=== PATIENT | male | born 1980 | race Two or more races ===

== ENCOUNTER 2020-02-25 09:14 | Inpatient (IN) | payer BC ==
[2020-02-25] MEDS ORDERED: NORMAL SALINE 1000 ML 1,000 ML IV ONE (09:41)
[2020-02-25] MEDS ORDERED: MORPHINE SULFATE 10 MG/ML INJ IV ONE ×2 (09:41→10:47)
--- NOTE | 2020-02-25 09:43 | ER Document Report ---
ED GI/ - General Chief Complaint: Abdominal Pain Stated Complaint: ABDOMINAL PAIN Time Seen by Provider: 02/25/20 09:30 Primary Care Provider: RADHA FARRIS [NO LOCAL MD] - Follow up as needed Notes: CHIEF COMPLAINT: Abdominal pain, constipation, fever HPI: 40-year-old male presenting by ambulance for evaluation of worsening abdominal pain over the last 3 days. Has had some nausea vomiting. States he saw his PCP yesterday was diagnosed with H. pylori but medications are not helping. Patient reports 3 days ago he was moving his bowels and had no abdominal pain. States it is generalized in nature. States he has not had a bowel movement in 3 days and reports continued generalized pain now also with chest discomfort from this. ROS: See HPI - all other systems were reviewed and are otherwise negative Constitutional: + fever Eyes: no drainage, no blurred vision ENT: no runny nose, no sore throat Cardiovascular: no chest pain Resp: no SOB, no cough GI: + vomiting, no diarrhea, + abdominal pain, positive constipation : no dysuria Integumentary: no rash, positive diaphoresis Allergy: no hives Musculoskeletal: no extremity pain or swelling Neurological: no numbness/tingling, no weakness MEDICATIONS: I agree with the patient medications as charted by the RN. ALLERGIES: I agree with the allergies as charted by the RN. PAST MEDICAL HISTORY/PAST SURGICAL HISTORY: Reviewed and agree as charted by RN. SOCIAL HISTORY: Reviewed and agree as charted by RN. FAMILY HISTORY: No significant familial comorbid conditions directly related to patient complaint EXAM: Reviewed vital signs as charted by RN. CONSTITUTIONAL: Alert and oriented and responds appropriately to questions. Well-appearing; well-nourished, moderate distress secondary to pain HEAD: Normocephalic; atraumatic EYES: PERRL; Conjunctivae clear, sclerae non-icteric ENT: normal nose; no rhinorrhea; moist mucous membranes; pharynx without lesions noted, no uvula edema or deviation, no tonsillar hypertrophy, phonation normal NECK: Supple without meningismus; non-tender; no cervical lymphadenopathy, no masses CARD: Tachycardic with heart rate 136; no murmurs, no clicks, no rubs, no gallops; symmetric distal pulses RESP: Normal chest excursion without splinting or tachypnea; breath sounds clear and equal bilaterally; no wheezes, no rhonchi, no rales, pulse oximetry 93% on room air mildly hypoxic ABD/GI: Decreased bowel sounds; mildly-distended; mild generalized tenderness on palpation, no rebound, no guarding; no palpable organomegaly or masses. BACK: The back appears normal and is non-tender to palpation, there is no CVA tenderness EXT: Normal ROM in all joints; non-tender to palpation; no cyanosis, no effusions, no edema SKIN: Normal color for age and race; warm; diaphoretic; good turgor; no acute lesions noted NEURO: Moves all extremities equally; Motor and sensory function intact PSYCH: The patient's mood and manner are appropriate. Grooming and personal hygiene are appropriate. MDM: 40-year-old male who reports no significant medical conditions with generalized abdominal pain over the last 3 days with constipation. Patient has low-grade fever, heart rate 136, patient is diaphoretic decreased bowel sounds are noted. No history of abdominal surgeries per the patient. Will obtain screening labs, lactic acid, plan for CT to evaluate for possible surgical or infectious pathology which may include perforation. - Related Data Allergies/Adverse Reactions: No Known Allergies Allergy (Verified 02/25/20 10:07) Past Medical History - Social History Smoking Status: Unknown if Ever Smoked Family History: Reviewed & Not Pertinent Physical Exam - Vital signs Vitals: Temp Pulse Resp BP Pulse Ox 100.3 F 132 H 22 H 135/64 H 90 L 02/25/20 10:06 02/25/20 10:06 02/25/20 10:06 02/25/20 10:06 02/25/20 10:06 Course - Re-evaluation Re-evalutation: 02/25/20 10:47 Patient with a significant leukocytosis of 20,000. Lactic acid 3.1. I have ordered additional IV fluids for sepsis protocol, I have ordered antibiotics. I reviewed the patient's CT awaiting the radiology read I suspect appendicitis. Patient on reexam still very uncomfortable still tachycardic. I have ordered additional pain medication. He does indicate that he is most tender in the right lower quadrant 02/25/20 11:26 Spoke with the radiologist. Patient with acute appendicitis with phlegmon. Also with right renal mass. Spoke with Dr. Braxton, surgery. Discussed the CT findings and lab work. Will admit - Vital Signs Vital signs: Temp Pulse Resp BP Pulse Ox 100.3 F 132 H 22 H 135/64 H 90 L 02/25/20 10:06 02/25/20 10:06 02/25/20 10:06 02/25/20 10:06 02/25/20 10:06 - Laboratory Result Diagrams: 02/25/20 09:46 02/25/20 09:46 Laboratory results interpreted by me: 02/25/20 02/25/20 02/25/20 09:46 09:46 09:46 WBC 20.2 H Monocytes % (Manual) 18 H Abs Neuts (Manual) 12.9 H Abs Monocytes (Manual) 3.6 H Sodium 136.8 L Potassium 3.5 L Carbon Dioxide 21 L Glucose 168 H Lactic Acid 3.1 H Calcium 7.7 L Urine Protein Urine Glucose (UA) Urine Blood 02/25/20 10:09 WBC Monocytes % (Manual) Abs Neuts (Manual) Abs Monocytes (Manual) Sodium Potassium Carbon Dioxide Glucose Lactic Acid Calcium Urine Protein 100 H Urine Glucose (UA) 50 H Urine Blood SMALL H Discharge - Discharge Clinical Impression: Acute phlegmonous appendicitis, Renal mass, right Condition: Stable Disposition: ADMITTED INPATIENT Admitting Provider: Len (Hospitalist) - Dr. Braxton Referrals: LOCALMD,NO [NO LOCAL MD] - Follow up as needed
[2020-02-25 10:04] LABS: HEMATOCRIT 41.9 % (37.9-51.0); HEMOGLOBIN 14.1 g/dL (13.5-17.0); MEAN CORPUSCULAR HEMOGLOBIN 28.1 pg (27.0-33.4); MEAN CORPUSCULAR HGB CONC 33.6 g/dL (32.0-36.0); MEAN CORPUSCULAR VOLUME 84 fl (80-97); PLATELET COUNT 383 10^3/uL (150-450); RED CELL DISTRIBUTION WIDTH 13.7 % (11.5-14.0); WHITE BLOOD COUNT 20.2 10^3/uL (4.0-10.5)
[2020-02-25 10:22] LABS: ALBUMIN 3.5 g/dL (3.5-5.0); ALKALINE PHOSPHATASE 79 U/L (38-126); ANION GAP 10 (5-19); ASPARTATE AMINO TRANSFERASE 22 U/L (17-59); BILIRUBIN,TOTAL 1.1 mg/dL (0.2-1.3); BLOOD UREA NITROGEN 11 mg/dL (7-20); CALCIUM 7.7 mg/dL (8.4-10.2); CARBON DIOXIDE 21 mmol/L (22-30); CHLORIDE 106 mmol/L (98-107); GLUCOSE 168 mg/dL (75-110); POTASSIUM 3.5 mmol/L (3.6-5.0); TOTAL PROTEIN 6.7 g/dL (6.3-8.2)
[2020-02-25 10:25] LABS: APPEARANCE,URINE CLOUDY; BILIRUBIN,URINE NEGATIVE (NEGATIVE); COLOR,URINE YELLOW; GLUCOSE, URINE 50 mg/dL (NEGATIVE); KETONES,URINE NEGATIVE (NEGATIVE); LEUKOCYTE ESTERASE,URINE NEGATIVE (NEGATIVE); NITRITE,URINE NEGATIVE (NEGATIVE); PROTEIN,URINE 100 mg/dL (NEGATIVE); UROBILINOGEN,URINE NEGATIVE mg/dL (<2.0)
[2020-02-25 10:29] LABS: ABSOLUTE LYMPHOCYTES# (MANUAL) 3.6 10^3/uL (0.5-4.7); ABSOLUTE MONOCYTES # (MANUAL) 3.6 10^3/uL (0.1-1.4); BAND NEUTROPHILS % (MANUAL) 3 % (3-5); BASOPHILS % (MANUAL) 0 % (0-2); EOSINOPHILS % (MANUAL) 0 % (0-6); LYMPHOCYTES % (MANUAL) 16 % (13-45); MONOCYTES % (MANUAL) 18 % (3-13); SEGMENTED NEUTROPHILS % (MAN) 61 % (42-78); TOTAL CELLS COUNTED 100
[2020-02-25 10:30] LABS: PLATELET COMMENT ADEQUATE; RBC MORPHOLOGY COMMENT NORMO-CYTIC/CHROMIC
[2020-02-25] MEDS ORDERED: PIPERACILLIN/TAZOBACTAM 3.375 GM VIAL IV ONE (10:43)
[2020-02-25] MEDS ORDERED: RINGERS SOLUTION,LACTATED 1,000 ML IV ONE ×3 (10:44→22:15)
--- NOTE | 2020-02-25 11:08 | RADIOLOGY REPORT (SQ) ---
EXAM DESCRIPTION: CHEST SINGLE VIEW IMAGES COMPLETED DATE/TIME: 02/25/2020 10:12 am REASON FOR STUDY: chest pain COMPARISON: None. EXAM PARAMETERS: NUMBER OF VIEWS: One view. TECHNIQUE: Single frontal radiographic view of the chest acquired. RADIATION DOSE: NA LIMITATIONS: None. FINDINGS: LUNGS AND PLEURA: Low lung volumes limits the examination. Bibasilar mild atelectasis/in filtrate, slightly more so on the right. No pneumothorax or pleural effusion. MEDIASTINUM AND HILAR STRUCTURES: No masses. Contour normal. HEART AND VASCULAR STRUCTURES: Prominence of the cardiomediastinal structures may be in part related to the limited degree of inspiration. Normal vasculature. BONES: No acute findings. HARDWARE: None in the chest. OTHER: No other significant finding. IMPRESSION: 1. Low lung volumes limits the examination. Prominence of the cardiomediastinal struct ures may be in part related to the limited degree of inspiration. 2. Bibasilar mild atelectasis/infiltrate, slightly more so on the right. TECHNICAL DOCUMENTATION: JOB ID: [id number] 2010 [employer]- All Rights Reserved Reading location - IP/workstation name: [email or web address]
[2020-02-25] MEDS ORDERED: PHENYLEPHRINE HCL INJ/PF 10 MG/1 ML SDV ONE (11:25)
[2020-02-25] MEDS ORDERED: KETOROLAC TROMETHAMINE 60 MG/2 ML SDV ONE (11:25)
[2020-02-25] MEDS ORDERED: ROCURONIUM BROMIDE INJ 50 MG/5 ML VIAL IV ONE (11:25)
[2020-02-25] MEDS ORDERED: VECURONIUM BROMIDE INJ 10 MG VIAL IV ONE (11:25)
[2020-02-25] MEDS ORDERED: SUCCINYLCHOLINE CHLORIDE INJ 200 MG/10 ML VIAL ONE (11:25)
--- NOTE | 2020-02-25 11:26 | RADIOLOGY REPORT (SQ) ---
EXAM DESCRIPTION: CT ABD/PELVIS WITH IV ONLY IMAGES COMPLETED DATE/TIME: 02/25/2020 10:40 am REASON FOR STUDY: abd pain COMPARISON: None. TECHNIQUE: CT scan of the abdomen and pelvis performed using helical scanning technique with dynamic intravenous contrast injection. No oral contrast. Images reviewed with lung, soft tissue, and bone windows. Reconstructed coronal and sagittal MPR images reviewed. Delayed images for evaluation of the urinary system also acquired. All images stored on PACS. All CT scanners at this facility use dose modulation, iterative reconstruction, and/or weight based d osing when appropriate to reduce radiation dose to as low as reasonably achievable (ALARA). [facility]: Dose Right [facility]: CareDose [facility]: Dose Right [facility]: Teradose 4D [facility]: Contemporary Analysis CONTRAST TYPE AND DOSE: contrast/concentration: Isovue 350.00 mg/ml; Total Contrast Delivered: 100.0 ml; Total Saline Delivered: 72.0 ml RENAL FUNCTION: Creatinine - 0.69 BUN=11 RADIATION DOSE: CT Rad equipment meets quality standard of care and radiation dose reduction techniq ues were employed. CTDIvol: 18.6 - 21.0 mGy. DLP: 2341 mGy-cm.. LIMITATIONS: None. FINDINGS: LOWER CHEST: Bibasilar mild atelectasis/infiltrate, slightly more so on the right. LIVER: Fatty liver. Hepatomegaly. No dilated ducts. The hepatic and portal veins are patent. SPLEEN: Normal size. No focal lesions. PANCREAS: No masses. No significant calcifications. No adjacent inflammation or peripancreatic fluid collections. Pancreatic duct not dilated. GALLBLADDER: The gallbladder is mildly distended. No identified stones by CT criteria. No inflammat ory changes to suggest cholecystitis. ADRENAL GLANDS: No significant masses or asymmetry. RIGHT KIDNEY AND URETER: A 2.6 x 2.4 cm slightly heterogenous enhancing round mass lower pole of the right kidney with a Hounsfield unit a 44 on the delayed axial images. No significant calcifications . No hydronephrosis or hydroureter. LEFT KIDNEY AND URETER: No solid masses. No significant calcifications. No hydronephrosis or hydr oureter. AORTA AND VESSELS: No aneurysm. No dissection. Renal arteries, SMA, celiac without stenosis. RETROPERITONEUM: No retroperitoneal adenopathy, hemorrhage or masses. BOWEL AND PERITONEAL CAVITY: Constipation right side of the colon. APPENDIX: Abnormal enlarged retrocecal appendix. The appendiceal wall is diffusely thickened and en hancement of the wall is present. Marked kalli-appendiceal soft tissue stranding, haziness and mild f luid. These findings extend to an surround the cecum and ascending colon. Mild free fluid extends i nto the right side of the pelvis. Considerations for these findings include phlegmon. No discrete d rainable abscess. Considerations for this finding includes acute appendicitis. PELVIS: No mass. No free fluid. Normal bladder. ABDOMINAL WALL: No masses. No hernias. BONES: Mild levoconvex scoliosis lumbar spine. OTHER: No other significant finding. IMPRESSION: 1. The constellation of findings as described above suggest acute appendicitis. The ap pendix appears to be retrocecal in location. Fairly extensive phlegmon in the right side of the abdo men. No evidence of drainable abscess. 2. A slightly heterogenous enhancing right renal mass. Correlation with MRI kidney with and without contrast. 3. The gallbladder is mildly distended maybe related to the inflammatory changes in the right side o f the abdomen. 4. Fatty liver. Hepatomegaly. 5. Bibasilar mild atelectasis/infiltrate, slightly more so on the right. COMMENT: 1. The results of this examination were discussed with emergency department provider on at 1107 hours. TECHNICAL DOCUMENTATION: JOB ID: [id number] Quality ID # [id number]: Final reports with documentation of one or more dose reduction techniques (e.g., Au tomated exposure control, adjustment of the mA and/or kV according to patient size, use of iterative reconstruction technique) 2010 [employer]- All Rights Reserved Reading location - IP/workstation name: [email or web address]
[2020-02-25] MEDS ORDERED: FENTANYL CITRATE INJ/PF 100 MCG/2 ML AMPUL IV ONE (11:56)
[2020-02-25] MEDS ORDERED: ACETAMINOPHEN 325 MG TABLET PO ONE (12:03)
[2020-02-25] MEDS ORDERED: HYDROMORPHONE HCL INJ/PF 2 MG/ML AMPULE ONE ×2 (12:22→17:16)
[2020-02-25] MEDS ORDERED: PROPOFOL INJ 200 MG/20 ML VIAL IV ONE (12:22)
[2020-02-25] MEDS ORDERED: MIDAZOLAM 2 MG/2 ML INJ ONE ×4 (12:22→21:32)
[2020-02-25] MEDS ORDERED: FENTANYL CITRATE INJ/PF 100 MCG/2 ML AMPUL ONE (12:22)
--- NOTE | 2020-02-25 12:22 | EKG REPORT ---
SEVERITY:- ABNORMAL ECG - SINUS TACHYCARDIA PROBABLE LEFT ATRIAL ABNORMALITY LEFT VENTRICULAR HYPERTROPHY BORDERLINE T ABNORMALITIES, INFERIOR LEADS : Confirmed by: Andre Diaz MD 25-Feb-2020 12:22:06
[2020-02-25] MEDS ORDERED: BUPIVACAINE HCL 0.25 % INJ/PF (2.5 MG/1 ML) 30 ML VIAL ONE (12:45)
--- NOTE | 2020-02-25 13:23 | PDOC H&P ---
History of Present Illness Admission Date/PCP: 02/25/20 11:48 Patient complains of: Abdominal pains History of Present Illness: JUAN LOPEZ is a 40 year old male who has been complaining of abdominal pains for the past 3 days associated with nausea and vomiting. He went to see his family physician yesterday and given anti-H. pylori medication with no improvement. Came to ED this morning writhing in pain and a CT scan of the abdomen was done which showed acute appendicitis with some phlegmon around the cecum and the fluid. He is tachycardic and his white count is elevated. Social History Smoking Status: Unknown if Ever Smoked Family History Family History: Reviewed & Not Pertinent Parental Family History Reviewed: Yes Children Family History Reviewed: No Sibling(s) Family History Reviewed.: No Medication/Allergy Home Medications: Amoxicillin 500 mg PO Q12 02/25/20 Clarithromycin [Biaxin 500 mg Tablet] 500 mg PO Q12 02/25/20 Omeprazole 20 mg PO BID 02/25/20 Allergies/Adverse Reactions: No Known Allergies Allergy (Verified 02/25/20 10:07) Review of Systems Constitutional: PRESENT: as per HPI Cardiovascular: PRESENT: chest pain Gastrointestinal: PRESENT: abdominal pain, constipation, nausea, vomiting Physical Exam Vital Signs: Temp Pulse Resp BP Pulse Ox 101.1 F H 132 H 50 H 133/71 H 91 L 02/25/20 11:52 02/25/20 10:06 02/25/20 12:03 02/25/20 12:03 02/25/20 11:00 Intake & Output 02/24/20 02/25/20 02/26/20 06:59 06:59 06:59 Intake Total 1000 Balance 1000 Weight 113.398 kg General appearance: PRESENT: severe distress Eye exam: PRESENT: conjunctiva pink Mouth exam: PRESENT: dry mucosa Neck exam: PRESENT: full ROM Respiratory exam: PRESENT: tachypnea Cardiovascular exam: PRESENT: tachycardia Pulses: PRESENT: normal radial pulses Vascular exam: PRESENT: normal capillary refill GI/Abdominal exam: PRESENT: tenderness - Diffuse tenderness with more so at the right lower quadrant Rectal exam: PRESENT: deferred Neurological exam: PRESENT: alert, oriented to person, oriented to place, oriented to time, oriented to situation Psychiatric exam: PRESENT: appropriate affect Skin exam: PRESENT: normal color, warm Results Laboratory Results: 02/25/20 09:46 02/25/20 09:46 02/25/20 02/25/20 02/25/20 09:46 09:46 09:46 WBC 20.2 H RBC 5.00 Hgb 14.1 Hct 41.9 MCV 84 MCH 28.1 MCHC 33.6 RDW 13.7 Plt Count 383 Seg Neutrophils % Not Reportable Sodium 136.8 L Potassium 3.5 L Chloride 106 Carbon Dioxide 21 L Anion Gap 10 BUN 11 Creatinine 0.69 Est GFR ( Amer) > 60 Glucose 168 H Lactic Acid 3.1 H Calcium 7.7 L Total Bilirubin 1.1 AST 22 Alkaline Phosphatase 79 Total Protein 6.7 Albumin 3.5 Lipase 73.9 Urine Color Urine Appearance Urine pH Ur Specific [place] Urine Protein Urine Glucose (UA) Urine Ketones Urine Blood Urine Nitrite Ur Leukocyte Esterase Urine WBC (Auto) Urine RBC (Auto) 02/25/20 10:09 WBC RBC Hgb Hct MCV MCH MCHC RDW Plt Count Seg Neutrophils % Sodium Potassium Chloride Carbon Dioxide Anion Gap BUN Creatinine Est GFR ( Amer) Glucose Lactic Acid Calcium Total Bilirubin AST Alkaline Phosphatase Total Protein Albumin Lipase Urine Color YELLOW Urine Appearance CLOUDY Urine pH 6.0 Ur Specific [place] 1.020 Urine Protein 100 H Urine Glucose (UA) 50 H Urine Ketones NEGATIVE Urine Blood SMALL H Urine Nitrite NEGATIVE Ur Leukocyte Esterase NEGATIVE Urine WBC (Auto) 4 Urine RBC (Auto) 7 02/25/20 09:46 Troponin I < 0.012 Impressions: Chest X-Ray 02/25/20 09:41 IMPRESSION: 1. Low lung volumes limits the examination. Prominence of the cardiomediastinal structures may be in part related to the limited degree of inspiration. 2. Bibasilar mild atelectasis/infiltrate, slightly more so on the right. Abdomen/Pelvis CT 02/25/20 09:42 IMPRESSION: 1. The constellation of findings as described above suggest acute appendicitis. The appendix appears to be retrocecal in location. Fairly extensive phlegmon in the right side of the abdomen. No evidence of drainable abscess. 2. A slightly heterogenous enhancing right renal mass. Correlation with MRI kidney with and without contrast. 3. The gallbladder is mildly distended maybe related to the inflammatory changes in the right side of the abdomen. 4. Fatty liver. Hepatomegaly. 5. Bibasilar mild atelectasis/infiltrate, slightly more so on the right. Assessment & Plan - Diagnosis (1) Acute phlegmonous appendicitis Is this a current diagnosis for this admission?: Yes (2) Renal mass, right Is this a current diagnosis for this admission?: Yes - Time Time Spent: 30 to 50 Minutes - Inpatient Certification Medical Necessity: Need For IV Fluids, Need for Pain Control, Need for IV Antibiotics, Need for Surgery - Plan Summary Plan Summary: Plans: 1 start hydration and IV antibiotics 2 OR for laparoscopic appendectomy possible open
[2020-02-25] MEDS ORDERED: SODIUM BICARBONATE 8.4% INJ 50 MEQ/50 ML DISP.SYRIN ONE (13:50)
[2020-02-25] MEDS ORDERED: ONDANSETRON HCL INJ/PF 4 MG/2 ML SDV IV PRN (14:18)
[2020-02-25] MEDS ORDERED: MORPHINE SULFATE 10 MG/ML INJ IV PRN ×2 (14:18→16:45)
[2020-02-25] MEDS ORDERED: OXYCODONE-ACETAMINOPHEN 5-325 MG TABLET PO PRN (14:18)
[2020-02-25] MEDS ORDERED: PROMETHAZINE HCL INJ 25 MG/1 ML VIAL IV PRN (14:18)
[2020-02-25] MEDS ORDERED: MEPERIDINE HCL/PF INJ 25 MG/1 ML DISP.SYRIN IV PRN (14:18)
[2020-02-25] MEDS ORDERED: FENTANYL CITRATE INJ/PF 100 MCG/2 ML AMPUL IV PRN ×3 (14:18)
[2020-02-25] MEDS ORDERED: DIPHENHYDRAMINE HCL 50 MG/ML VIAL IV PRN (14:18)
[2020-02-25] MEDS ORDERED: ACETAMINOPHEN 1,000 MG/100 ML RTUPB IV ONE (15:46)
[2020-02-25] MEDS ORDERED: ALBUMIN HUMAN 12.5 GM/50 ML RTUINJ IV ONE (16:00)
[2020-02-25] MEDS ORDERED: DEXTROSE 5%-LACTATED RINGERS 1,000 ML IV PRN (16:45)
--- NOTE | 2020-02-25 17:13 | Operative Report ---
Operative Report DATE OF SURGERY: 02/25/20 PREOPERATIVE DIAGNOSIS: Acute appendicitis POSTOPERATIVE DIAGNOSIS: Acute perforated appendicitis with peritonitis OPERATION: Exploratory laparotomy,appendectomy SURGEON: HERIBERTO DANIELS ANESTHESIA: GA TISSUE REMOVED OR ALTERED: Appendix COMPLICATIONS: Small serosal tear in the ascending colon ESTIMATED BLOOD LOSS: 100 cc QUANTITATIVE BLOOD LOSS: 100 INTRAOPERATIVE FINDINGS: Generalized peritonitis, retrocecal appendix adherent to the cecum going towards the hepatic flexure with perforation of the tip of the appendix PROCEDURE: After adequate general anesthesia patient was placed in supine position and the abdomen prepped and draped in the usual sterile fashion. Appropriate timeout was called. Next an infraumbilical vertical incision was made fascia identified grasped with 2 Dayne clamps and divided between the 2 Dayne clamps. The abdominal cavity was then palpated and some purulent material extruded out. A Lee trocar was then inserted. CO2 insufflated to pressure 15 mmHg. On exploration of the abdomen there appears to be a lot of light purulent yellowish material. Appendix cannot be identified. Because of this the operation was then converted to an open. Next a midline incision was then made from the umbilicus down to the symphysis pubis and superiorly around the umbilicus to about 2 inches above. Midline fascia was open and with the use of retractors appendix stump is noted and noted to be somewhat firm and dilated. Plus followed proximally by dividing some of the lateral gutter wall. Appendix was then bluntly dissected all the way up towards the area of the hepatic flexure. Was then bluntly dissected and adhesions divided with use of cautery. The tip of the appendix was then released and appears to have a perforation. Also there appears to be a very small area of serosal tear the ascending colon and this was then repaired with 3 simple sutures using 2-0 silk. Next the appendix was then bluntly dissected and also with the use of harmonic julia down to its base. The base the cecum appears to be not involved with inflammation and this was subsequently stapled with a 30 mm blue load staple and divided just above the staple line. Hemostat was placed just above the staple area on the appendix. Next a specimen was then completely removed and passed off the table to be sent to pathology. The abdominal cavity was then copiously irrigated with at least 8 L of saline until all the return flow was clear. The small bowel was run from the ileum to the ligament of Treitz and showed no evidence of inflammation or any injury. Next couple of drains were placed one in the left lower quadrant brought up to the area of the appendix and subhepatic area the. It was then anchored to the skin with 2-0 silk. Another drain was then passed through the left lower quadrant and passed down to the pelvis on the right side and the tip right at the area of the appendiceal stump. NG tube was then inserted by anesthesia and palpated well into the stomach. Fascia was then reapproximated using 0 PDS starting from the top then at the bottom and meeting just below the umbilicus and tied together. Subcu was left open and untied sutures using #2 nylon were placed. A Betadine soaked Kerlix was then placed over the sutures on the incision site. Sterile 4 x 4 and ABD pads were placed over the incision. The wound was left open to be closed on delayed primary closure at bedside in about 2 or 3 days. Patient tolerated the procedure fairly well. However is not stable enough to be extubated and therefore brought to the intensive care unit still intubated. Patient tolerated procedure fairly well. Needle instrument sponge count were all correct and estimated blood loss about 100 cc
[2020-02-25] MEDS ORDERED: DEXMEDETOMIDINE IN 0.9 % NACL 400 MCG/100 ML RTUPB IV ONE (17:14)
[2020-02-25] MEDS: DEXMEDETOMIDINE IN 0.9 % NACL 400 MCG/100 ML RTUPB IV PRN (17:15)
[2020-02-25] MEDS: HYDROMORPHONE HCL INJ/PF 2 MG/ML AMPULE IV PRN ×2 (17:16→22:10)
--- NOTE | 2020-02-25 18:14 | CRITICAL CARE ADMISSION REPORT ---
HPI Date:: 02/25/20 Time:: 17:00 Reason for ICU Reason:: Intubated post op HPI: This patient is a 40 yo man sick for 3 days with abdominal pain. He presented to the ED where he was found to have an acute abdomen and taken to the OR where a perforated appendix was discovered. An appendectomy was done, adhesions were taken down and the abdomen was irrigated with up to 9L of irrigant. 2 NADER drains were placed. He was septic on admission and required neosynephrine in the OR but not post op.The abdomen was closed but the skin and subQ left open. History obtained from:: Surgeon and records - Diagnosis/Plan (1) Sepsis associated hypotension Is this a current diagnosis for this admission?: Yes Plan: Present on admission and still active in the immediate post-op phase. His low BP likely due to dehydration and anesthesia. (2) Intubation of airway performed without difficulty Is this a current diagnosis for this admission?: Yes Plan: He will stay intubated overnight while his fluid balance settles and his sepsis is treated. (3) Acute phlegmonous appendicitis Is this a current diagnosis for this admission?: Yes Plan: Treated with surgery. - . Plan Summary: Leave intubated overnight and hope to extubate in AM Social/Family History - Social History Smoking Status: Unknown if Ever Smoked - Medication/Allergies Home Medications: Amoxicillin 500 mg PO Q12 02/25/20 Clarithromycin [Biaxin 500 mg Tablet] 500 mg PO Q12 02/25/20 Omeprazole 20 mg PO BID 02/25/20 Allergies/Adverse Reactions: No Known Allergies Allergy (Verified 02/25/20 10:07) Review of Systems ROS unobtainable: Due to endotracheal tube Physical Exam Vital Signs: Temp Pulse Resp BP Pulse Ox 101.1 F H 132 H 50 H 133/71 H 100 02/25/20 11:52 02/25/20 10:06 02/25/20 12:03 02/25/20 12:03 02/25/20 16:42 Intake & Output 02/24/20 02/25/20 02/26/20 06:59 06:59 06:59 Intake Total 92476 Output Total 9500 Balance 1000 Weight 113.398 kg Weight/Height Weight 113.398 kg Height 5 ft 5 in General appearance: PRESENT: no acute distress, morbidly obese Head exam: PRESENT: atraumatic, normocephalic Eye exam: PRESENT: conjunctiva pink, EOMI, PERRLA. ABSENT: scleral icterus Ear exam: PRESENT: normal external ear exam Mouth exam: PRESENT: moist, tongue midline Respiratory exam: PRESENT: clear to auscultation daisy. ABSENT: rales, rhonchi, wheezes Cardiovascular exam: PRESENT: RRR, tachycardia. ABSENT: diastolic murmur, rubs, systolic murmur GI/Abdominal exam: PRESENT: normal bowel sounds, soft, other - NADER X 2 with serosanguinous drainage. Abdominal compartment pressure 10-12. ABSENT: distended, guarding, mass, organolmegaly, rebound, tenderness Laboratory/Radiographs Laboratory Results: 02/25/20 09:46 02/25/20 09:46 02/25/20 02/25/20 02/25/20 09:46 09:46 09:46 WBC 20.2 H RBC 5.00 Hgb 14.1 Hct 41.9 MCV 84 MCH 28.1 MCHC 33.6 RDW 13.7 Plt Count 383 Seg Neutrophils % Not Reportable Sodium 136.8 L Potassium 3.5 L Chloride 106 Carbon Dioxide 21 L Anion Gap 10 BUN 11 Creatinine 0.69 Est GFR ( Amer) > 60 Glucose 168 H Lactic Acid 3.1 H Calcium 7.7 L Total Bilirubin 1.1 AST 22 Alkaline Phosphatase 79 Total Protein 6.7 Albumin 3.5 Lipase 73.9 Urine Color Urine Appearance Urine pH Ur Specific Celestine Urine Protein Urine Glucose (UA) Urine Ketones Urine Blood Urine Nitrite Ur Leukocyte Esterase Urine WBC (Auto) Urine RBC (Auto) 02/25/20 10:09 WBC RBC Hgb Hct MCV MCH MCHC RDW Plt Count Seg Neutrophils % Sodium Potassium Chloride Carbon Dioxide Anion Gap BUN Creatinine Est GFR ( Amer) Glucose Lactic Acid Calcium Total Bilirubin AST Alkaline Phosphatase Total Protein Albumin Lipase Urine Color YELLOW Urine Appearance CLOUDY Urine pH 6.0 Ur Specific Cel[place] 1.020 Urine Protein 100 H Urine Glucose (UA) 50 H Urine Ketones NEGATIVE Urine Blood SMALL H Urine Nitrite NEGATIVE Ur Leukocyte Esterase NEGATIVE Urine WBC (Auto) 4 Urine RBC (Auto) 7 02/25/20 09:46 Troponin I < 0.012 Impressions: Chest X-Ray 02/25/20 09:41 IMPRESSION: 1. Low lung volumes limits the examination. Prominence of the cardiomediastinal structures may be in part related to the limited degree of inspiration. 2. Bibasilar mild atelectasis/infiltrate, slightly more so on the right. Abdomen/Pelvis CT 02/25/20 09:42 IMPRESSION: 1. The constellation of findings as described above suggest acute appendicitis. The appendix appears to be retrocecal in location. Fairly extensive phlegmon in the right side of the abdomen. No evidence of drainable abscess. 2. A slightly heterogenous enhancing right renal mass. Correlation with MRI kidney with and without contrast. 3. The gallbladder is mildly distended maybe related to the inflammatory changes in the right side of the abdomen. 4. Fatty liver. Hepatomegaly. 5. Bibasilar mild atelectasis/infiltrate, slightly more so on the right. EKG: ST [facility] All labs, radiographs, diagnostic studies and EKGs were personally reviewed: Yes In addition, reports of radiographic and diagnostic studies were read: Yes Critical Time Critical Time (minutes): 40 -: The care of a critically ill patient is dynamic. This note represents a static moment in the admission process. Orders and treatments may be given simultaneously and urgently, and time is not petroleum products sales representative of the treatment process. This patient requires Critical Care secondary to life threatening organ or limb dysfunction. Without Critical Care services, the patient is at risk for increased mortality and morbidity.
[2020-02-25] MEDS: METRONIDAZOLE 500 MG/NS RTU 500 MG/100 ML RTUPB IV SCH ×2 (18:30→23:19)
[2020-02-25] MEDS: PANTOPRAZOLE SODIUM 40 MG VIAL IV SCH (18:32)
[2020-02-25] MEDS ORDERED: MIDAZOLAM 2 MG/2 ML INJ IV ONE ×2 (20:30→22:15)
[2020-02-25] MEDS ORDERED: KETAMINE HCL INJ 500 MG/10 ML VIAL ONE ×3 (20:32→21:58)
[2020-02-25] MEDS: MIDAZOLAM HCL 50 MG/100 ML RTUINJ IV PRN (21:10)
--- NOTE | 2020-02-25 21:10 | RADIOLOGY REPORT (SQ) ---
EXAM DESCRIPTION: CLINICAL HISTORY: 40 years Male ETT placement confirmation COMPARISON: 02/25/2020 FINDINGS: Poor depth of inspiration. Endotracheal tube is 2.5 cm above the elias. Linear atelectasis in the left lung base increasing when compared to the prior. Nasogastric tube in the gastric body. IMPRESSION: ET tube above the elias Increasing atelectasis in the left lung base
[2020-02-25 21:15] LABS: ANION GAP 8 (5-19); BLOOD UREA NITROGEN 17 mg/dL (7-20); CALCIUM 7.4 mg/dL (8.4-10.2); CARBON DIOXIDE 22 mmol/L (22-30); CHLORIDE 105 mmol/L (98-107); GLUCOSE 139 mg/dL (75-110); PHOSPHORUS 4.2 mg/dL (2.5-4.5)
[2020-02-25 21:23] LABS: POTASSIUM 4.5 mmol/L (3.6-5.0)
[2020-02-25] MEDS ORDERED: MIDAZOLAM HCL 50 MG/100 ML RTUINJ ONE (21:32)
[2020-02-25] MEDS ORDERED: NOREPINEPHRINE BITARTRATE INJ/PF 4 MG/4 ML SDV IV ONE (21:46)
[2020-02-25] MEDS ORDERED: DEXTROSE 5%-WATER 250 ML with NOREPINEPHRINE BITARTRATE 4 MG IV PRN ×2 (21:57)
--- NOTE | 2020-02-25 22:13 | Operative Report ---
Bedside Procedure - History of Present Illness History of Present Illness: This patient is a 40 yo man with septic perforated appendicitis s/p ex-lap with appendectomy and large volume irrigation who remains with refractory hypotension despite multiple liters of crystalloid solution boluses. He was on Phenylephrine infusion intraoperatively and now appears to need resumption of vasopressor therapy for septic shock. PROCEDURE: ARTERIAL LINE PROCEDURALIST: MELI WHITE PRE-PROCEDURE DX: REFRACTORY HYPOTENSION, septic shock POST-PROCEDURE DX: REFRACTORY HYPOTENSION, septic shock ANESTHESIA: 3 ML 1% LIDOCAINE COMPLICATIONS: NONE Patient placed in proper procedural position followed by prepping and draping in usual sterile fashion. Utilizing ultrasound, the left radial artery was identified and found to be pulsating without evidence of thrombus in the mid radius region. An 18-gauge 4.5 cm preloaded catheter over 20-gauge introducer needle was visualized entering the left radial artery with return of pulsatile blood. The catheter was advanced over the needle into the left radial artery and the needle was removed, again noting pulsatile blood from the catheter. The catheter was sutured into place noting a good arterial waveform on the monitor, a sterile occlusive transparent dressing was applied, and a pressure tubing was connected to the catheter in usual fashion. Indication for Procedure: Refractory Hypotension Date: 02/25/20 Provider: SHADE WYATT
[2020-02-25] MEDS: CIPROFLOXACIN 400 MG/D5W RTU 400 MG/200 ML RTUPB IV SCH (22:15)
[2020-02-25] MEDS: KETAMINE HCL IV PRN ×2 (22:25)
[2020-02-25] MEDS: NORMAL SALINE IV PRN ×2 (22:25)
[2020-02-25] MEDS: MAGNESIUM SULFATE/D5W 1 GM/100 ML RTUPB IV SCH (23:11)
[2020-02-25] MEDS ORDERED: DEXTROSE 40% GEL 15 GM TUBE PO PRN ×2 (23:34)
[2020-02-25] MEDS ORDERED: GLUCAGON,HUMAN RECOMB 1 MG INJ IM PRN (23:34)
[2020-02-25] MEDS ORDERED: DEXTROSE 50%-WATER 25 GM/50 ML DISP.SYRIN IV PRN ×2 (23:34)
[2020-02-25 23:38] LABS: ARTERIAL BLOOD BASE EXCESS -1.4 mmol/L; ARTERIAL BLOOD H2CO3 1.45 mmol/L (1.05-1.35); ARTERIAL BLOOD HCO3 24.9 mmol/L (20-24); ARTERIAL BLOOD O2 SATURATION 94.9 % (94-98); ARTERIAL BLOOD PCO2 48.3 mmHg (35-45); ARTERIAL BLOOD PH 7.33 (7.35-7.45); ARTERIAL BLOOD PO2 79.7 mmHg (80-100); ARTERIAL BLOOD TOTAL CO2 26.4 mmol/L (23-27)
[2020-02-25] MEDS ORDERED: KETAMINE HCL INJ 500 MG/10 ML VIAL IV ONE (23:40)
[2020-02-25] MEDS: INSULIN REG, HUMAN 100 UNIT/ML 3 ML VIAL (PYX) SUBCUT SCH (23:49)
[2020-02-25 23:50] LABS: ARTERIAL BLOOD FIO2 50%
[2020-02-25] MEDS: RINGERS SOLUTION,LACTATED 1,000 ML IV PRN (23:50)
[2020-02-26] MEDS: MAGNESIUM SULFATE/D5W 1 GM/100 ML RTUPB IV SCH ×3 (00:07→02:12)
[2020-02-26 00:18] LABS: URINE CREATININE 374.9 mg/dL (22-328)
[2020-02-26] MEDS: NORMAL SALINE IV PRN ×4 (00:29→02:48)
[2020-02-26] MEDS: KETAMINE HCL IV PRN ×4 (00:29→02:48)
[2020-02-26] MEDS: HYDROMORPHONE HCL INJ/PF 2 MG/ML AMPULE IV PRN ×5 (01:34→19:27)
[2020-02-26] MEDS ORDERED: KETAMINE HCL INJ 500 MG/10 ML VIAL ONE (02:32)
[2020-02-26] MEDS: MIDAZOLAM HCL 50 MG/100 ML RTUINJ IV PRN (05:10)
[2020-02-26] MEDS: RINGERS SOLUTION,LACTATED 1,000 ML IV PRN ×3 (05:12→16:41)
[2020-02-26] MEDS ORDERED: DEXMEDETOMIDINE IN 0.9 % NACL 400 MCG/100 ML RTUPB IV PRN (05:41)
[2020-02-26] MEDS: METRONIDAZOLE 500 MG/NS RTU 500 MG/100 ML RTUPB IV SCH ×4 (05:49→23:03)
[2020-02-26 05:56] LABS: ARTERIAL BLOOD BASE EXCESS -3.4 mmol/L; ARTERIAL BLOOD H2CO3 1.35 mmol/L (1.05-1.35); ARTERIAL BLOOD HCO3 22.6 mmol/L (20-24); ARTERIAL BLOOD O2 SATURATION 91.9 % (94-98); ARTERIAL BLOOD PCO2 44.7 mmHg (35-45); ARTERIAL BLOOD PH 7.32 (7.35-7.45); ARTERIAL BLOOD PO2 67.1 mmHg (80-100)
[2020-02-26 05:57] LABS: ARTERIAL BLOOD FIO2 40%
[2020-02-26] MEDS ORDERED: ACETAMINOPHEN 1,000 MG/100 ML RTUPB IV ONE ×2 (06:00→21:30)
[2020-02-26] MEDS ORDERED: METHOCARBAMOL INJ/PF 1000 MG/10 ML SDV IV ONE (06:00)
[2020-02-26] MEDS: INSULIN REG, HUMAN 100 UNIT/ML 3 ML VIAL (PYX) SUBCUT SCH ×4 (06:01→23:07)
[2020-02-26 06:08] LABS: ABSOLUTE LYMPHOCYTES (AUTO) 0.9 10^3/uL (0.5-4.7); ABSOLUTE MONOCYTES (AUTO) 0.9 10^3/uL (0.1-1.4); ABSOLUTE NEUT (AUTO) 6.7 10^3/uL (1.7-8.2); BASOPHILS % (AUTO) 0.1 % (0-2); HEMATOCRIT 33.7 % (37.9-51.0); LYMPHOCYTES % (AUTO) 10.2 % (13-45); MEAN CORPUSCULAR HEMOGLOBIN 28.5 pg (27.0-33.4); MEAN CORPUSCULAR HGB CONC 33.6 g/dL (32.0-36.0); MEAN CORPUSCULAR VOLUME 85 fl (80-97); MONOCYTES % (AUTO) 10.8 % (3-13); PLATELET COUNT 211 10^3/uL (150-450); RED BLOOD COUNT 3.97 10^6/uL (4.35-5.55); RED CELL DISTRIBUTION WIDTH 13.7 % (11.5-14.0); SEGMENTED NEUTROPHILS % (AUTO) 78.9 % (42-78); TOTAL CELLS COUNTED % (AUTO) 100 %; WHITE BLOOD COUNT 8.5 10^3/uL (4.0-10.5)
[2020-02-26 06:11] LABS: BLOOD UREA NITROGEN 21 mg/dL (7-20); CALCIUM 7.1 mg/dL (8.4-10.2); CHLORIDE 104 mmol/L (98-107); GLUCOSE 116 mg/dL (75-110); POTASSIUM 4.7 mmol/L (3.6-5.0)
[2020-02-26 06:12] LABS: HEMOGLOBIN 11.3 g/dL (13.5-17.0)
[2020-02-26 06:16] LABS: ANION GAP 5 (5-19); CARBON DIOXIDE 26 mmol/L (22-30)
[2020-02-26] MEDS: CIPROFLOXACIN 400 MG/D5W RTU 400 MG/200 ML RTUPB IV SCH ×2 (10:47→21:45)
[2020-02-26] MEDS: PANTOPRAZOLE SODIUM 40 MG VIAL IV SCH (10:48)
[2020-02-26] MEDS: DEXMEDETOMIDINE IN 0.9 % NACL 400 MCG/100 ML RTUPB IV PRN ×5 (10:49→21:25)
[2020-02-26] MEDS: ENOXAPARIN SODIUM INJ 40 MG/0.4 ML DISP.SYRIN SUBCUT SCH (10:50)
--- NOTE | 2020-02-26 10:54 | PDOC PROGRESS REPORT ---
Subjective Progress Note for:: 02/26/20 Subjective:: Is still intubated and for possible extubation today Reason For Visit: PERFORATED ACUTE APPENDICITIS WITH PERITONITIS Physical Exam Vital Signs: Temp Pulse Resp BP Pulse Ox 102.6 F H 86 24 H 93/52 L 92 02/26/20 10:00 02/26/20 10:00 02/26/20 10:00 02/26/20 10:00 02/26/20 10:00 Intake & Output 02/25/20 02/26/20 02/27/20 06:59 06:59 06:59 Intake Total 24636 Output Total 13612 145 Balance 6776 -145 Weight 125.4 kg Exam: His abdomen is soft and dressing is without blood. Wound is left open for possi ble delayed primary closure in 24 to 48 hours. NG tube has only about 100 cc of greenish fluid. Results Laboratory Results: 02/26/20 05:37 02/26/20 05:37 02/25/20 02/25/20 02/25/20 20:24 20:24 23:29 WBC RBC Hgb Hct MCV MCH MCHC RDW Plt Count Seg Neutrophils % Carbonic Acid 1.45 H HCO3/H2CO3 Ratio 17:1 ABG pH 7.33 L ABG pCO2 48.3 H ABG pO2 79.7 L ABG HCO3 24.9 H ABG O2 Saturation 94.9 ABG Base Excess -1.4 FiO2 50% Sodium 135.3 L Potassium 4.5 D Chloride 105 Carbon Dioxide 22 Anion Gap 8 BUN 17 Creatinine 1.07 Est GFR ( Amer) > 60 Glucose 139 H Lactic Acid 5.4 H Calcium 7.4 L Ionized Calcium [place] Phosphorus 4.2 Magnesium 1.5 L 02/26/20 02/26/20 02/26/20 05:37 05:37 05:37 WBC 8.5 RBC 3.97 L Hgb 11.3 L D Hct 33.7 L MCV 85 MCH 28.5 MCHC 33.6 RDW 13.7 Plt Count 211 Seg Neutrophils % 78.9 H Carbonic Acid 1.35 HCO3/H2CO3 Ratio 16:1 ABG pH 7.32 L ABG pCO2 44.7 ABG pO2 67.1 L ABG HCO3 22.6 ABG O2 Saturation 91.9 L ABG Base Excess -3.4 FiO2 40% Sodium 135.1 L Potassium 4.7 Chloride 104 Carbon Dioxide 26 Anion Gap 5 BUN 21 H Creatinine 0.97 Est GFR ( Amer) > 60 Glucose 116 H Lactic Acid Calcium 7.1 L Ionized Calcium [place] 1.03 L Phosphorus Magnesium 02/26/20 05:37 WBC RBC Hgb Hct MCV MCH MCHC RDW Plt Count Seg Neutrophils % Carbonic Acid HCO3/H2CO3 Ratio ABG pH ABG pCO2 ABG pO2 ABG HCO3 ABG O2 Saturation ABG Base Excess FiO2 Sodium Potassium Chloride Carbon Dioxide Anion Gap BUN Creatinine Est GFR ( Amer) Glucose Lactic Acid 1.2 Calcium Ionized Calcium [place] Phosphorus Magnesium 02/25/20 09:46 Troponin I < 0.012 Impressions: Chest X-Ray 02/25/20 09:41 IMPRESSION: 1. Low lung volumes limits the examination. Prominence of the cardiomediastinal structures may be in part related to the limited degree of inspiration. 2. Bibasilar mild atelectasis/infiltrate, slightly more so on the right. Abdomen/Pelvis CT 02/25/20 09:42 IMPRESSION: 1. The constellation of findings as described above suggest acute appendicitis. The appendix appears to be retrocecal in location. Fairly extensive phlegmon in the right side of the abdomen. No evidence of drainable abscess. 2. A slightly heterogenous enhancing right renal mass. Correlation with MRI kidney with and without contrast. 3. The gallbladder is mildly distended maybe related to the inflammatory changes in the right side of the abdomen. 4. Fatty liver. Hepatomegaly. 5. Bibasilar mild atelectasis/infiltrate, slightly more so on the right. Assessment & Plan - Diagnosis (1) Acute phlegmonous appendicitis Is this a current diagnosis for this admission?: Yes (2) Renal mass, right Is this a current diagnosis for this admission?: Yes - Time Critical Time spent with patient: 15-24 minutes - Inpatient Certification Medical Necessity: Need Close Monitoring Due to Risk of Patient Decompensation, Need for IV Antibiotics - Plan Summary Plan Summary: Patient is postop day #1 post exploratory laparotomy with appendectomy and abdominal lavage for peritonitis. Patient still intubated and possible extubation today by the aerosol supervisor. His WBC is normal this morning Plans: Continue IV antibiotics. Once extubated possible discontinuation of the NG tube and start on ice chips or sips of clear liquids.
--- NOTE | 2020-02-26 13:21 | PDOC CRITICAL CARE PROG REPORT ---
General Date:: 02/26/20 ICU Day:: 2 Ventilator Day:: 2 Hospital Day:: 2 Resuscitation Status: Full Code Events in the past 12 to 24 Hours:: Had surgery for ruptured appendicitis. Weaning ventilator. Review of systems relevant to events:: GI Respiratory. Reason for ICU Addmission:: Intubated post op - Medications: Medications reviewed and adjusted accordingly: Yes Vasopressors:: None Sedation:: Versed, precedex. Physical Exam Vital Signs: Temp Pulse Resp BP Pulse Ox 102.6 F H 86 24 H 93/52 L 92 02/26/20 10:00 02/26/20 10:00 02/26/20 10:00 02/26/20 10:00 02/26/20 10:00 Intake & Output 02/25/20 02/26/20 02/27/20 06:59 06:59 06:59 Intake Total 68256 1057 Output Total 67569 145 Balance 6776 912 Weight 125.4 kg Weight/Height Weight 125.4 kg Height 5 ft 5 in General appearance: PRESENT: no acute distress, morbidly obese Head exam: PRESENT: atraumatic, normocephalic Eye exam: PRESENT: conjunctiva pink, EOMI, PERRLA. ABSENT: scleral icterus Ear exam: PRESENT: normal external ear exam Mouth exam: PRESENT: moist, tongue midline Respiratory exam: PRESENT: clear to auscultation daisy. ABSENT: rales, rhonchi, wheezes Cardiovascular exam: PRESENT: RRR. ABSENT: diastolic murmur, rubs, systolic murmur GI/Abdominal exam: PRESENT: normal bowel sounds, soft, other - Wound open. Healing by secondary intension.. ABSENT: distended, guarding, mass, organolmegaly, rebound, tenderness Rectal exam: PRESENT: deferred Gentrourinary exam: PRESENT: indwelling catheter Extremities exam: PRESENT: full ROM. ABSENT: calf tenderness, clubbing, pedal edema Musculoskeletal exam: PRESENT: normal inspection Neurological exam: PRESENT: other - Sedated. Skin exam: PRESENT: dry, intact, warm. ABSENT: cyanosis, rash Tubes/Lines: PRESENT: Endotracheal Tube, Central Line, Nasogastic Tube Laboratory/Radiographs Laboratory Results: 02/26/20 05:37 02/26/20 05:37 04/16/20 04/16/20 04/16/20 20:24 20:24 23:29 WBC RBC Hgb Hct MCV MCH MCHC RDW Plt Count Seg Neutrophils % Carbonic Acid 1.45 H HCO3/H2CO3 Ratio 17:1 ABG pH 7.33 L ABG pCO2 48.3 H ABG pO2 79.7 L ABG HCO3 24.9 H ABG O2 Saturation 94.9 ABG Base Excess -1.4 FiO2 50% Sodium 135.3 L Potassium 4.5 D Chloride 105 Carbon Dioxide 22 Anion Gap 8 BUN 17 Creatinine 1.07 Est GFR ( Amer) > 60 Glucose 139 H Lactic Acid 5.4 H Calcium 7.4 L Ionized Calcium [place] Phosphorus 4.2 Magnesium 1.5 L 02/26/20 02/26/20 02/26/20 05:37 05:37 05:37 WBC 8.5 RBC 3.97 L Hgb 11.3 L D Hct 33.7 L MCV 85 MCH 28.5 MCHC 33.6 RDW 13.7 Plt Count 211 Seg Neutrophils % 78.9 H Carbonic Acid 1.35 HCO3/H2CO3 Ratio 16:1 ABG pH 7.32 L ABG pCO2 44.7 ABG pO2 67.1 L ABG HCO3 22.6 ABG O2 Saturation 91.9 L ABG Base Excess -3.4 FiO2 40% Sodium 135.1 L Potassium 4.7 Chloride 104 Carbon Dioxide 26 Anion Gap 5 BUN 21 H Creatinine 0.97 Est GFR ( Amer) > 60 Glucose 116 H Lactic Acid Calcium 7.1 L Ionized Calcium [place] 1.03 L Phosphorus Magnesium 02/26/20 05:37 WBC RBC Hgb Hct MCV MCH MCHC RDW Plt Count Seg Neutrophils % Carbonic Acid HCO3/H2CO3 Ratio ABG pH ABG pCO2 ABG pO2 ABG HCO3 ABG O2 Saturation ABG Base Excess FiO2 Sodium Potassium Chloride Carbon Dioxide Anion Gap BUN Creatinine Est GFR ( Amer) Glucose Lactic Acid 1.2 Calcium Ionized Calcium [place] Phosphorus Magnesium 02/25/20 09:46 Troponin I < 0.012 Impressions: Chest X-Ray 02/25/20 09:41 IMPRESSION: 1. Low lung volumes limits the examination. Prominence of the cardiomediastinal structures may be in part related to the limited degree of inspiration. 2. Bibasilar mild atelectasis/infiltrate, slightly more so on the right. Abdomen/Pelvis CT 02/25/20 09:42 IMPRESSION: 1. The constellation of findings as described above suggest acute appendicitis. The appendix appears to be retrocecal in location. Fairly extensive phlegmon in the right side of the abdomen. No evidence of drainable abscess. 2. A slightly heterogenous enhancing right renal mass. Correlation with MRI kidney with and without contrast. 3. The gallbladder is mildly distended maybe related to the inflammatory changes in the right side of the abdomen. 4. Fatty liver. Hepatomegaly. 5. Bibasilar mild atelectasis/infiltrate, slightly more so on the right. All labs, radiographs, diagnostic studies and EKGs were personally reviewed: Yes In addition, reports of radiographic and diagnostic studies were read: Yes Assessment and Plan - Diagnosis (1) Sepsis associated hypotension Is this a current diagnosis for this admission?: Yes Plan: His sepsis should be resolved however he is still spiking fever to 102.7 and fluids still going at 200 cc / hr. He still has a levophed requirement. (2) Intubation of airway performed without difficulty Is this a current diagnosis for this admission?: Yes Plan: Weaning succesfully right now. (3) Acute phlegmonous appendicitis Is this a current diagnosis for this admission?: Yes Plan: Treated with surgery. Plan Summary: Extubate if he meets criteria. Critical Time Critical Time (minutes): 35 Level of Care: ICU Anticipated discharge: Home Within: Other -: 1. The care of a critical patient is a dynamic process. This note is a development representative synopsis but static in nature. The timeframe for treatments given in order is not necessarily the actual time these treatments may have been done. 2. This patient requires critical care secondary to ongoing requirements for therapy not offered or safe outside the critical care environment. Transfer to a lower level of care will result in altered life or limb morbidity and mortality. 3. Multidisciplinary rounds completed. 4. ABCDE bundle addressed.
--- NOTE | 2020-02-26 15:28 | CDI QUERY ---
CDI Query CDI Review: Dear Provider: To better reflect your patients severity of illness, morbidity, and resource utilization Please specify and document in the Progress Notes and Discharge Summary if you are monitoring / treating / evaluating any of the following conditions: Query Clinical indicators Morbid Obesity / BMI 41.51 Overweight / BMI 41.51kg/m2 Unable to determine Other Ht. 5 ft 5 in Wt 249.48 lbs (113.398 kg) BMI 41 The terms probable, suspected, likely, possible or still to be ruled out may be used if you are unable to determine the exact nature of a condition. Thank you for your consideration, Clinical Documentation [facility] HAYDEE Trevino RN HAYDEE Wright Office [phone] Office [phone]
[2020-02-26] MEDS ORDERED: HYDROMORPHONE HCL INJ/PF 2 MG/ML AMPULE ONE (20:46)
[2020-02-26] MEDS ORDERED: HYDROMORPHONE HCL INJ/PF 2 MG/ML AMPULE IV ONE (21:00)
[2020-02-26 21:59] LABS: HEMATOCRIT 29.1 % (37.9-51.0); HEMOGLOBIN 9.8 g/dL (13.5-17.0); MEAN CORPUSCULAR HEMOGLOBIN 28.6 pg (27.0-33.4); MEAN CORPUSCULAR HGB CONC 33.8 g/dL (32.0-36.0); MEAN CORPUSCULAR VOLUME 85 fl (80-97); PLATELET COUNT 193 10^3/uL (150-450); RED BLOOD COUNT 3.45 10^6/uL (4.35-5.55); RED CELL DISTRIBUTION WIDTH 13.6 % (11.5-14.0); WHITE BLOOD COUNT 6.6 10^3/uL (4.0-10.5)
[2020-02-26 22:20] LABS: ANION GAP 6 (5-19); BLOOD UREA NITROGEN 32 mg/dL (7-20); CALCIUM 7.2 mg/dL (8.4-10.2); CARBON DIOXIDE 24 mmol/L (22-30); CHLORIDE 105 mmol/L (98-107); GLUCOSE 112 mg/dL (75-110); POTASSIUM 4.5 mmol/L (3.6-5.0)
[2020-02-26] MEDS: HYDROMORPHONE HCL 30 MG/60 ML RTUINJ IV PRN (23:08)
[2020-02-27] MEDS: DEXMEDETOMIDINE IN 0.9 % NACL 400 MCG/100 ML RTUPB IV PRN ×4 (03:35→23:30)
[2020-02-27] MEDS: RINGERS SOLUTION,LACTATED 1,000 ML IV PRN ×2 (03:51→18:54)
[2020-02-27 04:20] LABS: ARTERIAL BLOOD BASE EXCESS -1.2 mmol/L; ARTERIAL BLOOD H2CO3 1.46 mmol/L (1.05-1.35); ARTERIAL BLOOD HCO3 25.1 mmol/L (20-24); ARTERIAL BLOOD O2 SATURATION 90.5 % (94-98); ARTERIAL BLOOD PCO2 48.4 mmHg (35-45); ARTERIAL BLOOD PH 7.33 (7.35-7.45); ARTERIAL BLOOD PO2 63.1 mmHg (80-100); ARTERIAL BLOOD TOTAL CO2 26.5 mmol/L (23-27)
[2020-02-27 04:21] LABS: ARTERIAL BLOOD FIO2 45%
[2020-02-27] MEDS ORDERED: ACETAMINOPHEN 1,000 MG/100 ML RTUPB IV ONE (05:00)
[2020-02-27] MEDS: INSULIN REG, HUMAN 100 UNIT/ML 3 ML VIAL (PYX) SUBCUT SCH ×4 (05:06→23:28)
[2020-02-27] MEDS: METRONIDAZOLE 500 MG/NS RTU 500 MG/100 ML RTUPB IV SCH ×4 (05:20→23:27)
--- NOTE | 2020-02-27 07:55 | PDOC PROGRESS REPORT ---
Subjective Progress Note for:: 02/27/20 Subjective:: intubated Reason For Visit: PERFORATED ACUTE APPENDICITIS WITH PERITONITIS Physical Exam Vital Signs: Temp Pulse Resp BP Pulse Ox 102.2 F H 84 18 101/59 L 97 02/27/20 07:32 02/27/20 07:32 02/27/20 07:32 02/27/20 07:32 02/27/20 07:32 Intake & Output 02/26/20 02/27/20 02/28/20 06:59 06:59 06:59 Intake Total 76742 4512 Output Total 59552 1175 60 Balance 6776 3337 -60 Weight 125.4 kg 130.3 kg General appearance: PRESENT: no acute distress, morbidly obese Head exam: PRESENT: normocephalic Eye exam: PRESENT: EOMI Mouth exam: PRESENT: moist Neck exam: PRESENT: full ROM Respiratory exam: PRESENT: rhonchi Cardiovascular exam: PRESENT: RRR Pulses: PRESENT: normal carotid pulses, normal radial pulses, normal femoral pulses Vascular exam: PRESENT: normal capillary refill Breast: PRESENT: Normal GI/Abdominal exam: PRESENT: other - wound open, clean Gentrourinary exam: PRESENT: indwelling catheter Extremities exam: PRESENT: +2 edema Musculoskeletal exam: PRESENT: other Neurological exam: PRESENT: other - intiubated Psychiatric exam: PRESENT: other Focused psych exam: PRESENT: other Skin exam: PRESENT: dry Results Laboratory Results: 02/26/20 21:47 02/26/20 21:47 02/26/20 02/26/20 02/26/20 21:47 21:47 21:47 WBC 6.6 RBC 3.45 L Hgb 9.8 L Hct 29.1 L MCV 85 MCH 28.6 MCHC 33.8 RDW 13.6 Plt Count 193 Carbonic Acid HCO3/H2CO3 Ratio ABG pH ABG pCO2 ABG pO2 ABG HCO3 ABG O2 Saturation ABG Base Excess FiO2 Sodium 134.8 L Potassium 4.5 Chloride 105 Carbon Dioxide 24 Anion Gap 6 BUN 32 H Creatinine 1.13 Est GFR ( Amer) > 60 Glucose 112 H Lactic Acid Calcium 7.2 L Ionized Calcium [place] 0.99 L Phosphorus 3.0 Magnesium 2.7 H 02/26/20 02/27/20 21:47 04:15 WBC RBC Hgb Hct MCV MCH MCHC RDW Plt Count Carbonic Acid 1.46 H HCO3/H2CO3 Ratio 17:1 ABG pH 7.33 L ABG pCO2 48.4 H ABG pO2 63.1 L ABG HCO3 25.1 H ABG O2 Saturation 90.5 L ABG Base Excess -1.2 FiO2 45% Sodium Potassium Chloride Carbon Dioxide Anion Gap BUN Creatinine Est GFR ( Amer) Glucose Lactic Acid 0.8 Calcium Ionized Calcium [place] Phosphorus Magnesium 02/25/20 09:46 Troponin I < 0.012 Impressions: Chest X-Ray 02/25/20 09:41 IMPRESSION: 1. Low lung volumes limits the examination. Prominence of the cardiomediastinal structures may be in part related to the limited degree of inspiration. 2. Bibasilar mild atelectasis/infiltrate, slightly more so on the right. Abdomen/Pelvis CT 02/25/20 09:42 IMPRESSION: 1. The constellation of findings as described above suggest acute appendicitis. The appendix appears to be retrocecal in location. Fairly extensive phlegmon in the right side of the abdomen. No evidence of drainable abscess. 2. A slightly heterogenous enhancing right renal mass. Correlation with MRI kidney with and without contrast. 3. The gallbladder is mildly distended maybe related to the inflammatory changes in the right side of the abdomen. 4. Fatty liver. Hepatomegaly. 5. Bibasilar mild atelectasis/infiltrate, slightly more so on the right. Assessment & Plan - Plan Summary Plan Summary: s/p perfed appendicitis no labs ordered this am still on ventilator off pressors wound open with untied nylon surtures clean repacked urine op marginal plan, check labs cmp, cbc cardiology nurse to manage extubation poss today 'cont iv abx
[2020-02-27] MEDS ORDERED: SODIUM PHOS,M-BASIC-D-BASIC 30 MMOL in NORMAL SALINE 250 ML IV ONE (08:00)
[2020-02-27 08:13] LABS: ABSOLUTE LYMPHOCYTES (AUTO) 1.5 10^3/uL (0.5-4.7); ABSOLUTE MONOCYTES (AUTO) 1.1 10^3/uL (0.1-1.4); ABSOLUTE NEUT (AUTO) 6.3 10^3/uL (1.7-8.2); BASOPHILS % (AUTO) 0.4 % (0-2); EOSINOPHILS % (AUTO) 0.5 % (0-6); HEMATOCRIT 29.8 % (37.9-51.0); MEAN CORPUSCULAR HEMOGLOBIN 28.6 pg (27.0-33.4); MEAN CORPUSCULAR HGB CONC 33.6 g/dL (32.0-36.0); MEAN CORPUSCULAR VOLUME 85 fl (80-97); MONOCYTES % (AUTO) 12.4 % (3-13); PLATELET COUNT 215 10^3/uL (150-450); RED CELL DISTRIBUTION WIDTH 13.7 % (11.5-14.0); SEGMENTED NEUTROPHILS % (AUTO) 69.7 % (42-78); TOTAL CELLS COUNTED % (AUTO) 100 %
[2020-02-27 08:29] LABS: ALBUMIN 2.5 g/dL (3.5-5.0); ALKALINE PHOSPHATASE 50 U/L (38-126); ANION GAP 5 (5-19); ASPARTATE AMINO TRANSFERASE 111 U/L (17-59); BILIRUBIN,DIRECT 0.2 mg/dL (0.0-0.4); BILIRUBIN,TOTAL 0.7 mg/dL (0.2-1.3); BLOOD UREA NITROGEN 36 mg/dL (7-20); CALCIUM 7.6 mg/dL (8.4-10.2); CARBON DIOXIDE 26 mmol/L (22-30); CHLORIDE 106 mmol/L (98-107); GLUCOSE 82 mg/dL (75-110); POTASSIUM 4.5 mmol/L (3.6-5.0); TOTAL PROTEIN 5.2 g/dL (6.3-8.2)
[2020-02-27] MEDS: PANTOPRAZOLE SODIUM 40 MG VIAL IV SCH (09:36)
[2020-02-27] MEDS: CIPROFLOXACIN 400 MG/D5W RTU 400 MG/200 ML RTUPB IV SCH ×2 (09:36→21:34)
[2020-02-27] MEDS: ENOXAPARIN SODIUM INJ 40 MG/0.4 ML DISP.SYRIN SUBCUT SCH (09:36)
--- NOTE | 2020-02-27 09:58 | PDOC CRITICAL CARE PROG REPORT ---
General Date:: 02/27/20 ICU Day:: 2 Ventilator Day:: 2 Hospital Day:: 2 Resuscitation Status: Full Code Events in the past 12 to 24 Hours:: Fever went to 104 now down to 102.WBC still normal. Review of systems relevant to events:: Respiratory and GI Reason for ICU Addmission:: Intubated post op - Medications: Medications reviewed and adjusted accordingly: Yes Vasopressors:: None Sedation:: Dilaudid. Physical Exam Vital Signs: Temp Pulse Resp BP Pulse Ox 102.2 F H 84 18 101/59 L 95 02/27/20 07:32 02/27/20 07:32 02/27/20 07:32 02/27/20 07:32 02/27/20 08:00 Intake & Output 02/26/20 02/27/20 02/28/20 06:59 06:59 06:59 Intake Total 31325 4512 Output Total 91160 1175 60 Balance 6776 3337 -60 Weight 125.4 kg 130.3 kg Weight/Height Weight 130.3 kg Height 5 ft 5 in General appearance: PRESENT: morbidly obese, other - Forehead sweaty./ Head exam: PRESENT: atraumatic, normocephalic Eye exam: PRESENT: conjunctiva pink, EOMI, PERRLA. ABSENT: scleral icterus Ear exam: PRESENT: normal external ear exam Respiratory exam: PRESENT: clear to auscultation daisy. ABSENT: rales, rhonchi, wheezes Cardiovascular exam: PRESENT: RRR. ABSENT: diastolic murmur, rubs, systolic murmur GI/Abdominal exam: PRESENT: normal bowel sounds, soft, other - Not distended. Open skin and sub-Q tissue.. ABSENT: distended, guarding, mass, organolmegaly, rebound, tenderness Rectal exam: PRESENT: deferred Gentrourinary exam: PRESENT: indwelling catheter Extremities exam: PRESENT: full ROM. ABSENT: calf tenderness, clubbing, pedal edema Neurological exam: PRESENT: other - Sedated Skin exam: PRESENT: dry, intact, warm. ABSENT: cyanosis, rash Tubes/Lines: PRESENT: Endotracheal Tube, Arterial Catheter, Nasogastic Tube Laboratory/Radiographs Laboratory Results: 02/27/20 08:05 02/27/20 08:05 04/17/20 04/17/20 04/17/20 21:47 21:47 21:47 WBC 6.6 RBC 3.45 L Hgb 9.8 L Hct 29.1 L MCV 85 MCH 28.6 MCHC 33.8 RDW 13.6 Plt Count 193 Seg Neutrophils % Carbonic Acid HCO3/H2CO3 Ratio ABG pH ABG pCO2 ABG pO2 ABG HCO3 ABG O2 Saturation ABG Base Excess FiO2 Sodium 134.8 L Potassium 4.5 Chloride 105 Carbon Dioxide 24 Anion Gap 6 BUN 32 H Creatinine 1.13 Est GFR ( Amer) > 60 Glucose 112 H Lactic Acid Calcium 7.2 L Ionized Calcium [place] 0.99 L Phosphorus 3.0 Magnesium 2.7 H Total Bilirubin AST Alkaline Phosphatase Total Protein Albumin 02/26/20 02/27/20 02/27/20 21:47 04:15 08:05 WBC 9.0 RBC 3.50 L Hgb 10.0 L Hct 29.8 L MCV 85 MCH 28.6 MCHC 33.6 RDW 13.7 Plt Count 215 Seg Neutrophils % 69.7 Carbonic Acid 1.46 H HCO3/H2CO3 Ratio 17:1 ABG pH 7.33 L ABG pCO2 48.4 H ABG pO2 63.1 L ABG HCO3 25.1 H ABG O2 Saturation 90.5 L ABG Base Excess -1.2 FiO2 45% Sodium Potassium Chloride Carbon Dioxide Anion Gap BUN Creatinine Est GFR ( Amer) Glucose Lactic Acid 0.8 Calcium Ionized Calcium [place] Phosphorus Magnesium Total Bilirubin AST Alkaline Phosphatase Total Protein Albumin 02/27/20 08:05 WBC RBC Hgb Hct MCV MCH MCHC RDW Plt Count Seg Neutrophils % Carbonic Acid HCO3/H2CO3 Ratio ABG pH ABG pCO2 ABG pO2 ABG HCO3 ABG O2 Saturation ABG Base Excess FiO2 Sodium 136.9 L Potassium 4.5 Chloride 106 Carbon Dioxide 26 Anion Gap 5 BUN 36 H Creatinine 1.19 Est GFR ( Amer) > 60 Glucose 82 Lactic Acid Calcium 7.6 L Ionized Calcium [place] Phosphorus Magnesium Total Bilirubin 0.7 AST 111 H Alkaline Phosphatase 50 Total Protein 5.2 L Albumin 2.5 L 02/25/20 09:46 Troponin I < 0.012 Impressions: Chest X-Ray 02/25/20 09:41 IMPRESSION: 1. Low lung volumes limits the examination. Prominence of the cardiomediastinal structures may be in part related to the limited degree of inspiration. 2. Bibasilar mild atelectasis/infiltrate, slightly more so on the right. Abdomen/Pelvis CT 02/25/20 09:42 IMPRESSION: 1. The constellation of findings as described above suggest acute appendicitis. The appendix appears to be retrocecal in location. Fairly extensive phlegmon in the right side of the abdomen. No evidence of drainable abscess. 2. A slightly heterogenous enhancing right renal mass. Correlation with MRI kidney with and without contrast. 3. The gallbladder is mildly distended maybe related to the inflammatory changes in the right side of the abdomen. 4. Fatty liver. Hepatomegaly. 5. Bibasilar mild atelectasis/infiltrate, slightly more so on the right. All labs, radiographs, diagnostic studies and EKGs were personally reviewed: Yes In addition, reports of radiographic and diagnostic studies were read: Yes Assessment and Plan - Diagnosis (1) Sepsis associated hypotension Is this a current diagnosis for this admission?: Yes Plan: He seems to be resolving his sepsis. He is off levophed. Fever is down. Repeat lactate is normal. Fluid requirement down. (2) Intubation of airway performed without difficulty Is this a current diagnosis for this admission?: Yes Plan: He should be extubatable soon. Would like to see him more calm before this. Weaning in progress. (3) Acute phlegmonous appendicitis Is this a current diagnosis for this admission?: Yes Plan: Seems to be slowly resolving. Plan Summary: Wean vent and try to extubate soon. Critical Time Critical Time (minutes): 35 Level of Care: ICU Anticipated discharge: Home Within: Other -: 1. The care of a critical patient is a dynamic process. This note is a industrial relations representative synopsis but static in nature. The timeframe for treatments g iven in order is not necessarily the actual time these treatments may have been done. 2. This patient requires critical care secondary to ongoing requirements for therapy not offered or safe outside the critical care environment. Transfer to a lower level of care will result in altered life or limb morbidity and mortality. 3. Multidisciplinary rounds completed. 4. ABCDE bundle addressed.
[2020-02-27] MEDS: HYDROMORPHONE HCL 30 MG/60 ML RTUINJ IV PRN (10:02)
[2020-02-27] MEDS: ACETAMINOPHEN 1,000 MG/100 ML RTUPB IV PRN ×2 (14:48→21:34)
[2020-02-27] MEDS ORDERED: RINGERS SOLUTION,LACTATED 500 ML IV ONE (21:00)
[2020-02-27] MEDS ORDERED: METHOCARBAMOL INJ/PF 1000 MG/10 ML SDV ONE (22:19)
[2020-02-27] MEDS: METHOCARBAMOL INJ/PF 1000 MG/10 ML SDV IV SCH (23:01)
[2020-02-28] MEDS: MIDAZOLAM HCL 50 MG/100 ML RTUINJ IV PRN (01:50)
[2020-02-28] MEDS: RINGERS SOLUTION,LACTATED 1,000 ML IV PRN ×2 (01:59→14:16)
[2020-02-28] MEDS: ACETAMINOPHEN 1,000 MG/100 ML RTUPB IV PRN ×3 (03:07→17:16)
[2020-02-28] MEDS: DEXMEDETOMIDINE IN 0.9 % NACL 400 MCG/100 ML RTUPB IV PRN ×9 (03:59→22:48)
[2020-02-28 04:31] LABS: ABSOLUTE LYMPHOCYTES (AUTO) 0.7 10^3/uL (0.5-4.7); ABSOLUTE MONOCYTES (AUTO) 0.8 10^3/uL (0.1-1.4); ABSOLUTE NEUT (AUTO) 6.1 10^3/uL (1.7-8.2); BASOPHILS % (AUTO) 0.2 % (0-2); EOSINOPHILS % (AUTO) 0.5 % (0-6); HEMATOCRIT 28.2 % (37.9-51.0); HEMOGLOBIN 9.5 g/dL (13.5-17.0); LYMPHOCYTES % (AUTO) 8.6 % (13-45); MEAN CORPUSCULAR HEMOGLOBIN 28.7 pg (27.0-33.4); MEAN CORPUSCULAR HGB CONC 33.8 g/dL (32.0-36.0); MEAN CORPUSCULAR VOLUME 85 fl (80-97); MONOCYTES % (AUTO) 10.9 % (3-13); PLATELET COUNT 210 10^3/uL (150-450); RED BLOOD COUNT 3.32 10^6/uL (4.35-5.55); RED CELL DISTRIBUTION WIDTH 13.7 % (11.5-14.0); SEGMENTED NEUTROPHILS % (AUTO) 79.8 % (42-78); TOTAL CELLS COUNTED % (AUTO) 100 %; WHITE BLOOD COUNT 7.6 10^3/uL (4.0-10.5)
[2020-02-28 04:43] LABS: ANION GAP 6 (5-19); BLOOD UREA NITROGEN 21 mg/dL (7-20); CALCIUM 7.5 mg/dL (8.4-10.2); CARBON DIOXIDE 25 mmol/L (22-30); CHLORIDE 107 mmol/L (98-107); GLUCOSE 86 mg/dL (75-110); PHOSPHORUS 3.2 mg/dL (2.5-4.5); POTASSIUM 4.5 mmol/L (3.6-5.0)
[2020-02-28] MEDS: INSULIN REG, HUMAN 100 UNIT/ML 3 ML VIAL (PYX) SUBCUT SCH ×3 (05:08→17:33)
[2020-02-28] MEDS: METRONIDAZOLE 500 MG/NS RTU 500 MG/100 ML RTUPB IV SCH ×3 (05:08→17:16)
[2020-02-28] MEDS: METHOCARBAMOL INJ/PF 1000 MG/10 ML SDV IV SCH ×3 (05:11→21:57)
[2020-02-28] MEDS ORDERED: MIDAZOLAM 2 MG/2 ML INJ ONE (06:40)
[2020-02-28] MEDS ORDERED: MIDAZOLAM 2 MG/2 ML INJ IV ONE (06:43)
--- NOTE | 2020-02-28 07:32 | RADIOLOGY REPORT (SQ) ---
EXAM DESCRIPTION: XR CHEST 1 VIEW COMPLETED DATE/TME: 02/28/2020 00:00 CLINICAL HISTORY: hypoxia; check ETT placement COMPARISON: 02/25/2020 FINDINGS: Single frontal view of the chest. Tubes and lines: Endotracheal tube and NG tube are stable in position. Leads overlie the chest. Cardiomediastinal silhouette: Stable Lungs: Interval increase in right basilar opacities with small right pleural effusion. Stable linear left basilar opacity. No pneumothorax. Bones: Stable. Upper abdomen: Stable. IMPRESSION: 1. Interval increase in right basilar opacity and small right pleural effusion. 2. Stable left basilar discoid atelectasis.
[2020-02-28] MEDS: PANTOPRAZOLE SODIUM 40 MG VIAL IV SCH (10:04)
[2020-02-28] MEDS: CIPROFLOXACIN 400 MG/D5W RTU 400 MG/200 ML RTUPB IV SCH ×2 (10:04→21:58)
--- NOTE | 2020-02-28 10:28 | PDOC PROGRESS REPORT ---
Subjective Progress Note for:: 02/28/20 Reason For Visit: PERFORATED ACUTE APPENDICITIS WITH PERITONITIS Physical Exam Vital Signs: Temp Pulse Resp BP Pulse Ox 102.7 F H 82 14 130/62 H 96 02/28/20 09:56 02/28/20 09:56 02/28/20 09:56 02/28/20 09:56 02/28/20 09:56 Intake & Output 02/27/20 02/28/20 02/29/20 06:59 06:59 06:59 Intake Total 4512 3524 159 Output Total 1175 2935 385 Balance 3337 589 -226 Weight 130.3 kg 130 kg Results Laboratory Results: 02/28/20 03:52 02/28/20 03:52 02/28/20 02/28/20 03:52 03:52 WBC 7.6 RBC 3.32 L Hgb 9.5 L Hct 28.2 L MCV 85 MCH 28.7 MCHC 33.8 RDW 13.7 Plt Count 210 Seg Neutrophils % 79.8 H Sodium 137.6 Potassium 4.5 Chloride 107 Carbon Dioxide 25 Anion Gap 6 BUN 21 H Creatinine 0.63 Est GFR ( Amer) > 60 Glucose 86 Calcium 7.5 L Phosphorus 3.2 Magnesium 2.7 H 02/25/20 13:56 Peritoneal Gram Stain - Final 02/25/20 13:56 Peritoneal Body Fluid Culture - Final Escherichia Coli Clostridium Sp.not Perfringens Bacteroides Fragilis Group 02/25/20 09:46 Troponin I < 0.012 Impressions: Abdomen/Pelvis CT 02/25/20 09:42 IMPRESSION: 1. The constellation of findings as described above suggest acute appendicitis. The appendix appears to be retrocecal in location. Fairly ex tensive phlegmon in the right side of the abdomen. No evidence of drainable abscess. 2. A slightly heterogenous enhancing right renal mass. Correlation with MRI kidney with and without contrast. 3. The gallbladder is mildly distended maybe related to the inflammatory changes in the right side of the abdomen. 4. Fatty liver. Hepatomegaly. 5. Bibasilar mild atelectasis/infiltrate, slightly more so on the right. Chest X-Ray 02/28/20 00:00 IMPRESSION: 1. Interval increase in right basilar opacity and small right pleural effusion. 2. Stable left basilar discoid atelectasis. Assessment & Plan - Diagnosis (1) Acute perforated appendicitis Is this a current diagnosis for this admission?: Yes - Plan Summary Plan Summary: 40 y/o M with perforated acute appendicitis. He is still intubated at present, and still has lingering SIRS/sepsis. His abdominal exam appears benign. His NADER drains are productive of serosanguinous fluid. I have loosely approximated his midline skin and packed the wound with Xeroform. At this time I do not see evidence of a continued, worsening intra-abdominal process. Cont with supportive care. If condition worsens, I recommend CT abdomen and pelvis to assess for a large abscess or evidence of enteric leak. Vent management per Dr. Cline. I have discussed the case with him personally.
[2020-02-28] MEDS: ENOXAPARIN SODIUM INJ 40 MG/0.4 ML DISP.SYRIN SUBCUT SCH (10:30)
[2020-02-28] MEDS: NORMAL SALINE IV PRN ×2 (11:17→18:46)
[2020-02-28] MEDS: IBUPROFEN IV PRN ×2 (11:17→18:46)
--- NOTE | 2020-02-28 11:46 | PDOC CRITICAL CARE PROG REPORT ---
General Date:: 02/28/20 ICU Day:: 3 Ventilator Day:: 3 Hospital Day:: 3 Resuscitation Status: Full Code Events in the past 12 to 24 Hours:: No essential change. Review of systems relevant to events:: Respiratory, GI Reason for ICU Addmission:: Intubated post op - Medications: Vasopressors:: None. Sedation:: Precedex, versed. Physical Exam Vital Signs: Temp Pulse Resp BP Pulse Ox 102.7 F H 82 14 130/62 H 91 L 02/28/20 09:56 02/28/20 09:56 02/28/20 09:56 02/28/20 09:56 02/28/20 11:12 Intake & Output 02/27/20 02/28/20 02/29/20 06:59 06:59 06:59 Intake Total 4512 3624 159 Output Total 1175 2935 385 Balance 3337 689 -226 Weight 130.3 kg 130 kg Weight/Height Weight 130 kg Height 5 ft 5 in General appearance: PRESENT: no acute distress, morbidly obese Head exam: PRESENT: atraumatic, normocephalic Eye exam: PRESENT: conjunctiva pink, EOMI, PERRLA. ABSENT: scleral icterus Ear exam: PRESENT: normal external ear exam Mouth exam: PRESENT: moist, tongue midline Respiratory exam: PRESENT: clear to auscultation daisy. ABSENT: rales, rhonchi, wheezes Cardiovascular exam: PRESENT: RRR. ABSENT: diastolic murmur, rubs, systolic murmur GI/Abdominal exam: PRESENT: normal bowel sounds, soft, other - Wound clean and open. JPs having less drainage.. ABSENT: distended, guarding, mass, organolmegaly, rebound, tenderness Rectal exam: PRESENT: deferred Gentrourinary exam: PRESENT: indwelling catheter Extremities exam: PRESENT: full ROM. ABSENT: calf tenderness, clubbing, pedal edema Neurological exam: PRESENT: other - Sedated. Psychiatric exam: PRESENT: agitated Skin exam: PRESENT: dry, intact, warm. ABSENT: cyanosis, rash Tubes/Lines: PRESENT: Endotracheal Tube, Central Line, Arterial Catheter, Nasogastic Tube Laboratory/Radiographs Laboratory Results: 02/28/20 03:52 02/28/20 03:52 02/28/20 02/28/20 03:52 03:52 WBC 7.6 RBC 3.32 L Hgb 9.5 L Hct 28.2 L MCV 85 MCH 28.7 MCHC 33.8 RDW 13.7 Plt Count 210 Seg Neutrophils % 79.8 H Sodium 137.6 Potassium 4.5 Chloride 107 Carbon Dioxide 25 Anion Gap 6 BUN 21 H Creatinine 0.63 Est GFR ( Amer) > 60 Glucose 86 Calcium 7.5 L Phosphorus 3.2 Magnesium 2.7 H 02/25/20 13:56 Peritoneal Gram Stain - Final 02/25/20 13:56 Peritoneal Body Fluid Culture - Final Escherichia Coli Clostridium Sp.not Perfringens Bacteroides Fragilis Group 02/25/20 09:46 Troponin I < 0.012 Impressions: Abdomen/Pelvis CT 02/25/20 09:42 IMPRESSION: 1. The constellation of findings as described above suggest acute appendicitis. The appendix appears to be retrocecal in location. Fairly extensive phlegmon in the right side of the abdomen. No evidence of drainable abscess. 2. A slightly heterogenous enhancing right renal mass. Correlation with MRI kidney with and without contrast. 3. The gallbladder is mildly distended maybe related to the inflammatory changes in the right side of the abdomen. 4. Fatty liver. Hepatomegaly. 5. Bibasilar mild atelectasis/infiltrate, slightly more so on the right. Chest X-Ray 02/28/20 00:00 IMPRESSION: 1. Interval increase in right basilar opacity and small right pleural effusion. 2. Stable left basilar discoid atelectasis. All labs, radiographs, diagnostic studies and EKGs were personally reviewed: Yes In addition, reports of radiographic and diagnostic studies were read: Yes Assessment and Plan - Diagnosis (1) Sepsis associated hypotension Is this a current diagnosis for this admission?: Yes Plan: Resolved (2) Intubation of airway performed without difficulty Is this a current diagnosis for this admission?: Yes Plan: Weaning ventilator. (3) Acute phlegmonous appendicitis Is this a current diagnosis for this admission?: Yes Plan: This was a retrocecal appendicitis meaning he had a somewhat delayed septic response. This is clearing and we have begun the vent weaning process. Plan Summary: Try to extubate in the next 24 hours. Critical Time Critical Time (minutes): 35 Level of Care: ICU Anticipated discharge: Home with Homehealth Within: Other -: 1. The care of a critical patient is a dynamic process. This note is a sales representative aircraft synopsis but static in nature. The timeframe for treatments given in order is not necessarily the actual time these treatments may have been done. 2. This patient requires critical care secondary to ongoing requirements for therapy not offered or safe outside the critical care environment. Transfer to a lower level of care will result in altered life or limb morbidity and mortality. 3. Multidisciplinary rounds completed. 4. ABCDE bundle addressed.
[2020-02-28] MEDS: HYDROMORPHONE HCL INJ/PF 2 MG/ML AMPULE IV PRN ×2 (14:14→19:43)
[2020-02-28] MEDS ORDERED: PHOSPHORUS #1 250 MG TABLET NG ONE (21:30)
[2020-02-28] MEDS ORDERED: OXYCODONE HCL IR 5 MG TABLET NG ONE (21:30)
[2020-02-29] MEDS ORDERED: ACETAMINOPHEN 2,000 MG/200 ML RTUPB IV ONE (00:10)
[2020-02-29] MEDS: INSULIN REG, HUMAN 100 UNIT/ML 3 ML VIAL (PYX) SUBCUT SCH ×4 (00:12→17:19)
[2020-02-29] MEDS ORDERED: PROPOFOL 1,000 MG/100 ML INFUS..BTL IV ONE (00:31)
[2020-02-29] MEDS: HYDROMORPHONE HCL INJ/PF 2 MG/ML AMPULE IV PRN ×2 (00:39→21:17)
[2020-02-29] MEDS: ACETAMINOPHEN 1,000 MG/100 ML RTUPB IV PRN ×3 (00:40→21:18)
[2020-02-29] MEDS: METRONIDAZOLE 500 MG/NS RTU 500 MG/100 ML RTUPB IV SCH ×5 (00:40→23:21)
[2020-02-29] MEDS: PROPOFOL 1,000 MG/100 ML INFUS..BTL IV PRN ×9 (00:44→22:14)
[2020-02-29] MEDS: DEXMEDETOMIDINE IN 0.9 % NACL 400 MCG/100 ML RTUPB IV PRN ×12 (00:48→23:22)
[2020-02-29] MEDS: IBUPROFEN IV PRN (01:34)
[2020-02-29] MEDS: NORMAL SALINE IV PRN (01:34)
[2020-02-29 03:53] LABS: ABSOLUTE EOSINOPHILS # (AUTO) 0.2 10^3/uL (0.0-0.6); ABSOLUTE MONOCYTES (AUTO) 0.9 10^3/uL (0.1-1.4); ABSOLUTE NEUT (AUTO) 5.8 10^3/uL (1.7-8.2); BASOPHILS % (AUTO) 0.4 % (0-2); EOSINOPHILS % (AUTO) 2.2 % (0-6); HEMATOCRIT 28.4 % (37.9-51.0); HEMOGLOBIN 9.6 g/dL (13.5-17.0); LYMPHOCYTES % (AUTO) 13.1 % (13-45); MEAN CORPUSCULAR HEMOGLOBIN 28.1 pg (27.0-33.4); MEAN CORPUSCULAR HGB CONC 33.8 g/dL (32.0-36.0); MEAN CORPUSCULAR VOLUME 83 fl (80-97); MONOCYTES % (AUTO) 11.3 % (3-13); PLATELET COUNT 230 10^3/uL (150-450); RED BLOOD COUNT 3.41 10^6/uL (4.35-5.55); RED CELL DISTRIBUTION WIDTH 13.7 % (11.5-14.0); TOTAL CELLS COUNTED % (AUTO) 100 %
[2020-02-29 04:13] LABS: ANION GAP 5 (5-19); BLOOD UREA NITROGEN 19 mg/dL (7-20); CALCIUM 7.5 mg/dL (8.4-10.2); CARBON DIOXIDE 25 mmol/L (22-30); CHLORIDE 108 mmol/L (98-107); GLUCOSE 108 mg/dL (75-110); POTASSIUM 3.8 mmol/L (3.6-5.0)
[2020-02-29] MEDS: METHOCARBAMOL INJ/PF 1000 MG/10 ML SDV IV SCH ×3 (05:16→22:14)
--- NOTE | 2020-02-29 08:24 | RADIOLOGY REPORT (SQ) ---
EXAM DESCRIPTION: CHEST SINGLE VIEW IMAGES COMPLETED DATE/TIME: 02/29/2020 6:56 am REASON FOR STUDY: resp failure; R/O worsening effusion/infiltrate COMPARISON: None. EXAM PARAMETERS: NUMBER OF VIEWS: One view. TECHNIQUE: Single frontal radiographic view of the chest acquired. RADIATION DOSE: NA LIMITATIONS: None. FINDINGS: LUNGS AND PLEURA: Low lung volumes with stable bibasilar opacities and mild bilateral effu sions, right greater than left. No pneumothorax. MEDIASTINUM AND HILAR STRUCTURES: Stable widening of the paratracheal stripe, likely vascular. HEART AND VASCULAR STRUCTURES: Enlarged, stable. BONES: No acute findings. HARDWARE: Endotracheal tube tip overlies distal thoracic trachea. Enteric tube tip overlies gastric body. OTHER: No other significant finding. IMPRESSION: Low lung volumes with stable bibasilar opacities and mild bilateral effusions, right gre ater than left. TECHNICAL DOCUMENTATION: JOB ID: [id number] 2010 [employer]- All Rights Reserved Reading location - IP/workstation name: [email or web address]
[2020-02-29] MEDS: ENOXAPARIN SODIUM INJ 40 MG/0.4 ML DISP.SYRIN SUBCUT SCH (09:33)
[2020-02-29] MEDS: CIPROFLOXACIN 400 MG/D5W RTU 400 MG/200 ML RTUPB IV SCH ×2 (09:33→22:14)
[2020-02-29] MEDS: PANTOPRAZOLE SODIUM 40 MG VIAL IV SCH (09:33)
[2020-02-29] MEDS ORDERED: FUROSEMIDE INJ/PF 40 MG/4 ML SDV IV ONE (10:00)
--- NOTE | 2020-02-29 11:17 | PDOC PROGRESS REPORT ---
Subjective Progress Note for:: 02/29/20 Reason For Visit: PERFORATED ACUTE APPENDICITIS WITH PERITONITIS Physical Exam Vital Signs: Temp Pulse Resp BP Pulse Ox 101.8 F H 79 27 H 137/69 H 95 02/29/20 10:00 02/28/20 20:36 02/29/20 10:00 02/28/20 18:00 02/29/20 10:00 Intake & Output 02/28/20 02/29/20 03/01/20 06:59 06:59 06:59 Intake Total 3724 5063 500 Output Total 2935 2430 400 Balance 789 2633 100 Weight 130 kg 129.3 kg Results Laboratory Results: 02/29/20 03:44 02/29/20 03:44 02/29/20 02/29/20 02/29/20 03:44 03:44 03:44 WBC 8.0 RBC 3.41 L Hgb 9.6 L Hct 28.4 L MCV 83 MCH 28.1 MCHC 33.8 RDW 13.7 Plt Count 230 Seg Neutrophils % 73.0 Sodium 138.4 Potassium 3.8 Chloride 108 H Carbon Dioxide 25 Anion Gap 5 BUN 19 Creatinine 0.61 Est GFR ( Amer) > 60 Glucose 108 Calcium 7.5 L Triglycerides 269 H 02/25/20 09:46 Troponin I < 0.012 Impressions: Abdomen/Pelvis CT 02/25/20 09:42 IMPRESSION: 1. The constellation of findings as described above suggest acute appendicitis. The appendix appears to be retrocecal in location. Fairly extensive phlegmon in the right side of the abdomen. No evidence of drainable abscess. 2. A slightly heterogenous enhancing right renal mass. Correlation with MRI kidney with and without contrast. 3. The gallbladder is mildly distended maybe related to the inflammatory changes in the right side of the abdomen. 4. Fatty liver. Hepatomegaly. 5. Bibasilar mild atelectasis/infiltrate, slightly more so on the right. Chest X-Ray 02/29/20 00:00 IMPRESSION: Low lung volumes with stable bibasilar opacities and mild bilateral effusions, right greater than left. Assessment & Plan - Diagnosis (1) Acute perforated appendicitis Is this a current diagnosis for this admission?: Yes - Plan Summary Plan Summary: 40 y/o M with perforated acute appendicitis. He is still intubated at present, and still has lingering SIRS/sepsis. His NADER drains are productive of serosanguinous fluid. Although his abdominal exam appears benign, he continues to experience fevers >101. I will order a CT scan of the abdomen and pelvis with IV and p.o. contrast to evaluate for intra-abdominal abscess. Continue antibiotics. Cont with supportive care. Vent management per Dr. Cline. I have discussed the case with him personally.
--- NOTE | 2020-02-29 13:23 | PDOC CRITICAL CARE PROG REPORT ---
General Date:: 02/29/20 ICU Day:: 4 Ventilator Day:: 4 Hospital Day:: 4 Resuscitation Status: Full Code Events in the past 12 to 24 Hours:: Minimal progress on ventilator. Review of systems relevant to events:: Respiratory and GI. Reason for ICU Addmission:: Intubated post op - Medications: Medications reviewed and adjusted accordingly: Yes Vasopressors:: None Sedation:: Propofol and versed. Physical Exam Vital Signs: Temp Pulse Resp BP Pulse Ox 101.8 F H 79 30 H 137/69 H 96 02/29/20 12:00 02/28/20 20:36 02/29/20 12:00 02/28/20 18:00 02/29/20 12:00 Intake & Output 02/28/20 02/29/20 03/01/20 06:59 06:59 06:59 Intake Total 3724 5063 700 Output Total 2935 2430 1350 Balance 789 2633 -650 Weight 130 kg 129.3 kg Weight/Height Weight 129.3 kg Height 5 ft 5 in General appearance: PRESENT: no acute distress, morbidly obese Head exam: PRESENT: atraumatic, normocephalic Eye exam: PRESENT: conjunctiva pink, EOMI, PERRLA. ABSENT: scleral icterus Ear exam: PRESENT: normal external ear exam Mouth exam: PRESENT: moist, tongue midline Respiratory exam: PRESENT: clear to auscultation daisy, decreased breath sounds, symmetrical, tachypnea, unlabored Cardiovascular exam: PRESENT: RRR. ABSENT: diastolic murmur, rubs, systolic murmur GI/Abdominal exam: PRESENT: hypoactive bowel sounds, soft, other - Wound open but clean. NADER DRAINS ARE DRAINING LESS FLUID. Rectal exam: PRESENT: deferred Gentrourinary exam: PRESENT: indwelling catheter Extremities exam: PRESENT: +2 edema, other - mILD ANASARCA. Musculoskeletal exam: PRESENT: normal inspection Neurological exam: PRESENT: altered, other - sEDATED. Skin exam: PRESENT: dry, intact, warm. ABSENT: cyanosis, rash Tubes/Lines: PRESENT: Endotracheal Tube, Central Line, Arterial Catheter, Nasogastic Tube Laboratory/Radiographs Laboratory Results: 02/29/20 03:44 02/29/20 03:44 02/29/20 02/29/20 02/29/20 03:44 03:44 03:44 WBC 8.0 RBC 3.41 L Hgb 9.6 L Hct 28.4 L MCV 83 MCH 28.1 MCHC 33.8 RDW 13.7 Plt Count 230 Seg Neutrophils % 73.0 Sodium 138.4 Potassium 3.8 Chloride 108 H Carbon Dioxide 25 Anion Gap 5 BUN 19 Creatinine 0.61 Est GFR ( Amer) > 60 Glucose 108 Calcium 7.5 L Triglycerides 269 H 02/25/20 09:46 Troponin I < 0.012 Impressions: Abdomen/Pelvis CT 02/25/20 09:42 IMPRESSION: 1. The constellation of findings as described above suggest acute appendicitis. The appendix appears to be retrocecal in location. Fairly extensive phlegmon in the right side of the abdomen. No evidence of drainable abscess. 2. A slightly heterogenous enhancing right renal mass. Correlation with MRI kidney with and without contrast. 3. The gallbladder is mildly distended maybe related to the inflammatory changes in the right side of the abdomen. 4. Fatty liver. Hepatomegaly. 5. Bibasilar mild atelectasis/infiltrate, slightly more so on the right. Chest X-Ray 02/29/20 00:00 IMPRESSION: Low lung volumes with stable bibasilar opacities and mild bilateral effusions, right greater than left. All labs, radiographs, diagnostic studies and EKGs were personally reviewed: Yes In addition, reports of radiographic and diagnostic studies were read: Yes Assessment and Plan - Diagnosis (1) Sepsis associated hypotension Is this a current diagnosis for this admission?: Yes Plan: Resolved. (2) Intubation of airway performed without difficulty Is this a current diagnosis for this admission?: Yes Plan: Patient is morbidly obese and has some swelling as he is mobilizing fluid. Dose of lasix given to remove fluid. His RR is still in upper 30s. Not able toextubate yet. When he is ready would like to have anesthesia standing by. (3) Acute phlegmonous appendicitis Is this a current diagnosis for this admission?: Yes Plan: Resolved according to all surgeons who have seen him. Plan Summary: Continue to mobilize fluid and extubate soon. Critical Time Critical Time (minutes): 35 Level of Care: ICU Anticipated discharge: Home Within: Other -: 1. The care of a critical patient is a dynamic process. This note is a claims representative synopsis but static in nature. The timeframe for treatments given in order is not necessarily the actual time these treatments may have been done. 2. This patient requires critical care secondary to ongoing requirements for therapy not offered or safe outside the critical care environment. Transfer to a lower level of care will result in altered life or limb morbidity and mortality. 3. Multidisciplinary rounds completed. 4. ABCDE bundle addressed.
--- NOTE | 2020-02-29 15:38 | RADIOLOGY REPORT (SQ) ---
EXAM DESCRIPTION: CT ABD/PELVIS WITH IV ORAL IMAGES COMPLETED DATE/TIME: 02/29/2020 3:12 pm REASON FOR STUDY: eval for intra-abdomainal abscess, s/p perf appy COMPARISON: 02/25/2020 TECHNIQUE: CT scan of the abdomen and pelvis performed using helical scanning technique with dynamic intravenous contrast injection. Patient was given oral contrast. Images reviewed with lung, soft ti ssue, and bone windows. Reconstructed coronal and sagittal MPR images reviewed. Delayed images for ev aluation of the urinary system also acquired. All images stored on PACS. All CT scanners at this facility use dose modulation, iterative reconstruction, and/or weight based d osing when appropriate to reduce radiation dose to as low as reasonably achievable (ALARA). [facility]: Dose Right [facility]: CareDose [facility]: Dose Right [facility]: Teradose 4D [facility]: [employer] CONTRAST TYPE AND DOSE: contrast/concentration: Isovue 350.00 mg/ml; Total Contrast Delivered: 100.0 ml; Total Saline Delivered: 72.0 ml RENAL FUNCTION: Creatinine 0.61 RADIATION DOSE: CT Rad equipment meets quality standard of care and radiation dose reduction techniq ues were employed. CTDIvol: 29.8 mGy. DLP: 3401 mGy-cm.. LIMITATIONS: None. FINDINGS: LOWER CHEST: Small bilateral pleural effusions and bilateral lower lobe consolidation, lik mallika atelectasis. LIVER: Normal size. No masses. No dilated ducts. SPLEEN: Normal size. No focal lesions. PANCREAS: No masses. No significant calcifications. No adjacent inflammation or peripancreatic fluid collections. Pancreatic duct not dilated. GALLBLADDER: No identified stones by CT criteria. No inflammatory changes to suggest cholecystitis. ADRENAL GLANDS: No significant masses or asymmetry. RIGHT KIDNEY AND URETER: Solid 2.3 cm right lower pole renal lesion, stable. No significant calcifi cations. No hydronephrosis or hydroureter. LEFT KIDNEY AND URETER: No solid masses. No significant calcifications. No hydronephrosis or hydr oureter. AORTA AND VESSELS: No aneurysm. No dissection. Renal arteries, SMA, celiac without stenosis. RETROPERITONEUM: No retroperitoneal adenopathy, hemorrhage or masses. BOWEL AND PERITONEAL CAVITY: Postsurgical changes from prior appendectomy with bilateral approach kenzie ins within the right hemiabdomen. There is dilation of the cecum without evidence of intestinal. Mi ld inflammatory stranding within the right hemiabdomen without evidence of focal drainable collection . No large volume pneumoperitoneum or ascites. APPENDIX: Surgically absent. PELVIS: Decompressed urinary bladder with intraluminal Ocampo catheter. Trace pelvic fluid. No absce ss. ABDOMINAL WALL: Evidence of prior midline laparotomy. Bilateral approach surgical drains as above. BONES: No acute bony abnormality. No suspicious lytic or blastic osseous lesions. OTHER: No other significant finding. IMPRESSION: 1. Postsurgical changes from the appendectomy without focal drainable abscess. 2. Mild bilateral effusions and lower lobe consolidation, likely atelectasis. 3. Unchanged solid 2.3 cm right lower pole renal lesion suspicious for malignancy. MRI with contras t could be considered for more definitive characterization. TECHNICAL DOCUMENTATION: JOB ID: [id number] Quality ID # [id number]: Final reports with documentation of one or more dose reduction techniques (e.g., Au tomated exposure control, adjustment of the mA and/or kV according to patient size, use of iterative reconstruction technique) 2010 [employer]- All Rights Reserved Reading location - IP/workstation name: [email or web address]
[2020-03-01] MEDS: INSULIN REG, HUMAN 100 UNIT/ML 3 ML VIAL (PYX) SUBCUT SCH ×5 (00:04→23:09)
[2020-03-01] MEDS: PROPOFOL 1,000 MG/100 ML INFUS..BTL IV PRN ×9 (00:54→21:33)
[2020-03-01] MEDS: DEXMEDETOMIDINE IN 0.9 % NACL 400 MCG/100 ML RTUPB IV PRN ×10 (01:40→22:33)
[2020-03-01] MEDS: HYDROMORPHONE HCL INJ/PF 2 MG/ML AMPULE IV PRN ×4 (02:00→21:20)
[2020-03-01] MEDS: METRONIDAZOLE 500 MG/NS RTU 500 MG/100 ML RTUPB IV SCH ×4 (05:52→23:09)
[2020-03-01] MEDS: ACETAMINOPHEN 1,000 MG/100 ML RTUPB IV PRN ×2 (05:58→22:36)
[2020-03-01] MEDS ORDERED: CEFTRIAXONE SODIUM 2,000 MG in DEXTROSE 5%-WATER 100 ML IV SCH (06:00)
[2020-03-01] MEDS ORDERED: CEFTRIAXONE INJ 1000 MG VIAL ONE (06:04)
[2020-03-01] MEDS: METHOCARBAMOL INJ/PF 1000 MG/10 ML SDV IV SCH ×2 (06:05→15:16)
--- NOTE | 2020-03-01 06:30 | RADIOLOGY REPORT (SQ) ---
CHEST 1 VIEW on 03/01/2020 at 5:55 AM CLINICAL INDICATION: Follow-up infiltrate, effusions COMPARISON: 02/29/2020 FINDINGS: ET tube tip is in the mid to lower thoracic trachea. NG tube extends into the upper stomach. Mild cardiomegaly is noted. There is a small right pleural effusion. There is continued right basilar opacity consistent with atelectasis and/or pneumonia. There is improved left basilar atelectasis or pneumonia. Lungs are otherwise clear. IMPRESSION: Improved left basilar atelectasis and/or pneumonia with otherwise no significant change.
[2020-03-01 06:36] LABS: HEMATOCRIT 25.1 % (37.9-51.0); HEMOGLOBIN 8.5 g/dL (13.5-17.0); MEAN CORPUSCULAR HEMOGLOBIN 28.4 pg (27.0-33.4); MEAN CORPUSCULAR HGB CONC 33.9 g/dL (32.0-36.0); MEAN CORPUSCULAR VOLUME 84 fl (80-97); PLATELET COUNT 213 10^3/uL (150-450); RED CELL DISTRIBUTION WIDTH 13.8 % (11.5-14.0); WHITE BLOOD COUNT 8.3 10^3/uL (4.0-10.5)
[2020-03-01 07:10] LABS: ABSOLUTE LYMPHOCYTES# (MANUAL) 1.5 10^3/uL (0.5-4.7); ABSOLUTE MONOCYTES # (MANUAL) 0.3 10^3/uL (0.1-1.4); BAND NEUTROPHILS % (MANUAL) 2 % (3-5); BASOPHILS % (MANUAL) 1 % (0-2); EOSINOPHILS % (MANUAL) 5 % (0-6); LYMPHOCYTES % (MANUAL) 18 % (13-45); MONOCYTES % (MANUAL) 4 % (3-13); SEGMENTED NEUTROPHILS % (MAN) 70 % (42-78); TOTAL CELLS COUNTED 100
[2020-03-01 07:12] LABS: PLATELET COMMENT ADEQUATE
[2020-03-01 07:13] LABS: RBC MORPHOLOGY COMMENT NORMO-CYTIC/CHROMIC
[2020-03-01] MEDS: CEFTRIAXONE 2 GM/D5W RTU 2 GM/50 ML RTUPB IV SCH (07:34)
--- NOTE | 2020-03-01 09:24 | PDOC CRITICAL CARE PROG REPORT ---
General Date:: 03/01/20 ICU Day:: 5 Ventilator Day:: 5 Hospital Day:: 5 Resuscitation Status: Full Code Events in the past 12 to 24 Hours:: On new antibiotics to cover E. coli in sputum. Review of systems relevant to events:: Respiratory Reason for ICU Addmission:: Intubated post op - Medications: Medications reviewed and adjusted accordingly: Yes Vasopressors:: None Sedation:: Propofol and precedex. Physical Exam Vital Signs: Temp Pulse Resp BP Pulse Ox 102.7 F H 99 33 H 92/60 L 98 03/01/20 06:00 03/01/20 08:23 03/01/20 08:23 03/01/20 08:23 03/01/20 08:23 Intake & Output 02/29/20 03/01/20 03/02/20 06:59 06:59 06:59 Intake Total 5163 2729 271 Output Total 2430 1365 70 Balance 2733 -2216 201 Weight 129.3 kg 128 kg Weight/Height Weight 128 kg Height 5 ft 5 in General appearance: PRESENT: no acute distress, morbidly obese Head exam: PRESENT: atraumatic, normocephalic Eye exam: PRESENT: conjunctiva pink, EOMI, PERRLA. ABSENT: scleral icterus Ear exam: PRESENT: normal external ear exam Mouth exam: PRESENT: moist, tongue midline Respiratory exam: PRESENT: clear to auscultation daisy, other - Sound clearer today.. ABSENT: rales, rhonchi, wheezes Cardiovascular exam: PRESENT: tachycardia GI/Abdominal exam: PRESENT: normal bowel sounds, soft. ABSENT: distended, guarding, mass, organolmegaly, rebound, tenderness Rectal exam: PRESENT: deferred Extremities exam: PRESENT: full ROM. ABSENT: calf tenderness, clubbing, pedal edema Musculoskeletal exam: PRESENT: normal inspection Neurological exam: PRESENT: other - Sedated. Psychiatric exam: PRESENT: agitated, other - Because of his agitation he has needed fairly heavy sedatin. Skin exam: PRESENT: dry, intact, warm. ABSENT: cyanosis, rash Laboratory/Radiographs Laboratory Results: 03/01/20 06:23 02/29/20 03:44 03/01/20 06:23 WBC 8.3 RBC 3.00 L Hgb 8.5 L Hct 25.1 L MCV 84 MCH 28.4 MCHC 33.9 RDW 13.8 Plt Count 213 Seg Neutrophils % Not Reportable 02/27/20 22:09 Tracheal Aspirate Gram Stain - Final 02/27/20 22:09 Tracheal Aspirate Sputum Culture - Final Escherichia Coli Greatly Reduced Normal Cornelia 02/25/20 09:46 Troponin I < 0.012 Impressions: Abdomen/Pelvis CT 02/29/20 00:00 IMPRESSION: 1. Postsurgical changes from the appendectomy without focal drainable abscess. 2. Mild bilateral effusions and lower lobe consolidation, likely atelectasis. 3. Unchanged solid 2.3 cm right lower pole renal lesion suspicious for malignancy. MRI with contrast could be considered for more definitive characterization. Chest X-Ray 03/01/20 00:00 IMPRESSION: Improved left basilar atelectasis and/or pneumonia with otherwise no significant change. All labs, radiographs, diagnostic studies and EKGs were personally reviewed: Yes In addition, reports of radiographic and diagnostic studies were read: Yes Assessment and Plan - Diagnosis (1) Sepsis associated hypotension Is this a current diagnosis for this admission?: Yes Plan: Resolved (2) Intubation of airway performed without difficulty Is this a current diagnosis for this admission?: Yes Plan: He is growing E. coli in his sputum that is a resistant organism to selected antibiotics. He is now on rocephin. (3) Acute phlegmonous appendicitis Is this a current diagnosis for this admission?: Yes Plan: Resolved (4) Morbid obesity Is this a current diagnosis for this admission?: Yes Plan: His BMI is 47 and this is impeding extubation and surgical recovery. Plan Summary: When more afebrile will further wean. Critical Time Critical Time (minutes): 35 Level of Care: ICU Anticipated discharge: Home Within: Other -: 1. The care of a critical patient is a dynamic process. This note is a national account representative synopsis but static in nature. The timeframe for treatments given in order is not necessarily the actual time these treatments may have been done. 2. This patient requires critical care secondary to ongoing requirements for therapy not offered or safe outside the critical care environment. Transfer to a lower level of care will result in altered life or limb morbidity and mortality. 3. Multidisciplinary rounds completed. 4. ABCDE bundle addressed.
[2020-03-01] MEDS: CIPROFLOXACIN 400 MG/D5W RTU 400 MG/200 ML RTUPB IV SCH ×2 (09:54→21:25)
[2020-03-01] MEDS: PANTOPRAZOLE SODIUM 40 MG VIAL IV SCH (09:55)
[2020-03-01] MEDS: ENOXAPARIN SODIUM INJ 40 MG/0.4 ML DISP.SYRIN SUBCUT SCH (09:55)
--- NOTE | 2020-03-01 15:25 | PDOC PROGRESS REPORT ---
Subjective Progress Note for:: 03/01/20 Subjective:: Intubated and sedated. Reason For Visit: PERFORATED ACUTE APPENDICITIS WITH PERITONITIS Physical Exam Vital Signs: Temp Pulse Resp BP Pulse Ox 102.7 F H 99 33 H 92/60 L 94 03/01/20 06:00 03/01/20 08:23 03/01/20 08:23 03/01/20 08:23 03/01/20 12:15 Intake & Output 02/29/20 03/01/20 03/02/20 06:59 06:59 06:59 Intake Total 5163 2729 671 Output Total 2430 1405 470 Balance 2733 -2216 201 Weight 129.3 kg 128 kg Respiratory exam: PRESENT: clear to auscultation daisy Cardiovascular exam: PRESENT: tachycardia GI/Abdominal exam: PRESENT: other - Soft but distended. Unable to tell tenderness. Wound with retention sutures in place with minimal drainage. Wound is clean and fascia feels intact on digital examination. Packings reapplied. Results Laboratory Results: 03/01/20 06:23 02/29/20 03:44 03/01/20 06:23 WBC 8.3 RBC 3.00 L Hgb 8.5 L Hct 25.1 L MCV 84 MCH 28.4 MCHC 33.9 RDW 13.8 Plt Count 213 Seg Neutrophils % Not Reportable 02/25/20 09:46 Blood Blood Culture - Final NO GROWTH IN 5 DAYS 02/27/20 22:09 Tracheal Aspirate Gram Stain - Final 02/27/20 22:09 Tracheal Aspirate Sputum Culture - Final Escherichia Coli Greatly Reduced Normal Cornelia 02/25/20 09:46 Troponin I < 0.012 Impressions: Abdomen/Pelvis CT 02/29/20 00:00 IMPRESSION: 1. Postsurgical changes from the appendectomy without focal drainable abscess. 2. Mild bilateral effusions and lower lobe consolidation, likely atelectasis. 3. Unchanged solid 2.3 cm right lower pole renal lesion suspicious for malignancy. MRI with contrast could be considered for more definitive characterization. Chest X-Ray 03/01/20 00:00 IMPRESSION: Improved left basilar atelectasis and/or pneumonia with otherwise no significant change. Assessment & Plan - Diagnosis (1) Acute perforated appendicitis Is this a current diagnosis for this admission?: Yes Plan: status post appendectomy via midline incision. I do not think he has abdominal sepsis. There is no evidence of fascial dehiscence. Antibiotics being altered based on his sputum for his pneumonia. Greatly appreciate insole and outsole splitter care of this patient.
[2020-03-02] MEDS: HYDROMORPHONE HCL INJ/PF 2 MG/ML AMPULE IV PRN ×6 (00:08→23:16)
[2020-03-02] MEDS: DEXMEDETOMIDINE IN 0.9 % NACL 400 MCG/100 ML RTUPB IV PRN ×7 (00:29→12:38)
[2020-03-02] MEDS: PROPOFOL 1,000 MG/100 ML INFUS..BTL IV PRN ×9 (02:19→21:12)
[2020-03-02 04:14] LABS: BLOOD UREA NITROGEN 14 mg/dL (7-20); CALCIUM 7.6 mg/dL (8.4-10.2); CHLORIDE 108 mmol/L (98-107); GLUCOSE 100 mg/dL (75-110); POTASSIUM 3.7 mmol/L (3.6-5.0)
[2020-03-02 04:19] LABS: ANION GAP 6 (5-19); CARBON DIOXIDE 23 mmol/L (22-30)
[2020-03-02] MEDS: METRONIDAZOLE 500 MG/NS RTU 500 MG/100 ML RTUPB IV SCH ×4 (05:41→23:16)
[2020-03-02] MEDS: ACETAMINOPHEN 1,000 MG/100 ML RTUPB IV PRN ×2 (05:42→18:39)
[2020-03-02] MEDS: INSULIN REG, HUMAN 100 UNIT/ML 3 ML VIAL (PYX) SUBCUT SCH ×4 (05:42→23:33)
[2020-03-02] MEDS: CEFTRIAXONE 2 GM/D5W RTU 2 GM/50 ML RTUPB IV SCH (08:27)
[2020-03-02] MEDS: CIPROFLOXACIN 400 MG/D5W RTU 400 MG/200 ML RTUPB IV SCH (09:37)
[2020-03-02] MEDS: ENOXAPARIN SODIUM INJ 40 MG/0.4 ML DISP.SYRIN SUBCUT SCH (09:37)
[2020-03-02] MEDS: PANTOPRAZOLE SODIUM 40 MG VIAL IV SCH (09:37)
--- NOTE | 2020-03-02 10:57 | PDOC PROGRESS REPORT ---
Subjective Progress Note for:: 03/02/20 Reason For Visit: PERFORATED ACUTE APPENDICITIS WITH PERITONITIS Physical Exam Vital Signs: Temp Pulse Resp BP Pulse Ox 102.0 F H 70 20 103/63 98 03/02/20 06:00 03/02/20 07:47 03/02/20 07:47 03/02/20 07:47 03/02/20 07:47 Intake & Output 03/01/20 03/02/20 03/03/20 06:59 06:59 06:59 Intake Total 2729 3055 189 Output Total 4945 1630 Balance -2216 1425 189 Weight 128 kg 129.3 kg Results Laboratory Results: 03/01/20 06:23 03/02/20 03:33 03/02/20 03:33 Sodium 136.6 L Potassium 3.7 Chloride 108 H Carbon Dioxide 23 Anion Gap 6 BUN 14 Creatinine 0.62 Est GFR ( Amer) > 60 Glucose 100 Calcium 7.6 L 02/25/20 10:18 Blood Blood Culture - Final NO GROWTH IN 5 DAYS 02/25/20 09:46 Blood Blood Culture - Final NO GROWTH IN 5 DAYS 02/27/20 22:09 Tracheal Aspirate Gram Stain - Final 02/27/20 22:09 Tracheal Aspirate Sputum Culture - Final Escherichia Coli Greatly Reduced Normal Cornelia 02/25/20 09:46 Troponin I < 0.012 Impressions: Abdomen/Pelvis CT 02/29/20 00:00 IMPRESSION: 1. Postsurgical changes from the appendectomy without focal drainable abscess. 2. Mild bilateral effusions and lower lobe consolidation, likely atelectasis. 3. Unchanged solid 2.3 cm right lower pole renal lesion suspicious for malignancy. MRI with contrast could be considered for more definitive characterization. Chest X-Ray 03/01/20 00:00 IMPRESSION: Improved left basilar atelectasis and/or pneumonia with otherwise no significant change. Assessment & Plan - Diagnosis (1) Acute perforated appendicitis Is this a current diagnosis for this admission?: Yes - Plan Summary Plan Summary: 40 y/o M with perforated acute appendicitis. He is still intubated at present, and has lingering SIRS/sepsis. His NADER drains are productive of serosanguinous fluid. His abdominal exam is benign again today. He has no appreciable tenderness. His wound appears clean, without purulence or other sign of infection. His sputum grew E.coli, resitant to Cipro. Rocephin was added. I will discontinue the Cipro today. I have personally reviewed the patient's CT scan. He has no evidence of intestinal leak, free intrapeitoneal air, or accumulating abscess. Cont with supportive care. Vent management per Dr. Cline.
--- NOTE | 2020-03-02 11:13 | PDOC CRITICAL CARE PROG REPORT ---
General Date:: 03/02/20 ICU Day:: 6 Ventilator Day:: 6 Hospital Day:: 6 Resuscitation Status: Full Code Events in the past 12 to 24 Hours:: Still having fever, need to feed, TPN of TF. Review of systems relevant to events:: Respiratory, GI. Reason for ICU Addmission:: Intubated post op - Medications: Medications reviewed and adjusted accordingly: Yes Vasopressors:: None Sedation:: Propofol, precedex. Physical Exam Vital Signs: Temp Pulse Resp BP Pulse Ox 102.0 F H 70 20 103/63 98 03/02/20 06:00 03/02/20 07:47 03/02/20 07:47 03/02/20 07:47 03/02/20 07:47 Intake & Output 03/01/20 03/02/20 03/03/20 06:59 06:59 06:59 Intake Total 2729 3055 384 Output Total 4945 1630 Balance -2216 1425 384 Weight 128 kg 129.3 kg Weight/Height Weight 129.3 kg Height 5 ft 5 in General appearance: PRESENT: no acute distress, morbidly obese Head exam: PRESENT: atraumatic, normocephalic Eye exam: PRESENT: conjunctiva pink, EOMI, PERRLA. ABSENT: scleral icterus Ear exam: PRESENT: normal external ear exam Mouth exam: PRESENT: moist, tongue midline Respiratory exam: PRESENT: clear to auscultation daisy, other - Secretions. ABSENT: rales, rhonchi, wheezes Cardiovascular exam: PRESENT: RRR. ABSENT: diastolic murmur, rubs, systolic murmur GI/Abdominal exam: PRESENT: hypoactive bowel sounds, soft. ABSENT: distended, guarding, mass, organolmegaly, rebound, tenderness Rectal exam: PRESENT: deferred Extremities exam: PRESENT: full ROM. ABSENT: calf tenderness, clubbing, pedal edema Musculoskeletal exam: PRESENT: normal inspection Neurological exam: PRESENT: other - Sedated Skin exam: PRESENT: dry, intact, warm. ABSENT: cyanosis, rash Tubes/Lines: PRESENT: Endotracheal Tube, Arterial Catheter, Nasogastic Tube Laboratory/Radiographs Laboratory Results: 03/01/20 06:23 03/02/20 03:33 03/02/20 03:33 Sodium 136.6 L Potassium 3.7 Chloride 108 H Carbon Dioxide 23 Anion Gap 6 BUN 14 Creatinine 0.62 Est GFR ( Amer) > 60 Glucose 100 Calcium 7.6 L 02/25/20 10:18 Blood Blood Culture - Final NO GROWTH IN 5 DAYS 02/25/20 09:46 Blood Blood Culture - Final NO GROWTH IN 5 DAYS 02/27/20 22:09 Tracheal Aspirate Gram Stain - Final 02/27/20 22:09 Tracheal Aspirate Sputum Culture - Final Escherichia Coli Greatly Reduced Normal Cornelia 02/25/20 09:46 Troponin I < 0.012 Impressions: Abdomen/Pelvis CT 02/29/20 00:00 IMPRESSION: 1. Postsurgical changes from the appendectomy without focal drainable abscess. 2. Mild bilateral effusions and lower lobe consolidation, likely atelectasis. 3. Unchanged solid 2.3 cm right lower pole renal lesion suspicious for malignancy. MRI with contrast could be considered for more definitive ch aracterization. Chest X-Ray 03/01/20 00:00 IMPRESSION: Improved left basilar atelectasis and/or pneumonia with otherwise no significant change. All labs, radiographs, diagnostic studies and EKGs were personally reviewed: Yes In addition, reports of radiographic and diagnostic studies were read: Yes Assessment and Plan - Diagnosis (1) Sepsis associated hypotension Is this a current diagnosis for this admission?: Yes Plan: Nearly resolved (2) Intubation of airway performed without difficulty Is this a current diagnosis for this admission?: Yes Plan: Need to extubate. Will check CXR and ABG first. (3) Acute phlegmonous appendicitis Is this a current diagnosis for this admission?: Yes Plan: Resolved. (4) Morbid obesity Is this a current diagnosis for this admission?: Yes Plan: Chronic and this will effect his breathing. Even though morbidly obese he needs nutrition after 6 days NPO. Tube feeding to start at low rate and TPN to start as well. Plan Summary: PICC line, TPN and try to extubate. Still no reason for fever except slowly resolving infection. Critical Time Critical Time (minutes): 35 Level of Care: ICU Anticipated discharge: Home with Homehealth Within: Other -: 1. The care of a critical patient is a dynamic process. This note is a sales service representative synopsis but static in nature. The timeframe for treatments given in order is not necessarily the actual time these treatments may have been done. 2. This patient requires critical care secondary to ongoing requirements for therapy not offered or safe outside the critical care environment. Transfer to a lower level of care will result in altered life or limb morbidity and mortality. 3. Multidisciplinary rounds completed. 4. ABCDE bundle addressed.
[2020-03-02] MEDS ORDERED: DEXTROSE 10%-WATER 1,000 ML IV PRN (11:30)
[2020-03-02] MEDS ORDERED: NORMAL SALINE 10 ML SDV (AFTER EACH USE) IV PRN (14:00)
--- NOTE | 2020-03-02 14:20 | RADIOLOGY REPORT (SQ) ---
EXAM DESCRIPTION: PICC INSERTION IMAGES COMPLETED DATE/TIME: 03/02/2020 1:42 pm REASON FOR STUDY: Need for TPN COMPARISON: 03/01/20. FLUOROSCOPY TIME: None 3 images saved to PACS. TECHNIQUE: Fluoroscopic and ultrasound guided PICC placement. LIMITATIONS: None. PROCEDURE: After written consent and assessment were obtained, the patient was brought into the fluo roscopy room and placed supine on the table. Ultrasound evaluation of potential access sites were per formed. After successfully identifying a patent right basilic vein, the right arm was prepped and kenzie ped in a sterile fashion along with the ultrasound probe. The entry site was anesthetized with 1% lid ocaine. A 21 gauge 7 cm needle was advanced through the skin and into the basilic vein under live ult rasound guidance. An ultrasound image was saved to PACS confirming access site. A .018 guide wire w as then inserted through the needle and into the venous system. The needle was then removed and an 11 blade scalpel was used to make a 1cm skin incision. A 5 fr peel-away sheath was advanced over the w madina and into the venous system. A measurement was then made using the existing wire and x-ray guidanc e. The wire was then removed and trimmed. The PICC was advanced through the peel-away sheath and into the venous system. The peel-away sheath was removed and the catheter was adhered to the patients arm with a stat lock. The catheter was then aspirated and flushed and a sterile bandage was placed over the access site. A fluoroscopic spot image was saved to PACS confirming the catheter tip within the superior vena cava. IMPRESSION: SUCCESSFUL PLACEMENT OF A 5 FR DUAL LUMEN 36 CM PICC IN THE RIGHT BASILIC VEIN. COMMENT: Patient medication list reviewed: Yes- Quality ID# 130:Eligible professional attests to doc umenting in the medical record they obtained, updated, or reviewed the patient's current medications. . Quality ID 145: Final reports for procedures using fluoroscopy that document radiation exposure laura obdulio, or exposure time and number of fluorographic images (if radiation exposure indices are not avail able) Quality ID #76: The patient was prepped and draped using maximum sterile barrier technique including cap, mask, sterile gown, sterile gloves, a large sterile sheet, hand hygiene, and 2% Chlorhexidine fo r cutaneous antisepsis. When ultrasound is used, sterile ultrasound techniques are followed requiring sterile gel and sterile probes. TECHNICAL DOCUMENTATION: JOB ID: [id number] 2010 [employer]- All Rights Reserved rev-03/28 Reading location - IP/workstation name: [email or web address]
[2020-03-02 15:23] LABS: ARTERIAL BLOOD BASE EXCESS -2.3 mmol/L; ARTERIAL BLOOD FIO2 40%; ARTERIAL BLOOD H2CO3 0.87 mmol/L (1.05-1.35); ARTERIAL BLOOD HCO3 20.5 mmol/L (20-24); ARTERIAL BLOOD O2 SATURATION 96.1 % (94-98); ARTERIAL BLOOD PCO2 28.8 mmHg (35-45); ARTERIAL BLOOD PH 7.47 (7.35-7.45); ARTERIAL BLOOD PO2 75.2 mmHg (80-100); ARTERIAL BLOOD TOTAL CO2 21.4 mmol/L (23-27)
[2020-03-02] MEDS ORDERED: FUROSEMIDE ORAL SOLN 40 MG/5 ML UDCUP PO ONE (16:00)
[2020-03-02] MEDS ORDERED: FUROSEMIDE INJ/PF 40 MG/4 ML SDV IV ONE (17:00)
[2020-03-02] MEDS: MIDAZOLAM HCL 50 MG/100 ML RTUINJ IV PRN (19:55)
[2020-03-02] MEDS: NORMAL SALINE 10 ML SDV (SCHEDULED) IV SCH (21:01)
[2020-03-03] MEDS: PROPOFOL 1,000 MG/100 ML INFUS..BTL IV PRN ×3 (01:49→07:10)
[2020-03-03] MEDS: MIDAZOLAM HCL 50 MG/100 ML RTUINJ IV PRN (04:19)
[2020-03-03 04:40] LABS: HEMATOCRIT 26.6 % (37.9-51.0); HEMOGLOBIN 9.6 g/dL (13.5-17.0); MEAN CORPUSCULAR HEMOGLOBIN 30.2 pg (27.0-33.4); MEAN CORPUSCULAR HGB CONC 36.2 g/dL (32.0-36.0); MEAN CORPUSCULAR VOLUME 83 fl (80-97); PLATELET COUNT 306 10^3/uL (150-450); RED CELL DISTRIBUTION WIDTH 13.8 % (11.5-14.0)
[2020-03-03] MEDS: HYDROMORPHONE HCL INJ/PF 2 MG/ML AMPULE IV PRN ×4 (04:45→15:30)
[2020-03-03 04:54] LABS: ALBUMIN 2.3 g/dL (3.5-5.0); ALKALINE PHOSPHATASE 75 U/L (38-126); ANION GAP 9 (5-19); ASPARTATE AMINO TRANSFERASE 37 U/L (17-59); BILIRUBIN,TOTAL 0.3 mg/dL (0.2-1.3); BLOOD UREA NITROGEN 12 mg/dL (7-20); CALCIUM 7.1 mg/dL (8.4-10.2); CARBON DIOXIDE 20 mmol/L (22-30); CHLORIDE 104 mmol/L (98-107); GLUCOSE 135 mg/dL (75-110); PHOSPHORUS 3.4 mg/dL (2.5-4.5); POTASSIUM 3.3 mmol/L (3.6-5.0); TOTAL PROTEIN 5.6 g/dL (6.3-8.2)
[2020-03-03 05:01] LABS: PREALBUMIN 18.9 mg/dL (17.6-36.0)
[2020-03-03 05:14] LABS: ABSOLUTE LYMPHOCYTES# (MANUAL) 1.1 10^3/uL (0.5-4.7); BAND NEUTROPHILS % (MANUAL) 2 % (3-5); BASOPHILS % (MANUAL) 2 % (0-2); BURR CELLS SLIGHT; EOSINOPHILS % (MANUAL) 0 % (0-6); LYMPHOCYTES % (MANUAL) 8 % (13-45); MONOCYTES % (MANUAL) 8 % (3-13); OVALOCYTES SLIGHT; POIKILOCYTOSIS SLIGHT; POLYCHROMASIA SLIGHT; SEGMENTED NEUTROPHILS % (MAN) 79 % (42-78); TOTAL CELLS COUNTED 100; TOXIC GRANULATION SLIGHT
[2020-03-03 05:15] LABS: PLATELET COMMENT ADEQUATE; TEAR DROP CELLS SLIGHT; TRIGLYCERIDES 1560 mg/dL (<150)
[2020-03-03] MEDS: INSULIN REG, HUMAN 100 UNIT/ML 3 ML VIAL (PYX) SUBCUT SCH ×4 (05:34→23:48)
[2020-03-03] MEDS: METRONIDAZOLE 500 MG/NS RTU 500 MG/100 ML RTUPB IV SCH ×2 (06:09→12:31)
[2020-03-03] MEDS: AMINO ACIDS 5 %/DEXTROSE 20 % 1,000 ML IV PRN ×2 (08:05→23:49)
[2020-03-03] MEDS: CEFTRIAXONE 2 GM/D5W RTU 2 GM/50 ML RTUPB IV SCH (09:19)
[2020-03-03] MEDS: ENOXAPARIN SODIUM INJ 40 MG/0.4 ML DISP.SYRIN SUBCUT SCH (10:10)
[2020-03-03] MEDS: NORMAL SALINE 10 ML SDV (SCHEDULED) IV SCH ×2 (10:11→21:44)
--- NOTE | 2020-03-03 10:23 | PDOC CRITICAL CARE PROG REPORT ---
General Date:: 03/03/20 ICU Day:: 7 Hospital Day:: 7 Resuscitation Status: Full Code Events in the past 12 to 24 Hours:: Extubated today Review of systems relevant to events:: Respiratory, GI. Reason for ICU Addmission:: Intubated post op. Today extubated. - Medications: Medications reviewed and adjusted accordingly: Yes Vasopressors:: None Sedation:: None. Physical Exam Vital Signs: Temp Pulse Resp BP Pulse Ox 99.3 F 120 H 22 H 119/83 97 03/03/20 07:57 03/03/20 09:30 03/03/20 09:30 03/03/20 09:30 03/03/20 09:30 Intake & Output 03/02/20 03/03/20 03/04/20 06:59 06:59 06:59 Intake Total 3055 1672 29 Output Total 1630 3200 175 Balance 1425 -1528 -146 Weight 129.3 kg 127.1 kg Weight/Height Weight 127.1 kg Height 5 ft 5 in General appearance: PRESENT: no acute distress, morbidly obese Head exam: PRESENT: atraumatic, normocephalic Eye exam: PRESENT: conjunctiva pink, EOMI, PERRLA. ABSENT: scleral icterus Ear exam: PRESENT: normal external ear exam Mouth exam: PRESENT: moist, tongue midline Neck exam: ABSENT: carotid bruit, JVD, lymphadenopathy, thyromegaly Respiratory exam: PRESENT: clear to auscultation daisy. ABSENT: rales, rhonchi, wheezes Cardiovascular exam: PRESENT: RRR. ABSENT: diastolic murmur, rubs, systolic murmur GI/Abdominal exam: PRESENT: normal bowel sounds, soft, other - Wound clean and JPs putting out less serous fluid.. ABSENT: distended, guarding, mass, organolmegaly, rebound, tenderness Rectal exam: PRESENT: deferred Extremities exam: PRESENT: full ROM. ABSENT: calf tenderness, clubbing, pedal edema Neurological exam: PRESENT: alert, altered, awake, other - Coming off several days sedation. Skin exam: PRESENT: dry, intact, warm. ABSENT: cyanosis, rash Tubes/Lines: PRESENT: Arterial Catheter Laboratory/Radiographs Laboratory Results: 03/03/20 04:24 03/03/20 04:24 03/02/20 03/03/20 03/03/20 15:15 04:24 04:24 WBC 12.0 H RBC 3.20 L Hgb 9.6 L Hct 26.6 L MCV 83 MCH 30.2 MCHC 36.2 H RDW 13.8 Plt Count 306 Seg Neutrophils % Not Reportable Carbonic Acid 0.87 L HCO3/H2CO3 Ratio 23:1 ABG pH 7.47 H ABG pCO2 28.8 L ABG pO2 75.2 L ABG HCO3 20.5 ABG O2 Saturation 96.1 ABG Base Excess -2.3 FiO2 40% Sodium 132.8 L Potassium 3.3 L Chloride 104 Carbon Dioxide 20 L Anion Gap 9 BUN 12 Creatinine 0.42 L Est GFR ( Amer) > 60 Glucose 135 H Calcium 7.1 L Phosphorus 3.4 Total Bilirubin 0.3 AST 37 Alkaline Phosphatase 75 Total Protein 5.6 L Albumin 2.3 L Prealbumin 18.9 Triglycerides 1560 H 02/25/20 10:18 Blood Blood Culture - Final NO GROWTH IN 5 DAYS 02/25/20 09:46 Troponin I < 0.012 Impressions: Abdomen/Pelvis CT 02/29/20 00:00 IMPRESSION: 1. Postsurgical changes from the appendectomy without focal drainable abscess. 2. Mild bilateral effusions and lower lobe consolidation, likely atelectasis. 3. Unchanged solid 2.3 cm right lower pole renal lesion suspicious for malignancy. MRI with contrast could be considered for more definitive characterization. Chest X-Ray 03/01/20 00:00 IMPRESSION: Improved left basilar atelectasis and/or pneumonia with otherwise no significant change. PICC Line Insertion 03/02/20 00:00 IMPRESSION: SUCCESSFUL PLACEMENT OF A 5 FR DUAL LUMEN 36 CM PICC IN THE RIGHT BASILIC VEIN. All labs, radiographs, diagnostic studies and EKGs were personally reviewed: Yes In addition, reports of radiographic and diagnostic studies were read: Yes Assessment and Plan - Diagnosis (1) Sepsis associated hypotension Is this a current diagnosis for this admission?: Yes Plan: Resolved (2) Intubation of airway performed without difficulty Is this a current diagnosis for this admission?: Yes Plan: Resolved (3) Acute phlegmonous appendicitis Is this a current diagnosis for this admission?: Yes Plan: resolved (4) Morbid obesity Is this a current diagnosis for this admission?: Yes Plan: Chronic. (5) Confusion Is this a current diagnosis for this admission?: Yes Plan: Due to residual sedation. (6) Physical deconditioning Is this a current diagnosis for this admission?: Yes Plan: He has been immobile for a week. Will get PT involved. Plan Summary: Observe for respiratory stability. Would like him more coherent to transfer. Critical Time Critical Time (minutes): 35 Level of Care: ICU Anticipated discharge: Home with Homehealth Within: Other -: 1. The care of a critical patient is a dynamic process. This note is a senior sales representative synopsis but static in nature. The timeframe for treatments given in order is not necessarily the actual time these treatments may have been done. 2. This patient requires critical care secondary to ongoing requirements for therapy not offered or safe outside the critical care environment. Transfer to a lower level of care will result in altered life or limb morbidity and mortality. 3. Multidisciplinary rounds completed. 4. ABCDE bundle addressed.
[2020-03-03] MEDS ORDERED: RINGERS SOLUTION,LACTATED 1,000 ML IV PRN (10:26)
--- NOTE | 2020-03-03 11:09 | PDOC PROGRESS REPORT ---
Subjective Progress Note for:: 03/03/20 Subjective:: Patient is extubated. States that his abdomen feels much better than before his operation. Reason For Visit: PERFORATED ACUTE APPENDICITIS WITH PERITONITIS Physical Exam Vital Signs: Temp Pulse Resp BP Pulse Ox 100.2 F 120 H 26 H 162/83 H 98 03/03/20 10:56 03/03/20 09:30 03/03/20 10:56 03/03/20 10:56 03/03/20 10:56 Intake & Output 03/02/20 03/03/20 03/04/20 06:59 06:59 06:59 Intake Total 3055 1672 29 Output Total 1630 3200 175 Balance 1425 -1528 -146 Weight 129.3 kg 127.1 kg General appearance: PRESENT: cooperative Respiratory exam: PRESENT: clear to auscultation daisy Cardiovascular exam: PRESENT: tachycardia GI/Abdominal exam: PRESENT: other - Soft but protuberant with only mild diffuse abdominal tenderness without peritoneal signs. Retention sutures are intact and the fascia feels intact on digital probing. The wound is open with some oozing with dressing changes. Results Laboratory Results: 03/03/20 04:24 03/03/20 04:24 03/02/20 03/03/20 03/03/20 15:15 04:24 04:24 WBC 12.0 H RBC 3.20 L Hgb 9.6 L Hct 26.6 L MCV 83 MCH 30.2 MCHC 36.2 H RDW 13.8 Plt Count 306 Seg Neutrophils % Not Reportable Carbonic Acid 0.87 L HCO3/H2CO3 Ratio 23:1 ABG pH 7.47 H ABG pCO2 28.8 L ABG pO2 75.2 L ABG HCO3 20.5 ABG O2 Saturation 96.1 ABG Base Excess -2.3 FiO2 40% Sodium 132.8 L Potassium 3.3 L Chloride 104 Carbon Dioxide 20 L Anion Gap 9 BUN 12 Creatinine 0.42 L Est GFR ( Amer) > 60 Glucose 135 H Calcium 7.1 L Phosphorus 3.4 Total Bilirubin 0.3 AST 37 Alkaline Phosphatase 75 Total Protein 5.6 L Albumin 2.3 L Prealbumin 18.9 Triglycerides 1560 H 02/25/20 10:18 Blood Blood Culture - Final NO GROWTH IN 5 DAYS 02/25/20 09:46 Troponin I < 0.012 Impressions: Abdomen/Pelvis CT 02/29/20 00:00 IMPRESSION: 1. Postsurgical changes from the appendectomy without focal drainable abscess. 2. Mild bilateral effusions and lower lobe consolidation, likely atelectasis. 3. Unchanged solid 2.3 cm right lower pole renal lesion suspicious for malignancy. MRI with contrast could be considered for more definitive characterization. Chest X-Ray 03/01/20 00:00 IMPRESSION: Improved left basilar atelectasis and/or pneumonia with otherwise no significant change. PICC Line Insertion 03/02/20 00:00 IMPRESSION: SUCCESSFUL PLACEMENT OF A 5 FR DUAL LUMEN 36 CM PICC IN THE RIGHT BASILIC VEIN. Assessment & Plan - Diagnosis (1) Acute perforated appendicitis Is this a current diagnosis for this admission?: Yes Plan: Status post appendectomy via midline incision. Fever curve has come down but patient still tachycardic. I do not think he has abdominal sepsis. His abdominal exam demonstrates a soft abdomen with mild tenderness. His drain output is serosanguineous. His prior's abdominal CT scan was unremarkable. Supportive care as per critical care. Would hold off p.o. intake for now.
[2020-03-03 16:35] LABS: ARTERIAL BLOOD BASE EXCESS -0.3 mmol/L; ARTERIAL BLOOD H2CO3 0.93 mmol/L (1.05-1.35); ARTERIAL BLOOD HCO3 22.5 mmol/L (20-24); ARTERIAL BLOOD O2 SATURATION 94.5 % (94-98); ARTERIAL BLOOD PCO2 30.9 mmHg (35-45); ARTERIAL BLOOD PH 7.48 (7.35-7.45); ARTERIAL BLOOD PO2 65.9 mmHg (80-100); ARTERIAL BLOOD TOTAL CO2 23.5 mmol/L (23-27)
[2020-03-03 16:40] LABS: ARTERIAL BLOOD FIO2 3L
[2020-03-03] MEDS ORDERED: LORAZEPAM INJ 2 MG/1 ML VIAL IV PRN (17:05)
[2020-03-03] MEDS ORDERED: LORAZEPAM INJ 2 MG/1 ML VIAL ONE (17:12)
--- NOTE | 2020-03-03 17:40 | PDOC PROGRESS REPORT ---
Subjective Progress Note for:: 03/03/20 Subjective:: Patient has become increasingly confused and agitated. Reason For Visit: PERFORATED ACUTE APPENDICITIS WITH PERITONITIS Physical Exam Vital Signs: Temp Pulse Resp BP Pulse Ox 102.7 F H 120 H 26 H 168/76 H 99 03/03/20 16:00 03/03/20 09:30 03/03/20 14:00 03/03/20 13:56 03/03/20 14:00 Intake & Output 03/02/20 03/03/20 03/04/20 06:59 06:59 06:59 Intake Total 3055 1672 279 Output Total 1630 3200 1025 Balance 1425 -1528 -746 Weight 129.3 kg 127.1 kg Respiratory exam: PRESENT: clear to auscultation daisy - O2 sat is 92% on room air Cardiovascular exam: PRESENT: tachycardia GI/Abdominal exam: PRESENT: other - Soft, protuberant, no apparent tenderness to palpation other than at the wound when I am repacking his wound. No peritoneal signs. Fascia feels intact on digital probe. Minimal amount of drainage on the packings. Some oozing at the skin when the packing is removed. Results Laboratory Results: 03/03/20 04:24 03/03/20 04:24 03/03/20 03/03/20 03/03/20 04:24 04:24 16:20 WBC 12.0 H RBC 3.20 L Hgb 9.6 L Hct 26.6 L MCV 83 MCH 30.2 MCHC 36.2 H RDW 13.8 Plt Count 306 Seg Neutrophils % Not Reportable Carbonic Acid 0.93 L HCO3/H2CO3 Ratio 24:1 ABG pH 7.48 H ABG pCO2 30.9 L ABG pO2 65.9 L ABG HCO3 22.5 ABG O2 Saturation 94.5 ABG Base Excess -0.3 FiO2 3L Sodium 132.8 L Potassium 3.3 L Chloride 104 Carbon Dioxide 20 L Anion Gap 9 BUN 12 Creatinine 0.42 L Est GFR ( Amer) > 60 Glucose 135 H Calcium 7.1 L Phosphorus 3.4 Total Bilirubin 0.3 AST 37 Alkaline Phosphatase 75 Total Protein 5.6 L Albumin 2.3 L Prealbumin 18.9 Triglycerides 1560 H 02/27/20 12:47 Blood Blood Culture - Final NO GROWTH IN 5 DAYS 02/27/20 12:52 Blood Blood Culture - Final NO GROWTH IN 5 DAYS 02/25/20 09:46 Troponin I < 0.012 Impressions: Abdomen/Pelvis CT 02/29/20 00:00 IMPRESSION: 1. Postsurgical changes from the appendectomy without focal drainable abscess. 2. Mild bilateral effusions and lower lobe consolidation, likely atelectasis. 3. Unchanged solid 2.3 cm right lower pole renal lesion suspicious for malignancy. MRI with contrast could be considered for more definitive characterization. Chest X-Ray 03/01/20 00:00 IMPRESSION: Improved left basilar atelectasis and/or pneumonia with otherwise no significant change. PICC Line Insertion 03/02/20 00:00 IMPRESSION: SUCCESSFUL PLACEMENT OF A 5 FR DUAL LUMEN 36 CM PICC IN THE RIGHT BASILIC VEIN. Assessment & Plan - Diagnosis (1) Acute perforated appendicitis Is this a current diagnosis for this admission?: Yes Plan: I have called his family and there is significant alcohol history. 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 I do not think he has abdominal sepsis. Again his abdominal exam looks okay (it is soft and he does not seem to be bothered with palpation and he does not complain of abdominal pain. I do not see evidence of fascial dehiscence. He is confused however). His urine output has been good. I believe that he is withdrawing from alcohol. With the stoppage of his sedation with his extubation, he has become increasingly more agitated with increased heart rate and blood pressure. I have discussed my concerns with the laborer yard and benzodiazepine has been resumed. Thiamine will be started as well. I will defer to his expertise for management of his possible alcohol withdrawal.
[2020-03-03] MEDS: THIAMINE HCL INJ 200 MG/2 ML VIAL IM SCH (18:55)
[2020-03-03] MEDS ORDERED: LORAZEPAM INJ 2 MG/1 ML VIAL IV ONE ×2 (19:11→22:38)
--- NOTE | 2020-03-03 19:53 | PDOC PROGRESS REPORT ---
Subjective Progress Note for:: 03/03/20 Subjective:: Patient still confused, denies abdominal pain when asked. Reason For Visit: PERFORATED ACUTE APPENDICITIS WITH PERITONITIS Physical Exam Vital Signs: Temp Pulse Resp BP Pulse Ox 103.8 F H 120 H 32 H 182/87 H 93 03/03/20 18:00 03/03/20 09:30 03/03/20 18:00 03/03/20 16:44 03/03/20 18:00 Intake & Output 03/02/20 03/03/20 03/04/20 06:59 06:59 06:59 Intake Total 3055 1672 279 Output Total 1630 3200 1325 Balance 1425 -1528 -1046 Weight 129.3 kg 127.1 kg Respiratory exam: PRESENT: decreased breath sounds Cardiovascular exam: PRESENT: tachycardia GI/Abdominal exam: PRESENT: other - Protuberant, but soft, denies tenderness with exam. Results Laboratory Results: 03/03/20 04:24 03/03/20 04:24 03/03/20 03/03/20 03/03/20 04:24 04:24 16:20 WBC 12.0 H RBC 3.20 L Hgb 9.6 L Hct 26.6 L MCV 83 MCH 30.2 MCHC 36.2 H RDW 13.8 Plt Count 306 Seg Neutrophils % Not Reportable Carbonic Acid 0.93 L HCO3/H2CO3 Ratio 24:1 ABG pH 7.48 H ABG pCO2 30.9 L ABG pO2 65.9 L ABG HCO3 22.5 ABG O2 Saturation 94.5 ABG Base Excess -0.3 FiO2 3L Sodium 132.8 L Potassium 3.3 L Chloride 104 Carbon Dioxide 20 L Anion Gap 9 BUN 12 Creatinine 0.42 L Est GFR ( Amer) > 60 Glucose 135 H Calcium 7.1 L Phosphorus 3.4 Total Bilirubin 0.3 AST 37 Alkaline Phosphatase 75 Total Protein 5.6 L Albumin 2.3 L Prealbumin 18.9 Triglycerides 1560 H 02/27/20 12:47 Blood Blood Culture - Final NO GROWTH IN 5 DAYS 02/27/20 12:52 Blood Blood Culture - Final NO GROWTH IN 5 DAYS 02/25/20 09:46 Troponin I < 0.012 Impressions: Abdomen/Pelvis CT 02/29/20 00:00 IMPRESSION: 1. Postsurgical changes from the appendectomy without focal drainable abscess. 2. Mild bilateral effusions and lower lobe consolidation, likely atelectasis. 3. Unchanged solid 2.3 cm right lower pole renal lesion suspicious for malignancy. MRI with contrast could be considered for more definitive characterization. Chest X-Ray 03/01/20 00:00 IMPRESSION: Improved left basilar atelectasis and/or pneumonia with otherwise no significant change. PICC Line Insertion 03/02/20 00:00 IMPRESSION: SUCCESSFUL PLACEMENT OF A 5 FR DUAL LUMEN 36 CM PICC IN THE RIGHT BASILIC VEIN. Assessment & Plan - Diagnosis (1) Acute perforated appendicitis Is this a current diagnosis for this admission?: Yes Plan: Persistent tachycardia and high-grade fevers concerning. Patient now receiving benzodiazepine. Although I do not think he has abdominal sepsis, I cannot entirely exclude it. Will repeat his abdominal pelvic CT scan. Will obtain blood cultures as well as culture via his PICC line. Unlikely however that he has line sepsis since the PICC line is only a day old.
[2020-03-03] MEDS: ACETAMINOPHEN 650 MG SUPP.RECT PR PRN (21:43)
--- NOTE | 2020-03-03 21:50 | RADIOLOGY REPORT (SQ) ---
CLINICAL INDICATION: s/p open appy, eval for abdominal sepsis. Infectious. TECHNIQUE: Contrast enhanced spiral axial CT imaging was obtained of the abdomen and pelvis with multiplanar reconstructions. This exam was performed according to our departmental dose-optimization program, which includes automated exposure control, adjustment of the mA and/or kV according to patient size and/or use of iterative reconstruction techniques. COMPARISON: February 29, 2020. CORRELATION: None. FINDINGS: Abdomen: The lung bases demonstrate right basilar airspace disease both atelectatic and consolidated. Small adjacent pleural effusion. The left basilar airspace and pleural disease is improved. Motion artifact. The heart is prominent. No pericardial fluid. The liver is mildly heterogeneous. The gallbladder is nondistended without inflammatory change. The pancreas is unremarkable. The spleen is unremarkable. The adrenals are unremarkable. The kidneys appear grossly normal without evidence of urolithiasis or hydronephrosis. There is no evidence of free air. Trace free fluid. No bulky adenopathy. Abdominal aorta is nonaneurysmal. Postsurgical change. No undrained collections. No adverse change. Pelvis: The bowel is nonobstructed. Contrast within the colon. There appears be narrowing of the sigmoid colon.. Pelvic contents are otherwise unremarkable. The appendix is surgically absent. Visualized bones are unremarkable. IMPRESSION: Artifact from the patient's arms. Imaging is degraded by patient motion, with resultant artifact. The best possible images were obtained. Postsurgical change. No postsurgical complications. No adverse change Apparent thickening of the sigmoid colon, indeterminate.
[2020-03-03] MEDS: LORAZEPAM INJ 2 MG/1 ML VIAL IV PRN (22:08)
--- NOTE | 2020-03-03 22:29 | PDOC PROGRESS REPORT ---
Subjective Progress Note for:: 03/03/20 Reason For Visit: PERFORATED ACUTE APPENDICITIS WITH PERITONITIS Physical Exam Vital Signs: Temp Pulse Resp BP Pulse Ox 102.6 F H 120 H 32 H 182/87 H 93 03/03/20 22:00 03/03/20 09:30 03/03/20 18:00 03/03/20 16:44 03/03/20 18:00 Intake & Output 03/02/20 03/03/20 03/04/20 06:59 06:59 06:59 Intake Total 3055 1672 279 Output Total 1630 3200 1825 Balance 5954 -5336 -9904 Weight 129.3 kg 127.1 kg Results Laboratory Results: 03/03/20 04:24 03/03/20 04:24 03/03/20 03/03/20 03/03/20 04:24 04:24 16:20 WBC 12.0 H RBC 3.20 L Hgb 9.6 L Hct 26.6 L MCV 83 MCH 30.2 MCHC 36.2 H RDW 13.8 Plt Count 306 Seg Neutrophils % Not Reportable Carbonic Acid 0.93 L HCO3/H2CO3 Ratio 24:1 ABG pH 7.48 H ABG pCO2 30.9 L ABG pO2 65.9 L ABG HCO3 22.5 ABG O2 Saturation 94.5 ABG Base Excess -0.3 FiO2 3L Sodium 132.8 L Potassium 3.3 L Chloride 104 Carbon Dioxide 20 L Anion Gap 9 BUN 12 Creatinine 0.42 L Est GFR ( Amer) > 60 Glucose 135 H Calcium 7.1 L Phosphorus 3.4 Total Bilirubin 0.3 AST 37 Alkaline Phosphatase 75 Total Protein 5.6 L Albumin 2.3 L Prealbumin 18.9 Triglycerides 1560 H Lipase 03/03/20 20:14 WBC RBC Hgb Hct MCV MCH MCHC RDW Plt Count Seg Neutrophils % Carbonic Acid HCO3/H2CO3 Ratio ABG pH ABG pCO2 ABG pO2 ABG HCO3 ABG O2 Saturation ABG Base Excess FiO2 Sodium Potassium Chloride Carbon Dioxide Anion Gap BUN Creatinine Est GFR ( Amer) Glucose Calcium Phosphorus Total Bilirubin AST Alkaline Phosphatase Total Protein Albumin Prealbumin Triglycerides Lipase 1793.7 H 02/27/20 12:47 Blood Blood Culture - Final NO GROWTH IN 5 DAYS 02/27/20 12:52 Blood Blood Culture - Final NO GROWTH IN 5 DAYS 02/25/20 09:46 Troponin I < 0.012 Impressions: Chest X-Ray 03/01/20 00:00 IMPRESSION: Improved left basilar atelectasis and/or pneumonia with otherwise no significant change. PICC Line Insertion 03/02/20 00:00 IMPRESSION: SUCCESSFUL PLACEMENT OF A 5 FR DUAL LUMEN 36 CM PICC IN THE RIGHT BASILIC VEIN. Abdomen/Pelvis CT 03/03/20 00:00 IMPRESSION: Artifact from the patient's arms. Imaging is degraded by patient motion, with resultant artifact. The best possible images were obtained. Postsurgical change. No postsurgical complications. No adverse change Apparent thickening of the sigmoid colon, indeterminate. Assessment & Plan - Diagnosis (1) Acute perforated appendicitis Is this a current diagnosis for this admission?: Yes Plan: CT scan demonstrates some postoperative changes but no evidence of perforation or leak nor any other evidence of abdominal sepsis. Patient's lipase is elev ated but the pancreas does not appear abnormal on the CT scan. I believe he has pancreatitis although the severity is uncertain. At the minimum he will need IV fluid support. I have discussed the findings with the monotype mechanic. His benzodiazepine therapy has been increased .
[2020-03-04] MEDS: LORAZEPAM INJ 2 MG/1 ML VIAL IV PRN ×6 (00:54→21:50)
[2020-03-04] MEDS: RINGERS SOLUTION,LACTATED 1,000 ML IV PRN ×2 (00:54→14:04)
[2020-03-04] MEDS ORDERED: HALOPERIDOL LACTATE INJ 5 MG/1 ML VIAL IV ONE (02:15)
[2020-03-04] MEDS ORDERED: HALOPERIDOL LACTATE INJ 5 MG/1 ML VIAL ONE (02:17)
[2020-03-04] MEDS: INSULIN REG, HUMAN 100 UNIT/ML 3 ML VIAL (PYX) SUBCUT SCH ×4 (05:12→23:33)
[2020-03-04 05:51] LABS: ALBUMIN 2.6 g/dL (3.5-5.0); ALKALINE PHOSPHATASE 115 U/L (38-126); ANION GAP 8 (5-19); ASPARTATE AMINO TRANSFERASE 46 U/L (17-59); BILIRUBIN,DIRECT 0.2 mg/dL (0.0-0.4); BILIRUBIN,TOTAL 0.9 mg/dL (0.2-1.3); BLOOD UREA NITROGEN 5 mg/dL (7-20); CALCIUM 7.4 mg/dL (8.4-10.2); CARBON DIOXIDE 25 mmol/L (22-30); CHLORIDE 104 mmol/L (98-107); GLUCOSE 161 mg/dL (75-110); PHOSPHORUS 2.2 mg/dL (2.5-4.5)
[2020-03-04 05:56] LABS: POTASSIUM 2.9 mmol/L (3.6-5.0)
[2020-03-04 05:58] LABS: PREALBUMIN 8.7 mg/dL (17.6-36.0)
[2020-03-04] MEDS: POTASSI CL 20 MEQ/50 ML RIDER 20 MEQ/50 ML RTUPB IV SCH ×3 (06:27→09:24)
[2020-03-04] MEDS: CEFTRIAXONE 2 GM/D5W RTU 2 GM/50 ML RTUPB IV SCH (08:16)
--- NOTE | 2020-03-04 08:35 | PDOC CRITICAL CARE PROG REPORT ---
General Date:: 03/04/20 ICU Day:: 7 Hospital Day:: 7 Resuscitation Status: Full Code Events in the past 12 to 24 Hours:: Extubated and in a hyperactive delirium consistent with ETOH WD. Review of systems relevant to events:: Neurological and GI. Reason for ICU Addmission:: Intubated post op. Today extubated. - Medications: Medications reviewed and adjusted accordingly: Yes Vasopressors:: None Sedation:: PRN ativan Physical Exam Vital Signs: Temp Pulse Resp BP Pulse Ox 100.0 F 152 H 36 H 157/89 H 100 03/04/20 06:00 03/03/20 20:00 03/04/20 06:00 03/04/20 05:41 03/04/20 06:00 Intake & Output 03/03/20 03/04/20 03/05/20 06:59 06:59 06:59 Intake Total 1672 279 Output Total 3200 4085 Balance -1528 -3806 Weight 127.1 kg 125.9 kg Weight/Height Weight 125.9 kg Height 5 ft 5 in General appearance: PRESENT: disheveled, morbidly obese Head exam: PRESENT: atraumatic, normocephalic Eye exam: PRESENT: conjunctiva pink, EOMI, PERRLA. ABSENT: scleral icterus Ear exam: PRESENT: normal external ear exam Mouth exam: PRESENT: moist, tongue midline Respiratory exam: PRESENT: clear to auscultation daisy. ABSENT: rales, rhonchi, wheezes Cardiovascular exam: PRESENT: tachycardia Pulses: PRESENT: normal dorsalis pedis pul Vascular exam: PRESENT: normal capillary refill GI/Abdominal exam: PRESENT: normal bowel sounds, soft, other - Wound open but clean.. ABSENT: distended, guarding, mass, organolmegaly, rebound, tenderness Rectal exam: PRESENT: deferred Gentrourinary exam: PRESENT: indwelling catheter Extremities exam: PRESENT: full ROM. ABSENT: calf tenderness, clubbing, pedal edema Neurological exam: PRESENT: alert, altered, awake, oriented to person Psychiatric exam: PRESENT: agitated Skin exam: PRESENT: rash, other - Rash is consistent with allergy Laboratory/Radiographs Laboratory Results: 03/03/20 04:24 03/04/20 05:23 03/03/20 03/03/20 03/04/20 16:20 20:14 04:22 Carbonic Acid 0.93 L HCO3/H2CO3 Ratio 24:1 ABG pH 7.48 H ABG pCO2 30.9 L ABG pO2 65.9 L ABG HCO3 22.5 ABG O2 Saturation 94.5 ABG Base Excess -0.3 FiO2 3L Sodium Cancelled Potassium Cancelled Chloride Cancelled Carbon Dioxide Cancelled Anion Gap Cancelled BUN Cancelled Creatinine Cancelled Est GFR ( Amer) Cancelled Est GFR (Non-Af Amer) Cancelled Glucose Cancelled Calcium Cancelled Phosphorus Cancelled Total Bilirubin Cancelled AST Cancelled Alkaline Phosphatase Cancelled Total Protein Cancelled Albumin Cancelled Prealbumin Cancelled Lipase 1793.7 H Cancelled 03/04/20 05:23 Carbonic Acid HCO3/H2CO3 Ratio ABG pH ABG pCO2 ABG pO2 ABG HCO3 ABG O2 Saturation ABG Base Excess FiO2 Sodium 137.2 Potassium 2.9 L* Chloride 104 Carbon Dioxide 25 Anion Gap 8 BUN 5 L Creatinine 0.38 L Est GFR ( Amer) > 60 Est GFR (Non-Af Amer) Glucose 161 H Calcium 7.4 L Phosphorus 2.2 L Total Bilirubin 0.9 AST 46 Alkaline Phosphatase 115 Total Protein 6.0 L Albumin 2.6 L Prealbumin 8.7 L Lipase 2077.2 H 02/27/20 12:47 Blood Blood Culture - Final NO GROWTH IN 5 DAYS 02/27/20 12:52 Blood Blood Culture - Final NO GROWTH IN 5 DAYS 02/25/20 09:46 Troponin I < 0.012 Impressions: Chest X-Ray 03/01/20 00:00 IMPRESSION: Improved left basilar atelectasis and/or pneumonia with otherwise no significant change. PICC Line Insertion 03/02/20 00:00 IMPRESSION: SUCCESSFUL PLACEMENT OF A 5 FR DUAL LUMEN 36 CM PICC IN THE RIGHT BASILIC VEIN. Abdomen/Pelvis CT 03/03/20 00:00 IMPRESSION: Artifact from the patient's arms. Imaging is degraded by patient motion, with resultant artifact. The best possible images were obtained. Postsurgical change. No postsurgical complications. No adverse change Apparent thickening of the sigmoid colon, indeterminate. EKG: ST All labs, radiographs, diagnostic studies and EKGs were personally reviewed: Yes In addition, reports of radiographic and diagnostic studies were read: Yes Assessment and Plan - Diagnosis (1) Sepsis associated hypotension Is this a current diagnosis for this admission?: Yes Plan: Resolved (2) Intubation of airway performed without difficulty Is this a current diagnosis for this admission?: Yes Plan: Resolved (3) Acute phlegmonous appendicitis Is this a current diagnosis for this admission?: Yes Plan: Resolving (4) Morbid obesity Is this a current diagnosis for this admission?: Yes Plan: Chronic and not yet effecting respirations. (5) Physical deconditioning Is this a current diagnosis for this admission?: Yes Plan: He is active but weak. With his delirium I am afraid he will quickly fall. (6) Delirium due to another medical condition, acute, hyperactive Is this a current diagnosis for this admission?: Yes Plan: He is acting like ETOH WD. His brother admitted he is a heavy vodka drinker. He has not touched alcohol in at least 8 days. He will be treated with ativan even though this is deliriogenic in patients not in alcohol WD. (7) Pancreatitis Qualifiers: Chronicity: acute Pancreatitis type: alcohol induced Is this a current diagnosis for this admission?: Yes Plan: We are saying ETOH induced presumptively. He has a high lipase at 2076 but no pain, nausea or major CT findings. Repeat labs. (8) Hypokalemia Is this a current diagnosis for this admission?: Yes Plan: Level is still low at 2.8. Being replaced. (9) Rash Is this a current diagnosis for this admission?: Yes Plan: There is no drug that is new and the ones he has are not known for rash. May be stress induced. Plan Summary: Sedate with ativan for presumtive ETOH WD. Eight day abstinant period does seem unusual. BUt is hyperactive delirium, tachycardia, fever all are C/W alcohol WD. Critical Time Critical Time (minutes): 40 Level of Care: ICU Anticipated discharge: Home Within: Other -: 1. The care of a critical patient is a dynamic process. This note is a quality control representative synopsis but static in nature. The timeframe for treatments given in order is not necessarily the actual time these treatments may have been done. 2. This patient requires critical care secondary to ongoing requirements for therapy not offered or safe outside the critical care environment. Transfer to a lower level of care will result in altered life or limb morbidity and mortality. 3. Multidisciplinary rounds completed. 4. ABCDE bundle addressed.
--- NOTE | 2020-03-04 08:46 | PDOC PROGRESS REPORT ---
Subjective Progress Note for:: 03/04/20 Subjective:: Difficult difficult to communicate with the patient secondary to delirium tremens Reason For Visit: PERFORATED ACUTE APPENDICITIS WITH PERITONITIS Physical Exam Vital Signs: Temp Pulse Resp BP Pulse Ox 100.0 F 152 H 36 H 157/89 H 100 03/04/20 06:00 03/03/20 20:00 03/04/20 06:00 03/04/20 05:41 03/04/20 06:00 Intake & Output 03/03/20 03/04/20 03/05/20 06:59 06:59 06:59 Intake Total 1672 279 50 Output Total 3200 5635 1200 Balance -3929 -9896 -1150 Weight 127.1 kg 125.9 kg General appearance: PRESENT: morbidly obese Eye exam: PRESENT: EOMI Ear exam: PRESENT: normal external ear exam Mouth exam: PRESENT: moist Teeth exam: PRESENT: poor dentation Neck exam: PRESENT: full ROM Respiratory exam: PRESENT: clear to auscultation daisy Cardiovascular exam: PRESENT: RRR Pulses: PRESENT: normal radial pulses, normal femoral pulses Vascular exam: PRESENT: normal capillary refill Breast: PRESENT: Normal GI/Abdominal exam: PRESENT: other - abdominal i ncision clean, wound open, no drainage, packed, casey drain serous Rectal exam: PRESENT: deferred Extremities exam: PRESENT: full ROM Musculoskeletal exam: PRESENT: full ROM Neurological exam: PRESENT: other - pt is confused, agitated, c/w dt's Psychiatric exam: PRESENT: other Focused psych exam: PRESENT: restlessness Skin exam: PRESENT: dry Results Laboratory Results: 03/03/20 04:24 03/04/20 05:23 03/03/20 03/03/20 03/04/20 16:20 20:14 04:22 Carbonic Acid 0.93 L HCO3/H2CO3 Ratio 24:1 ABG pH 7.48 H ABG pCO2 30.9 L ABG pO2 65.9 L ABG HCO3 22.5 ABG O2 Saturation 94.5 ABG Base Excess -0.3 FiO2 3L Sodium Cancelled Potassium Cancelled Chloride Cancelled Carbon Dioxide Cancelled Anion Gap Cancelled BUN Cancelled Creatinine Cancelled Est GFR ( Amer) Cancelled Est GFR (Non-Af Amer) Cancelled Glucose Cancelled Calcium Cancelled Phosphorus Cancelled Total Bilirubin Cancelled AST Cancelled Alkaline Phosphatase Cancelled Total Protein Cancelled Albumin Cancelled Prealbumin Cancelled Lipase 1793.7 H Cancelled 03/04/20 05:23 Carbonic Acid HCO3/H2CO3 Ratio ABG pH ABG pCO2 ABG pO2 ABG HCO3 ABG O2 Saturation ABG Base Excess FiO2 Sodium 137.2 Potassium 2.9 L* Chloride 104 Carbon Dioxide 25 Anion Gap 8 BUN 5 L Creatinine 0.38 L Est GFR ( Amer) > 60 Est GFR (Non-Af Amer) Glucose 161 H Calcium 7.4 L Phosphorus 2.2 L Total Bilirubin 0.9 AST 46 Alkaline Phosphatase 115 Total Protein 6.0 L Albumin 2.6 L Prealbumin 8.7 L Lipase 2077.2 H 02/27/20 12:47 Blood Blood Culture - Final NO GROWTH IN 5 DAYS 02/27/20 12:52 Blood Blood Culture - Final NO GROWTH IN 5 DAYS 02/25/20 09:46 Troponin I < 0.012 Impressions: Chest X-Ray 03/01/20 00:00 IMPRESSION: Improved left basilar atelectasis and/or pneumonia with otherwise no significant change. PICC Line Insertion 03/02/20 00:00 IMPRESSION: SUCCESSFUL PLACEMENT OF A 5 FR DUAL LUMEN 36 CM PICC IN THE RIGHT BASILIC VEIN. Abdomen/Pelvis CT 03/03/20 00:00 IMPRESSION: Artifact from the patient's arms. Imaging is degraded by patient motion, with resultant artifact. The best possible images were obtained. Postsurgical change. No postsurgical complications. No adverse change Apparent thickening of the sigmoid colon, indeterminate. Assessment & Plan - Plan Summary Plan Summary: s/p perforated appendicits s/p exploratory laparotomy prolonged intubation, now extubated confused, agitiated strong hx of etoh abuse question of dt"s elevated lipase today approx 1999 recommend cont icu support ativan for dt" cont ng iv fluids abx.
[2020-03-04] MEDS ORDERED: LORAZEPAM INJ 2 MG/1 ML VIAL IV ONE (09:00)
[2020-03-04] MEDS: THIAMINE HCL INJ 200 MG/2 ML VIAL IM SCH (09:22)
[2020-03-04] MEDS: NORMAL SALINE 10 ML SDV (SCHEDULED) IV SCH ×2 (09:22→21:17)
[2020-03-04] MEDS: ENOXAPARIN SODIUM INJ 40 MG/0.4 ML DISP.SYRIN SUBCUT SCH (09:23)
[2020-03-04] MEDS: DIPHENHYDRAMINE HCL 50 MG/ML VIAL IV PRN ×3 (11:39→21:37)
[2020-03-04] MEDS ORDERED: HYDROMORPHONE HCL INJ/PF 2 MG/ML AMPULE ONE (13:54)
[2020-03-04] MEDS ORDERED: LORAZEPAM INJ 2 MG/1 ML VIAL ONE (13:55)
[2020-03-04] MEDS: HYDROMORPHONE HCL INJ/PF 2 MG/ML AMPULE IV PRN ×3 (14:01→21:36)
[2020-03-04 20:48] LABS: POTASSIUM 3.2 mmol/L (3.6-5.0)
[2020-03-04] MEDS: ACETAMINOPHEN 650 MG SUPP.RECT PR PRN (21:16)
[2020-03-04] MEDS: AMINO ACIDS 5 %/DEXTROSE 20 % 1,000 ML IV PRN (22:52)
[2020-03-05] MEDS: RINGERS SOLUTION,LACTATED 1,000 ML IV PRN ×3 (00:14→20:10)
[2020-03-05] MEDS ORDERED: ZIPRASIDONE MESYLATE INJ/PF 20 MG SDV IM ONE (00:42)
[2020-03-05] MEDS: HYDROMORPHONE HCL INJ/PF 2 MG/ML AMPULE IV PRN ×7 (01:27→20:08)
[2020-03-05] MEDS ORDERED: HYDROMORPHONE HCL 30 MG/60 ML RTUINJ IV PRN (01:55)
[2020-03-05] MEDS: ACETAMINOPHEN SOLN 325 MG/10.15 ML UDCUP NG PRN ×5 (02:29→21:10)
[2020-03-05] MEDS: IPRATROPIUM/ALBUTEROL 0.5-2.5 MG/3 ML AMPUL NEB PRN ×2 (03:07→09:01)
[2020-03-05] MEDS ORDERED: MORPHINE SULFATE 10 MG/ML INJ IV ONE (03:10)
[2020-03-05 04:38] LABS: ABSOLUTE EOSINOPHILS # (AUTO) 0.4 10^3/uL (0.0-0.6); ABSOLUTE LYMPHOCYTES (AUTO) 1.4 10^3/uL (0.5-4.7); ABSOLUTE MONOCYTES (AUTO) 1.1 10^3/uL (0.1-1.4); BASOPHILS % (AUTO) 0.3 % (0-2); EOSINOPHILS % (AUTO) 2.9 % (0-6); HEMOGLOBIN 9.8 g/dL (13.5-17.0); LYMPHOCYTES % (AUTO) 11.1 % (13-45); MEAN CORPUSCULAR HEMOGLOBIN 27.7 pg (27.0-33.4); MEAN CORPUSCULAR HGB CONC 33.6 g/dL (32.0-36.0); MEAN CORPUSCULAR VOLUME 82 fl (80-97); MONOCYTES % (AUTO) 8.6 % (3-13); PLATELET COUNT 476 10^3/uL (150-450); RED BLOOD COUNT 3.52 10^6/uL (4.35-5.55); RED CELL DISTRIBUTION WIDTH 13.8 % (11.5-14.0); SEGMENTED NEUTROPHILS % (AUTO) 77.1 % (42-78); TOTAL CELLS COUNTED % (AUTO) 100 %
[2020-03-05 04:59] LABS: ANION GAP 6 (5-19); BLOOD UREA NITROGEN 8 mg/dL (7-20); CALCIUM 7.8 mg/dL (8.4-10.2); CARBON DIOXIDE 27 mmol/L (22-30); CHLORIDE 105 mmol/L (98-107); GLUCOSE 134 mg/dL (75-110); PHOSPHORUS 3.1 mg/dL (2.5-4.5); POTASSIUM 3.3 mmol/L (3.6-5.0)
[2020-03-05 05:06] LABS: PREALBUMIN 9.7 mg/dL (17.6-36.0)
[2020-03-05] MEDS: INSULIN REG, HUMAN 100 UNIT/ML 3 ML VIAL (PYX) SUBCUT SCH ×3 (05:18→19:05)
[2020-03-05] MEDS ORDERED: ACETAMINOPHEN SOLN 325 MG/10.15 ML UDCUP NG ONE (05:49)
--- NOTE | 2020-03-05 07:28 | RADIOLOGY REPORT (SQ) ---
CHEST 1 VIEW on 03/05/2020 at 6:46 AM CLINICAL INDICATION: Fever, increased respiratory rate COMPARISON: 03/01/2020 FINDINGS: ET tube has been removed. NG tube extends into the stomach. There is elevation of the right hemidiaphragm. Borderline cardiomegaly is noted. There is a small right pleural effusion. There is mild right basilar opacity consistent with atelectasis and/or pneumonia. Right-sided PICC line tip is in the SVC. IMPRESSION: Interval extubation with otherwise no significant change.
--- NOTE | 2020-03-05 07:55 | PDOC CRITICAL CARE PROG REPORT ---
General Date:: 03/05/20 ICU Day:: 9 Hospital Day:: 9 Resuscitation Status: Full Code Events in the past 12 to 24 Hours:: Still spiking fevers, remains extubated but delirious. Review of systems relevant to events:: GI, neurologic Reason for ICU Addmission:: Intubated post op. Today extubated. - Medications: Medications reviewed and adjusted accordingly: Yes Vasopressors:: None Sedation:: None Physical Exam Vital Signs: Temp Pulse Resp BP Pulse Ox 103.3 F H 125 H 29 H 154/73 H 97 03/05/20 06:48 03/05/20 02:55 03/05/20 06:00 03/05/20 05:47 03/05/20 06:00 Intake & Output 03/04/20 03/05/20 03/06/20 06:59 06:59 06:59 Intake Total 279 2165 Output Total 4085 4280 Balance -3806 -2115 Weight 125.9 kg 122.8 kg Weight/Height Weight 122.8 kg Height 5 ft 5 in General appearance: PRESENT: no acute distress, morbidly obese Head exam: PRESENT: atraumatic, normocephalic Eye exam: PRESENT: conjunctiva pink, EOMI, PERRLA. ABSENT: scleral icterus Ear exam: PRESENT: normal external ear exam Mouth exam: PRESENT: moist, tongue midline Respiratory exam: PRESENT: clear to auscultation daisy, decreased breath sounds. ABSENT: rales, rhonchi, wheezes Cardiovascular exam: PRESENT: RRR, tachycardia. ABSENT: diastolic murmur, rubs, systolic murmur Pulses: PRESENT: normal dorsalis pedis pul GI/Abdominal exam: PRESENT: diminished bowel sounds, normal bowel sounds, soft, other - Wound open and draining. JPs putting out serous fluid. ABSENT: distended, guarding, mass, organolmegaly, rebound, tenderness Extremities exam: PRESENT: full ROM. ABSENT: calf tenderness, clubbing, pedal edema Musculoskeletal exam: PRESENT: normal inspection Neurological exam: PRESENT: altered, CN II-XII grossly intact, motor sensory deficit, other - Delirious. Psychiatric exam: PRESENT: agitated Skin exam: PRESENT: dry, intact, warm. ABSENT: cyanosis, rash Tubes/Lines: PRESENT: Central Line, Nasogastic Tube Laboratory/Radiographs Laboratory Results: 03/05/20 04:25 03/05/20 04:25 03/04/20 03/05/20 03/05/20 20:21 04:25 04:25 WBC 13.0 H RBC 3.52 L Hgb 9.8 L Hct 29.0 L MCV 82 MCH 27.7 MCHC 33.6 RDW 13.8 Plt Count 476 H Seg Neutrophils % 77.1 Sodium 138.4 Potassium 3.2 L 3.3 L Chloride 105 Carbon Dioxide 27 Anion Gap 6 BUN 8 Creatinine 0.42 L Est GFR ( Amer) > 60 Glucose 134 H Calcium 7.8 L Phosphorus 3.1 Magnesium 2.0 Prealbumin 9.7 L Lipase 1117.3 H 02/25/20 09:46 Troponin I < 0.012 Impressions: PICC Line Insertion 03/02/20 00:00 IMPRESSION: SUCCESSFUL PLACEMENT OF A 5 FR DUAL LUMEN 36 CM PICC IN THE RIGHT BASILIC VEIN. Abdomen/Pelvis CT 03/03/20 00:00 IMPRESSION: Artifact from the patient's arms. Imaging is degraded by patient motion, with resultant artifact. The best possible images were obtained. Postsurgical change. No postsurgical complications. No adverse change Apparent thickening of the sigmoid colon, indeterminate. Chest X-Ray 03/05/20 00:00 IMPRESSION: Interval extubation with otherwise no significant change. All labs, radiographs, diagnostic studies and EKGs were personally reviewed: Yes In addition, reports of radiographic and diagnostic studies were read: Yes Assessment and Plan - Diagnosis (1) Sepsis associated hypotension Is this a current diagnosis for this admission?: Yes Plan: Resolved (2) Intubation of airway performed without difficulty Is this a current diagnosis for this admission?: Yes Plan: Resolved (3) Acute phlegmonous appendicitis Is this a current diagnosis for this admission?: Yes Plan: Resolved (4) Morbid obesity Is this a current diagnosis for this admission?: Yes (5) Physical deconditioning Is this a current diagnosis for this admission?: Yes Plan: This is not effecting his breathing at this time. May effect wound healing. (6) Delirium due to another medical condition, acute, hyperactive Is this a current diagnosis for this admission?: Yes Plan: His delirium is hyperactive and by report he is a heavy vodka drinker. But he has been abstnent at least 9 days. A fever is part of the alcohol WD syndrome. After 9 days a fever of 104 is fairly high for this. His CXR shows nothing new in terms of infiltrate or secretions. No obvious abcess in his abdomen yet, but this needs to be considered at this point. By nursing report he seems to do better with dilaudid than ativan. His risk factors for delirium are high, surgery, pain, medications, immobility, slee/wake cycle disturbances. He needs to be reoriented as much as possible. (7) Pancreatitis Qualifiers: Chronicity: acute Pancreatitis type: alcohol induced Is this a current diagnosis for this admission?: Yes Plan: Repeat labs, no clinical symptoms. (8) Hypokalemia Is this a current diagnosis for this admission?: Yes Plan: Improved at 3.3. Add to TPN (9) Rash Is this a current diagnosis for this admission?: Yes Plan: Improved Plan Summary: He still needs close observation in an ICU setting until he is more oriented. Critical Time Critical Time (minutes): 35 Level of Care: ICU Anticipated discharge: Home with Homehealth Within: Other -: 1. The care of a critical patient is a dynamic process. This note is a benefits representative synopsis but static in nature. The timeframe for treatments given in order is not necessarily the actual time these treatments may have been done. 2. This patient requires critical care secondary to ongoing requirements for therapy not offered or safe outside the critical care environment. Transfer to a lower level of care will result in altered life or limb morbidity and mortality. 3. Multidisciplinary rounds completed. 4. ABCDE bundle addressed.
[2020-03-05] MEDS: DIPHENHYDRAMINE HCL 50 MG/ML VIAL IV PRN ×3 (08:35→16:55)
[2020-03-05] MEDS: CEFTRIAXONE 2 GM/D5W RTU 2 GM/50 ML RTUPB IV SCH (08:45)
[2020-03-05] MEDS: ENOXAPARIN SODIUM INJ 40 MG/0.4 ML DISP.SYRIN SUBCUT SCH (09:16)
[2020-03-05] MEDS: NORMAL SALINE 10 ML SDV (SCHEDULED) IV SCH ×2 (09:18→21:19)
[2020-03-05] MEDS: THIAMINE HCL INJ 200 MG/2 ML VIAL IM SCH (09:19)
--- NOTE | 2020-03-05 09:47 | PDOC PROGRESS REPORT ---
Subjective Progress Note for:: 03/05/20 Reason For Visit: PERFORATED ACUTE APPENDICITIS WITH PERITONITIS Physical Exam Vital Signs: Temp Pulse Resp BP Pulse Ox 102.0 F H 113 H 32 H 129/67 H 99 03/05/20 09:00 03/05/20 09:02 03/05/20 09:02 03/05/20 08:46 03/05/20 09:02 Intake & Output 03/04/20 03/05/20 03/06/20 06:59 06:59 06:59 Intake Total 279 2165 960 Output Total 4085 4280 325 Balance -3806 -2115 635 Weight 125.9 kg 122.8 kg Results Laboratory Results: 03/05/20 04:25 03/05/20 04:25 03/04/20 03/05/20 03/05/20 20:21 04:25 04:25 WBC 13.0 H RBC 3.52 L Hgb 9.8 L Hct 29.0 L MCV 82 MCH 27.7 MCHC 33.6 RDW 13.8 Plt Count 476 H Seg Neutrophils % 77.1 Sodium 138.4 Potassium 3.2 L 3.3 L Chloride 105 Carbon Dioxide 27 Anion Gap 6 BUN 8 Creatinine 0.42 L Est GFR ( Amer) > 60 Glucose 134 H Calcium 7.8 L Phosphorus 3.1 Magnesium 2.0 Prealbumin 9.7 L Lipase 1117.3 H 03/03/20 21:59 Blood Blood Culture (PCR) - Final Staphylococcus Species 02/25/20 09:46 Troponin I < 0.012 Impressions: PICC Line Insertion 03/02/20 00:00 IMPRESSION: SUCCESSFUL PLACEMENT OF A 5 FR DUAL LUMEN 36 CM PICC IN THE RIGHT BASILIC VEIN. Abdomen/Pelvis CT 03/03/20 00:00 IMPRESSION: Artifact from the patient's arms. Imaging is degraded by patient motion, with resultant artifact. The best possible images were obtained. Postsurgical change. No postsurgical complications. No adverse change Apparent thickening of the sigmoid colon, indeterminate. Chest X-Ray 03/05/20 00:00 IMPRESSION: Interval extubation with otherwise no significant change. Assessment & Plan - Diagnosis (1) Acute perforated appendicitis Is this a current diagnosis for this admission?: Yes - Plan Summary Plan Summary: This is a 40-year-old male status post laparotomy for perforated appendicitis. Patient's abdomen continues to remain benign. He remains confused and febrile. There is continued concern for withdrawal symptoms. The patient has had 2 CT scans within the last week, showing no evidence of free air, free fluid, or intestinal leak. His midline wound appears clean, without sign of overt infection. I have again discussed the case with Dr. Cline this morning. They will continue to manage the patient's antibiotics, respiratory status, and delirium. I appreciate their expertise in this matter. Patient with continued fevers, and now with liquid stools. He has had multiple days of antibiotics. Will check C. difficile to ensure that infectious colitis is not confounding the situation. Continue with supportive care.
[2020-03-05] MEDS: CEFEPIME 1 GM/D5W RTU 1 GM/50 ML RTUPB IV SCH ×2 (14:12→21:14)
[2020-03-05] MEDS ORDERED: LINEZOLID 600 MG/300 ML RTUPB IV SCH (18:00)
[2020-03-05] MEDS ORDERED: FLUCONAZOLE 200 MG/NS RTU 200 MG/100 ML RTUPB IV ONE (20:45)
[2020-03-05] MEDS: METRONIDAZOLE 500 MG/NS RTU 500 MG/100 ML RTUPB IV SCH (21:07)
[2020-03-05] MEDS: MORPHINE SULFATE 60 MG/60 ML RTUINJ IV PRN (21:14)
[2020-03-05 21:17] LABS: APPEARANCE,URINE CLEAR; BILIRUBIN,URINE NEGATIVE (NEGATIVE); COLOR,URINE YELLOW; GLUCOSE, URINE 50 mg/dL (NEGATIVE); KETONES,URINE NEGATIVE (NEGATIVE); PROTEIN,URINE NEGATIVE (NEGATIVE); URINE SPECIFIC GRAVITY 1.012
[2020-03-06] MEDS: INSULIN REG, HUMAN 100 UNIT/ML 3 ML VIAL (PYX) SUBCUT SCH ×5 (00:20→23:45)
[2020-03-06] MEDS: ACETAMINOPHEN SOLN 325 MG/10.15 ML UDCUP NG PRN (01:22)
[2020-03-06] MEDS: METRONIDAZOLE 500 MG/NS RTU 500 MG/100 ML RTUPB IV SCH ×3 (05:23→21:14)
[2020-03-06 06:19] LABS: ABSOLUTE BASOPHILS # (AUTO) 0.1 10^3/uL (0.0-0.2); ABSOLUTE EOSINOPHILS # (AUTO) 0.2 10^3/uL (0.0-0.6); ABSOLUTE LYMPHOCYTES (AUTO) 1.8 10^3/uL (0.5-4.7); ABSOLUTE MONOCYTES (AUTO) 1.5 10^3/uL (0.1-1.4); ABSOLUTE NEUT (AUTO) 13.3 10^3/uL (1.7-8.2); BASOPHILS % (AUTO) 0.4 % (0-2); EOSINOPHILS % (AUTO) 1.4 % (0-6); HEMATOCRIT 28.6 % (37.9-51.0); HEMOGLOBIN 9.6 g/dL (13.5-17.0); LYMPHOCYTES % (AUTO) 10.7 % (13-45); MEAN CORPUSCULAR HEMOGLOBIN 27.7 pg (27.0-33.4); MEAN CORPUSCULAR HGB CONC 33.4 g/dL (32.0-36.0); MEAN CORPUSCULAR VOLUME 83 fl (80-97); MONOCYTES % (AUTO) 8.8 % (3-13); PLATELET COUNT 506 10^3/uL (150-450); RED BLOOD COUNT 3.44 10^6/uL (4.35-5.55); RED CELL DISTRIBUTION WIDTH 13.9 % (11.5-14.0); SEGMENTED NEUTROPHILS % (AUTO) 78.7 % (42-78); TOTAL CELLS COUNTED % (AUTO) 100 %; WHITE BLOOD COUNT 16.8 10^3/uL (4.0-10.5)
[2020-03-06 06:35] LABS: ALBUMIN 2.7 g/dL (3.5-5.0); ALKALINE PHOSPHATASE 99 U/L (38-126); ANION GAP 7 (5-19); ASPARTATE AMINO TRANSFERASE 36 U/L (17-59); BILIRUBIN,DIRECT 0.6 mg/dL (0.0-0.4); BILIRUBIN,TOTAL 1.3 mg/dL (0.2-1.3); BLOOD UREA NITROGEN 7 mg/dL (7-20); CALCIUM 7.8 mg/dL (8.4-10.2); CARBON DIOXIDE 28 mmol/L (22-30); CHLORIDE 101 mmol/L (98-107); GLUCOSE 104 mg/dL (75-110); POTASSIUM 3.8 mmol/L (3.6-5.0); TOTAL PROTEIN 6.3 g/dL (6.3-8.2)
--- NOTE | 2020-03-06 08:28 | PDOC PROGRESS REPORT ---
Subjective Progress Note for:: 03/06/20 Subjective:: awake, responsive tachy temp to 103 Reason For Visit: PERFORATED ACUTE APPENDICITIS WITH PERITONITIS Physical Exam Vital Signs: Temp Pulse Resp BP Pulse Ox 102.8 F H 126 H 32 H 177/96 H 97 03/06/20 07:34 03/06/20 07:34 03/06/20 07:34 03/06/20 07:34 03/06/20 07:34 Intake & Output 03/05/20 03/06/20 03/07/20 06:59 06:59 06:59 Intake Total 2165 2760 Output Total 4280 3300 225 Balance -0545 -540 -225 Weight 122.8 kg 123.6 kg General appearance: PRESENT: mild distress, morbidly obese Head exam: PRESENT: normocephalic Eye exam: PRESENT: EOMI Ear exam: PRESENT: normal external ear exam Mouth exam: PRESENT: moist Teeth exam: PRESENT: poor dentation Neck exam: PRESENT: full ROM Respiratory exam: PRESENT: decreased breath sounds - rt sided with rhonchi Cardiovascular exam: PRESENT: tachycardia Breast: PRESENT: Normal GI/Abdominal exam: PRESENT: other - small bowel everiseration Rectal exam: PRESENT: deferred Extremities exam: PRESENT: full ROM Musculoskeletal exam: PRESENT: full ROM Neurological exam: PRESENT: altered, oriented to person Psychiatric exam: PRESENT: anxious Skin exam: PRESENT: dry Results Laboratory Results: 03/06/20 05:58 03/06/20 05:58 03/05/20 03/06/20 03/06/20 20:28 05:58 05:58 WBC 16.8 H RBC 3.44 L Hgb 9.6 L Hct 28.6 L MCV 83 MCH 27.7 MCHC 33.4 RDW 13.9 Plt Count 506 H Seg Neutrophils % 78.7 H Sodium 136.3 L Potassium 3.8 Chloride 101 Carbon Dioxide 28 Anion Gap 7 BUN 7 Creatinine 0.41 L Est GFR ( Amer) > 60 Glucose 104 Calcium 7.8 L Total Bilirubin 1.3 AST 36 Alkaline Phosphatase 99 Total Protein 6.3 Albumin 2.7 L Urine Color YELLOW Urine Appearance CLEAR Urine pH 6.0 Ur Specific [place] 1.012 Urine Protein NEGATIVE Urine Glucose (UA) 50 H Urine Ketones NEGATIVE Urine Blood MODERATE H Urine RBC (Auto) 77 03/03/20 21:59 Blood Blood Culture (PCR) - Final Staphylococcus Species 02/25/20 09:46 Troponin I < 0.012 Impressions: PICC Line Insertion 03/02/20 00:00 IMPRESSION: SUCCESSFUL PLACEMENT OF A 5 FR DUAL LUMEN 36 CM PICC IN THE RIGHT BASILIC VEIN. Abdomen/Pelvis CT 03/03/20 00:00 IMPRESSION: Artifact from the patient's arms. Imaging is degraded by patient motion, with resultant artifact. The best possible images were obtained. Postsurgical change. No postsurgical complications. No adverse change Apparent thickening of the sigmoid colon, indeterminate. Assessment & Plan - Plan Summary Plan Summary: s/p exlap for perforated appendicitis prolonged intubation etoh abuse DT's now with small bowel eviseration will need exploratory laparotomy, closure of abd wound high risk discussed risks incluiding recurrent eviseration, pneumonia sepis, injuruy to adjacent structures and possible deat discussed pt agrees to proceed.
--- NOTE | 2020-03-06 08:32 | RADIOLOGY REPORT (SQ) ---
EXAM DESCRIPTION: CHEST SINGLE VIEW IMAGES COMPLETED DATE/TIME: 03/06/2020 7:48 am REASON FOR STUDY: r/o pneumonia COMPARISON: Previous day EXAM PARAMETERS: NUMBER OF VIEWS: One view. TECHNIQUE: Single frontal radiographic view of the chest acquired. RADIATION DOSE: NA LIMITATIONS: None. FINDINGS: Hypoventilatory changes. Chronic elevation right diaphragm. No consolidation. Interval removal of nasogastric tube. Right-sided PICC line position not changed. IMPRESSION: Interval removal of nasogastric tube. Hypoventilatory changes. TECHNICAL DOCUMENTATION: JOB ID: [id number] 2010 [employer]- All Rights Reserved Reading location - IP/workstation name: [email or web address]
[2020-03-06] MEDS: CEFEPIME 1 GM/D5W RTU 1 GM/50 ML RTUPB IV SCH ×2 (08:40→21:18)
[2020-03-06] MEDS ORDERED: EPHEDRINE SULFATE INJ 50 MG/1 ML AMPULE ONE (09:18)
[2020-03-06] MEDS ORDERED: DEXAMETHASONE SOD PHOSPHATE INJ 4 MG/1 ML VIAL ONE (09:18)
[2020-03-06] MEDS ORDERED: FENTANYL CITRATE INJ/PF 100 MCG/2 ML AMPUL ONE (09:18)
[2020-03-06] MEDS ORDERED: PROPOFOL INJ 200 MG/20 ML VIAL IV ONE (09:18)
[2020-03-06] MEDS ORDERED: MORPHINE SULFATE 10 MG/ML INJ ONE (09:18)
[2020-03-06] MEDS ORDERED: ONDANSETRON HCL INJ/PF 4 MG/2 ML SDV ONE (09:18)
[2020-03-06] MEDS ORDERED: KETOROLAC TROMETHAMINE 60 MG/2 ML SDV ONE (09:18)
[2020-03-06] MEDS ORDERED: MIDAZOLAM 2 MG/2 ML INJ ONE (09:18)
[2020-03-06] MEDS: RINGERS SOLUTION,LACTATED 1,000 ML IV PRN ×2 (09:30→21:01)
[2020-03-06] MEDS ORDERED: SUCCINYLCHOLINE CHLORIDE INJ 200 MG/10 ML VIAL ONE (09:50)
[2020-03-06] MEDS ORDERED: PHENYLEPHRINE HCL INJ/PF 10 MG/1 ML SDV ONE (09:50)
[2020-03-06] MEDS ORDERED: ROCURONIUM BROMIDE INJ 50 MG/5 ML VIAL IV ONE (09:50)
[2020-03-06] MEDS: ENOXAPARIN SODIUM INJ 40 MG/0.4 ML DISP.SYRIN SUBCUT SCH (10:04)
[2020-03-06] MEDS: THIAMINE HCL INJ 200 MG/2 ML VIAL IM SCH (10:05)
[2020-03-06] MEDS: NORMAL SALINE 10 ML SDV (SCHEDULED) IV SCH ×2 (10:05→21:17)
[2020-03-06] MEDS ORDERED: FENTANYL CITRATE INJ/PF 100 MCG/2 ML AMPUL IV PRN ×3 (11:03)
[2020-03-06] MEDS ORDERED: MORPHINE SULFATE 10 MG/ML INJ IV PRN (11:03)
[2020-03-06] MEDS ORDERED: OXYCODONE-ACETAMINOPHEN 5-325 MG TABLET PO PRN ×2 (11:03)
[2020-03-06] MEDS ORDERED: MEPERIDINE HCL/PF INJ 25 MG/1 ML DISP.SYRIN IV PRN (11:03)
[2020-03-06] MEDS ORDERED: PROMETHAZINE HCL INJ 25 MG/1 ML VIAL IV PRN ×2 (11:03)
[2020-03-06] MEDS ORDERED: DIPHENHYDRAMINE HCL 50 MG/ML VIAL IV PRN (11:03)
[2020-03-06] MEDS ORDERED: ONDANSETRON HCL INJ/PF 4 MG/2 ML SDV IV PRN (11:03)
--- NOTE | 2020-03-06 11:57 | Operative Report ---
Nonrecallable Operative Report DATE OF SURGERY: 03/06/20 PREOPERATIVE DIAGNOSIS: Intestinal evisceration POSTOPERATIVE DIAGNOSIS: Intestinal evisceration OPERATION: Port or laparotomy with reduction of intestinal evisceration and closure of abdominal incision SURGEON: MARIAN LOPEZ ANESTHESIA: GA TISSUE REMOVED OR ALTERED: None COMPLICATIONS: None ESTIMATED BLOOD LOSS: 25 cc INTRAOPERATIVE FINDINGS: See dictation PROCEDURE: Indications for procedure This is a 40-year-old morbidly obese male who recently underwent an exploratory laparotomy with appendectomy for perforated appendicitis he has had a prolonged somewhat stormy course in the ICU requiring intubation for approximately 5 to 6 days he is morbidly obese and detoxing from EtOH. He was recently extubated and had a persistent fever of 102 203 with tachycardia which has been worked up extensively with repeat CT scans and chest x-rays without obvious source. This morning on rounds after examination of the wound was noted to have intestinal dehiscence with a number of loops of bowel outside the abdominal incision. He was therefore brought back to the operating for this procedure. Procedure patient was brought to the negative pressure room per COVID-19 protocol placed under general anesthesia and transferred over to the operating room. He was then placed on the operating table in supine position. The abdomen was prepped and draped in usual sterile fashion. The previous placed skin sutures that were closing the wound somewhat were removed. Upon removing those we noted the number of loops of small bowel in the lower portion of the wound with a fairly large abdominal defect and the previously placed running 2-0 Maxon suture that had close the wound and single-layer had torn through and unraveled. Therefore this was all removed. We then opened the abdominal cavity and explored it I copiously irrigated the abdominal cavity normal saline suctioned dry we placed an NG tube confirmed by manipulation. And then freed up all loculated small bowel loops in the right lower quadrant in the pelvis I examined all those and they were within normal limits there was no evidence of any significant serosal abnormalities. He had a previous perforated appendicitis with a phlegmon in the right lower quadrant and I palpated there and the cecum appeared to be soft there was still some induration of the cecal mesentery and there were some loose adhesions of the right lobe of the liver to the anterior abdominal wall which were taken down with blunt dissection once we were able to place her hand above the right lobe of the liver we then copiously irrigated the abdominal cavity with normal saline approximately 6 L were used. Once this was done we returned intestinal contents back to the abdominal cavity we then used a piece of [place] bio a absorbable mesh which I placed underneath the abdominal wound it was approximately 20 x 30 cm in diameter so it easily covered the midline incision and extended laterally for about 6 cm this was loosely tacked in place with 0 Vicryl. We then closed the midline fascia with interrupted #2 Vicryl sutures placed in a Smead Villanueva fashion and then this was supplemented with #2 nylon retention sutures. Once this was completed we placed 1/2 inch Ana Laura drain in the depths of his wound and loosely close the skin over that with standard skin clips sterile dressing was applied an abdominal binder was applied which completed the procedure. Estimated blood loss was less than 25 cc sponge needle counts were correct x2 the patient was then transferred back to the intensive care unit remaining intubated in stable condition.
[2020-03-06] MEDS ORDERED: PHARMACY COMMUNICATION ORDER MC NR (12:00)
[2020-03-06] MEDS ORDERED: MIDAZOLAM HCL 50 MG/100 ML RTUINJ ONE ×2 (12:05→16:11)
[2020-03-06] MEDS: MORPHINE SULFATE 60 MG/60 ML RTUINJ IV PRN (12:30)
--- NOTE | 2020-03-06 12:48 | RADIOLOGY REPORT (SQ) ---
EXAM DESCRIPTION: CHEST SINGLE VIEW IMAGES COMPLETED DATE/TIME: 03/06/2020 12:37 pm REASON FOR STUDY: ET and OG tube Placement COMPARISON: 03/06/2020 at 0743 hours. EXAM PARAMETERS: NUMBER OF VIEWS: One view. TECHNIQUE: Single frontal radiographic view of the chest acquired. RADIATION DOSE: NA LIMITATIONS: None. FINDINGS: LUNGS AND PLEURA: Low lung volumes. Scattered atelectasis. Possible right pleural effusi on. MEDIASTINUM AND HILAR STRUCTURES: No masses. Contour normal. HEART AND VASCULAR STRUCTURES: Mild cardiomegaly. BONES: No acute findings. HARDWARE: Stable PICC line. Endotracheal tube, tip located 2 cm proximal to the elias. Nasogastric tube, tip located in the stomach. OTHER: No other significant finding. IMPRESSION: 1. LIFE LINES APPEAR TO BE IN SATISFACTORY POSITION. 2. LOW LUNG VOLUMES WITH SCATTERED ATELECTASIS. MILD CARDIOMEGALY AND POSSIBLE RIGHT PLEURAL EFFUSIO N. TECHNICAL DOCUMENTATION: JOB ID: [id number] 2010 [employer]- All Rights Reserved Reading location - IP/workstation name: [email or web address]
[2020-03-06 13:27] LABS: ARTERIAL BLOOD BASE EXCESS -1.3 mmol/L; ARTERIAL BLOOD FIO2 60%; ARTERIAL BLOOD H2CO3 1.37 mmol/L (1.05-1.35); ARTERIAL BLOOD HCO3 24.6 mmol/L (20-24); ARTERIAL BLOOD O2 SATURATION 93.3 % (94-98); ARTERIAL BLOOD PCO2 45.4 mmHg (35-45); ARTERIAL BLOOD PH 7.35 (7.35-7.45); ARTERIAL BLOOD PO2 70.2 mmHg (80-100)
[2020-03-06] MEDS: MIDAZOLAM HCL 50 MG/100 ML RTUINJ IV PRN (16:15)
--- NOTE | 2020-03-06 19:17 | PDOC CRITICAL CARE PROG REPORT ---
General Date:: 03/06/20 ICU Day:: 10 Ventilator Day:: 0 Resuscitation Status: Full Code Events in the past 12 to 24 Hours:: Patient taken to the OR today for abdominal wound dehiscence. Now status post mesh placement and full closure of abdomen. Patient returned to the intensive care unit intubated on vent support. Hemodynamically stable. Reason for ICU Addmission:: Intubated post op. - Medications: Medications reviewed and adjusted accordingly: Yes Sedation:: Versed at 10, morphine at 6 mg/h. Physical Exam Vital Signs: Temp Pulse Resp BP Pulse Ox 98.2 F 97 17 100/52 L 97 03/06/20 18:00 03/06/20 14:00 03/06/20 18:00 03/06/20 17:58 03/06/20 18:00 Intake & Output 03/05/20 03/06/20 03/07/20 06:59 06:59 06:59 Intake Total 2165 3760 5850 Output Total 4280 3300 4860 Balance -2115 460 990 Weight 122.8 kg 123.6 kg Weight/Height Weight 123.6 kg Height 5 ft 5 in General appearance: PRESENT: no acute distress, morbidly obese Head exam: PRESENT: atraumatic, normocephalic Mouth exam: PRESENT: moist Neck exam: ABSENT: JVD Pulses: PRESENT: normal carotid pulses, +2 pedal pulses bilateral Vascular exam: PRESENT: normal capillary refill GI/Abdominal exam: PRESENT: hypoactive bowel sounds Extremities exam: PRESENT: +1 edema Musculoskeletal exam: PRESENT: normal inspection Neurological exam: PRESENT: CN II-XII grossly intact, other - Sedated Tubes/Lines: PRESENT: Endotracheal Tube Laboratory/Radiographs Laboratory Results: 03/06/20 05:58 03/06/20 05:58 03/05/20 03/06/20 03/06/20 20:28 05:58 05:58 WBC 16.8 H RBC 3.44 L Hgb 9.6 L Hct 28.6 L MCV 83 MCH 27.7 MCHC 33.4 RDW 13.9 Plt Count 506 H Seg Neutrophils % 78.7 H Carbonic Acid HCO3/H2CO3 Ratio ABG pH ABG pCO2 ABG pO2 ABG HCO3 ABG O2 Saturation ABG Base Excess FiO2 Sodium 136.3 L Potassium 3.8 Chloride 101 Carbon Dioxide 28 Anion Gap 7 BUN 7 Creatinine 0.41 L Est GFR ( Amer) > 60 Glucose 104 Calcium 7.8 L Total Bilirubin 1.3 AST 36 Alkaline Phosphatase 99 Total Protein 6.3 Albumin 2.7 L Urine Color YELLOW Urine Appearance CLEAR Urine pH 6.0 Ur Specific [place] 1.012 Urine Protein NEGATIVE Urine Glucose (UA) 50 H Urine Ketones NEGATIVE Urine Blood MODERATE H Urine RBC (Auto) 77 03/06/20 13:00 WBC RBC Hgb Hct MCV MCH MCHC RDW Plt Count Seg Neutrophils % Carbonic Acid 1.37 H HCO3/H2CO3 Ratio 17:1 ABG pH 7.35 ABG pCO2 45.4 H ABG pO2 70.2 L ABG HCO3 24.6 H ABG O2 Saturation 93.3 L ABG Base Excess -1.3 FiO2 60% Sodium Potassium Chloride Carbon Dioxide Anion Gap BUN Creatinine Est GFR ( Amer) Glucose Calcium Total Bilirubin AST Alkaline Phosphatase Total Protein Albumin Urine Color Urine Appearance Urine pH Ur Specific [place] Urine Protein Urine Glucose (UA) Urine Ketones Urine Blood Urine RBC (Auto) 02/25/20 09:46 Troponin I < 0.012 Impressions: PICC Line Insertion 03/02/20 00:00 IMPRESSION: SUCCESSFUL PLACEMENT OF A 5 FR DUAL LUMEN 36 CM PICC IN THE RIGHT BASILIC VEIN. Abdomen/Pelvis CT 03/03/20 00:00 IMPRESSION: Artifact from the patient's arms. Imaging is degraded by patient motion, with resultant artifact. The best possible images were obtained. Postsurgical change. No postsurgical complications. No adverse change Apparent thickening of the sigmoid colon, indeterminate. Chest X-Ray 03/06/20 11:56 IMPRESSION: 1. LIFE LINES APPEAR TO BE IN SATISFACTORY POSITION. 2. LOW LUNG VOLUMES WITH SCATTERED ATELECTASIS. MILD CARDIOMEGALY AND POSSIBLE RIGHT PLEURAL EFFUSION. All labs, radiographs, diagnostic studies and EKGs were personally reviewed: Yes In addition, reports of radiographic and diagnostic studies were read: Yes Assessment and Plan - Diagnosis (1) Acute perforated appendicitis Is this a current diagnosis for this admission?: Yes Plan: Patient is now status post revision of abdominal wound due to dehiscence earlier today. Mesh was placed and abdominal wound was closed. Patient returned from the operating room intubated with elevated inspiratory pressures most likely secondary to abdominal pressure. (2) Intubation of airway performed without difficulty Is this a current diagnosis for this admission?: Yes Plan: Vent settings: PRVC, tidal volume: 500, respiratory rate: 15, PEEP: 5, FiO2 60%. Inspiratory pressures at this time are 35 cm water pressure. Plan Summary: Patient's vital signs have been stable and he is hemodynamically stable postoperatively. Neuro: Patient remains sedated on Versed and morphine. We will begin to wean medications in a.m. with hopes to extubate if appropriate from a pulmonary standpoint. Pulmonary vent settings: PRVC, tidal volume 500, [place] rate 15, PEEP 5, FiO2 60%. This is creating a inspiratory pressure of 35 cm H2O. ABG on these settings 7.35/45.5/70.2/24.6. Minute ventilation at time of ABG draw was approximately 10 L/min. Maintain current to later settings. We will try to wean his vent over the next 24 to 48 hours depending on the level of pressure created by his abdominal swelling. Cardiovascular: Vital signs are stable. No vasoactive medications required at this time. Normal sinus rhythm. Renal: BUN and creatinine are normal. Potassium was low at 3.3 and is being repleted. GI: As above, patient was taken to the OR today for revision of his abdominal wound due to dehiscence. Abdomen closed and drain in place. His abdomen at this time is firm and is likely impeding on his lungs creating increased inspiratory pressures. He also has a mild left-sided pleural effusion. We will watch closely for signs of abdominal compartment syndrome, however at this time, he does not seem to have this issue. ID: Patient continues on cefepime and linezolid. Repeat CBC in a.m. Critical Time Critical Time (minutes): 70 Level of Care: ICU -: 1. The care of a critical patient is a dynamic process. This note is a office services representative synopsis but static in nature. The timeframe for treatments given in order is not necessarily the actual time these treatments may have been done. 2. This patient requires critical care secondary to ongoing requirements for therapy not offered or safe outside the critical care environment. Transfer to a lower level of care will result in altered life or limb morbidity and mortality. 3. Multidisciplinary rounds completed. 4. ABCDE bundle addressed.
[2020-03-06] MEDS ORDERED: LINEZOLID 600 MG/300 ML RTUPB IV ONE ×2 (20:15→20:53)
[2020-03-06 20:31] LABS: ANION GAP 7 (5-19); BLOOD UREA NITROGEN 15 mg/dL (7-20); CALCIUM 7.4 mg/dL (8.4-10.2); CARBON DIOXIDE 27 mmol/L (22-30); CHLORIDE 100 mmol/L (98-107); GLUCOSE 140 mg/dL (75-110); POTASSIUM 4.7 mmol/L (3.6-5.0)
[2020-03-06] MEDS: FLUCONAZOLE 200 MG/NS RTU 200 MG/100 ML RTUPB IV SCH (21:15)
[2020-03-07] MEDS: ACETAMINOPHEN SOLN 325 MG/10.15 ML UDCUP NG PRN (00:02)
[2020-03-07] MEDS: MIDAZOLAM HCL 50 MG/100 ML RTUINJ IV PRN ×2 (00:02→08:52)
[2020-03-07] MEDS: METRONIDAZOLE 500 MG/NS RTU 500 MG/100 ML RTUPB IV SCH ×3 (06:21→21:25)
[2020-03-07] MEDS: INSULIN REG, HUMAN 100 UNIT/ML 3 ML VIAL (PYX) SUBCUT SCH ×3 (06:21→17:02)
[2020-03-07] MEDS: HYDROMORPHONE HCL INJ/PF 2 MG/ML AMPULE IV PRN ×3 (06:24→21:33)
[2020-03-07] MEDS: CEFEPIME 1 GM/D5W RTU 1 GM/50 ML RTUPB IV SCH ×2 (09:10→21:26)
[2020-03-07] MEDS: NORMAL SALINE 10 ML SDV (SCHEDULED) IV SCH ×2 (09:12→21:26)
[2020-03-07] MEDS: THIAMINE HCL INJ 200 MG/2 ML VIAL IM SCH (09:14)
[2020-03-07] MEDS: LINEZOLID 600 MG/300 ML RTUPB IV SCH ×2 (09:15→21:33)
[2020-03-07] MEDS: ENOXAPARIN SODIUM INJ 40 MG/0.4 ML DISP.SYRIN SUBCUT SCH (09:19)
[2020-03-07] MEDS: PANTOPRAZOLE SODIUM 40 MG VIAL IV SCH (10:32)
[2020-03-07] MEDS: RINGERS SOLUTION,LACTATED 1,000 ML IV PRN ×2 (10:36→21:26)
[2020-03-07] MEDS: MORPHINE SULFATE 60 MG/60 ML RTUINJ IV PRN (11:49)
[2020-03-07] MEDS: IPRATROPIUM/ALBUTEROL 0.5-2.5 MG/3 ML AMPUL NEB PRN (11:59)
[2020-03-07 12:29] LABS: HEMATOCRIT 24.1 % (37.9-51.0); MEAN CORPUSCULAR HGB CONC 33.1 g/dL (32.0-36.0); MEAN CORPUSCULAR VOLUME 85 fl (80-97); PLATELET COUNT 577 10^3/uL (150-450); RED BLOOD COUNT 2.84 10^6/uL (4.35-5.55); RED CELL DISTRIBUTION WIDTH 14.4 % (11.5-14.0); WHITE BLOOD COUNT 16.7 10^3/uL (4.0-10.5)
[2020-03-07 12:47] LABS: ALBUMIN 2.5 g/dL (3.5-5.0); ANION GAP 7 (5-19); BLOOD UREA NITROGEN 21 mg/dL (7-20); CALCIUM 7.5 mg/dL (8.4-10.2); CARBON DIOXIDE 28 mmol/L (22-30); CHLORIDE 102 mmol/L (98-107); GLUCOSE 147 mg/dL (75-110); PHOSPHORUS 3.8 mg/dL (2.5-4.5); POTASSIUM 4.5 mmol/L (3.6-5.0)
--- NOTE | 2020-03-07 14:39 | PDOC PROGRESS REPORT ---
Subjective Progress Note for:: 03/07/20 Subjective:: intubated, appears more comfortable Reason For Visit: PERFORATED ACUTE APPENDICITIS WITH PERITONITIS Physical Exam Vital Signs: Temp Pulse Resp BP Pulse Ox 99.1 F 110 H 24 H 109/63 95 03/07/20 12:00 03/07/20 13:20 03/07/20 13:20 03/07/20 13:20 03/07/20 13:20 Intake & Output 03/06/20 03/07/20 03/08/20 06:59 06:59 06:59 Intake Total 3760 7573 1127 Output Total 3300 5440 385 Balance 460 2133 742 Weight 123.6 kg 124.6 kg General appearance: PRESENT: no acute distress Head exam: PRESENT: normocephalic Eye exam: PRESENT: EOMI Ear exam: PRESENT: normal external ear exam Mouth exam: PRESENT: moist Neck exam: PRESENT: full ROM Respiratory exam: PRESENT: clear to auscultation daisy Cardiovascular exam: PRESENT: RRR Pulses: PRESENT: normal radial pulses, normal femoral pulses GI/Abdominal exam: PRESENT: other - wound intact, Rectal exam: PRESENT: deferred Extremities exam: PRESENT: +2 edema Neurological exam: PRESENT: other Psychiatric exam: PRESENT: appropriate affect Skin exam: PRESENT: dry Results Laboratory Results: 03/07/20 12:10 03/07/20 12:10 03/06/20 03/07/20 03/07/20 20:02 12:10 12:10 WBC 16.7 H RBC 2.84 L Hgb 8.0 L Hct 24.1 L MCV 85 MCH 28.0 MCHC 33.1 RDW 14.4 H Plt Count 577 H Sodium 133.9 L 136.5 L Potassium 4.7 4.5 Chloride 100 102 Carbon Dioxide 27 28 Anion Gap 7 7 BUN 15 21 H Creatinine 0.52 0.67 Est GFR ( Amer) > 60 > 60 Glucose 140 H 147 H Calcium 7.4 L 7.5 L Phosphorus 3.8 Albumin 2.5 L 03/03/20 21:59 Blood Blood Culture (PCR) - Final Staphylococcus Species 03/03/20 21:59 Blood Blood Culture - Final Staphylococcus Epidermidis 02/25/20 09:46 Troponin I < 0.012 Impressions: PICC Line Insertion 03/02/20 00:00 IMPRESSION: SUCCESSFUL PLACEMENT OF A 5 FR DUAL LUMEN 36 CM PICC IN THE RIGHT BASILIC VEIN. Abdomen/Pelvis CT 03/03/20 00:00 IMPRESSION: Artifact from the patient's arms. Imaging is degraded by patient motion, with resultant artifact. The best possible images were obtained. Postsurgical change. No postsurgical complications. No adverse change Apparent thickening of the sigmoid colon, indeterminate. Chest X-Ray 03/06/20 11:56 IMPRESSION: 1. LIFE LINES APPEAR TO BE IN SATISFACTORY POSITION. 2. LOW LUNG VOLUMES WITH SCATTERED ATELECTASIS. MILD CARDIOMEGALY AND POSSIBLE RIGHT PLEURAL EFFUSION. Assessment & Plan - Plan Summary Plan Summary: stable overnight decreased temps on ventilator vresed drip morphine drip less tachy plan per fitness leader weening off vent today
--- NOTE | 2020-03-07 17:57 | PDOC CRITICAL CARE PROG REPORT ---
General Date:: 03/07/20 ICU Day:: 11 Ventilator Day:: 1 Resuscitation Status: Full Code Events in the past 12 to 24 Hours:: Patient was taken to the OR yesterday for repair of wound dehiscence. He returned from the OR intubated with his abdomen closed. Abdominal swelling has decreased over the past 24 hours and his inspiratory pressures have also improved. Patient was extubated today without event and is breathing comfortably. Review of systems relevant to events:: Please see complete review of systems below. Reason for ICU Addmission:: Intubated post op. - Medications: Medications reviewed and adjusted accordingly: Yes Sedation:: All sedation removed today to facilitate extubation. Physical Exam Vital Signs: Temp Pulse Resp BP Pulse Ox 98.8 F 110 H 21 H 99/58 L 96 03/07/20 16:00 03/07/20 13:20 03/07/20 15:00 03/07/20 15:58 03/07/20 17:21 Intake & Output 03/06/20 03/07/20 03/08/20 06:59 06:59 06:59 Intake Total 3760 7573 1127 Output Total 3300 5440 810 Balance 460 2133 317 Weight 123.6 kg 124.6 kg Weight/Height Weight 124.6 kg Height 5 ft 5 in General appearance: PRESENT: no acute distress, morbidly obese Head exam: PRESENT: atraumatic, normocephalic Eye exam: PRESENT: EOMI, PERRLA Ear exam: PRESENT: normal external ear exam Mouth exam: PRESENT: moist, neck supple Neck exam: ABSENT: carotid bruit, JVD, tenderness Respiratory exam: PRESENT: clear to auscultation daisy. ABSENT: accessory muscle use, rales, rhonchi, stridor, wheezes Cardiovascular exam: PRESENT: RRR, +S1, +S2 Pulses: PRESENT: normal carotid pulses Vascular exam: PRESENT: normal capillary refill GI/Abdominal exam: PRESENT: other - Retention sutures in place. Wound with only mild erythema. Abdominal distention/swelling has improved today. Gentrourinary exam: ABSENT: scrotal swelling, indwelling catheter Extremities exam: PRESENT: full ROM. ABSENT: joint swelling, pedal edema, te nderness Musculoskeletal exam: PRESENT: full ROM, normal inspection. ABSENT: tenderness Neurological exam: PRESENT: alert, awake, oriented to person, oriented to place, oriented to situation, CN II-XII grossly intact Psychiatric exam: PRESENT: appropriate affect Skin exam: PRESENT: intact Tubes/Lines: ABSENT: Endotracheal Tube Laboratory/Radiographs Laboratory Results: 03/07/20 12:10 03/07/20 12:10 03/06/20 03/07/20 03/07/20 20:02 12:10 12:10 WBC 16.7 H RBC 2.84 L Hgb 8.0 L Hct 24.1 L MCV 85 MCH 28.0 MCHC 33.1 RDW 14.4 H Plt Count 577 H Sodium 133.9 L 136.5 L Potassium 4.7 4.5 Chloride 100 102 Carbon Dioxide 27 28 Anion Gap 7 7 BUN 15 21 H Creatinine 0.52 0.67 Est GFR ( Amer) > 60 > 60 Glucose 140 H 147 H Calcium 7.4 L 7.5 L Phosphorus 3.8 Albumin 2.5 L 03/03/20 21:59 Blood Blood Culture (PCR) - Final Staphylococcus Species 03/03/20 21:59 Blood Blood Culture - Final Staphylococcus Epidermidis 02/25/20 09:46 Troponin I < 0.012 Impressions: PICC Line Insertion 03/02/20 00:00 IMPRESSION: SUCCESSFUL PLACEMENT OF A 5 FR DUAL LUMEN 36 CM PICC IN THE RIGHT BASILIC VEIN. Abdomen/Pelvis CT 03/03/20 00:00 IMPRESSION: Artifact from the patient's arms. Imaging is degraded by patient motion, with resultant artifact. The best possible images were obtained. Postsurgical change. No postsurgical complications. No adverse change Apparent thickening of the sigmoid colon, indeterminate. Chest X-Ray 03/06/20 11:56 IMPRESSION: 1. LIFE LINES APPEAR TO BE IN SATISFACTORY POSITION. 2. LOW LUNG VOLUMES WITH SCATTERED ATELECTASIS. MILD CARDIOMEGALY AND POSSIBLE RIGHT PLEURAL EFFUSION. All labs, radiographs, diagnostic studies and EKGs were personally reviewed: Yes In addition, reports of radiographic and diagnostic studies were read: Yes Assessment and Plan - Diagnosis (1) Acute perforated appendicitis Is this a current diagnosis for this admission?: Yes Plan: Patient is now status post revision of abdominal wound due to dehiscence yesterd ay. Mesh was placed and abdominal wound was closed. (2) Intubation of airway performed without difficulty Is this a current diagnosis for this admission?: Yes Plan: Patient extubated and is on nasal cannula. Breathing comfortably. Plan Summary: ICU day: 11 Neuro: Patient is awake and alert. He was weaned off of all sedating medications today and had no difficulties. Pulmonary: Extubated to nasal cannula earlier this afternoon. No respiratory distress. Breath sounds are clear. Patient does have some atelectasis on his left lower lung field which may be secondary to some residual abdominal s welling. Abdomen is softer than on exam yesterday and is less likely to impede breathing. Cardiovascular: Hemodynamically stable. No acute cardiac issues. Indwelling catheters: Peripheral IVs only. Heme: H&H 9.6/28.6. No signs of bleeding. DVT prophylaxis: Remains on Lovenox 40 mg subcu daily. Renal: BUN and creatinine are stable. Continue LR at 100 mL/h. Gastrointestinal: Protonix IV started today GI prophylaxis. Diet: We will refer to surgery as to when to restart diet. ID: WBC elevated, however this is to be expected given recent surgery. Patient is currently on cefepime and Martina nasal lid as well as Flagyl and Diflucan. If he continues to be afebrile, we will begin to de-escalate antibiotic coverage. He does have a coag negative staph in the blood which is adequately covered. Barriers to discharge from ICU: Patient most likely be transferred from the ICU tomorrow if no other acute issues. We will monitor his respiratory status tonight. Critical Time Critical Time (minutes): 65 Level of Care: ICU -: 1. The care of a critical patient is a dynamic process. This note is a service liaison representative synopsis but static in nature. The timeframe for treatments given in order is not necessarily the actual time these treatments may have been done. 2. This patient requires critical care secondary to ongoing requirements for therapy not offered or safe outside the critical care environment. Transfer to a lower level of care will result in altered life or limb morbidity and mortality. 3. Multidisciplinary rounds completed. 4. ABCDE bundle addressed.
[2020-03-07] MEDS: FLUCONAZOLE 200 MG/NS RTU 200 MG/100 ML RTUPB IV SCH (21:25)
[2020-03-08] MEDS: INSULIN REG, HUMAN 100 UNIT/ML 3 ML VIAL (PYX) SUBCUT SCH ×4 (00:23→19:44)
[2020-03-08] MEDS: MORPHINE SULFATE 60 MG/60 ML RTUINJ IV PRN (02:38)
[2020-03-08] MEDS: ACETAMINOPHEN SOLN 325 MG/10.15 ML UDCUP NG PRN ×2 (04:47→18:49)
[2020-03-08 04:52] LABS: ABSOLUTE BASOPHILS # (AUTO) 0.1 10^3/uL (0.0-0.2); ABSOLUTE LYMPHOCYTES (AUTO) 1.1 10^3/uL (0.5-4.7); ABSOLUTE MONOCYTES (AUTO) 1.1 10^3/uL (0.1-1.4); ABSOLUTE NEUT (AUTO) 11.1 10^3/uL (1.7-8.2); EOSINOPHILS % (AUTO) 0.2 % (0-6); HEMATOCRIT 27.2 % (37.9-51.0); HEMOGLOBIN 8.9 g/dL (13.5-17.0); LYMPHOCYTES % (AUTO) 8.2 % (13-45); MEAN CORPUSCULAR HEMOGLOBIN 27.2 pg (27.0-33.4); MEAN CORPUSCULAR HGB CONC 32.7 g/dL (32.0-36.0); MEAN CORPUSCULAR VOLUME 83 fl (80-97); MONOCYTES % (AUTO) 7.9 % (3-13); PLATELET COUNT 748 10^3/uL (150-450); RED BLOOD COUNT 3.26 10^6/uL (4.35-5.55); RED CELL DISTRIBUTION WIDTH 14.3 % (11.5-14.0); SEGMENTED NEUTROPHILS % (AUTO) 82.7 % (42-78); TOTAL CELLS COUNTED % (AUTO) 100 %; WHITE BLOOD COUNT 13.5 10^3/uL (4.0-10.5)
[2020-03-08 05:08] LABS: ALBUMIN 2.7 g/dL (3.5-5.0); ALKALINE PHOSPHATASE 90 U/L (38-126); ANION GAP 6 (5-19); ASPARTATE AMINO TRANSFERASE 31 U/L (17-59); BILIRUBIN,DIRECT 0.2 mg/dL (0.0-0.4); BILIRUBIN,TOTAL 0.5 mg/dL (0.2-1.3); BLOOD UREA NITROGEN 15 mg/dL (7-20); CALCIUM 7.8 mg/dL (8.4-10.2); CARBON DIOXIDE 27 mmol/L (22-30); CHLORIDE 103 mmol/L (98-107); GLUCOSE 106 mg/dL (75-110); TOTAL PROTEIN 6.3 g/dL (6.3-8.2)
[2020-03-08] MEDS: METRONIDAZOLE 500 MG/NS RTU 500 MG/100 ML RTUPB IV SCH ×3 (05:22→23:13)
[2020-03-08] MEDS: CEFEPIME 1 GM/D5W RTU 1 GM/50 ML RTUPB IV SCH ×2 (10:30→22:22)
[2020-03-08] MEDS: PANTOPRAZOLE SODIUM 40 MG VIAL IV SCH (10:31)
[2020-03-08] MEDS: ENOXAPARIN SODIUM INJ 40 MG/0.4 ML DISP.SYRIN SUBCUT SCH (10:32)
[2020-03-08] MEDS: NORMAL SALINE 10 ML SDV (SCHEDULED) IV SCH ×2 (10:52→22:15)
[2020-03-08] MEDS: LINEZOLID 600 MG/300 ML RTUPB IV SCH (11:01)
[2020-03-08] MEDS: THIAMINE HCL INJ 200 MG/2 ML VIAL IM SCH (11:14)
--- NOTE | 2020-03-08 12:35 | PDOC CRITICAL CARE PROG REPORT ---
General Date:: 03/08/20 ICU Day:: 18 Resuscitation Status: Full Code Events in the past 12 to 24 Hours:: 03/07 Patient was taken to the OR yesterday for repair of wound dehiscence. He returned from the OR intubated with his abdomen closed. Abdominal swelling has decreased over the past 24 hours and his inspiratory pressures have also improved. Patient was extubated today without event and is breathing comfortably. 03/08 Patient has been stable over the past 24 hours and has had a lucid mental status. He is passing gas normally and is interested in eating. Tolerating sips of water well. Patient is appropriate for transfer to a medical floor. He no longer requires intensive care unit services. Review of systems relevant to events:: Please see complete review of systems below. Reason for ICU Addmission:: Intubated post op. - Medications: Medications reviewed and adjusted accordingly: Yes Physical Exam Vital Signs: Temp Pulse Resp BP Pulse Ox 39.1 F L 140 H 38 H 170/86 H 92 03/08/20 08:00 03/08/20 08:00 03/08/20 08:00 03/08/20 08:00 03/08/20 08:00 Intake & Output 03/07/20 03/08/20 03/09/20 06:59 06:59 06:59 Intake Total 7573 3227 Output Total 5440 2535 Balance 2133 692 Weight 124.6 kg 126.2 kg Weight/Height Weight 126.2 kg Height 5 ft 5 in General appearance: PRESENT: no acute distress, cooperative Eye exam: PRESENT: EOMI, PERRLA Ear exam: PRESENT: normal external ear exam Mouth exam: PRESENT: moist, neck supple Neck exam: PRESENT: full ROM Respiratory exam: PRESENT: clear to auscultation daisy, other - diminished breath sounds. Shallow inspiratory effort.. ABSENT: accessory muscle use Cardiovascular exam: PRESENT: RRR, +S1, +S2 Pulses: PRESENT: +2 pedal pulses bilateral GI/Abdominal exam: PRESENT: other - Abdomen is soft with mild distention status post abdominal surgery. Extremities exam: ABSENT: joint swelling, pedal edema Musculoskeletal exam: PRESENT: full ROM, normal inspection Neurological exam: PRESENT: alert, altered, awake, oriented to person, oriented to place, oriented to time, oriented to situation, CN II-XII grossly intact Psychiatric exam: PRESENT: normal mood Skin exam: PRESENT: other - Abdominal wound with retension sutures Tubes/Lines: PRESENT: Other - Peripheral vascular access only Laboratory/Radiographs Laboratory Results: 03/08/20 04:41 03/08/20 04:41 03/07/20 03/07/20 03/08/20 12:10 12:10 04:41 WBC 16.7 H 13.5 H RBC 2.84 L 3.26 L Hgb 8.0 L 8.9 L Hct 24.1 L 27.2 L MCV 85 83 MCH 28.0 27.2 MCHC 33.1 32.7 RDW 14.4 H 14.3 H Plt Count 577 H 748 H Seg Neutrophils % 82.7 H Sodium 136.5 L Potassium 4.5 Chloride 102 Carbon Dioxide 28 Anion Gap 7 BUN 21 H Creatinine 0.67 Est GFR ( Amer) > 60 Glucose 147 H Calcium 7.5 L Phosphorus 3.8 Total Bilirubin AST Alkaline Phosphatase Total Protein Albumin 2.5 L 03/08/20 04:41 WBC RBC Hgb Hct MCV MCH MCHC RDW Plt Count Seg Neutrophils % Sodium 136.3 L Potassium 4.0 Chloride 103 Carbon Dioxide 27 Anion Gap 6 BUN 15 Creatinine 0.55 Est GFR ( Amer) > 60 Glucose 106 Calcium 7.8 L Phosphorus Total Bilirubin 0.5 AST 31 Alkaline Phosphatase 90 Total Protein 6.3 Albumin 2.7 L 03/05/20 20:28 Ameya Drainage (Nba Harris) Gram Stain - Final 03/03/20 21:59 Blood Blood Culture (PCR) - Final Staphylococcus Species 03/03/20 21:59 Blood Blood Culture - Final Staphylococcus Epidermidis 02/25/20 09:46 Troponin I < 0.012 Impressions: PICC Line Insertion 03/02/20 00:00 IMPRESSION: SUCCESSFUL PLACEMENT OF A 5 FR DUAL LUMEN 36 CM PICC IN THE RIGHT BASILIC VEIN. Abdomen/Pelvis CT 03/03/20 00:00 IMPRESSION: Artifact from the patient's arms. Imaging is degraded by patient motion, with resultant artifact. The best possible images were obtained. Postsurgical change. No postsurgical complications. No adverse change Apparent thickening of the sigmoid colon, indeterminate. Chest X-Ray 03/06/20 11:56 IMPRESSION: 1. LIFE LINES APPEAR TO BE IN SATISFACTORY POSITION. 2. LOW LUNG VOLUMES WITH SCATTERED ATELECTASIS. MILD CARDIOMEGALY AND POSSIBLE RIGHT PLEURAL EFFUSION. All labs, radiographs, diagnostic studies and EKGs were personally reviewed: Yes In addition, reports of radiographic and diagnostic studies were read: Yes Assessment and Plan - Diagnosis (1) Acute perforated appendicitis Is this a current diagnosis for this admission?: Yes Plan: Patient is now status post revision of abdominal wound due to dehiscence 03/06. Mesh was placed and abdominal wound was closed. (2) Intubation of airway performed without difficulty Is this a current diagnosis for this admission?: Yes Plan: Patient extubated and is on nasal cannula. Breathing comfortably. Plan Summary: ICU day: 12 Neuro: Patient is awake and alert. He was weaned off of all sedating medications today and had no difficulties. Pulmonary: Extubated to nasal cannula earlier 03/07. No respiratory distress. Breath sounds are clear. Patient does have some atelectasis on his left lower lung field which may be secondary to some residual abdominal swelling. Abdomen is softer than on exam yesterday and is less likely to impede breathing. We will start incentive spirometer today. Cardiovascular: Hemodynamically stable. No acute cardiac issues. Indwelling catheters: Peripheral IVs only. Heme: H&H 8.9.2. No signs of bleeding. DVT prophylaxis: Remains on Lovenox 40 mg subcu daily. Renal: BUN and creatinine are stable. Continue LR at 100 mL/h. Gastrointestinal: Protonix IV started today GI prophylaxis. Diet: We will refer to surgery as to when to restart diet. ID: WBC elevated, however this is to be expected given recent surgery. Patient is currently on Cefepime and Linezolid as well as Flagyl and Diflucan. He was febrile overnight. He does have a coag negative staph in the blood which is adequately covered. We will continue to watch with current antibiotic regimen. Incentive spirometer to avoid atelectasis and possible development of pneumonia. Barriers to discharge from ICU: Patient is appropriate for transfer to medicine floor. Critical Time Critical Time (minutes): 60 Level of Care: ICU -: 1. The care of a critical patient is a dynamic process. This note is a employee representative synopsis but static in nature. The timeframe for treatments given in order is not necessarily the actual time these treatments may have been done. 2. This patient requires critical care secondary to ongoing requirements for therapy not offered or safe outside the critical care environment. Transfer to a lower level of care will result in altered life or limb morbidity and mortality. 3. Multidisciplinary rounds completed. 4. ABCDE bundle addressed.
--- NOTE | 2020-03-08 13:36 | PDOC PROGRESS REPORT ---
Subjective Progress Note for:: 03/08/20 Reason For Visit: PERFORATED ACUTE APPENDICITIS WITH PERITONITIS Physical Exam Vital Signs: Temp Pulse Resp BP Pulse Ox 39.7 F L 135 H 31 H 150/89 H 97 03/08/20 12:00 03/08/20 12:00 03/08/20 12:00 03/08/20 11:59 03/08/20 12:00 Intake & Output 03/07/20 03/08/20 03/09/20 06:59 06:59 06:59 Intake Total 7575 3327 Output Total 5440 2535 950 Balance 2133 792 -950 Weight 124.6 kg 126.2 kg Results Laboratory Results: 03/08/20 04:41 03/08/20 04:41 03/08/20 03/08/20 04:41 04:41 WBC 13.5 H RBC 3.26 L Hgb 8.9 L Hct 27.2 L MCV 83 MCH 27.2 MCHC 32.7 RDW 14.3 H Plt Count 748 H Seg Neutrophils % 82.7 H Sodium 136.3 L Potassium 4.0 Chloride 103 Carbon Dioxide 27 Anion Gap 6 BUN 15 Creatinine 0.55 Est GFR ( Amer) > 60 Glucose 106 Calcium 7.8 L Total Bilirubin 0.5 AST 31 Alkaline Phosphatase 90 Total Protein 6.3 Albumin 2.7 L 03/05/20 20:28 Ameya Drainage (Nba Harris) Gram Stain - Final 02/25/20 09:46 Troponin I < 0.012 Impressions: PICC Line Insertion 03/02/20 00:00 IMPRESSION: SUCCESSFUL PLACEMENT OF A 5 FR DUAL LUMEN 36 CM PICC IN THE RIGHT B ASILIC VEIN. Abdomen/Pelvis CT 03/03/20 00:00 IMPRESSION: Artifact from the patient's arms. Imaging is degraded by patient motion, with resultant artifact. The best possible images were obtained. Postsurgical change. No postsurgical complications. No adverse change Apparent thickening of the sigmoid colon, indeterminate. Chest X-Ray 03/06/20 11:56 IMPRESSION: 1. LIFE LINES APPEAR TO BE IN SATISFACTORY POSITION. 2. LOW LUNG VOLUMES WITH SCATTERED ATELECTASIS. MILD CARDIOMEGALY AND POSSIBLE RIGHT PLEURAL EFFUSION. Assessment & Plan - Diagnosis (1) Acute perforated appendicitis Is this a current diagnosis for this admission?: Yes - Plan Summary Plan Summary: This is a 40-year-old male status post exploratory laparotomy for perforated appendicitis. He subsequently had a takeback for fascial dehiscence with evisceration. He continues to be febrile. On abdominal washout, there was no evidence of intra-abdominal abscess or other significant process. He is awake today, mentating, and conversing normally. He does have some midline abdominal discomfort. A Ana Laura drain is in place in the subcutaneous tissues of the abdominal wall. There is no active purulence at his midline wound. Out of bed. Okay for transfer to the floor. Start full liquid diet. Aggressive pulmonary toilet.
[2020-03-08] MEDS: RINGERS SOLUTION,LACTATED 1,000 ML IV PRN (18:50)
[2020-03-08] MEDS: HYDROMORPHONE HCL INJ/PF 2 MG/ML AMPULE IV PRN ×2 (19:29→22:14)
[2020-03-08] MEDS: DIPHENHYDRAMINE HCL 50 MG/ML VIAL IV PRN (22:13)
[2020-03-09] MEDS: FLUCONAZOLE 200 MG/NS RTU 200 MG/100 ML RTUPB IV SCH (00:17)
[2020-03-09] MEDS: INSULIN REG, HUMAN 100 UNIT/ML 3 ML VIAL (PYX) SUBCUT SCH ×4 (00:21→18:20)
[2020-03-09] MEDS ORDERED: LINEZOLID 600 MG/300 ML RTUPB IV ONE (00:33)
[2020-03-09] MEDS: LINEZOLID 600 MG/300 ML RTUPB IV SCH ×2 (01:13→11:37)
[2020-03-09] MEDS: HYDROMORPHONE HCL INJ/PF 2 MG/ML AMPULE IV PRN ×7 (01:29→20:40)
[2020-03-09] MEDS: METRONIDAZOLE 500 MG/NS RTU 500 MG/100 ML RTUPB IV SCH ×3 (05:07→22:48)
[2020-03-09 06:47] LABS: ABSOLUTE EOSINOPHILS # (AUTO) 0.1 10^3/uL (0.0-0.6); ABSOLUTE LYMPHOCYTES (AUTO) 1.2 10^3/uL (0.5-4.7); ABSOLUTE MONOCYTES (AUTO) 1.1 10^3/uL (0.1-1.4); ABSOLUTE NEUT (AUTO) 7.7 10^3/uL (1.7-8.2); BASOPHILS % (AUTO) 0.3 % (0-2); EOSINOPHILS % (AUTO) 0.9 % (0-6); HEMATOCRIT 25.3 % (37.9-51.0); HEMOGLOBIN 8.6 g/dL (13.5-17.0); LYMPHOCYTES % (AUTO) 11.6 % (13-45); MEAN CORPUSCULAR HEMOGLOBIN 28.6 pg (27.0-33.4); MEAN CORPUSCULAR HGB CONC 34.1 g/dL (32.0-36.0); MEAN CORPUSCULAR VOLUME 84 fl (80-97); PLATELET COUNT 618 10^3/uL (150-450); RED BLOOD COUNT 3.02 10^6/uL (4.35-5.55); RED CELL DISTRIBUTION WIDTH 14.3 % (11.5-14.0); SEGMENTED NEUTROPHILS % (AUTO) 76.2 % (42-78); TOTAL CELLS COUNTED % (AUTO) 100 %; WHITE BLOOD COUNT 10.2 10^3/uL (4.0-10.5)
[2020-03-09 06:59] LABS: ALBUMIN 2.6 g/dL (3.5-5.0); ALKALINE PHOSPHATASE 93 U/L (38-126); ANION GAP 7 (5-19); ASPARTATE AMINO TRANSFERASE 29 U/L (17-59); BILIRUBIN,DIRECT 0.2 mg/dL (0.0-0.4); BILIRUBIN,TOTAL 0.8 mg/dL (0.2-1.3); BLOOD UREA NITROGEN 6 mg/dL (7-20); CALCIUM 7.7 mg/dL (8.4-10.2); CARBON DIOXIDE 29 mmol/L (22-30); CHLORIDE 99 mmol/L (98-107); GLUCOSE 93 mg/dL (75-110); POTASSIUM 3.8 mmol/L (3.6-5.0)
--- NOTE | 2020-03-09 08:24 | Progress Note ---
Provider Note Provider Note: [facility] ID Telephone Advice Consultation Chart reviewed. This is a 40-year-old man who was admitted on 02/24 due to abdo randall pain. Prior to the admission he was diagnosed with H pylori and was recommended to start amoxicillin, clarithromycin and omeprazole. He was having constipation and worsening abdominal pain. In the ED he had a CT scan of abdomen and pelvis that demonstrated appendicitis and a right renal solid mass. He was septic with WBC of 20k and lactic acid 3.1. He was taken to the OR and had appendectomy, found with perforated retrocecal appendix and peritonitis. Fluid culture was positive for E. coli, Clostridium spp and Bacteroides. He continued febrile and tachycardic. He had multiple CT scans including a/p on 02/28 and 03/03. On 03/02 he had a tracheal aspirate that was positive for E coli. He was extubated on 03/03, but he was found to have signs of alcohol withdrawal and DTs. A PICC line was inserted on 03/02. He was started on TPN on 03/03. On 03/06 he was found with eviseration of the small bowel for which he required exploratory laparotomy. There were no signs of peritonitis at that time. Low suspicion for abdominal sepsis, but patient continued febrile an tachycardic. He has been on linezolid, metronidazole and cefepime. ID consulted for recommendations. PMH: H pylori Allergies: No Known Allergies Allergy (Verified 02/25/20 10:07) Medications: Amoxicillin 500 mg PO Q12 02/25/20 Clarithromycin [Biaxin 500 mg Tablet] 500 mg PO Q12 02/25/20 Omeprazole 20 mg PO BID 02/25/20 Vital Signs: Temp Pulse Resp BP Pulse Ox 99.2 F 124 H 21 H 149/78 H 93 03/09/20 04:50 03/09/20 04:50 03/09/20 04:50 03/09/20 04:50 03/09/20 04:50 Intake & Output 03/08/20 03/09/20 03/10/20 06:59 06:59 06:59 Intake Total 3327 2810 Output Total 2535 5150 Balance 792 -2340 Weight 126.2 kg 120.9 kg Weight/Height Weight 120.9 kg Height 5 ft 5 in Laboratories: 03/09/20 06:10 03/09/20 06:10 MCV 84 fl (80-97) 03/09/20 06:10 MCH 28.6 pg (27.0-33.4) 03/09/20 06:10 MCHC 34.1 g/dL (32.0-36.0) 03/09/20 06:10 RDW 14.3 % (11.5-14.0) H 03/09/20 06:10 Seg Neutrophils % 76.2 % (42-78) 03/09/20 06:10 Carbonic Acid 1.37 mmol/L (1.05-1.35) H 03/06/20 13:00 HCO3/H2CO3 Ratio 17:1 03/06/20 13:00 ABG pH 7.35 (7.35-7.45) 03/06/20 13:00 ABG pCO2 45.4 mmHg (35-45) H 03/06/20 13:00 ABG pO2 70.2 mmHg (80-100) L 03/06/20 13:00 ABG HCO3 24.6 mmol/L (20-24) H 03/06/20 13:00 ABG O2 Saturation 93.3 % (94-98) L 03/06/20 13:00 ABG Base Excess -1.3 mmol/L 03/06/20 13:00 FiO2 60% 03/06/20 13:00 Chloride 99 mmol/L (98-107) 03/09/20 06:10 Carbon Dioxide 29 mmol/L (22-30) 03/09/20 06:10 Anion Gap 7 (5-19) 03/09/20 06:10 Est GFR ( Amer) > 60 (>60) 03/09/20 06:10 Est GFR (Non-Af Amer) Cancelled 03/04/20 04:22 Glucose 93 mg/dL (75-110) 03/09/20 06:10 Lactic Acid 0.8 mmol/L (0.7-2.1) 02/26/20 21:47 Calcium 7.7 mg/dL (8.4-10.2) L 03/09/20 06:10 Ionized Calcium [place] 0.99 mmol/L (1.14-1.30) L 02/26/20 21:47 Phosphorus 3.8 mg/dL (2.5-4.5) 03/07/20 12:10 Magnesium 2.0 mg/dL (1.6-2.3) 03/04/20 20:21 Total Bilirubin 0.8 mg/dL (0.2-1.3) 03/09/20 06:10 AST 29 U/L (17-59) 03/09/20 06:10 Alkaline Phosphatase 93 U/L (38-126) 03/09/20 06:10 Total Protein 6.0 g/dL (6.3-8.2) L 03/09/20 06:10 Albumin 2.6 g/dL (3.5-5.0) L 03/09/20 06:10 Prealbumin 9.7 mg/dL (17.6-36.0) L 03/05/20 04:25 Triglycerides 1560 mg/dL (<150) H 03/03/20 04:24 Lipase 1117.3 U/L (23-300) H 03/05/20 04:25 Urine Color YELLOW 03/05/20 20:28 Urine Appearance CLEAR 03/05/20 20:28 Urine pH 6.0 (5.0-9.0) 03/05/20 20:28 Ur Specific [place] 1.012 03/05/20 20:28 Urine Protein NEGATIVE mg/dL (NEGATIVE) 03/05/20 20:28 Urine Glucose (UA) 50 mg/dL (NEGATIVE) H 03/05/20 20:28 Urine Ketones NEGATIVE mg/dL (NEGATIVE) 03/05/20 20:28 Urine Blood MODERATE (NEGATIVE) H 03/05/20 20:28 Urine Nitrite NEGATIVE (NEGATIVE) 02/25/20 10:09 Ur Leukocyte Esterase NEGATIVE (NEGATIVE) 02/25/20 10:09 Urine WBC (Auto) 4 /HPF 02/25/20 10:09 Urine RBC (Auto) 77 /HPF 03/05/20 20:28 03/05/20 20:28 Ameya Drainage (Nba Harris) Gram Stain - Final 03/05/20 20:28 Ameya Drainage (Nba Harris) Wound Culture - Final NO AEROBIC OR ANAEROBIC ORGANISMS RECOVERED 03/03/20 20:14 Blood Blood Culture - Final NO GROWTH IN 5 DAYS Microbiology: Blood cultures: 02/24 Negative 02/26 Negative 03/03 CoNS 03/05 NGTD Tracheal Aspirate: 02/26 E coli Peritoneal Fluid culture: 02/24 E coli, Clostridium, Bacteroides Radiology: Abdomen/Pelvis CT 03/03/20 00:00 IMPRESSION: Artifact from the patient's arms. Imaging is degraded by patient motion, with resultant artifact. The best possible images were obtained. Postsurgical change. No postsurgical complications. No adverse change Apparent thickening of the sigmoid colon, indeterminate. Chest X-Ray 03/06/20 11:56 IMPRESSION: 1. LIFE LINES APPEAR TO BE IN SATISFACTORY POSITION. 2. LOW LUNG VOLUMES WITH SCATTERED ATELECTASIS. MILD CARDIOMEGALY AND POSSIBLE RIGHT PLEURAL EFFUSION. Assessment and Recommendations: Patient evaluated due to peritonitis in the setting of perforated retrocecal appendix s/p surgery. He has had multiple causes for fever throughout this admission, first sepsis, then DTs/alcohol withdrawal, surgery. He has been on cefepime and metronidazole which are adequate for intra abdominal process, he has also been on Diflucan for fungal coverage. Linezolid was recently added maybe for Staph spp on blood cultures. Potential complications of this that can cause fever would be pylephlebitis with portal vein system thrombosis, but no evidence of that so far. Occult abscess can cause fever as well, but again, no evidence of that on CT scans. Drug fever is another possibility. Renal mass as a cause of fever of unknown origin has been considered if RCC. From ID standpo int, can consider to change diflucan to micafungin to cover for Jacki non- albicans if he continues febrile as he was on TPN and some Jacki-non albicans (glabrata and kruzei) can colonize the GI tract as well and they are resistant to fluconazole. Can consider changing cefepime + flagyl to meropenem later on if continues febrile (if considering drug fever). No indication for linezolid at this time, can consider to discontinue. Please call if updates or questions. Renee Morales MD [facility] [phone]
[2020-03-09] MEDS: RINGERS SOLUTION,LACTATED 1,000 ML IV PRN (08:30)
[2020-03-09] MEDS ORDERED: ONDANSETRON HCL INJ/PF 4 MG/2 ML SDV IV PRN (09:32)
[2020-03-09] MEDS: HYDROCODONE/ACETAMINOPHEN 10-325 MG TABLET PO PRN ×2 (10:02→17:18)
[2020-03-09] MEDS: CEFEPIME 1 GM/D5W RTU 1 GM/50 ML RTUPB IV SCH ×2 (10:02→22:33)
[2020-03-09] MEDS: PANTOPRAZOLE SODIUM 40 MG VIAL IV SCH (10:03)
[2020-03-09] MEDS: THIAMINE HCL INJ 200 MG/2 ML VIAL IM SCH (10:03)
[2020-03-09] MEDS: ENOXAPARIN SODIUM INJ 40 MG/0.4 ML DISP.SYRIN SUBCUT SCH (10:04)
[2020-03-09] MEDS: NORMAL SALINE 10 ML SDV (SCHEDULED) IV SCH ×2 (10:04→22:57)
[2020-03-09] MEDS ORDERED: VANCOMYCIN HCL 0 MG in DEXTROSE 5%-WATER 250 ML IV NR (12:15)
--- NOTE | 2020-03-09 12:17 | PDOC PROGRESS REPORT ---
Subjective Progress Note for:: 03/09/20 Reason For Visit: PERFORATED ACUTE APPENDICITIS WITH PERITONITIS Physical Exam Vital Signs: Temp Pulse Resp BP Pulse Ox 99.2 F 116 H 21 H 149/78 H 93 03/09/20 04:50 03/09/20 08:14 03/09/20 04:50 03/09/20 04:50 03/09/20 04:50 Intake & Output 03/08/20 03/09/20 03/10/20 06:59 06:59 06:59 Intake Total 3327 3810 150 Output Total 2535 5150 Balance 792 -1340 150 Weight 126.2 kg 120.9 kg Results Laboratory Results: 03/09/20 06:10 03/09/20 06:10 03/09/20 03/09/20 06:10 06:10 WBC 10.2 RBC 3.02 L Hgb 8.6 L Hct 25.3 L MCV 84 MCH 28.6 MCHC 34.1 RDW 14.3 H Plt Count 618 H Seg Neutrophils % 76.2 Sodium 135.0 L Potassium 3.8 Chloride 99 Carbon Dioxide 29 Anion Gap 7 BUN 6 L Creatinine 0.51 L Est GFR ( Amer) > 60 Glucose 93 Calcium 7.7 L Total Bilirubin 0.8 AST 29 Alkaline Phosphatase 93 Total Protein 6.0 L Albumin 2.6 L 03/05/20 20:28 Ameya Drainage (Nba Harris) Gram Stain - Final 03/05/20 20:28 Ameya Drainage (Nba Harris) Wound Culture - Final NO AEROBIC OR ANAEROBIC ORGANISMS RECOVERED 03/03/20 20:14 Blood Blood Culture - Final NO GROWTH IN 5 DAYS 02/25/20 09:46 Troponin I < 0.012 Impressions: PICC Line Insertion 03/02/20 00:00 IMPRESSION: SUCCESSFUL PLACEMENT OF A 5 FR DUAL LUMEN 36 CM PICC IN THE RIGHT BASILIC VEIN. Abdomen/Pelvis CT 03/03/20 00:00 IMPRESSION: Artifact from the patient's arms. Imaging is degraded by patient motion, with resultant artifact. The best possible images were obtained. Postsurgical change. No postsurgical complications. No adverse change Apparent thickening of the sigmoid colon, indeterminate. Chest X-Ray 03/06/20 11:56 IMPRESSION: 1. LIFE LINES APPEAR TO BE IN SATISFACTORY POSITION. 2. LOW LUNG VOLUMES WITH SCATTERED ATELECTASIS. MILD CARDIOMEGALY AND POSSIBLE RIGHT PLEURAL EFFUSION. Assessment & Plan - Diagnosis (1) Acute perforated appendicitis Is this a current diagnosis for this admission?: Yes - Plan Summary Plan Summary: This is a 40-year-old male status post laparotomy for perforated appendicitis, with subsequent takeback for fascial dehiscence and evisceration. Patient's fevers are improving. He did grow MRSE in his blood cultures. He grew E. coli from his sputum culture. ID note was reviewed. We will stop the Linezolid, per their recommendation. Will start Vanco for MRSE. Continue Rocephin, Flagyl, and fluconazole. Out of bed to chair. Physical therapy consult. Discharge planning for rehab eval. Add oral pain medications. Advance diet. Remove Ocampo.
[2020-03-09] MEDS: IBUPROFEN 800 MG TABLET PO SCH ×2 (13:02→17:18)
[2020-03-09] MEDS: VANCOMYCIN HCL 1,500 MG in DEXTROSE 5%-WATER 250 ML IV SCH (22:00)
[2020-03-10] MEDS: FLUCONAZOLE 200 MG/NS RTU 200 MG/100 ML RTUPB IV SCH ×2 (00:29→22:56)
[2020-03-10] MEDS: HYDROMORPHONE HCL INJ/PF 2 MG/ML AMPULE IV PRN ×5 (00:33→23:00)
[2020-03-10] MEDS: DIPHENHYDRAMINE HCL 50 MG/ML VIAL IV PRN ×2 (00:34→23:00)
[2020-03-10] MEDS: INSULIN REG, HUMAN 100 UNIT/ML 3 ML VIAL (PYX) SUBCUT SCH ×3 (00:48→13:49)
[2020-03-10] MEDS: VANCOMYCIN HCL 1,500 MG in DEXTROSE 5%-WATER 250 ML IV SCH ×3 (05:33→20:50)
[2020-03-10] MEDS: PANTOPRAZOLE SODIUM 40 MG TABLET.DR PO SCH (05:51)
[2020-03-10] MEDS: HYDROCODONE/ACETAMINOPHEN 10-325 MG TABLET PO PRN ×4 (05:51→23:01)
[2020-03-10] MEDS: METRONIDAZOLE 500 MG/NS RTU 500 MG/100 ML RTUPB IV SCH ×3 (05:52→22:56)
[2020-03-10 07:08] LABS: ABSOLUTE EOSINOPHILS # (AUTO) 0.2 10^3/uL (0.0-0.6); ABSOLUTE LYMPHOCYTES (AUTO) 0.7 10^3/uL (0.5-4.7); ABSOLUTE MONOCYTES (AUTO) 0.9 10^3/uL (0.1-1.4); ABSOLUTE NEUT (AUTO) 8.3 10^3/uL (1.7-8.2); BASOPHILS % (AUTO) 0.2 % (0-2); EOSINOPHILS % (AUTO) 1.5 % (0-6); HEMATOCRIT 26.3 % (37.9-51.0); MEAN CORPUSCULAR HEMOGLOBIN 28.5 pg (27.0-33.4); MEAN CORPUSCULAR HGB CONC 34.1 g/dL (32.0-36.0); MEAN CORPUSCULAR VOLUME 83 fl (80-97); PLATELET COUNT 626 10^3/uL (150-450); RED BLOOD COUNT 3.15 10^6/uL (4.35-5.55); RED CELL DISTRIBUTION WIDTH 14.2 % (11.5-14.0); SEGMENTED NEUTROPHILS % (AUTO) 82.3 % (42-78); TOTAL CELLS COUNTED % (AUTO) 100 %; WHITE BLOOD COUNT 10.1 10^3/uL (4.0-10.5)
[2020-03-10 07:25] LABS: ALBUMIN 2.6 g/dL (3.5-5.0); ALKALINE PHOSPHATASE 91 U/L (38-126); ANION GAP 8 (5-19); ASPARTATE AMINO TRANSFERASE 23 U/L (17-59); BILIRUBIN,TOTAL 0.5 mg/dL (0.2-1.3); BLOOD UREA NITROGEN 6 mg/dL (7-20); CALCIUM 7.9 mg/dL (8.4-10.2); CARBON DIOXIDE 28 mmol/L (22-30); CHLORIDE 97 mmol/L (98-107); GLUCOSE 130 mg/dL (75-110); POTASSIUM 3.9 mmol/L (3.6-5.0); TOTAL PROTEIN 6.2 g/dL (6.3-8.2)
[2020-03-10] MEDS: IBUPROFEN 800 MG TABLET PO SCH ×3 (09:03→17:32)
--- NOTE | 2020-03-10 10:09 | PDOC PROGRESS REPORT ---
Subjective Progress Note for:: 03/10/20 Subjective:: feels better vitor diet passing stool Reason For Visit: PERFORATED ACUTE APPENDICITIS WITH PERITONITIS Physical Exam Vital Signs: Temp Pulse Resp BP Pulse Ox 100.5 F H 113 H 20 139/74 H 92 03/10/20 07:50 03/10/20 07:50 03/10/20 05:04 03/10/20 07:50 03/10/20 07:50 Intake & Output 03/09/20 03/10/20 03/11/20 06:59 06:59 06:59 Intake Total 3810 3609 Output Total 5150 2970 Balance -1340 639 Weight 120.9 kg 120 kg General appearance: PRESENT: no acute distress Head exam: PRESENT: normocephalic Mouth exam: PRESENT: moist Neck exam: PRESENT: full ROM Respiratory exam: PRESENT: clear to auscultation daisy Cardiovascular exam: PRESENT: RRR Pulses: PRESENT: normal femoral pulses, normal dorsalis pedis pul Breast: PRESENT: Normal GI/Abdominal exam: PRESENT: other - midline incision clean some drainage from pe nrose tameka intact, no cellulitis Rectal exam: PRESENT: deferred Extremities exam: PRESENT: full ROM Musculoskeletal exam: PRESENT: full ROM Neurological exam: PRESENT: alert, awake, oriented to person, oriented to place Psychiatric exam: PRESENT: appropriate affect Skin exam: PRESENT: dry Results Laboratory Results: 03/10/20 06:50 03/10/20 06:50 03/10/20 03/10/20 06:50 06:50 WBC 10.1 RBC 3.15 L Hgb 9.0 L Hct 26.3 L MCV 83 MCH 28.5 MCHC 34.1 RDW 14.2 H Plt Count 626 H Seg Neutrophils % 82.3 H Sodium 133.4 L Potassium 3.9 Chloride 97 L Carbon Dioxide 28 Anion Gap 8 BUN 6 L Creatinine 0.48 L Est GFR ( Amer) > 60 Glucose 130 H Calcium 7.9 L Total Bilirubin 0.5 AST 23 Alkaline Phosphatase 91 Total Protein 6.2 L Albumin 2.6 L 03/05/20 20:28 Aemya Drainage (Nba Harris) Gram Stain - Final 03/05/20 20:28 Ameya Drainage (Nba Harris) Wound Culture - Final NO AEROBIC OR ANAEROBIC ORGANISMS RECOVERED 02/25/20 09:46 Troponin I < 0.012 Impressions: PICC Line Insertion 03/02/20 00:00 IMPRESSION: SUCCESSFUL PLACEMENT OF A 5 FR DUAL LUMEN 36 CM PICC IN THE RIGHT BASILIC VEIN. Abdomen/Pelvis CT 03/03/20 00:00 IMPRESSION: Artifact from the patient's arms. Imaging is degraded by patient motion, with resultant artifact. The best possible images were obtained. Postsurgical change. No postsurgical complications. No adverse change Apparent thickening of the sigmoid colon, indeterminate. Chest X-Ray 03/06/20 11:56 IMPRESSION: 1. LIFE LINES APPEAR TO BE IN SATISFACTORY POSITION. 2. LOW LUNG VOLUMES WITH SCATTERED ATELECTASIS. MILD CARDIOMEGALY AND POSSIBLE RIGHT PLEURAL EFFUSION. Assessment & Plan - Plan Summary Plan Summary: s/p ex lap for perforated appy prolonged icu course DT's reop for eviseration now tx to floor doing better now alert bowel function returned still with low grade temps however that much improved plan incentive spirometer cont iv abx anticipate dc in 2 or 3 days.
[2020-03-10] MEDS: ENOXAPARIN SODIUM INJ 40 MG/0.4 ML DISP.SYRIN SUBCUT SCH (10:33)
[2020-03-10] MEDS: NORMAL SALINE 10 ML SDV (SCHEDULED) IV SCH ×2 (10:34→22:57)
[2020-03-10] MEDS: CEFEPIME 1 GM/D5W RTU 1 GM/50 ML RTUPB IV SCH ×2 (10:34→22:56)
[2020-03-10] MEDS: THIAMINE HCL 100 MG TABLET PO SCH (10:34)
[2020-03-11] MEDS: HYDROCODONE/ACETAMINOPHEN 10-325 MG TABLET PO PRN ×3 (03:38→17:22)
[2020-03-11] MEDS: HYDROMORPHONE HCL INJ/PF 2 MG/ML AMPULE IV PRN ×2 (03:38→10:37)
[2020-03-11] MEDS: VANCOMYCIN HCL 1,500 MG in DEXTROSE 5%-WATER 250 ML IV SCH ×3 (05:07→21:35)
[2020-03-11] MEDS: METRONIDAZOLE 500 MG/NS RTU 500 MG/100 ML RTUPB IV SCH ×2 (06:03→17:22)
[2020-03-11] MEDS: PANTOPRAZOLE SODIUM 40 MG TABLET.DR PO SCH (06:03)
--- NOTE | 2020-03-11 08:19 | PDOC PROGRESS REPORT ---
Subjective Progress Note for:: 03/11/20 Subjective:: feels ok refused pt yesterday Reason For Visit: PERFORATED ACUTE APPENDICITIS WITH PERITONITIS Physical Exam Vital Signs: Temp Pulse Resp BP Pulse Ox 100.4 F 102 H 18 147/78 H 97 03/11/20 08:03 03/11/20 08:03 03/11/20 08:03 03/11/20 08:03 03/11/20 08:03 Intake & Output 03/10/20 03/11/20 03/12/20 06:59 06:59 06:59 Intake Total 3609 2525 Output Total 2970 2495 Balance 639 -350 Weight 120 kg 114.7 kg General appearance: PRESENT: no acute distress Head exam: PRESENT: normocephalic Eye exam: PRESENT: EOMI Ear exam: PRESENT: normal external ear exam Mouth exam: PRESENT: moist Neck exam: PRESENT: full ROM Respiratory exam: PRESENT: clear to auscultation daisy Cardiovascular exam: PRESENT: RRR Pulses: PRESENT: normal radial pulses, normal femoral pulses Vascular exam: PRESENT: normal capillary refill Breast: PRESENT: Normal GI/Abdominal exam: PRESENT: other - midline wound ok andrea inplace serous drainage via andrea wound clean Rectal exam: PRESENT: deferred Extremities exam: PRESENT: full ROM Musculoskeletal exam: PRESENT: full ROM Neurological exam: PRESENT: alert, awake, oriented to person, oriented to place Psychiatric exam: PRESENT: appropriate affect Skin exam: PRESENT: dry Results Laboratory Results: 03/10/20 06:50 03/10/20 06:50 03/05/20 13:38 Blood Blood Culture - Final NO GROWTH IN 5 DAYS 03/05/20 13:30 Blood Blood Culture - Final NO GROWTH IN 5 DAYS 02/25/20 09:46 Troponin I < 0.012 Impressions: PICC Line Insertion 03/02/20 00:00 IMPRESSION: SUCCESSFUL PLACEMENT OF A 5 FR DUAL LUMEN 36 CM PICC IN THE RIGHT BASILIC VEIN. Abdomen/Pelvis CT 03/03/20 00:00 IMPRESSION: Artifact from the patient's arms. Imaging is degraded by patient motion, with resultant artifact. The best possible images were obtained. Postsurgical change. No postsurgical complications. No adverse change Apparent thickening of the sigmoid colon, indeterminate. Chest X-Ray 03/06/20 11:56 IMPRESSION: 1. LIFE LINES APPEAR TO BE IN SATISFACTORY POSITION. 2. LOW LUNG VOLUMES WITH SCATTERED ATELECTASIS. MILD CARDIOMEGALY AND POSSIBLE RIGHT PLEURAL EFFUSION. Assessment & Plan - Plan Summary Plan Summary: s/p ex lap for perforated appendicitis]s/p wound closure for everseration dt's proloned intubation now improved woiund closed ]vitor reg diet passing stool\ plan on dc home in next day or two physical therapy.
[2020-03-11] MEDS: IBUPROFEN 800 MG TABLET PO SCH ×3 (08:48→17:23)
[2020-03-11] MEDS: NORMAL SALINE 10 ML SDV (SCHEDULED) IV SCH ×2 (10:37→21:47)
[2020-03-11] MEDS: THIAMINE HCL 100 MG TABLET PO SCH (10:37)
[2020-03-11] MEDS: CEFEPIME 1 GM/D5W RTU 1 GM/50 ML RTUPB IV SCH ×2 (10:38→21:40)
[2020-03-11] MEDS: ENOXAPARIN SODIUM INJ 40 MG/0.4 ML DISP.SYRIN SUBCUT SCH (10:38)
[2020-03-11] MEDS: FLUCONAZOLE 200 MG/NS RTU 200 MG/100 ML RTUPB IV SCH (22:24)
[2020-03-12] MEDS: METRONIDAZOLE 500 MG/NS RTU 500 MG/100 ML RTUPB IV SCH ×2 (00:01→07:56)
[2020-03-12] MEDS: VANCOMYCIN HCL 1,500 MG in DEXTROSE 5%-WATER 250 ML IV SCH (06:02)
[2020-03-12] MEDS: PANTOPRAZOLE SODIUM 40 MG TABLET.DR PO SCH (06:02)
[2020-03-12 06:20] LABS: ABSOLUTE BASOPHILS # (AUTO) 0.1 10^3/uL (0.0-0.2); ABSOLUTE EOSINOPHILS # (AUTO) 0.2 10^3/uL (0.0-0.6); ABSOLUTE LYMPHOCYTES (AUTO) 0.9 10^3/uL (0.5-4.7); ABSOLUTE MONOCYTES (AUTO) 0.9 10^3/uL (0.1-1.4); ABSOLUTE NEUT (AUTO) 6.5 10^3/uL (1.7-8.2); BASOPHILS % (AUTO) 0.8 % (0-2); EOSINOPHILS % (AUTO) 2.2 % (0-6); HEMATOCRIT 26.9 % (37.9-51.0); HEMOGLOBIN 9.1 g/dL (13.5-17.0); LYMPHOCYTES % (AUTO) 10.3 % (13-45); MEAN CORPUSCULAR HGB CONC 33.8 g/dL (32.0-36.0); MEAN CORPUSCULAR VOLUME 83 fl (80-97); MONOCYTES % (AUTO) 10.6 % (3-13); PLATELET COUNT 605 10^3/uL (150-450); RED BLOOD COUNT 3.24 10^6/uL (4.35-5.55); RED CELL DISTRIBUTION WIDTH 14.2 % (11.5-14.0); SEGMENTED NEUTROPHILS % (AUTO) 76.1 % (42-78); TOTAL CELLS COUNTED % (AUTO) 100 %; WHITE BLOOD COUNT 8.5 10^3/uL (4.0-10.5)
[2020-03-12 06:31] LABS: ANION GAP 9 (5-19); BLOOD UREA NITROGEN 6 mg/dL (7-20); CARBON DIOXIDE 25 mmol/L (22-30); CHLORIDE 102 mmol/L (98-107); GLUCOSE 111 mg/dL (75-110); POTASSIUM 3.9 mmol/L (3.6-5.0)
[2020-03-12 06:35] LABS: VANCOMYCIN,TROUGH 8.7 ug/mL (5.0-20.0)
[2020-03-12] MEDS: IBUPROFEN 800 MG TABLET PO SCH ×2 (07:14→11:55)
[2020-03-12] MEDS: HYDROCODONE/ACETAMINOPHEN 10-325 MG TABLET PO PRN (07:14)
--- NOTE | 2020-03-12 08:45 | PDOC PROGRESS REPORT ---
Subjective Reason For Visit: PERFORATED ACUTE APPENDICITIS WITH PERITONITIS Physical Exam Vital Signs: Temp Pulse Resp BP Pulse Ox 99.5 F 96 18 152/85 H 93 03/12/20 07:48 03/12/20 07:48 03/12/20 07:48 03/12/20 07:48 03/12/20 07:48 Intake & Output 03/11/20 03/12/20 03/13/20 06:59 06:59 06:59 Intake Total 2525 3735 Output Total 2875 2525 Balance -350 1210 Weight 114.7 kg 109.3 kg Results Laboratory Results: 03/12/20 05:50 03/12/20 05:50 03/12/20 03/12/20 05:50 05:50 WBC 8.5 RBC 3.24 L Hgb 9.1 L Hct 26.9 L MCV 83 MCH 28.0 MCHC 33.8 RDW 14.2 H Plt Count 605 H Seg Neutrophils % 76.1 Sodium 135.8 L Potassium 3.9 Chloride 102 Carbon Dioxide 25 Anion Gap 9 BUN 6 L Creatinine 0.42 L Est GFR ( Amer) > 60 Glucose 111 H Calcium 8.0 L 02/25/20 09:46 Troponin I < 0.012 Impressions: PICC Line Insertion 03/02/20 00:00 IMPRESSION: SUCCESSFUL PLACEMENT OF A 5 FR DUAL LUMEN 36 CM PICC IN THE RIGHT BASILIC VEIN. Abdomen/Pelvis CT 03/03/20 00:00 IMPRESSION: Artifact from the patient's arms. Imaging is degraded by patient motion, with resultant artifact. The best possible images were obtained. Postsurgical change. No postsurgical complications. No adverse change Apparent thickening of the sigmoid colon, indeterminate. Chest X-Ray 03/06/20 11:56 IMPRESSION: 1. LIFE LINES APPEAR TO BE IN SATISFACTORY POSITION. 2. LOW LUNG VOLUMES WITH SCATTERED ATELECTASIS. MILD CARDIOMEGALY AND POSSIBLE RIGHT PLEURAL EFFUSION. Assessment & Plan - Diagnosis (1) Acute perforated appendicitis Is this a current diagnosis for this admission?: Yes - Plan Summary Plan Summary: This is a 40-year-old male status post laparotomy for perforated appendicitis, with subsequent takeback for fascial dehiscence and evisceration. The pt grew MRSE in his blood cultures. He grew E. coli from his sputum culture. ID consultation reviewed. Cont Vanco for MRSE. Continue Rocephin, Flagyl, and fluconazole. Out of bed to chair. Physical therapy following. Tolerating regular diet. Needs home PT/Home health, then ready for discharge. C/o diarrhea this am. Will check c. diff.
[2020-03-12] MEDS: ENOXAPARIN SODIUM INJ 40 MG/0.4 ML DISP.SYRIN SUBCUT SCH (09:46)
[2020-03-12] MEDS: NORMAL SALINE 10 ML SDV (SCHEDULED) IV SCH (09:46)
[2020-03-12] MEDS: THIAMINE HCL 100 MG TABLET PO SCH (09:46)
[2020-03-12] MEDS: CEFEPIME 1 GM/D5W RTU 1 GM/50 ML RTUPB IV SCH (09:46)
[2020-03-12 11:58] VITALS: BP 145/78
[2020-03-12 13:19] LABS: C DIFFICILE GDH NEGATIVE (NEGATIVE)
--- NOTE | 2020-03-12 13:32 | PDOC DISCHARGE SUMMARY ---
General - Admit/Disc Date/PCP Admission Date/Primary Care Provider: 02/25/20 11:48 Discharge Date: 03/12/20 - Discharge Diagnosis Final Diagnosis: perforated acute appendicitis. alcohol withdrawal. Pneumonia - Assessment Summary: This is a 40-year-old male who was admitted to the hospital with an acute abdomen. He was taken to the operating room for perforated acute appendicitis was identified. He underwent laparotomy and was transferred to the intensive care unit in critical condition, due to sepsis. The patient was begun on antibiotics, and remained ventilated for many days. He began going through alcohol withdrawals, having tachycardia, fevers, and decreased sensorium. The patient eventually improved somewhat, and his level of alertness improved. He still continued to have fevers. Further investigation was undertaken, and he was found to have pneumonia. The patient's antibiotic coverage was broadened. The patient was eventually extubated. After extubation, the patient continued to have coughing. During one episode of coughing, he was found to have leakage at his midline abdominal incision. Patient was found to have a fascial dehiscence. He was taken to the operating room for abdominal washout and closure with Varina Bio-A hernia mesh. After this, the patient remained on the ventilator for several more days. Eventually he was weaned from the ventilator, and moved to the floor. The patient was continued on broad-spectrum antibiotic coverage, and he improved significantly. His fever subsided, his sensorium improved. He began having bowel movements and tolerating a diet. He was found to have loose, watery bowel movements. C. difficile was checked, and was negative. By 03/12/2020 the patient was ambulating, tolerating a diet, and his pain was controlled with oral pain medications. At this time, the patient is fit for discharge with home health and home physical therapy. - Additional Information Resuscitation Status: Full Code Discharge Diet: As Tolerated Discharge Activity: No Lifting Over 10 Pounds, No Lifting/Push/Pulling Referrals: [facility] [Provider Group] Prescriptions: Hydrocodone/Acetaminophen [[place] 10-325 mg Tablet] 1 tab PO Q6HP PRN #28 tablet PRN Reason: Home Medications: Amoxicillin 500 mg PO Q12 02/25/20 Clarithromycin [Biaxin 500 mg Tablet] 500 mg PO Q12 02/25/20 Omeprazole 20 mg PO BID 02/25/20 Hydrocodone/Acetaminophen [[place] 10-325 mg Tablet] 1 tab PO Q6HP PRN #28 tablet 03/12/20 Additional Information: Discharge home. Diet as tolerated. Activity: No lifting greater than 10 pounds x 6 weeks after surgery. Follow-up with [facility] in 7 to 10 days. [place] 10/325 mg p.o. every 6 hours as needed for pain. Ibuprofen 800 mg [id number] p.o. as needed (no sooner than every 8 hours PRN). Okay to shower. No tub baths or swimming pools x2 weeks. History of Present Illiness History of Present Illness: JUAN LOPEZ is a 40 year old male Physical Exam Vital Signs: Temp Pulse Resp BP Pulse Ox 98.2 F 82 18 145/78 H 98 03/12/20 11:50 03/12/20 11:50 03/12/20 11:50 03/12/20 11:50 03/12/20 11:50 Intake & Output 03/11/20 03/12/20 03/13/20 06:59 06:59 06:59 Intake Total 2525 3735 1075 Output Total 2875 2525 400 Balance -350 1210 675 Weight 114.7 kg 109.3 kg Results Laboratory Results: WBC 8.5 10^3/uL (4.0-10.5) 03/12/20 05:50 RBC 3.24 10^6/uL (4.35-5.55) L 03/12/20 05:50 Hgb 9.1 g/dL (13.5-17.0) L 03/12/20 05:50 Hct 26.9 % (37.9-51.0) L 03/12/20 05:50 MCV 83 fl (80-97) 03/12/20 05:50 MCH 28.0 pg (27.0-33.4) 03/12/20 05:50 MCHC 33.8 g/dL (32.0-36.0) 03/12/20 05:50 RDW 14.2 % (11.5-14.0) H 03/12/20 05:50 Plt Count 605 10^3/uL (150-450) H 03/12/20 05:50 Lymph % (Auto) 10.3 % (13-45) L 03/12/20 05:50 [place] % (Auto) 10.6 % (3-13) 03/12/20 05:50 Eos % (Auto) 2.2 % (0-6) 03/12/20 05:50 Baso % (Auto) 0.8 % (0-2) 03/12/20 05:50 Absolute Neuts (auto) 6.5 10^3/uL (1.7-8.2) 03/12/20 05:50 Absolute Lymphs (auto) 0.9 10^3/uL (0.5-4.7) 03/12/20 05:50 Absolute Monos (auto) 0.9 10^3/uL (0.1-1.4) 03/12/20 05:50 Absolute Eos (auto) 0.2 10^3/uL (0.0-0.6) 03/12/20 05:50 Absolute Basos (auto) 0.1 10^3/uL (0.0-0.2) 03/12/20 05:50 Total Counted 100 03/03/20 04:24 Seg Neutrophils % 76.1 % (42-78) 03/12/20 05:50 Seg Neuts % (Manual) 79 % (42-78) H 03/03/20 04:24 Band Neutrophils % 2 % (3-5) L 03/03/20 04:24 Lymphocytes % (Manual) 8 % (13-45) L 03/03/20 04:24 Atypical Lymphs % 1 % (0) 03/03/20 04:24 Monocytes % (Manual) 8 % (3-13) 03/03/20 04:24 Eosinophils % (Manual) 0 % (0-6) 03/03/20 04:24 Basophils % (Manual) 2 % (0-2) 03/03/20 04:24 Abs Neuts (Manual) 9.7 10^3/uL (1.7-8.2) H 03/03/20 04:24 Abs Lymphs (Manual) 1.1 10^3/uL (0.5-4.7) 03/03/20 04:24 Abs Monocytes (Manual) 1.0 10^3/uL (0.1-1.4) 03/03/20 04:24 Absolute Eos (Manual) 0.0 10^3/uL (0.0-0.6) 03/03/20 04:24 Abs Basophils (Manual) 0.2 10^3/uL (0.0-0.2) 03/03/20 04:24 Toxic Granulation SLIGHT 03/03/20 04:24 Platelet Comment ADEQUATE 03/03/20 04:24 Polychromasia SLIGHT 03/03/20 04:24 Poikilocytosis SLIGHT 03/03/20 04:24 Tear Drop Cells SLIGHT 03/03/20 04:24 Ovalocytes SLIGHT 03/03/20 04:24 [place] Cells SLIGHT 03/03/20 04:24 RBC Morph Comment NORMO-CYTIC/CHROMIC 03/01/20 06:23 Carbonic Acid 1.37 mmol/L (1.05-1.35) H 03/06/20 13:00 HCO3/H2CO3 Ratio 17:1 03/06/20 13:00 ABG pH 7.35 (7.35-7.45) 03/06/20 13:00 ABG pCO2 45.4 mmHg (35-45) H 03/06/20 13:00 ABG pO2 70.2 mmHg (80-100) L 03/06/20 13:00 ABG HCO3 24.6 mmol/L (20-24) H 03/06/20 13:00 ABG Total CO2 26.0 mmol/L (23-27) 03/06/20 13:00 ABG O2 Saturation 93.3 % (94-98) L 03/06/20 13:00 ABG Base Excess -1.3 mmol/L 03/06/20 13:00 FiO2 60% 03/06/20 13:00 Sodium 135.8 mmol/L (137-145) L 03/12/20 05:50 Potassium 3.9 mmol/L (3.6-5.0) 03/12/20 05:50 Chloride 102 mmol/L (98-107) 03/12/20 05:50 Carbon Dioxide 25 mmol/L (22-30) 03/12/20 05:50 Anion Gap 9 (5-19) 03/12/20 05:50 BUN 6 mg/dL (7-20) L 03/12/20 05:50 Creatinine 0.42 mg/dL (0.52-1.25) L 03/12/20 05:50 Est GFR ( Amer) > 60 (>60) 03/12/20 05:50 Est GFR (Non-Af Amer) Cancelled 03/04/20 04:22 Est GFR (MDRD) Non-Af > 60 (>60) 03/12/20 05:50 Glucose 111 mg/dL (75-110) H 03/12/20 05:50 POC Glucose 104 mg/dL (70-110) 03/10/20 05:44 Lactic Acid 0.8 mmol/L (0.7-2.1) 02/26/20 21:47 Calcium 8.0 mg/dL (8.4-10.2) L 03/12/20 05:50 Ionized Calcium [place] 0.99 mmol/L (1.14-1.30) L 02/26/20 21:47 Phosphorus 3.8 mg/dL (2.5-4.5) 03/07/20 12:10 Magnesium 2.0 mg/dL (1.6-2.3) 03/04/20 20:21 Total Bilirubin 0.5 mg/dL (0.2-1.3) 03/10/20 06:50 Direct Bilirubin 0.0 mg/dL (0.0-0.4) 03/10/20 06:50 Neonat Total Bilirubin Not Reportable 03/10/20 06:50 Neonat Direct Bilirubin Not Reportable 03/10/20 06:50 Neonat Indirect Bili Not Reportable 03/10/20 06:50 AST 23 U/L (17-59) 03/10/20 06:50 ALT 24 U/L (<50) 03/10/20 06:50 Alkaline Phosphatase 91 U/L (38-126) 03/10/20 06:50 Troponin I < 0.012 ng/mL 02/25/20 09:46 Total Protein 6.2 g/dL (6.3-8.2) L 03/10/20 06:50 Albumin 2.6 g/dL (3.5-5.0) L 03/10/20 06:50 Prealbumin 9.7 mg/dL (17.6-36.0) L 03/05/20 04:25 Triglycerides 1560 mg/dL (<150) H 03/03/20 04:24 Lipase 1117.3 U/L (23-300) H 03/05/20 04:25 EGFR Cancelled 03/04/20 04:22 Urine Color YELLOW 03/05/20 20:28 Urine Appearance CLEAR 03/05/20 20:28 Urine pH 6.0 (5.0-9.0) 03/05/20 20:28 Ur Specific [place] 1.012 03/05/20 20:28 Urine Protein NEGATIVE mg/dL (NEGATIVE) 03/05/20 20:28 Urine Glucose (UA) 50 mg/dL (NEGATIVE) H 03/05/20 20:28 Urine Ketones NEGATIVE mg/dL (NEGATIVE) 03/05/20 20:28 Urine Blood MODERATE (NEGATIVE) H 03/05/20 20:28 Urine Nitrite NEGATIVE (NEGATIVE) 02/25/20 10:09 Urine Nitrite (Reflex) NEGATIVE (NEGATIVE) 03/05/20 20:28 Urine Bilirubin NEGATIVE (NEGATIVE) 03/05/20 20:28 Urine Urobilinogen 4.0 mg/dL (<2.0) H 03/05/20 20:28 Ur Leukocyte Esterase NEGATIVE (NEGATIVE) 02/25/20 10:09 Leukocyte Esterase Rfl NEGATIVE (NEGATIVE) 03/05/20 20:28 Urine WBC (Auto) 4 /HPF 02/25/20 10:09 Urine RBC (Auto) 77 /HPF 03/05/20 20:28 U Hyaline Cast (Auto) 7 /LPF 02/25/20 10:09 Urine Bacteria (Auto) TRACE /HPF 02/25/20 10:09 Urine WBC (Reflex) 2 /HPF 03/05/20 20:28 Squamous Epi Cells Auto <1 /HPF 03/05/20 20:28 Granular Casts (Auto) 30 /LPF 02/25/20 10:09 WBC Casts (Auto) 4 /LPF 02/25/20 10:09 Urine Mucus (Auto) OCC /LPF 03/05/20 20:28 Urine Creatinine 374.9 mg/dL (22-328) H 02/25/20 23:46 Urine Sodium 9 mmol/L (30-90) L 02/25/20 23:46 Urine Ascorbic Acid NEGATIVE (NEGATIVE) 03/05/20 20:28 Stl C. Difficile GDH Ag NEGATIVE (NEGATIVE) 03/12/20 10:38 Stl C.difficile Tox A&B NEGATIVE (NEGATIVE) 03/12/20 10:38 Time Trough Drawn 0550 03/12/20 05:50 Vancomycin Trough 8.7 ug/mL (5.0-20.0) 03/12/20 05:50 02/25/20 09:46 Troponin I < 0.012 Impressions: Chest X-Ray 02/25/20 00:00 IMPRESSION: ET tube above the elias Increasing atelectasis in the left lung base Chest X-Ray 02/25/20 09:41 IMPRESSION: 1. Low lung volumes limits the examination. Prominence of the cardiomediastinal structures may be in part related to the limited degree of inspiration. 2. Bibasilar mild atelectasis/infiltrate, slightly more so on the right. Abdomen/Pelvis CT 02/25/20 09:42 IMPRESSION: 1. The constellation of findings as described above suggest acute appendicitis. The appendix appears to be retrocecal in location. Fairly extensive phlegmon in the right side of the abdomen. No evidence of drainable abscess. 2. A slightly heterogenous enhancing right renal mass. Correlation with MRI kidney with and without contrast. 3. The gallbladder is mildly distended maybe related to the inflammatory changes in the right side of the abdomen. 4. Fatty liver. Hepatomegaly. 5. Bibasilar mild atelectasis/infiltrate, slightly more so on the right. Chest X-Ray 02/28/20 00:00 IMPRESSION: 1. Interval increase in right basilar opacity and small right pleural effusion. 2. Stable left basilar discoid atelectasis. Abdomen/Pelvis CT 02/29/20 00:00 IMPRESSION: 1. Postsurgical changes from the appendectomy without focal drainable abscess. 2. Mild bilateral effusions and lower lobe consolidation, likely atelectasis. 3. Unchanged solid 2.3 cm right lower pole renal lesion suspicious for malignancy. MRI with contrast could be considered for more definitive characterization. Chest X-Ray 02/29/20 00:00 IMPRESSION: Low lung volumes with stable bibasilar opacities and mild bilateral effusions, right greater than left. Chest X-Ray 03/01/20 00:00 IMPRESSION: Improved left basilar atelectasis and/or pneumonia with otherwise no significant change. PICC Line Insertion 03/02/20 00:00 IMPRESSION: SUCCESSFUL PLACEMENT OF A 5 FR DUAL LUMEN 36 CM PICC IN THE RIGHT BASILIC VEIN. Abdomen/Pelvis CT 03/03/20 00:00 IMPRESSION: Artifact from the patient's arms. Imaging is degraded by patient motion, with resultant artifact. The best possible images were obtained. Postsurgical change. No postsurgical complications. No adverse change Apparent thickening of the sigmoid colon, indeterminate. Chest X-Ray 03/05/20 00:00 IMPRESSION: Interval extubation with otherwise no significant change. Chest X-Ray 03/06/20 00:00 IMPRESSION: Interval removal of nasogastric tube. Hypoventilatory changes. Chest X-Ray 03/06/20 11:56 IMPRESSION: 1. LIFE LINES APPEAR TO BE IN SATISFACTORY POSITION. 2. LOW LUNG VOLUMES WITH SCATTERED ATELECTASIS. MILD CARDIOMEGALY AND POSSIBLE RIGHT PLEURAL EFFUSION.
[2020-03-12] MEDS ORDERED: CEFEPIME 1 GM/D5W RTU 1 GM/50 ML RTUPB IV SCH (22:00)
[2020-03-13] MEDS ORDERED: METRONIDAZOLE 500 MG/NS RTU 500 MG/100 ML RTUPB IV SCH
== END 2020-03-12 14:05 | disposition home health service (06) | DRG 853 ==
LOC: ER 09:14 → EH 11:48 → ICU 16:35 → 3W 03-08 15:13
PROVIDERS: ADMIT Surgery; ATTEND Surgery
PROC: 0WJG4ZZ Inspection of Peritoneal Cavity, Percutaneous Endoscopic Approach (ICD-10-PCS; 2020-02-25)
PROC: 5A1955Z Respiratory Ventilation, Greater than 96 Consecutive Hours (ICD-10-PCS; 2020-02-25)
PROC: 0D9670Z Drainage of Stomach with Drainage Device, Via Natural or Artificial Opening (ICD-10-PCS; 2020-02-25)
PROC: 03HC33Z Insertion of Infusion Device into Left Radial Artery, Percutaneous Approach (ICD-10-PCS; 2020-02-25)
PROC: 0DTJ0ZZ Resection of Appendix, Open Approach (ICD-10-PCS; principal; 2020-02-25 12:45)
PROC: 02HV33Z Insertion of Infusion Device into Superior Vena Cava, Percutaneous Approach (ICD-10-PCS; 2020-03-02)
PROC: B548ZZA Ultrasonography of Superior Vena Cava, Guidance (ICD-10-PCS; 2020-03-02)
PROC: B518ZZA Fluoroscopy of Superior Vena Cava, Guidance (ICD-10-PCS; 2020-03-02)
PROC: 3E0G76Z Introduction of Nutritional Substance into Upper GI, Via Natural or Artificial Opening (ICD-10-PCS; 2020-03-03)
PROC: 0WUF0JZ Supplement Abdominal Wall with Synthetic Substitute, Open Approach (ICD-10-PCS; 2020-03-06)
PROC: 3E1M38Z Irrigation of Peritoneal Cavity using Irrigating Substance, Percutaneous Approach (ICD-10-PCS; 2020-03-06)
DX: A41.9 Sepsis, unspecified organism (principal); K35.21 Acute appendicitis with generalized peritonitis, with abscess; K85.20 Alcohol induced acute pancreatitis without necrosis or infection; F10.231 Alcohol dependence with withdrawal delirium; T81.32XA Disruption of internal operation (surgical) wound, not elsewhere classified, initial encounter; Z68.42 Body mass index [BMI] 45.0-49.9, adult; N28.89 Other specified disorders of kidney and ureter; E66.01 Morbid (severe) obesity due to excess calories; K66.0 Peritoneal adhesions (postprocedural) (postinfection); B96.20 Unspecified Escherichia coli [E. coli] as the cause of diseases classified elsewhere; E87.6 Hypokalemia; B96.7 Clostridium perfringens [C. perfringens] as the cause of diseases classified elsewhere; B96.81 Helicobacter pylori [H. pylori] as the cause of diseases classified elsewhere; B95.7 Other staphylococcus as the cause of diseases classified elsewhere; Y83.8 Other surgical procedures as the cause of abnormal reaction of the patient, or of later complication, without mention of misadventure at the time of the procedure; Y92.230 Patient room in hospital as the place of occurrence of the external cause; Z78.1 Physical restraint status; Z53.31 Laparoscopic surgical procedure converted to open procedure
CPT/HCPCS: 00840; 36415; 36573; 36620; 71045; 74177; 80048; 80053; 80069; 80202; 81001; 82330; 82570; 82803; 82962; 83605; 83690; 83735; 84100; 84132; 84134; 84300; 84478; 84484; 85025; 85027; 87040; 87070; 87075; 87077; 87101; 87150; 87186; 87205; 87324; 87449; 88304; 93005; 93010; 94002; 94003; 94640; 94799; 96361; 96365; 96375; 99140; 99285; 99291; C1781; C9113; J0131; J0330; J0692; J0696; J0744; J1100; J1170; J1200; J1450; J1630; J1642; J1650; J1741; J1815; J1885; J1940; J2020; J2060; J2250; J2270; J2370; J2405; J2543; J2704; J2800; J3010; J3370; J3411; J3475; J3480; J3486; J3490; J7030; J7050; J7060; J7120; J7121; J7620; P9047

== ENCOUNTER 2020-03-16 11:44 | Inpatient (IN) | payer BC ==
[2020-03-16] MEDS ORDERED: RINGERS SOLUTION,LACTATED 1,000 ML IV ONE ×2 (12:14→15:55)
--- NOTE | 2020-03-16 12:29 | ER Document Report ---
ED GI/ <MIKE BENTON - Last Filed: 03/16/20 16:29> <SUZETTE PAYNE - Last Filed: 03/16/20 23:05> - General Chief Complaint: Fever Stated Complaint: FEVER Time Seen by Provider: 03/16/20 11:58 Notes: CHIEF COMPLAINT: Fever and cough for 1 day HPI: 40-year-old male presenting for fever and cough for 1 day. Mild shortness of breath. No chest pain. Denies abdominal pain nausea vomiting. Went to an urgent care and was referred into the emergency department for evaluation ROS: See HPI - all other systems were reviewed and are otherwise negative Constitutional: no fever Eyes: no drainage, no blurred vision ENT: no runny nose, no sore throat Cardiovascular: no chest pain Resp: + SOB, + cough GI: no vomiting, no diarrhea, no abdominal pain : no dysuria Integumentary: no rash Allergy: no hives Musculoskeletal: no extremity pain or swelling Neurological: no numbness/tingling, no weakness MEDICATIONS: I agree with the patient medications as charted by the RN. ALLERGIES: I agree with the allergies as charted by the RN. PAST MEDICAL HISTORY/PAST SURGICAL HISTORY: Reviewed and agree as charted by RN. SOCIAL HISTORY: Reviewed and agree as charted by RN. FAMILY HISTORY: No significant familial comorbid conditions directly related to patient complaint EXAM: Reviewed vital signs as charted by RN. CONSTITUTIONAL: Alert and oriented and responds appropriately to questions. Well-appearing; well-nourished HEAD: Normocephalic; atraumatic EYES: PERRL; Conjunctivae clear, sclerae non-icteric ENT: normal nose; no rhinorrhea; moist mucous membranes; pharynx without lesions noted, no uvula edema or deviation, no tonsillar hypertrophy, phonation normal NECK: Supple without meningismus; non-tender; no cervical lymphadenopathy, no masses CARD: RRR; no murmurs, no clicks, no rubs, no gallops; symmetric distal pulses RESP: Normal chest excursion without splinting or tachypnea; breath sounds clear and equal bilaterally; no wheezes, no rhonchi, no rales, pulse oximetry ABD/GI: Normal bowel sounds; non-distended; soft, mild tenderness over the surgical wounds, no rebound, no guarding; no palpable organomegaly or masses. Large midline incision with retention sutures and tameka present there is some erythema along the edges of the wound, slight dehiscence of the lower edge of the wound over the suprapubic region BACK: The back appears normal and is non-tender to palpation, there is no CVA tenderness EXT: Normal ROM in all joints; non-tender to palpation; no cyanosis, no effusions, no edema SKIN: Normal color for age and race; warm; diaphoretic; good turgor NEURO: Moves all extremities equally; Motor and sensory function intact PSYCH: The patient's mood and manner are appropriate. Grooming and personal hygiene are appropriate. MDM: 40-year-old male released from the hospital 5 days ago after a complicated admission for perforated appendicitis with peritonitis and sepsis as well as pneumonia while on the ventilator. Patient has a fever. Will obtain screening lab work, chest x-ray to evaluate for recurrent pneumonia. Has no abdominal pain complaints today. Did receive a call from the urgent care where the patient went they state they did a strep and flu test on the patient that were both negative (MIKE BENTON) - Related Data Allergies/Adverse Reactions: No Known Allergies Allergy (Verified 02/25/20 10:07) Past Medical History - Social History Family History: Reviewed & Not Pertinent <MIKE BENTON - Last Filed: 03/16/20 16:29> - General Information source: Patient - Social History Smoking Status: Unknown if Ever Smoked Frequency of alcohol use: Heavy Drug Abuse: None Patient has suicidal ideation: No Patient has homicidal ideation: No Pulmonary Medical History: Reports: Hx Pneumonia GI Medical History: Reports: Hx Pancreatitis Past Surgical History: Reports: Hx Appendectomy <SUZETTE PAYNE - Last Filed: 03/16/20 23:05> Physical Exam - Vital signs Vitals: Temp Pulse Resp BP Pulse Ox 100.1 F 121 H 34 H 135/80 H 97 03/16/20 11:51 03/16/20 11:51 03/16/20 11:51 03/16/20 11:51 03/16/20 11:51 Course - Laboratory Result Diagrams: 03/16/20 12:25 03/16/20 12:10 <MIKE BENTON - Last Filed: 03/16/20 16:29> - Laboratory Result Diagrams: 03/16/20 12:25 03/16/20 12:10 - Diagnostic Test Radiology reviewed: Reports reviewed <SUZETTE PAYNE - Last Filed: 03/16/20 23:05> - Re-evaluation Re-evalutation: 03/16/20 14:[address] Anderson. Patient has had fevers throughout his admission here with copious sweating. States that he does need CT of the abdomen pelvis to evaluate for fluid collection even if patient is having no abdominal pain. Patient's lab work does not show acute emergent abnormalities other than elevated lipase. Awaiting CT imaging 03/16/20 15:56 Notified by nursing that patient is tachycardic with a fever of 103. Will give additional IV fluids, Tylenol for fever. Patient is awaiting CT imaging at this time 03/16/20 16:29 report to Terri Payne NP. CT pending, will disposition (MIKE BENTON) 03/16/20 17:01 Received report from Mike Benton, patient waiting for CTA of chest and abdomen. 03/16/20 17:45 CTA results received from the Radiologist Dr. Sosa via the phone. She reports possible PE difficult to determine due to patient motion. Also reports a new right pleural effusion and infiltrate. Also reports some fluid collection in the anterior abdomen and laterally with some thickening of the abdominal wall. Dr. Anderson contacted. He advises admission from the hospitalist for pneumonia with surgical consult. I contacted Dr. Grijalva hospitalist who advised admission via Doris kimble. While I was on the phone with Doris Anderson arrived in the emergency department providing more history of the patient. He reports patient has a history of pancreatitis and went through DTs with his prior admission. While I was giving report to Doris Anderson also had a conversation with her via speaker phone. Patient will be admitted to IM via the hospitalist for pancreatitis and pneumonia. (SUZETTE PAYNE) - Vital Signs Vital signs: Temp Pulse Resp BP Pulse Ox 98.3 F 118 H 20 128/67 H 97 03/16/20 21:01 03/16/20 20:24 03/16/20 20:24 03/16/20 18:07 03/16/20 20:24 - Laboratory Laboratory results interpreted by me: 03/16/20 03/16/20 03/16/20 12:10 12:25 13:10 RBC 3.86 L Hgb 10.8 L Hct 32.2 L RDW 14.2 H Plt Count 459 H Sodium 135.4 L Carbon Dioxide 19 L Glucose 142 H Total Protein 8.4 H Lipase 1173.3 H Urine Blood SMALL H Discharge <MIKE BENTON - Last Filed: 03/16/20 16:29> - Discharge Admitting Provider: Elmer (Hospitalist) Unit Admitted: IMCU <SUZETTE PAYNE - Last Filed: 03/16/20 23:05> - Discharge Clinical Impression: Pancreatitis Qualifiers: Pancreatitis type: alcohol induced Pneumonia Qualifiers: Laterality: right Lung location: lower lobe of lung Fever Qualifiers: Fever type: unspecified Qualified Code(s): R50.9 - Fever, unspecified Condition: Stable Disposition: ADMITTED INPATIENT
[2020-03-16 12:37] LABS: ALBUMIN 3.8 g/dL (3.5-5.0); ALKALINE PHOSPHATASE 120 U/L (38-126); ANION GAP 13 (5-19); ASPARTATE AMINO TRANSFERASE 32 U/L (17-59); BILIRUBIN,DIRECT 0.1 mg/dL (0.0-0.4); BILIRUBIN,TOTAL 0.6 mg/dL (0.2-1.3); BLOOD UREA NITROGEN 13 mg/dL (7-20); CALCIUM 8.9 mg/dL (8.4-10.2); CARBON DIOXIDE 19 mmol/L (22-30); CHLORIDE 103 mmol/L (98-107); GLUCOSE 142 mg/dL (75-110); POTASSIUM 4.7 mmol/L (3.6-5.0); TOTAL PROTEIN 8.4 g/dL (6.3-8.2)
[2020-03-16 12:55] LABS: ABSOLUTE BASOPHILS # (AUTO) 0.1 10^3/uL (0.0-0.2); ABSOLUTE EOSINOPHILS # (AUTO) 0.3 10^3/uL (0.0-0.6); ABSOLUTE LYMPHOCYTES (AUTO) 1.5 10^3/uL (0.5-4.7); ABSOLUTE MONOCYTES (AUTO) 0.8 10^3/uL (0.1-1.4); ABSOLUTE NEUT (AUTO) 4.8 10^3/uL (1.7-8.2); BASOPHILS % (AUTO) 0.7 % (0-2); EOSINOPHILS % (AUTO) 3.8 % (0-6); HEMATOCRIT 32.2 % (37.9-51.0); HEMOGLOBIN 10.8 g/dL (13.5-17.0); LYMPHOCYTES % (AUTO) 19.9 % (13-45); MEAN CORPUSCULAR HGB CONC 33.6 g/dL (32.0-36.0); MEAN CORPUSCULAR VOLUME 84 fl (80-97); MONOCYTES % (AUTO) 10.3 % (3-13); PLATELET COUNT 459 10^3/uL (150-450); RED BLOOD COUNT 3.86 10^6/uL (4.35-5.55); RED CELL DISTRIBUTION WIDTH 14.2 % (11.5-14.0); SEGMENTED NEUTROPHILS % (AUTO) 65.3 % (42-78); TOTAL CELLS COUNTED % (AUTO) 100 %; WHITE BLOOD COUNT 7.3 10^3/uL (4.0-10.5)
--- NOTE | 2020-03-16 12:59 | RADIOLOGY REPORT (SQ) ---
EXAM DESCRIPTION: CHEST SINGLE VIEW IMAGES COMPLETED DATE/TIME: 03/16/2020 12:49 pm REASON FOR STUDY: fever cough COMPARISON: 03/06/2020 EXAM PARAMETERS: NUMBER OF VIEWS: One view. TECHNIQUE: Single frontal radiographic view of the chest acquired. RADIATION DOSE: NA LIMITATIONS: None. FINDINGS: LUNGS AND PLEURA: Low lung volumes. No focal airspace disease, pleural effusion or pneumo thorax. MEDIASTINUM AND HILAR STRUCTURES: Unchanged widening of the paratracheal stripes, likely vascular. N o discrete mass. HEART AND VASCULAR STRUCTURES: Heart normal in size. Normal vasculature. BONES: No acute findings. HARDWARE: None in the chest. OTHER: No other significant finding. IMPRESSION: Low lung volumes without focal airspace disease or other evidence of acute intrathoracic process. TECHNICAL DOCUMENTATION: JOB ID: [id number] [employer]- All Rights Reserved Reading location - IP/workstation name: [email or web address]
[2020-03-16 14:09] LABS: APPEARANCE,URINE SLIGHTLY-CLOUDY; BILIRUBIN,URINE NEGATIVE (NEGATIVE); COLOR,URINE YELLOW; GLUCOSE, URINE NEGATIVE (NEGATIVE); KETONES,URINE NEGATIVE (NEGATIVE); LEUKOCYTE ESTERASE,URINE NEGATIVE (NEGATIVE); NITRITE,URINE NEGATIVE (NEGATIVE); PROTEIN,URINE NEGATIVE (NEGATIVE); URINE SPECIFIC GRAVITY 1.016; UROBILINOGEN,URINE NEGATIVE mg/dL (<2.0)
[2020-03-16 14:38] LABS: A TYPE INFLUENZA AG NEGATIVE (NEGATIVE); B INFLUENZA AG NEGATIVE (NEGATIVE)
[2020-03-16] MEDS ORDERED: NORMAL SALINE 1000 ML 1,000 ML IV ONE (15:13)
[2020-03-16] MEDS ORDERED: ACETAMINOPHEN 325 MG TABLET PO ONE (15:55)
[2020-03-16] MEDS ORDERED: PIPERACILLIN/TAZOBACTAM 3.375 GM VIAL IV ONE (15:57)
--- NOTE | 2020-03-16 17:26 | RADIOLOGY REPORT (SQ) ---
EXAM DESCRIPTION: CTA CHEST IMAGES COMPLETED DATE/TIME: 03/16/2020 5:09 pm REASON FOR STUDY: SOB fever recent admission COMPARISON: None. TECHNIQUE: CT scan of the chest performed using helical scanning technique with dynamic intravenous contrast injection. Images reviewed with lung, soft tissue and bone windows. Reconstructed coronal and sagittal MPR images reviewed. Additional 3 dimensional post-processing performed to develop Maximal Intensity Projection images (MN P). All images stored on PACS. All CT scanners at this facility use dose modulation, iterative reconstruction, and/or weight based d osing when appropriate to reduce radiation dose to as low as reasonably achievable (ALARA). [facility]: Dose Right [facility]: CareDose [facility]: Dose Right [facility]: Teradose 4D [facility]: CodeHS CONTRAST TYPE AND DOSE: contrast/concentration: Isovue 350.00 mg/ml; Total Contrast Delivered: 75.0 ml; Total Saline Delivered: 60.0 ml Contrast bolus optimized for the pulmonary arteries. Not diagnostic for the aorta. RENAL FUNCTION: Creatinine -0.52 BUN=13 RADIATION DOSE: CT Rad equipment meets quality standard of care and radiation dose reduction techniq ues were employed. CTDIvol: NaN - NaN mGy. DLP: 0 mGy-cm. LIMITATIONS: The examination is limited due to the patient's clinical condition (the patient is stat us post appendectomy). FINDINGS: LUNGS AND PLEURA: Mild to moderatel right pleural effusion. Mild consolidation in the ri ght lower lobe with associated air bronchograms may be on the basis of infiltrate/atelectasis. Minim al left lung base atelectasis. No pneumothorax. The central airways are clear. AORTA AND GREAT VESSELS: No aneurysm. Contrast bolus not optimized for the aorta. HEART: No pericardial effusion. No significant coronary artery calcifications. PULMONARY ARTERIES: Incomplete and suboptimal opacification of the pulmonary vasculature limits the examination. No evidence for saddle pulmonary emboli. HILAR AND MEDIASTINAL STRUCTURES: No identified masses or abnormal nodes. HARDWARE: None in the chest. UPPER ABDOMEN: Please see CT report. THYROID AND OTHER SOFT TISSUES: No masses. No adenopathy. BONES: No acute or significant finding. 3D MIPS: Confirm above findings. OTHER: No other significant finding. IMPRESSION: 1. Suboptimal and incomplete opacification of the pulmonary vasculature limits the exam ination. It is difficult to exclude acute pulmonary emboli. No evidence for saddle pulmonary emboli . 2. Mild to moderate right pleural effusion. Right lower lobe consolidation with associated air bron chograms may be on the basis of infiltrate/atelectasis. COMMENT: Quality ID # 436: Final reports with documentation of one or more dose reduction techniques (e.g., Automated exposure control, adjustment of the mA and/or kV according to patient size, use of iterative reconstruction technique) TECHNICAL DOCUMENTATION: JOB ID: [id number] 2010 [employer]- All Rights Reserved Reading location - IP/workstation name: [email or web address]
--- NOTE | 2020-03-16 17:51 | RADIOLOGY REPORT (SQ) ---
EXAM DESCRIPTION: CT ABD/PELVIS WITH IV ORAL IMAGES COMPLETED DATE/TIME: 03/16/2020 5:09 pm REASON FOR STUDY: fever post op COMPARISON: 03/03/2020 TECHNIQUE: CT scan of the abdomen and pelvis performed using helical scanning technique with dynamic intravenous contrast injection. No oral contrast. Images reviewed with lung, soft tissue, and bone windows. Reconstructed coronal and sagittal MPR images reviewed. Delayed images for evaluation of the urinary system also acquired. All images stored on PACS. All CT scanners at this facility use dose modulation, iterative reconstruction, and/or weight based d osing when appropriate to reduce radiation dose to as low as reasonably achievable (ALARA). [facility]: Dose Right [facility]: CareDose [facility]: Dose Right [facility]: Teradose 4D [facility]: Zannel CONTRAST TYPE AND DOSE: 75 cc Omnipaque 350 RENAL FUNCTION: Creatinine -0.52 BUN=14 RADIATION DOSE: Total exam DLP . LIMITATIONS: None. FINDINGS: LOWER CHEST: Please see CT chest report. LIVER: Hepatomegaly. No masses. No dilated ducts. The hepatic and portal veins are patent. SPLEEN: Normal size. No focal lesions. PANCREAS: No masses. No significant calcifications. No adjacent inflammation or peripancreatic fluid collections. Pancreatic duct not dilated. GALLBLADDER: No identified stones by CT criteria. No inflammatory changes to suggest cholecystitis. ADRENAL GLANDS: No significant masses or asymmetry. RIGHT KIDNEY AND URETER: Stable appearance to the exophytic right renal mass, coronal image 53, seri es 602. No significant calcifications. No hydronephrosis or hydroureter. LEFT KIDNEY AND URETER: No solid masses. No significant calcifications. No hydronephrosis or hydr oureter. AORTA AND VESSELS: No aneurysm. No dissection. Renal arteries, SMA, celiac without stenosis. RETROPERITONEUM: No retroperitoneal adenopathy, hemorrhage or masses. BOWEL AND PERITONEAL CAVITY: A small 6.3 cm collection of fluid lies in the left lower quadrant of t he abdomen anterior to the mesh, axial image 183, series 3. This is a new finding since the prior st udy dated 03/03/2020. No foci of air within the fluid collection. A small collection of fluid lies adjacent and lateral to the wall of the ascending colon--cecal junct ion measures 2.3 cm in AP diameter, axial image 172, series 3. These findings may be on the basis of small abscess. Mild thickening of the wall of the descending and sigmoid colon, may be on the basis of inflammatory changes. APPENDIX: Status post appendectomy. PELVIS: No mass. No free fluid. Normal bladder. ABDOMINAL WALL: Interval removal bilateral drainage catheter since the previous examination. Post s urgical changes in the anterior abdominal wall subcutaneous tissues. BONES: The osseous structures are stable in appearance. OTHER: No other significant finding. IMPRESSION: 1. Since the previous examination dated 03/03/2020, new finding of mesh in the lower ant erior abdomen which extends from the right to the left. A new small collection of fluid lies anterio r to the mesh in the left lower quadrant of the abdomen. No foci of air within the collection. 2. A new small collection of fluid lateral and adjacent to the wall of the ascending colon-cecum in the right para colonic gutter. The possibility of a small abscess is not entirely excluded. Correla tion suggested. 3. Mild diffuse thickening of the wall of the descending colon and the sigmoid colon. These finding s may be on an inflammatory basis. 4. The right renal mass is unchanged in appearance. 5. Status post appendectomy. COMMENT: 1. The results of this examination and CT chest examination were discussed with the emerge ncy department systems integration analyst on 03/16/2020 at 17:35 hours. TECHNICAL DOCUMENTATION: JOB ID: [id number] Quality ID # [id number]: Final reports with documentation of one or more dose reduction techniques (e.g., Au tomated exposure control, adjustment of the mA and/or kV according to patient size, use of iterative reconstruction technique) 2010 [employer]- All Rights Reserved Reading location - IP/workstation name: [email or web address]
[2020-03-16] MEDS ORDERED: ALBUTEROL SULFATE 0.083% NEB 2.5 MG/3 ML AMPUL NEB PRN (18:31)
--- NOTE | 2020-03-16 18:39 | PDOC CONSULTATION ---
Consultation Consult Date: 03/16/20 Attending physician:: SUZETTE PAYNE Provider Consulted: MARIAN LOPEZ Consult reason:: fever History of Present Illness Admission Date/PCP: 03/16/20 18:13 History of Present Illness: JUAN LOPEZ is a 40 year old male Past Medical History Pulmonary Medical History: Reports: Pneumonia EENT Medical History: Reports: None Neurological Medical History: Reports: None Renal/ Medical History: Reports: None Malignancy Medical History: Reports: None GI Medical History: Reports: Other - recent appendectomy recent abd wall closure after eviseration Musculoskeltal Medical History: Reports: None Skin Medical History: Reports: None Psychiatric Medical History: Reports: Alcohol Dependency, Substance Abuse Traumatic Medical History: Reports: None Hematology: Reports: None Infectious Medical History: Reports: None Past Surgical History Past Surgical History: Reports: Appendectomy, Other - abdominal wall closure Social History Smoking Status: Current Every Day Smoker Family History Family History: Reviewed & Not Pertinent Parental Family History Reviewed: No Children Family History Reviewed: NA Sibling(s) Family History Reviewed.: NA Medication/Allergy Home Medications: Amoxicillin 500 mg PO Q12 02/25/20 Clarithromycin [Biaxin 500 mg Tablet] 500 mg PO Q12 02/25/20 Omeprazole 20 mg PO BID 02/25/20 Hydrocodone/Acetaminophen [Grandy 10-325 mg Tablet] 1 tab PO Q6HP PRN #28 tablet 03/12/20 Allergies/Adverse Reactions: No Known Allergies Allergy (Verified 02/25/20 10:07) Review of Systems Constitutional: PRESENT: fever(s), night sweats, weight loss Nose, Mouth, and Throat: ABSENT: as per HPI, headache(s), mouth pain, sore throat, vertigo, other Breasts: ABSENT: as per HPI, other Cardiovascular: ABSENT: as per HPI, chest pain, dyspnea on exertion, edema, orthropnea, palpitations, other Respiratory: PRESENT: cough Gastrointestinal: PRESENT: other - post surgical incisional pain Genitourinary: ABSENT: as per HPI, difficulty urinating, dysuria, hematuria, nocturia, other Musculoskeletal: ABSENT: as per HPI, back pain, deformity, joint swelling, muscle weakness, other Integumentary: ABSENT: as per HPI, diaphoresis, erythema, lesions, pruritus, rash, wounds, other Neurological: ABSENT: as per HPI, abnormal gait, abnormal movements, abnormal speech, confusion, convulsions, dizziness, focal weakness, frequent falls, lack of coordination, memory loss, numbness, paresthesias, restless legs, syncope, tingling, tremor(s), vertigo, weakness, other Psychiatric: PRESENT: anxiety Endocrine: ABSENT: as per HPI, cold intolerance, flushing, heat intolerance, menstrual abnormalities, polydipsia, polyphagia, polyuria, other Hematologic/Lymphatic: ABSENT: as per HPI, easy bleeding, easy bruising, lymphadenopathy, other Allergic/Immunologic: ABSENT: as per HPI, seasonal rhinorrhea, other Physical Exam Vital Signs: Temp Pulse Resp BP Pulse Ox 98.8 F 118 H 20 128/67 H 98 03/16/20 18:07 03/16/20 18:07 03/16/20 18:07 03/16/20 18:07 03/16/20 18:07 Intake & Output 03/15/20 03/16/20 03/17/20 06:59 06:59 06:59 Intake Total 1999 Balance 1999 General appearance: PRESENT: no acute distress Head exam: PRESENT: normocephalic Eye exam: PRESENT: conjunctiva pink, EOMI, PERRLA Ear exam: PRESENT: normal external ear exam Mouth exam: PRESENT: moist Teeth exam: PRESENT: poor dentation Neck exam: PRESENT: full ROM, lymphadenopathy Respiratory exam: PRESENT: crackles, other - sl decreased bs rt base Cardiovascular exam: PRESENT: tachycardia - fever Pulses: PRESENT: normal radial pulses, normal femoral pulses Vascular exam: PRESENT: normal capillary refill Breast: PRESENT: Normal GI/Abdominal exam: PRESENT: other - midline incision clean with retention sutures in place Rectal exam: PRESENT: deferred Extremities exam: PRESENT: full ROM Musculoskeletal exam: PRESENT: full ROM Neurological exam: PRESENT: alert, awake, oriented to person, oriented to place Psychiatric exam: PRESENT: appropriate affect Skin exam: PRESENT: dry Results Laboratory Results: 03/16/20 12:25 03/16/20 12:10 03/16/20 03/16/20 03/16/20 12:10 12:25 12:25 WBC 7.3 RBC 3.86 L Hgb 10.8 L Hct 32.2 L MCV 84 MCH 28.0 MCHC 33.6 RDW 14.2 H Plt Count 459 H Seg Neutrophils % 65.3 Sodium 135.4 L Potassium 4.7 Chloride 103 Carbon Dioxide 19 L Anion Gap 13 BUN 13 Creatinine 0.52 Est GFR ( Amer) > 60 Glucose 142 H Lactic Acid 1.4 Calcium 8.9 Total Bilirubin 0.6 AST 32 Alkaline Phosphatase 120 Total Protein 8.4 H Albumin 3.8 Lipase 1173.3 H Urine Color Urine Appearance Urine pH Ur Specific Villalba Urine Protein Urine Glucose (UA) Urine Ketones Urine Blood Urine Nitrite Ur Leukocyte Esterase Urine WBC (Auto) Urine RBC (Auto) 03/16/20 13:10 WBC RBC Hgb Hct MCV MCH MCHC RDW Plt Count Seg Neutrophils % Sodium Potassium Chloride Carbon Dioxide Anion Gap BUN Creatinine Est GFR ( Amer) Glucose Lactic Acid Calcium Total Bilirubin AST Alkaline Phosphatase Total Protein Albumin Lipase Urine Color YELLOW Urine Appearance SLIGHTLY-CLOUDY Urine pH 5.0 Ur Specific Villalba 1.016 Urine Protein NEGATIVE Urine Glucose (UA) NEGATIVE Urine Ketones NEGATIVE Urine Blood SMALL H Urine Nitrite NEGATIVE Ur Leukocyte Esterase NEGATIVE Urine WBC (Auto) 1 Urine RBC (Auto) 1 Impressions: Abdomen/Pelvis CT 03/16/20 00:00 IMPRESSION: 1. Since the previous examination dated 03/03/2020, new finding of mesh in the lower anterior abdomen which extends from the right to the left. A new small collection of fluid lies anterior to the mesh in the left lower quadrant of the abdomen. No foci of air within the collection. 2. A new small collection of fluid lateral and adjacent to the wall of the ascending colon-cecum in the right para colonic gutter. The possibility of a small abscess is not entirely excluded. Correlation suggested. 3. Mild diffuse thickening of the wall of the descending colon and the sigmoid colon. These findings may be on an inflammatory basis. 4. The right renal mass is unchanged in appearance. 5. Status post appendectomy. Chest X-Ray 03/16/20 12:14 IMPRESSION: Low lung volumes without focal airspace disease or other evidence of acute intrathoracic process. Chest/Abdomen CTA 03/16/20 13:01 IMPRESSION: 1. Suboptimal and incomplete opacification of the pulmonary vasculature limits the examination. It is difficult to exclude acute pulmonary emboli. No evidence for saddle pulmonary emboli. 2. Mild to moderate right pleural effusion. Right lower lobe consolidation with associated air bronchograms may be on the basis of infiltrate/atelectasis. Assessment & Plan - Plan Summary Plan Summary: Patient is well-known to me in the surgical service. He was recently discharged after a prolonged hospital course status post appen dectomy. Patient had an extensive EtOH abuse history and after his appendectomy he required intensive care for a prolonged period of time on the end on the ventilator and a difficulty weaning probably secondary to delirium tremens. Eventually was extubated and during the stay in the ICU eviscerated his abdominal incision which required reoperation for abdominal washout and placement of absorbable mesh with retention suture closure. Subsequent to his abdominal washes his fevers defervesced and he improved on antibiotics and was eventually transferred to the floor. He was started on a diet as his bowel function returned and was eventually discharged home on 02 February. He returns today with fevers and a cough chest x-ray shows a infiltrate in the right base and CT scan confirms a small pleural effusion and infiltrate in the right base with air bronchograms. CT scan also shows a small fluid collection in the right paracolic gutter as well as a sub-fascial fluid collection between the mesh and the abdominal wall. After review the CT scan do not feel that these are infected and is the result of his previous surgery. He also has an elevated lipase approximately 1000 which has been persistent since his hospital stay last time. His white blood count is normal and there is no left shift. I suspect his current fevers and cough are secondary to his infiltrate in the right lung consistent with a pneumonia There is no need for surgical intervention at this time. Patient will be admitted to the medicine service after discussion nurse practitioner Wilfredo. Surgery will follow along.
--- NOTE | 2020-03-16 19:03 | PDOC H&P ---
History of Present Illness Admission Date/PCP: 03/16/20 18:13 Patient complains of: fever History of Present Illness: JUAN LOPEZ is a 40 year old male with a past medical history significant for alcohol dependence (reportedly his last alcohol intake was 02/25/2020), recent admission to the surgical service for complicated appendicitis requiring open laparotomy and washout followed by prolonged ICU admission related to deteriorating tremens, difficulty extubating, and wound dehiscence requiring follow-up surgery. Patient was discharged to home 03/12/2020. It is notable that at time of discharge, he had had fever of 100.4 within the prior 24 hours and 101.6 in the prior 48. He was discharged home on amoxicillin and clarithromycin with home health nursing. Patient reports at home health check today, his nurse instructed him to come to the emergency department due to his persistent fevers since discharged home. Evaluation in the emergency department revealed a temperature of 103, heart rate 130, mildly elevated blood pressure, respiratory rate 24, maintaining oxygen saturations of 100% on room air. Chest x-ray showed low lung volumes without acute findings. Chest CTA mild to moderate right pleural effusion with a right lower lobe consolidation. CT abdomen show fluid collections anterior and lateral to the abdominal mesh, changes small fluid collection lateral and adjacent to the wall of the ascending colon, mild diffuse thickening of the descending colon and sigmoid colon, unchanged renal mass, and status post appendectomy. Dr. Anderson was consulted; does not find evidence of acute abdomen and believes that the majority of the CT findings are related to his recent multiple abdominal surgeries and do not indicate new or acute processes. He is referred to the hospitalist service for admission and management of the above-stated complaints and findings. Past Medical History Cardiac Medical History: Reports: None Pulmonary Medical History: Reports: Pneumonia EENT Medical History: Reports: None Neurological Medical History: Reports: None Endocrine Medical History: Reports: Obesity Renal/ Medical History: Reports: None Malignancy Medical History: Reports: None GI Medical History: Reports: Other - recent appendectomy recent abd wall closure after eviseration Musculoskeltal Medical History: Reports: None Skin Medical History: Reports: None Psychiatric Medical History: Reports: Alcohol Dependency, Substance Abuse Traumatic Medical History: Reports: None Hematology: Reports: None Infectious Medical History: Reports: None Past Surgical History Past Surgical History: Reports: Appendectomy, Other - abdominal wall closure Social History Information Source: Patient, [facility] Records Lives with: Family Smoking Status: Current Every Day Smoker Electronic Cigarette use?: No Frequency of Alcohol Use: Heavy Last Alcohol Use: 02/25/20 Hx Recreational Drug Use: No Hx Prescription Drug Abuse: No - Advance Directive Resuscitation Status: Full Code Family History Family History: Reviewed & Not Pertinent Parental Family History Reviewed: Yes Children Family History Reviewed: Yes Sibling(s) Family History Reviewed.: Yes Medication/Allergy Home Medications: Amoxicillin 500 mg PO Q12 02/25/20 Clarithromycin [Biaxin 500 mg Tablet] 500 mg PO Q12 02/25/20 Omeprazole 20 mg PO BID 02/25/20 Hydrocodone/Acetaminophen [[place] 10-325 mg Tablet] 1 tab PO Q6HP PRN #28 tablet 03/12/20 Allergies/Adverse Reactions: No Known Allergies Allergy (Verified 02/25/20 10:07) Review of Systems Constitutional: PRESENT: chills, fatigue, fever(s), night sweats. ABSENT: headache(s), weight gain, weight loss Eyes: ABSENT: visual disturbances Ears: ABSENT: hearing changes Cardiovascular: ABSENT: chest pain, dyspnea on exertion, edema, orthropnea, palpitations Respiratory: PRESENT: cough. ABSENT: hemoptysis, sputum Gastrointestinal: ABSENT: abdominal pain, constipation, diarrhea, hematemesis, hematochezia, nausea, vomiting Genitourinary: ABSENT: dysuria, hematuria Musculoskeletal: ABSENT: joint swelling Integumentary: ABSENT: rash, wounds Neurological: ABSENT: abnormal gait, abnormal speech, confusion, dizziness, fo fabio weakness, syncope Psychiatric: ABSENT: anxiety, depression, homidical ideation, suicidal ideation Endocrine: ABSENT: cold intolerance, heat intolerance, polydipsia, polyuria Hematologic/Lymphatic: ABSENT: easy bleeding, easy bruising Physical Exam Vital Signs: Temp Pulse Resp BP Pulse Ox 98.8 F 118 H 20 128/67 H 98 03/16/20 18:07 03/16/20 18:07 03/16/20 18:07 03/16/20 18:07 03/16/20 18:07 Intake & Output 03/15/20 03/16/20 03/17/20 06:59 06:59 06:59 Intake Total 1999 Balance 1999 General appearance: PRESENT: no acute distress, cooperative, morbidly obese, well-developed, well-nourished - overweight Head exam: PRESENT: atraumatic, normocephalic Eye exam: PRESENT: conjunctiva pink, EOMI, PERRLA. ABSENT: scleral icterus Mouth exam: PRESENT: moist, tongue midline Neck exam: ABSENT: carotid bruit, JVD, lymphadenopathy, thyromegaly Respiratory exam: PRESENT: clear to auscultation daisy, decreased breath sounds - bibasilar, symmetrical, unlabored, other - room air. ABSENT: rales, rhonchi, wheezes Cardiovascular exam: PRESENT: RRR, tachycardia. ABSENT: diastolic murmur, rubs, systolic murmur Pulses: PRESENT: normal dorsalis pedis pul Vascular exam: PRESENT: normal capillary refill GI/Abdominal exam: PRESENT: normal bowel sounds, soft, other - abdominal binder. ABSENT: distended, guarding, mass, organolmegaly, rebound, tenderness Rectal exam: PRESENT: deferred Extremities exam: PRESENT: full ROM. ABSENT: calf tenderness, clubbing, pedal edema Musculoskeletal exam: PRESENT: ambulatory Neurological exam: PRESENT: alert, awake, oriented to person, oriented to place, oriented to time, oriented to situation, CN II-XII grossly intact. ABSENT: phuong r sensory deficit Psychiatric exam: PRESENT: appropriate affect, normal mood. ABSENT: homicidal ideation, suicidal ideation Skin exam: PRESENT: dry, intact, warm. ABSENT: cyanosis, rash Results Laboratory Results: 03/16/20 12:25 03/16/20 12:10 03/16/20 03/16/20 03/16/20 12:10 12:25 12:25 WBC 7.3 RBC 3.86 L Hgb 10.8 L Hct 32.2 L MCV 84 MCH 28.0 MCHC 33.6 RDW 14.2 H Plt Count 459 H Seg Neutrophils % 65.3 Sodium 135.4 L Potassium 4.7 Chloride 103 Carbon Dioxide 19 L Anion Gap 13 BUN 13 Creatinine 0.52 Est GFR ( Amer) > 60 Glucose 142 H Lactic Acid 1.4 Calcium 8.9 Total Bilirubin 0.6 AST 32 Alkaline Phosphatase 120 Total Protein 8.4 H Albumin 3.8 Lipase 1173.3 H Urine Color Urine Appearance Urine pH Ur Specific [place] Urine Protein Urine Glucose (UA) Urine Ketones Urine Blood Urine Nitrite Ur Leukocyte Esterase Urine WBC (Auto) Urine RBC (Auto) 03/16/20 13:10 WBC RBC Hgb Hct MCV MCH MCHC RDW Plt Count Seg Neutrophils % Sodium Potassium Chloride Carbon Dioxide Anion Gap BUN Creatinine Est GFR ( Amer) Glucose Lactic Acid Calcium Total Bilirubin AST Alkaline Phosphatase Total Protein Albumin Lipase Urine Color YELLOW Urine Appearance SLIGHTLY-CLOUDY Urine pH 5.0 Ur Specific [place] 1.016 Urine Protein NEGATIVE Urine Glucose (UA) NEGATIVE Urine Ketones NEGATIVE Urine Blood SMALL H Urine Nitrite NEGATIVE Ur Leukocyte Esterase NEGATIVE Urine WBC (Auto) 1 Urine RBC (Auto) 1 Impressions: Abdomen/Pelvis CT 03/16/20 00:00 IMPRESSION: 1. Since the previous examination dated 03/03/2020, new finding of mesh in the lower anterior abdomen which extends from the right to the left. A new small collection of fluid lies anterior to the mesh in the left lower quadrant of the abdomen. No foci of air within the collection. 2. A new small collection of fluid lateral and adjacent to the wall of the ascending colon-cecum in the right para colonic gutter. The possibility of a small abscess is not entirely excluded. Correlation suggested. 3. Mild diffuse thickening of the wall of the descending colon and the sigmoid colon. These findings may be on an inflammatory basis. 4. The right renal mass is unchanged in appearance. 5. Status post appendectomy. Chest X-Ray 03/16/20 12:14 IMPRESSION: Low lung volumes without focal airspace disease or other evidence of acute intrathoracic process. Chest/Abdomen CTA 03/16/20 13:01 IMPRESSION: 1. Suboptimal and incomplete opacification of the pulmonary vasculature limits the examination. It is difficult to exclude acute pulmonary emboli. No evidence for saddle pulmonary emboli. 2. Mild to moderate right pleural effusion. Right lower lobe consolidation with associated air bronchograms may be on the basis of infiltrate/atelectasis. Assessment and Plan - Diagnosis (1) Fever Qualifiers: Fever type: unspecified Qualified Code(s): R50.9 - Fever, unspecified Is this a current diagnosis for this admission?: Yes Plan: Unclear etiology. Patient presented to the emergency department at the recommendation of his home health nurse due to persistent fevers at home. Found to be febrile with a temperature of 103 in the emergency department today. Of note, the patient was discharged 03/12/2020. He had a temperature of 100.4 within the previous 24 hours and a temperature of 101.6 in the prior 48. He had had a prolonged admission at that time on the surgical service secondary to ruptured appendicitis, difficulty extubating due to development of delirium tremens. CT chest shows right pleural effusion and consolidation; atelectasis versus pneumonia. He had similar findings on CT abdomen during his last admission, although, today's findings are slightly worsened. CT of the abdomen and pelvis with various fluid collections; likely related to his prior surgery. Surgery is consulted; appreciate Dr. Anderson evaluation. He does not feel his febrile illness to be related to his abdominal surgeries at this time as he has a benign abdomen. Urinalysis negative. We will admit to the medical floor on continuous cardiac telemetry. Continue IV fluids. Blood and sputum cultures pending. Continue IV Zosyn; will adjust antibiotics as clinical picture dictates. (2) Pneumonia Qualifiers: Laterality: right Lung location: lower lobe of lung Is this a current diagnosis for this admission?: Yes Plan: CT chest shows right mild to moderate pleural effusion with consolidation; slightly worsened from imaging during his prior admission. He is maintaining oxygen saturations of 100% while on room air. He does admit to fevers and night sweats. He does report a productive cough of thin, clear sputum. Blood and sputum cultures pending. Sputum culture during previous admission revealed pansensitive E. coli. Continue IV Zosyn. Consider escalation of antibiotics for coverage of healthcare associated pneumonia (Pseudomonas and MRSA) due to patient's recent admission with prolonged intubation. However, the patient does appear benign on exam and without leukocytosis. We will provide supplemental oxygen as needed to maintain saturations. Schedule and as needed nebulizer treatments Mucinex twice daily. Incentive spirometer and flutter valve to bedside. (3) Anemia Qualifiers: Anemia type: unspecified type Qualified Code(s): D64.9 - Anemia, unspecified Is this a current diagnosis for this admission?: Yes Plan: Likely multifactorial secondary to prolonged acute illness, multiple surgeries, and subsequent poor p.o intake, and underlying poor nutritional status secondary to alcohol dependence. Panel with a.m. lab work. Multivitamin, folic acid, thiamine. Follow-up CBC. (4) Pancreatitis Qualifiers: Pancreatitis type: alcohol induced Is this a current diagnosis for this admission?: Yes Plan: The patient's lipase is elevated to 1173. CT abdomen is negative for acute pancreatitis, pseudocyst, or abscesses. Patient denies abdominal discomfort, nausea, vomiting. He reports that he is taking adequate p.o. intake. I am not impressed by his exam at this time; it is quite possible that his lipase represents slow resolution of his previous acute pancreatitis versus chronic. We will place patient on a low residue diet. Continue generous IV fluids. Judicious use of analgesics. Antiemetics as needed. Follow-up lipase. (5) Alcohol dependence Qualifiers: Substance use status: uncomplicated Qualified Code(s): F10.20 - Alcohol dependence, uncomplicated Is this a current diagnosis for this admission?: Yes Plan: Patient with history of alcohol dependence; reports his last alcohol intake was 02/25/2020. EtOH negative at this admission. He did have a difficult time last admission with delirium treatments. Monitor closely for evidence of alcohol withdrawal. PRN Ativan is available. Multivitamin, thiamine, folic acid supplementation. - Time Time Spent with patient: 35 or more minutes Medications reviewed and adjusted accordingly: Yes Anticipated discharge: Home - Inpatient Certification Based on my medical assessment, after consideration of the patient's comorbidities, presenting symptoms, or acuity I expect that the services needed warrant INPATIENT care.: Yes I certify that my determination is in accordance with my understanding of Medicare's requirements for reasonable and necessary INPATIENT services [42 CFR 412.3e].: Yes Medical Necessity: Failure to Improve With Outpatient Therapy, Need for IV Antibiotics, Risk of Diagnosis Which Will Require Inpatient Eval/Care/Monitoring
[2020-03-16] MEDS: IPRATROPIUM/ALBUTEROL 0.5-2.5 MG/3 ML AMPUL NEB SCH (20:24)
[2020-03-16] MEDS: GUAIFENESIN 600 MG TABLET.SA PO SCH (21:15)
[2020-03-16] MEDS: HEPARIN SOD (PORCINE) 5,000 UNIT/ML 1 ML VIAL SUBCUT SCH (21:16)
[2020-03-17] MEDS ORDERED: ALBUTEROL SULFATE 0.083% NEB 2.5 MG/3 ML AMPUL NEB SCH
[2020-03-17] MEDS: NORMAL SALINE 1000 ML 1,000 ML IV PRN ×3 (01:22→21:50)
[2020-03-17] MEDS: PIPERACILLIN SODIUM/TAZOBACTAM 3.375 GM in NORMAL SALINE 100 ML IV SCH ×5 (02:10→23:16)
[2020-03-17] MEDS: ACETAMINOPHEN 325 MG TABLET PO PRN (04:55)
[2020-03-17] MEDS: HEPARIN SOD (PORCINE) 5,000 UNIT/ML 1 ML VIAL SUBCUT SCH ×3 (05:28→23:10)
[2020-03-17] MEDS: PANTOPRAZOLE SODIUM 40 MG TABLET.DR PO SCH (05:28)
[2020-03-17 06:50] LABS: ABSOLUTE EOSINOPHILS # (AUTO) 0.1 10^3/uL (0.0-0.6); ABSOLUTE LYMPHOCYTES (AUTO) 1.4 10^3/uL (0.5-4.7); ABSOLUTE MONOCYTES (AUTO) 0.7 10^3/uL (0.1-1.4); ABSOLUTE NEUT (AUTO) 3.2 10^3/uL (1.7-8.2); ABSOLUTE RETICS # 0.049 10^6/uL (0.028-0.122); BASOPHILS % (AUTO) 0.7 % (0-2); EOSINOPHILS % (AUTO) 2.5 % (0-6); HEMATOCRIT 29.2 % (37.9-51.0); HEMOGLOBIN 9.7 g/dL (13.5-17.0); LYMPHOCYTES % (AUTO) 25.4 % (13-45); MEAN CORPUSCULAR HEMOGLOBIN 27.2 pg (27.0-33.4); MEAN CORPUSCULAR HGB CONC 33.4 g/dL (32.0-36.0); MEAN CORPUSCULAR VOLUME 82 fl (80-97); MONOCYTES % (AUTO) 12.1 % (3-13); PLATELET COUNT 363 10^3/uL (150-450); RED BLOOD COUNT 3.57 10^6/uL (4.35-5.55); RED CELL DISTRIBUTION WIDTH 14.4 % (11.5-14.0); RETICULOCYTE COUNT (AUTO) 1.36 % (0.66-2.85); SEGMENTED NEUTROPHILS % (AUTO) 59.3 % (42-78); TOTAL CELLS COUNTED % (AUTO) 100 %; WHITE BLOOD COUNT 5.5 10^3/uL (4.0-10.5)
[2020-03-17 07:17] LABS: ANION GAP 10 (5-19); BLOOD UREA NITROGEN 10 mg/dL (7-20); CALCIUM 8.3 mg/dL (8.4-10.2); CARBON DIOXIDE 21 mmol/L (22-30); CHLORIDE 103 mmol/L (98-107); GLUCOSE 114 mg/dL (75-110); POTASSIUM 4.3 mmol/L (3.6-5.0)
[2020-03-17] MEDS: IPRATROPIUM/ALBUTEROL 0.5-2.5 MG/3 ML AMPUL NEB SCH ×2 (08:22→20:51)
[2020-03-17] MEDS: MULTIVITAMIN TABLET PO SCH (10:42)
[2020-03-17] MEDS: FOLIC ACID 1 MG TABLET PO SCH (10:42)
[2020-03-17] MEDS: THIAMINE HCL 100 MG TABLET PO SCH (10:42)
[2020-03-17] MEDS: GUAIFENESIN 600 MG TABLET.SA PO SCH ×2 (10:42→23:10)
[2020-03-17] MEDS: LORAZEPAM INJ 2 MG/1 ML VIAL IV PRN ×3 (10:42→23:10)
--- NOTE | 2020-03-17 11:35 | PDOC PROGRESS REPORT ---
Subjective Progress Note for:: 03/17/20 Subjective:: JUAN LOPEZ is a 40 year old male with a past medical history significant for alcohol dependence (reportedly his last alcohol intake was 02/25/2020), recent admission to the surgical service for complicated appendicitis requiring open laparotomy and washout followed by prolonged ICU admission related to deteriorating tremens, difficulty extubating, and wound dehiscence requiring follow-up surgery. Patient was discharged to home 03/12/2020. He was admitted 03/16/20 for fever with questionable pneumonia and pancreatitis. Patient was seen on morning rounds. He was found resting in bed, notably in some discomfort. Maintaining oxygen saturations on room air without increased work of breathing. Patient reports right side mid back pain radiating upwards, described as muscle spasms. He reports generalized abdominal discomfort that he relates to his prior surgical discomfort; utilizes pillow for splinting during movements and cough. He denies chest pain, palpitations, dyspnea, orthopnea, nausea vomiting and diarrhea. He reports that he is tolerating meals easily. He does note a continued productive cough. He has no other questions or concerns at this time. No concerns per nursing. Reason For Visit: PANCREATITIS,PNEUMONIA,FEVER Physical Exam Vital Signs: Temp Pulse Resp BP Pulse Ox 98.8 F 111 H 17 112/63 93 03/17/20 07:29 03/17/20 08:22 03/17/20 08:22 03/17/20 07:29 03/17/20 08:22 Intake & Output 03/16/20 03/17/20 03/18/20 06:59 06:59 06:59 Intake Total 2200 1000 Balance 2200 1000 Weight 103.4 kg General appearance: PRESENT: no acute distress, cooperative, obese, well-developed, well-nourished Head exam: PRESENT: atraumatic, normocephalic Eye exam: PRESENT: conjunctiva pink, EOMI, PERRLA. ABSENT: scleral icterus Mouth exam: PRESENT: moist, tongue midline Respiratory exam: PRESENT: clear to auscultation daisy, symmetrical, unlabored. ABSENT: rales, rhonchi, wheezes Cardiovascular exam: PRESENT: RRR, +S1, +S2. ABSENT: diastolic murmur, rubs, systolic murmur Vascular exam: PRESENT: normal capillary refill GI/Abdominal exam: PRESENT: normal bowel sounds, soft, tenderness - Generalized. Reports right-sided back pain upon palpating right upper quadrant.. ABSENT: distended, guarding, mass, organolmegaly, rebound Rectal exam: PRESENT: deferred Extremities exam: PRESENT: full ROM. ABSENT: calf tenderness, clubbing, pedal edema Musculoskeletal exam: PRESENT: ambulatory Neurological exam: PRESENT: alert, awake, oriented to person, oriented to place, oriented to time, oriented to situation, CN II-XII grossly intact. ABSENT: motor sensory deficit Psychiatric exam: PRESENT: appropriate affect, normal mood. ABSENT: homicidal ideation, suicidal ideation Skin exam: PRESENT: dry, intact, warm. ABSENT: cyanosis, rash Results Laboratory Results: 03/17/20 06:21 03/17/20 06:21 03/16/20 03/16/20 03/16/20 12:10 12:25 12:25 WBC 7.3 RBC 3.86 L Hgb 10.8 L Hct 32.2 L MCV 84 MCH 28.0 MCHC 33.6 RDW 14.2 H Plt Count 459 H Seg Neutrophils % 65.3 Retic Count (auto) Sodium 135.4 L Potassium 4.7 Chloride 103 Carbon Dioxide 19 L Anion Gap 13 BUN 13 Creatinine 0.52 Est GFR ( Amer) > 60 Glucose 142 H Lactic Acid 1.4 Calcium 8.9 Iron TIBC % Saturation Ferritin Total Bilirubin 0.6 AST 32 Alkaline Phosphatase 120 C-Reactive Protein Total Protein 8.4 H Albumin 3.8 Lipase 1173.3 H Vitamin B12 Folate TSH Urine Color Urine Appearance Urine pH Ur Specific [place] Urine Protein Urine Glucose (UA) Urine Ketones Urine Blood Urine Nitrite Ur Leukocyte Esterase Urine WBC (Auto) Urine RBC (Auto) 03/16/20 03/16/20 03/17/20 13:10 23:48 06:21 WBC 5.5 RBC 3.57 L Hgb 9.7 L Hct 29.2 L MCV 82 MCH 27.2 MCHC 33.4 RDW 14.4 H Plt Count 363 Seg Neutrophils % 59.3 Retic Count (auto) 1.36 Sodium Potassium Chloride Carbon Dioxide Anion Gap BUN Creatinine Est GFR ( Amer) Glucose Lactic Acid Calcium Iron TIBC % Saturation Ferritin Total Bilirubin AST Alkaline Phosphatase C-Reactive Protein 166.0 H Total Protein Albumin Lipase Vitamin B12 Folate TSH Urine Color YELLOW Urine Appearance SLIGHTLY-CLOUDY Urine pH 5.0 Ur Specific [place] 1.016 Urine Protein NEGATIVE Urine Glucose (UA) NEGATIVE Urine Ketones NEGATIVE Urine Blood SMALL H Urine Nitrite NEGATIVE Ur Leukocyte Esterase NEGATIVE Urine WBC (Auto) 1 Urine RBC (Auto) 1 03/17/20 03/17/20 06:21 06:21 WBC RBC Hgb Hct MCV MCH MCHC RDW Plt Count Seg Neutrophils % Retic Count (auto) Sodium 134.3 L Potassium 4.3 Chloride 103 Carbon Dioxide 21 L Anion Gap 10 BUN 10 Creatinine 0.53 Est GFR ( Amer) > 60 Glucose 114 H Lactic Acid Calcium 8.3 L Iron 28.0 L TIBC 263 % Saturation 11 Ferritin 313.00 Total Bilirubin AST Alkaline Phosphatase C-Reactive Protein Total Protein Albumin Lipase 1152.8 H Vitamin B12 332.0 Folate 14.90 TSH 2.13 Urine Color Urine Appearance Urine pH Ur Specific [place] Urine Protein Urine Glucose (UA) Urine Ketones Urine Blood Urine Nitrite Ur Leukocyte Esterase Urine WBC (Auto) Urine RBC (Auto) Impressions: Abdomen/Pelvis CT 03/16/20 00:00 IMPRESSION: 1. Since the previous examination dated 03/03/2020, new finding of mesh in the lower anterior abdomen which extends from the right to the left. A new small collection of fluid lies anterior to the mesh in the left lower andrew drant of the abdomen. No foci of air within the collection. 2. A new small collection of fluid lateral and adjacent to the wall of the ascending colon-cecum in the right para colonic gutter. The possibility of a small abscess is not entirely excluded. Correlation suggested. 3. Mild diffuse thickening of the wall of the descending colon and the sigmoid colon. These findings may be on an inflammatory basis. 4. The right renal mass is unchanged in appearance. 5. Status post appendectomy. Chest X-Ray 03/16/20 12:14 IMPRESSION: Low lung volumes without focal airspace disease or other evidence of acute intrathoracic process. Chest/Abdomen CTA 03/16/20 13:01 IMPRESSION: 1. Suboptimal and incomplete opacification of the pulmonary vasculature limits the examination. It is difficult to exclude acute pulmonary emboli. No evidence for saddle pulmonary emboli. 2. Mild to moderate right pleural effusion. Right lower lobe consolidation with associated air bronchograms may be on the basis of infiltrate/atelectasis. Assessment and Plan - Diagnosis (1) Fever Qualifiers: Fever type: unspecified Qualified Code(s): R50.9 - Fever, unspecified Is this a current diagnosis for this admission?: Yes Plan: Unclear etiology. Tmax 103/24 hrs. Patient presented to the emergency department at the recommendation of his home health nurse due to persistent fevers at home. Found to be febrile with a temperature of 103 in the emergency department today. Of note, the patient was discharged 03/12/2020. He had a temperature of 100.4 within the previous 24 hours and a temperature of 101.6 in the prior 48. He had had a prolonged admission at that time on the surgical service secondary to ruptured appendicitis, difficulty extubating due to development of delirium t remens. CT chest shows right pleural effusion and consolidation; atelectasis versus pneumonia. He had similar findings on CT abdomen during his last admission, although, today's findings are slightly worsened. CT of the abdomen and pelvis with various fluid collections; likely related to his prior surgery. Surgery is consulted; appreciate Dr. Anderson evaluation. He does not feel his febrile illness to be related to his abdominal surgeries at this time as he has a benign abdomen. Urinalysis negative. Blood cultures pending. Sputum cultures not yet obtained We will admit to the medical floor on continuous cardiac telemetry. Continue IV fluids. Continue IV Zosyn; will adjust antibiotics as clinical picture dictates. (2) Pneumonia Qualifiers: Laterality: right Lung location: lower lobe of lung Is this a current diagnosis for this admission?: Yes Plan: Less inclined to think the patient has pneumonia at this time. He has clear lung sounds, maintains oxygen saturations while lying supine on room air, and does not evidenced tachypnea or increased work of breathing. He does report a productive cough, but when asked about the consistency, he shows me simple cup nearly full of saliva. Therefore, sputum culture not yet obtained. Blood culture pending. CT chest shows right mild to moderate pleural effusion with consolidation; slightly worsened from imaging during his prior admission. He is maintaining oxygen saturations of 100% while on room air. He does admit to fevers and night sweats. He does report a productive cough of thin, clear, sputum. Sputum culture during previous admission revealed pansensitive E. coli. Continue IV Zosyn. Consider escalation of antibiotics for coverage of healthcare associated pneumonia (Pseudomonas and MRSA) due to patient's recent admission with prolonged intubation. However, the patient does appear benign on exam and without leukocytosis. Low suspicion for pna. CT findings are likely atelectasis. We will provide supplemental oxygen as needed to maintain saturations. Schedule and as needed nebulizer treatments Mucinex twice daily. Incentive spirometer and flutter valve to bedside. (3) Anemia Qualifiers: Anemia type: iron deficiency Iron deficiency anemia type: unspecified iron deficiency Qualified Code(s): D50.9 - Iron deficiency anemia, unspecified Is this a current diagnosis for this admission?: Yes Plan: Likely multifactorial secondary to prolonged acute illness, multiple surgeries, and subsequent poor p.o intake, and underlying poor nutritional status secondary to alcohol dependence. Anemia panel confirms iron deficiency. Start iron supplementation Continue Multivitamin, folic acid, thiamine. Follow-up CBC. (4) Pancreatitis Qualifiers: Pancreatitis type: alcohol induced Is this a current diagnosis for this admission?: Yes Plan: The patient's lipase is elevated to 1173. CT abdomen is negative for acute pancreatitis, pseudocyst, or abscesses. Patient denies abdominal discomfort, nausea, vomiting. Does report right flank pain that worsened w/ RUQ light palpation; no epigastric tenderness. He reports that he is taking adequate p.o. intake. We will place patient on a low residue diet. Continue generous IV fluids. Judicious use of analgesics. Antiemetics as needed. Follow-up lipase. (5) Alcohol dependence Qualifiers: Substance use status: uncomplicated Qualified Code(s): F10.20 - Alcohol dependence, uncomplicated Is this a current diagnosis for this admission?: Yes Plan: Patient with history of alcohol dependence; reports his last alcohol intake was 02/25/2020. EtOH negative at this admission. He did have a difficult time last admission with delirium treatments. Monitor closely for evidence of alcohol withdrawal. PRN Ativan is available. Multivitamin, thiamine, folic acid supplementation. (6) Hepatomegaly Is this a current diagnosis for this admission?: Yes Plan: Hepatomegaly on CT imaging. LFTs benign. Right upper quadrant exquisitely tender. We will check hepatitis panel. - Time Time Spent with patient: 25-34 minutes Medications reviewed and adjusted accordingly: Yes
--- NOTE | 2020-03-17 12:58 | EKG REPORT ---
SEVERITY:- ABNORMAL ECG - SINUS TACHYCARDIA ATRIAL PREMATURE COMPLEX PROLONGED QT INTERVAL : Confirmed by: Andre Diaz MD 17-Mar-2020 12:57:09
[2020-03-17] MEDS: MORPHINE SULFATE 10 MG/ML INJ IV PRN (14:58)
--- NOTE | 2020-03-17 15:56 | PDOC PROGRESS REPORT ---
Subjective Progress Note for:: 03/17/20 Subjective:: Feels okay. No nausea or vomiting. Having bowel function. Was noted by nursing staff to have some clear drainage from the lower pole of his incision with displacement of some of the tameka on the lower pole. Reason For Visit: PANCREATITIS,PNEUMONIA,FEVER Physical Exam Vital Signs: Temp Pulse Resp BP Pulse Ox 99.2 F 123 H 20 131/74 H 99 03/17/20 11:49 03/17/20 11:49 03/17/20 11:49 03/17/20 11:49 03/17/20 11:49 Intake & Output 03/16/20 03/17/20 03/18/20 06:59 06:59 06:59 Intake Total 2200 1240 Output Total 300 Balance 2200 940 Weight 103.4 kg General appearance: PRESENT: no acute distress, cooperative GI/Abdominal exam: PRESENT: other - Soft, nondistended, nontender. Retention sutures are intact. Most of the tameka are intact except for the very lower pole with couple of centimeter region of exposed subcutaneous tissue that appears clean. There is no active drainage. There is no drainage with Valsalva. There is only a superficial dehiscence of the the wound. Results Laboratory Results: 03/17/20 06:21 03/17/20 06:21 03/16/20 03/17/20 03/17/20 23:48 06:21 06:21 WBC 5.5 RBC 3.57 L Hgb 9.7 L Hct 29.2 L MCV 82 MCH 27.2 MCHC 33.4 RDW 14.4 H Plt Count 363 Seg Neutrophils % 59.3 Retic Count (auto) 1.36 Sodium 134.3 L Potassium 4.3 Chloride 103 Carbon Dioxide 21 L Anion Gap 10 BUN 10 Creatinine 0.53 Est GFR ( Amer) > 60 Glucose 114 H Calcium 8.3 L Iron 28.0 L TIBC 263 % Saturation 11 Ferritin 313.00 C-Reactive Protein 166.0 H Lipase 1152.8 H Vitamin B12 332.0 Folate 14.90 TSH 03/17/20 06:21 WBC RBC Hgb Hct MCV MCH MCHC RDW Plt Count Seg Neutrophils % Retic Count (auto) Sodium Potassium Chloride Carbon Dioxide Anion Gap BUN Creatinine Est GFR ( Amer) Glucose Calcium Iron TIBC % Saturation Ferritin C-Reactive Protein Lipase Vitamin B12 Folate TSH 2.13 Impressions: Abdomen/Pelvis CT 03/16/20 00:00 IMPRESSION: 1. Since the previous examination dated 03/03/2020, new finding of mesh in the lower anterior abdomen which extends from the right to the left. A new small collection of fluid lies anterior to the mesh in the left lower quadrant of the abdomen. No foci of air within the collection. 2. A new small collection of fluid lateral and adjacent to the wall of the ascending colon-cecum in the right para colonic gutter. The possibility of a small abscess is not entirely excluded. Correlation suggested. 3. Mild diffuse thickening of the wall of the descending colon and the sigmoid colon. These findings may be on an inflammatory basis. 4. The right renal mass is unchanged in appearance. 5. Status post appendectomy. Chest X-Ray 03/16/20 12:14 IMPRESSION: Low lung volumes without focal airspace disease or other evidence of acute intrathoracic process. Chest/Abdomen CTA 03/16/20 13:01 IMPRESSION: 1. Suboptimal and incomplete opacification of the pulmonary vasculature limits the examination. It is difficult to exclude acute pulmonary emboli. No evidence for saddle pulmonary emboli. 2. Mild to moderate right pleural effusion. Right lower lobe consolidation with associated air bronchograms may be on the basis of infiltrate/atelectasis. Assessment & Plan - Diagnosis (1) Wound Is this a current diagnosis for this admission?: Yes Plan: Surgical wound with no evidence of underlying fascial dehiscence. Only very superficial dehiscence at lower pole with displacement of the tameka. I do not recommend anything other than dry gauze dressing changes. If he were to have increased drainage, please call us but I think it is very superficial dehiscence of a tension spot on his skin at the lower pole due to his body habitus. Would keep the tameka in for at least another week. We will follow him up in our office after discharge. Patient may shower. Just place a dry dressing as n eeded. Surgery service signing off.
[2020-03-17] MEDS: FERROUS SULFATE 325 MG TABLET PO SCH (18:50)
[2020-03-17] MEDS: GUAIFENESIN SYRP 200 MG/10 ML UDC PO PRN (18:56)
[2020-03-17] MEDS: METOPROLOL TARTRATE 25 MG TABLET PO SCH (23:09)
[2020-03-18] MEDS: MORPHINE SULFATE 10 MG/ML INJ IV PRN (01:28)
[2020-03-18] MEDS: GUAIFENESIN SYRP 200 MG/10 ML UDC PO PRN ×2 (05:26→19:37)
[2020-03-18] MEDS: PANTOPRAZOLE SODIUM 40 MG TABLET.DR PO SCH (05:26)
[2020-03-18] MEDS: PIPERACILLIN SODIUM/TAZOBACTAM 3.375 GM in NORMAL SALINE 100 ML IV SCH ×4 (05:27→23:09)
[2020-03-18] MEDS: HEPARIN SOD (PORCINE) 5,000 UNIT/ML 1 ML VIAL SUBCUT SCH (05:27)
[2020-03-18 06:29] LABS: HEMATOCRIT 28.4 % (37.9-51.0); HEMOGLOBIN 9.5 g/dL (13.5-17.0); MEAN CORPUSCULAR HEMOGLOBIN 27.4 pg (27.0-33.4); MEAN CORPUSCULAR HGB CONC 33.5 g/dL (32.0-36.0); MEAN CORPUSCULAR VOLUME 82 fl (80-97); PLATELET COUNT 306 10^3/uL (150-450); RED BLOOD COUNT 3.47 10^6/uL (4.35-5.55); RED CELL DISTRIBUTION WIDTH 14.1 % (11.5-14.0); WHITE BLOOD COUNT 4.6 10^3/uL (4.0-10.5)
[2020-03-18 06:37] LABS: HEPATITS B SURFACE ANTIGEN Negative (Negative)
[2020-03-18 06:52] LABS: ALKALINE PHOSPHATASE 101 U/L (38-126); ANION GAP 11 (5-19); ASPARTATE AMINO TRANSFERASE 25 U/L (17-59); BILIRUBIN,TOTAL 0.5 mg/dL (0.2-1.3); BLOOD UREA NITROGEN 7 mg/dL (7-20); CALCIUM 8.2 mg/dL (8.4-10.2); CARBON DIOXIDE 20 mmol/L (22-30); CHLORIDE 103 mmol/L (98-107); GLUCOSE 107 mg/dL (75-110)
[2020-03-18] MEDS: IPRATROPIUM/ALBUTEROL 0.5-2.5 MG/3 ML AMPUL NEB SCH (08:40)
--- NOTE | 2020-03-18 09:35 | Progress Note ---
Provider Note Provider Note: [facility] ID Telephone Advice Consultation Patient known to our service due to recent admission for perforated appendix and peritonitis. He was discharged home while he still had low grade fever. Home nurse noted that the patient had fever, tachycardia. He was admitted and found with right lower lobe consolidation on CT scan of chest. CT of abdomen and pelvis was positive for fluid collections around the mesh and ascending colon. His lipase was 1100. No leukocytosis, but elevated inflammation markers. Patient continues tachycardic but fever has improved. He has been on zosyn since admission. ID consulted for recommendations. Previous Admission: Patient diagnosed with H pylori and was recommended to start amoxicillin, clarithromycin and omeprazole. He was having constipation and worsening abdominal pain. In the ED he had a CT scan of abdomen and pelvis that demonstrated appendicitis and a right renal solid mass. He was septic with WBC of 20k and lactic acid 3.1. He was taken to the OR and had appendectomy, found with perforated retrocecal appendix and peritonitis. Fluid culture was positive for E. coli, Clostridium spp and Bacteroides. He continued febrile and tachycardic. He had multiple CT scans including a/p on 02/28 and 03/03. On 03/02 he had a tracheal aspirate that was positive for E coli. He was extubated on 03/03, but he was found to have signs of alcohol withdrawal and DTs. A PICC line was inserted on 03/02. He was started on TPN on 03/03. On 03/06 he was found with evisceration of the small bowel for which he required exploratory laparotomy. There were no signs of peritonitis at that time. Patient continued febrile an tachycardic. He was on linezolid, metronidazole and cefepime. PMH: H pylori Appendicitis PSH: Appendectomy Abdominal mesh Allergies: No Known Allergies Allergy (Verified 02/25/20 10:07) Medications - previous admission Amoxicillin 500 mg PO Q12 02/25/20 Clarithromycin [Biaxin 500 mg Tablet] 500 mg PO Q12 02/25/20 Omeprazole 20 mg PO BID 02/25/20 Vital Signs: Temp Pulse Resp BP Pulse Ox 98.2 F 114 H 22 H 125/72 100 03/18/20 08:48 03/18/20 08:48 03/18/20 08:48 03/18/20 08:48 03/18/20 08:48 Intake & Output 03/17/20 03/18/20 03/19/20 06:59 06:59 06:59 Intake Total 2200 5772 Output Total 1163 Balance 2200 3913 Weight 103.4 kg 103.6 kg Weight/Height Weight 103.6 kg Height 5 ft 5 in Laboratories: 03/18/20 06:19 03/18/20 06:19 MCV 82 fl (80-97) 03/18/20 06:19 MCH 27.4 pg (27.0-33.4) 03/18/20 06:19 MCHC 33.5 g/dL (32.0-36.0) 03/18/20 06:19 RDW 14.1 % (11.5-14.0) H 03/18/20 06:19 Seg Neutrophils % 59.3 % (42-78) 03/17/20 06:21 Retic Count (auto) 1.36 % (0.66-2.85) 03/17/20 06:21 Chloride 103 mmol/L (98-107) 03/18/20 06:19 Carbon Dioxide 20 mmol/L (22-30) L 03/18/20 06:19 Anion Gap 11 (5-19) 03/18/20 06:19 Est GFR ( Amer) > 60 (>60) 03/18/20 06:19 Glucose 107 mg/dL (75-110) 03/18/20 06:19 Lactic Acid 1.4 mmol/L (0.7-2.1) 03/16/20 12:25 Calcium 8.2 mg/dL (8.4-10.2) L 03/18/20 06:19 Iron 28.0 ug/dL (49-181) L 03/17/20 06:21 TIBC 263 ug/dL (250-450) 03/17/20 06:21 % Saturation 11 % 03/17/20 06:21 Ferritin 313.00 ng/mL (17.9-464.0) 03/17/20 06:21 Total Bilirubin 0.5 mg/dL (0.2-1.3) 03/18/20 06:19 AST 25 U/L (17-59) 03/18/20 06:19 Alkaline Phosphatase 101 U/L (38-126) 03/18/20 06:19 C-Reactive Protein 166.0 mg/L (<10.0) H 03/16/20 23:48 Total Protein 7.0 g/dL (6.3-8.2) 03/18/20 06:19 Albumin 3.0 g/dL (3.5-5.0) L 03/18/20 06:19 Lipase 1152.8 U/L (23-300) H 03/17/20 06:21 Vitamin B12 332.0 pg/mL (239-931) 03/17/20 06:21 Folate 14.90 ng/mL (>2.76) 03/17/20 06:21 TSH 2.13 uIU/mL (0.47-4.68) 03/17/20 06:21 Urine Color YELLOW 03/16/20 13:10 Urine Appearance SLIGHTLY-CLOUDY 03/16/20 13:10 Urine pH 5.0 (5.0-9.0) 03/16/20 13:10 Ur Specific [place] 1.016 03/16/20 13:10 Urine Protein NEGATIVE mg/dL (NEGATIVE) 03/16/20 13:10 Urine Glucose (UA) NEGATIVE mg/dL (NEGATIVE) 03/16/20 13:10 Urine Ketones NEGATIVE mg/dL (NEGATIVE) 03/16/20 13:10 Urine Blood SMALL (NEGATIVE) H 03/16/20 13:10 Urine Nitrite NEGATIVE (NEGATIVE) 03/16/20 13:10 Ur Leukocyte Esterase NEGATIVE (NEGATIVE) 03/16/20 13:10 Urine WBC (Auto) 1 /HPF 03/16/20 13:10 Urine RBC (Auto) 1 /HPF 03/16/20 13:10 Microbiology: Blood culture 03/16/20 NGTD Blood cultures previous admission: 02/24 Negative 02/26 Negative 03/03 CoNS 03/05 NGTD Tracheal Aspirate: 02/26 E coli Peritoneal Fluid culture: 02/24 E coli, Clostridium, Bacteroides Radiology: Abdomen/Pelvis CT 03/16/20 00:00 IMPRESSION: 1. Since the previous examination dated 03/03/2020, new finding of mesh in the lower anterior abdomen which extends from the right to the left. A new small collection of fluid lies anterior to the mesh in the left lower quadrant of the abdomen. No foci of air within the collection. 2. A new small collection of fluid lateral and adjacent to the wall of the ascending colon-cecum in the right para colonic gutter. The possibility of a small abscess is not entirely excluded. Correlation suggested. 3. Mild diffuse thickening of the wall of the descending colon and the sigmoid colon. These findings may be on an inflammatory basis. 4. The right renal mass is unchanged in appearance. 5. Status post appendectomy. Chest X-Ray 03/16/20 12:14 IMPRESSION: Low lung volumes without focal airspace disease or other evidence of acute intrathoracic process. Chest/Abdomen CTA 03/16/20 13:01 IMPRESSION: 1. Suboptimal and incomplete opacification of the pulmonary vasculature limits the examination. It is difficult to exclude acute pulmonary emboli. No evidence for saddle pulmonary emboli. 2. Mild to moderate right pleural effusion. Right lower lobe consolidation with associated air bronchograms may be on the basis of infiltrate/atelectasis. Assessment and Recommendations: Patient previously evaluated due to peritonitis in the setting of perforated retrocecal appendix s/p surgery. He received antibiotics and was discharged home. He now comes back with fever and tachycardia. Lipase elevated and multiple small fluid collections around the mesh and ascending colon concerning for abscesses. Not clear if these are too small for IR drainage but these are likely the cause of the fever. Continue zosyn for now, but I believe he will need source control if possible, if not, a longer course of antibiotics, probably a minimum of 2 weeks of therapy. He has alcohol dependance, not sure if he has been drinking as well causing pancreatitis. Please call if updates. Renee Morales MD [facility]
[2020-03-18] MEDS: FERROUS SULFATE 325 MG TABLET PO SCH ×2 (10:00→18:19)
[2020-03-18] MEDS: THIAMINE HCL 100 MG TABLET PO SCH (10:00)
[2020-03-18] MEDS: METOPROLOL TARTRATE 25 MG TABLET PO SCH ×2 (10:00→21:21)
[2020-03-18] MEDS: FOLIC ACID 1 MG TABLET PO SCH (10:00)
[2020-03-18] MEDS: NORMAL SALINE 1000 ML 1,000 ML IV PRN ×2 (10:00→19:45)
[2020-03-18] MEDS: GUAIFENESIN 600 MG TABLET.SA PO SCH (10:00)
[2020-03-18] MEDS: MULTIVITAMIN TABLET PO SCH (10:00)
[2020-03-18 11:13] LABS: HEPATITIS C VIRUS ANTIBODY <0.1 s/co ratio (0.0-0.9)
--- NOTE | 2020-03-18 13:06 | RADIOLOGY REPORT (SQ) ---
EXAM DESCRIPTION: CT FLUID DRAINAGE WITH CATH IMAGES COMPLETED DATE/TIME: 03/18/2020 12:54 pm REASON FOR STUDY: fluid collection near mesh and ascending colon COMPARISON: None. FLUORO TIME: 21.29 seconds 21 images saved to PACS. LIMITATIONS: None. PROCEDURE: After obtaining informed consent, the patient was brought to the CT suite and was placed supine on the CT gurney. The patient was prepped and draped in the usual sterile fashion . Axial jong ges were obtained for targeting of thefluid collection along the mesh in the anterior abdominal wall. . An appropriate access site was selected. 1% lidocaine was used for local anesthesia. Using an 19 gauge access needle the collection was cannulated. A small amount of clear cloudy materi al was removed less than 3 cc. This was sent to pathology for evaluation. There were no complicatio ns. IMPRESSION: Small amount of cloudy fluid was removed from the anterior abdominal wall collection as described. No evidence of purulent material. The fluid was largely serosanguineous. COMMENT: Patient medication list reviewed:Yes- Quality ID# [id number]:Eligible professional attests to docu menting in the medical record they obtained, updated, or reviewed the patient's current medications. Quality ID #76: The patient was prepped and draped using maximum sterile barrier technique including cap, mask, sterile gown, sterile gloves, a large sterile sheet, hand hygiene, and 2% Chlorhexidine fo r cutaneous antisepsis. When ultrasound is used, sterile ultrasound techniques are followed requiring sterile gel and sterile probes. Quality ID 145: Final reports for procedures using fluoroscopy that document radiation exposure laura obdulio, or exposure time and number of fluorographic images (if radiation exposure indices are not avail able) Quality ID# 436: Final reports with documentation of one or more dose reduction techniques (e.g., Aut omated exposure control, adjustment of the mA and/or kV according to patient size, use of iterative r econstruction technique) TECHNICAL DOCUMENTATION: JOB ID: [id number] 2010 [employer]- All Rights Reserved rev-02/26 Reading location - IP/workstation name: [email or web address]
--- NOTE | 2020-03-18 15:34 | PDOC PROGRESS REPORT ---
Subjective Progress Note for:: 03/18/20 Subjective:: JUAN LOPEZ is a 40 year old male with a past medical history significant for alcohol dependence (reportedly his last alcohol intake was 02/25/2020), recent admission to the surgical service for complicated appendicitis requiring open laparotomy and washout followed by prolonged ICU admission related to deteriorating tremens, difficulty extubating, and wound dehiscence requiring follow-up surgery. Patient was discharged to home 03/12/2020. He was admitted 03/16/20 for fever with questionable pneumonia and pancreatitis. Patient was seen on morning rounds. He was found resting in bed, comfortably, on room air. He reports that he is feeling well today. He does continue to have generalized abdominal discomfort, though much improved as compared to yesterday. He no longer has right flank or back pain. He is requesting to discharge home; explained recommendations for continued IV antibiotics and drainage of fluid collection near mesh for culturing. He denies fever, chills, chest pain, palpitations, dyspnea, cough, nausea vomiting and diarrhea. He has no other questions or concerns at this time. No concerns per nursing. Reason For Visit: PANCREATITIS,PNEUMONIA,FEVER Physical Exam Vital Signs: Temp Pulse Resp BP Pulse Ox 98.0 F 108 H 20 111/69 95 03/18/20 13:48 03/18/20 13:48 03/18/20 13:48 03/18/20 13:48 03/18/20 13:48 Intake & Output 03/17/20 03/18/20 03/19/20 06:59 06:59 06:59 Intake Total 2200 6723 676 Output Total 1876 900 Balance 2200 4913 -224 Weight 103.4 kg 103.6 kg General appearance: PRESENT: no acute distress, cooperative, obese, well- developed, well-nourished Head exam: PRESENT: atraumatic, normocephalic Eye exam: PRESENT: conjunctiva pink, EOMI, PERRLA. ABSENT: scleral icterus Mouth exam: PRESENT: moist, tongue midline Respiratory exam: PRESENT: clear to auscultation daisy, symmetrical, unlabored. ABSENT: rales, rhonchi, wheezes Cardiovascular exam: PRESENT: RRR, +S1, +S2. ABSENT: diastolic murmur, rubs, systolic murmur Vascular exam: PRESENT: normal capillary refill GI/Abdominal exam: PRESENT: normal bowel sounds, soft, tenderness. ABSENT: distended, guarding, mass, organolmegaly, rebound Rectal exam: PRESENT: deferred Extremities exam: PRESENT: full ROM. ABSENT: calf tenderness, clubbing, pedal edema Neurological exam: PRESENT: alert, awake, oriented to person, oriented to place, oriented to time, oriented to situation, CN II-XII grossly intact. ABSENT: motor sensory deficit Psychiatric exam: PRESENT: appropriate affect, normal mood. ABSENT: homicidal ideation, suicidal ideation Skin exam: PRESENT: dry, intact, warm. ABSENT: cyanosis, rash Results Laboratory Results: 03/18/20 06:19 03/18/20 06:19 03/18/20 03/18/20 06:19 06:19 WBC 4.6 RBC 3.47 L Hgb 9.5 L Hct 28.4 L MCV 82 MCH 27.4 MCHC 33.5 RDW 14.1 H Plt Count 306 Sodium 133.9 L Potassium 4.0 Chloride 103 Carbon Dioxide 20 L Anion Gap 11 BUN 7 Creatinine 0.45 L Est GFR ( Amer) > 60 Glucose 107 Calcium 8.2 L Total Bilirubin 0.5 AST 25 Alkaline Phosphatase 101 Total Protein 7.0 Albumin 3.0 L Impressions: Abdomen/Pelvis CT 03/16/20 00:00 IMPRESSION: 1. Since the previous examination dated 03/03/2020, new finding of mesh in the lower anterior abdomen which extends from the right to the left. A new small collection of fluid lies anterior to the mesh in the left lower quad rant of the abdomen. No foci of air within the collection. 2. A new small collection of fluid lateral and adjacent to the wall of the ascending colon-cecum in the right para colonic gutter. The possibility of a small abscess is not entirely excluded. Correlation suggested. 3. Mild diffuse thickening of the wall of the descending colon and the sigmoid colon. These findings may be on an inflammatory basis. 4. The right renal mass is unchanged in appearance. 5. Status post appendectomy. Chest X-Ray 03/16/20 12:14 IMPRESSION: Low lung volumes without focal airspace disease or other evidence of acute intrathoracic process. Chest/Abdomen CTA 03/16/20 13:01 IMPRESSION: 1. Suboptimal and incomplete opacification of the pulmonary vasculature limits the examination. It is difficult to exclude acute pulmonary emboli. No evidence for saddle pulmonary emboli. 2. Mild to moderate right pleural effusion. Right lower lobe consolidation with associated air bronchograms may be on the basis of infiltrate/atelectasis. Drainage Catheter Insertion 03/18/20 00:00 IMPRESSION: Small amount of cloudy fluid was removed from the anterior abdominal wall collection as described. No evidence of purulent material. The fluid was largely serosanguineous. Assessment and Plan - Diagnosis (1) Fever Qualifiers: Fever type: unspecified Qualified Code(s): R50.9 - Fever, unspecified Is this a current diagnosis for this admission?: Yes Plan: Around the abdominal mesh/ascending colon concerning for abscess formation. Likely secondary to fluid collection. Tmax 99.5/24 hrs; 103/48hrs. CT chest shows right pleural effusion and consolidation; atelectasis versus pneumonia. He had similar findings on CT abdomen during his last admission, although, today's findings are slightly worsened. CT of the abdomen and pelvis with various fluid collections; likely related to his prior surgery. Surgery is consulted; appreciate Dr. Anderson evaluation. He does not feel his febrile illness to be related to his abdominal surgeries at this time as he has a benign abdomen. Blood cultures have no growth at 48 hours Sputum cultures not yet obtained Abdominal fluid culture obtained today. We will admit to the medical floor on continuous cardiac telemetry. Continue IV fluids. Continue IV Zosyn; will adjust antibiotics as clinical picture dictates. Infectious disease was consulted; appreciate Dr. Morales's recommendations. (2) Abdominal abscess Is this a current diagnosis for this admission?: Yes Plan: CT of the abdomen and pelvis with various fluid collections near mesh and ascending colon. Surgery is consulted; appreciate Dr. Anderson evaluation. He does not feel his febrile illness to be related to his abdominal surgeries at this time as he has a benign abdomen. Blood cultures negative at 48 hours. Abdominal fluid cultures pending. Infectious disease was consulted. Recommended to attempt to obtain source control through drainage. However, Dr. Morales notes that the fluid collections are quite small and may not be amenable to drainage. Interventional radiology was consulted; appreciate their assistance. They were able to drain a fluid collection today for culture. ID recommends continuing IV Zosyn for a minimum 10 days if source control is not assured. Currently Day #2. (3) Pneumonia Qualifiers: Laterality: right Lung location: lower lobe of lung Is this a current diagnosis for this admission?: No Plan: Ruled out. Do not think the patient has pneumonia at this time. He has clear lung sounds, maintains oxygen saturations while lying supine on room air, and does not evidenced tachypnea or increased work of breathing. CT chest shows right mild to moderate pleural effusion with consolidation; slightly worsened from imaging during his prior admission. He is maintaining oxygen saturations of 100% while on room air. He does admit to fevers and night sweats. He does report a productive cough of thin, clear, sputum. Sputum culture during previous admission revealed pansensitive E. coli. Continue as needed nebulizer treatments. Incentive spirometer and flutter valve to bedside. (4) Anemia Qualifiers: Anemia type: iron deficiency Iron deficiency anemia type: unspecified iron deficiency Qualified Code(s): D50.9 - Iron deficiency anemia, unspecified Is this a current diagnosis for this admission?: Yes Plan: Likely multifactorial secondary to prolonged acute illness, multiple surgeries, and subsequent poor p.o intake, and underlying poor nutritional status secondary to alcohol dependence. Anemia panel confirms iron deficiency. Continue iron supplementation Continue Multivitamin, folic acid, thiamine. Follow-up CBC. (5) Pancreatitis Qualifiers: Pancreatitis type: alcohol induced Is this a current diagnosis for this admission?: Yes Plan: The patient's lipase is elevated to 1173-> 1152 CT abdomen is negative for acute pancreatitis, pseudocyst, or abscesses. Patient denies abdominal discomfort, nausea, vomiting. Does report right flank pain that worsened w/ RUQ light palpation; no epigastric tenderness. He reports that he is taking adequate p.o. intake. We will place patient on a soft, low residue, diet. Continue generous IV fluids. Judicious use of analgesics. Antiemetics as needed. (6) Alcohol dependence Qualifiers: Substance use status: uncomplicated Qualified Code(s): F10.20 - Alcohol dependence, uncomplicated Is this a current diagnosis for this admission?: Yes Plan: Patient with history of alcohol dependence; reports his last alcohol intake was 02/25/2020. EtOH negative at this admission. He did have a difficult time last admission with delirium treatments. Monitor closely for evidence of alcohol withdrawal. PRN Ativan is available. Multivitamin, thiamine, folic acid supplementation. (7) Hepatomegaly Is this a current diagnosis for this admission?: Yes Plan: Hepatomegaly on CT imaging. LFTs benign. Right upper quadrant exquisitely tender. Hepatitis negative. - Time Time Spent with patient: 35 or more minutes Medications reviewed and adjusted accordingly: Yes Anticipated discharge: Home with Homehealth
[2020-03-18] MEDS: ACETAMINOPHEN 325 MG TABLET PO PRN (21:21)
[2020-03-18] MEDS: LORAZEPAM INJ 2 MG/1 ML VIAL IV PRN (21:25)
[2020-03-18] MEDS: ARIPIPRAZOLE 5 MG TABLET PO SCH (23:09)
[2020-03-19] MEDS: NORMAL SALINE 1000 ML 1,000 ML IV PRN ×3 (04:00→23:05)
[2020-03-19] MEDS: PANTOPRAZOLE SODIUM 40 MG TABLET.DR PO SCH (05:15)
[2020-03-19] MEDS: PIPERACILLIN SODIUM/TAZOBACTAM 3.375 GM in NORMAL SALINE 100 ML IV SCH ×4 (05:15→23:04)
[2020-03-19] MEDS: FERROUS SULFATE 325 MG TABLET PO SCH ×2 (10:09→17:46)
[2020-03-19] MEDS: FOLIC ACID 1 MG TABLET PO SCH (10:09)
[2020-03-19] MEDS: METOPROLOL TARTRATE 25 MG TABLET PO SCH ×2 (10:09→21:02)
[2020-03-19] MEDS: MULTIVITAMIN TABLET PO SCH (10:09)
[2020-03-19] MEDS: THIAMINE HCL 100 MG TABLET PO SCH (10:09)
--- NOTE | 2020-03-19 12:49 | PDOC PROGRESS REPORT ---
Subjective Progress Note for:: 03/19/20 Subjective:: No adverse events overnight. No new complaints. He still has a little bit of abdominal pain. No nausea or vomiting. Had some elevated temperature overnight but no outright fever. Reason For Visit: PANCREATITIS,PNEUMONIA,FEVER Physical Exam Vital Signs: Temp Pulse Resp BP Pulse Ox 98.1 F 114 H 18 138/85 H 95 03/19/20 07:49 03/19/20 07:49 03/19/20 07:49 03/19/20 07:49 03/19/20 07:49 Intake & Output 03/18/20 03/19/20 03/20/20 06:59 06:59 06:59 Intake Total 6788 5754 Output Total 1879 2900 Balance 4913 2854 Weight 103.6 kg 105.1 kg General appearance: PRESENT: no acute distress, cooperative, obese, well- developed, well-nourished Respiratory exam: PRESENT: clear to auscultation daisy, symmetrical, unlabored. ABSENT: rales, rhonchi, wheezes Cardiovascular exam: PRESENT: RRR, +S1, +S2. ABSENT: diastolic murmur, rubs, systolic murmur Vascular exam: PRESENT: normal capillary refill GI/Abdominal exam: PRESENT: normal bowel sounds, soft, tenderness, and a binder and bandage looks clean. ABSENT: distended, guarding, mass, organolmegaly, rebound Extremities exam: PRESENT: full ROM. ABSENT: calf tenderness, clubbing, pedal edema Neurological exam: PRESENT: alert, awake, oriented to person, oriented to place, oriented to time, oriented to situation Psychiatric exam: PRESENT: appropriate affect, normal mood. Skin exam: PRESENT: dry, intact, warm. ABSENT: cyanosis, rash Results Laboratory Results: 03/18/20 06:19 03/18/20 06:19 03/18/20 23:15 Sputum Gram Stain - Final 03/18/20 23:15 Sputum Sputum Culture - Final Impressions: Abdomen/Pelvis CT 03/16/20 00:00 IMPRESSION: 1. Since the previous examination dated 03/03/2020, new finding of mesh in the lower anterior abdomen which extends from the right to the left. A new small collection of fluid lies anterior to the mesh in the left lower quadrant of the abdomen. No foci of air within the collection. 2. A new small collection of fluid lateral and adjacent to the wall of the ascending colon-cecum in the right para colonic gutter. The possibility of a small abscess is not entirely excluded. Correlation suggested. 3. Mild diffuse thickening of the wall of the descending colon and the sigmoid colon. These findings may be on an inflammatory basis. 4. The right renal mass is unchanged in appearance. 5. Status post appendectomy. Chest X-Ray 03/16/20 12:14 IMPRESSION: Low lung volumes without focal airspace disease or other evidence of acute intrathoracic process. Chest/Abdomen CTA 03/16/20 13:01 IMPRESSION: 1. Suboptimal and incomplete opacification of the pulmonary vasculature limits the examination. It is difficult to exclude acute pulmonary emboli. No evidence for saddle pulmonary emboli. 2. Mild to moderate right pleural effusion. Right lower lobe consolidation with associated air bronchograms may be on the basis of infiltrate/atelectasis. Drainage Catheter Insertion 03/18/20 00:00 IMPRESSION: Small amount of cloudy fluid was removed from the anterior abdominal wall collection as described. No evidence of purulent material. The fluid was largely serosanguineous. Assessment and Plan - Diagnosis (1) Abdominal abscess Is this a current diagnosis for this admission?: Yes Plan: CT of the abdomen and pelvis with various fluid collections near mesh and ascending colon. Surgery is consulted; appreciate Dr. Anderson evaluation. He does not feel his febrile illness to be related to his abdominal surgeries at this time as he has a benign abdomen. Blood cultures negative at 48 hours. Abdominal fluid cultures pending. Infectious disease was consulted. Recommended to attempt to obtain source control through drainage. However, Dr. Morales notes that the fluid collections are quite small and may not be amenable to drainage. Interventional radiology was consulted; appreciate their assistance. They were able to drain a fluid collection for culture. ID recommends continuing IV Zosyn for a minimum 10 days if source control is not assured. Currently Day #3. (2) Alcohol dependence Qualifiers: Substance use status: uncomplicated Qualified Code(s): F10.20 - Alcohol dependence, uncomplicated Is this a current diagnosis for this admission?: Yes Plan: Patient with history of alcohol dependence; reports his last alcohol intake was 02/25/2020. EtOH negative at this admission. He did have a difficult time last admission with delirium treatments. Monitor closely for evidence of alcohol withdrawal. PRN Ativan is available. Multivitamin, thiamine, folic acid supplementation. (3) Anemia Qualifiers: Anemia type: iron deficiency Iron deficiency anemia type: unspecified iron deficiency Qualified Code(s): D50.9 - Iron deficiency anemia, unspecified Is this a current diagnosis for this admission?: Yes Plan: Likely multifactorial secondary to prolonged acute illness, multiple surgeries, and subsequent poor p.o intake, and underlying poor nutritional status secondary to alcohol dependence. Anemia panel confirms iron deficiency. Continue iron supplementation Continue Multivitamin, folic acid, thiamine. Follow-up CBC. (4) Fever Qualifiers: Fever type: unspecified Qualified Code(s): R50.9 - Fever, unspecified Is this a current diagnosis for this admission?: Yes Plan: Around the abdominal mesh/ascending colon concerning for abscess formation. Likely secondary to fluid collection. CT chest shows right pleural effusion and consolidation; atelectasis versus pneumonia. He had similar findings on CT abdomen during his last admission, although, today's findings are slightly worsened. CT of the abdomen and pelvis with various fluid collections; likely related to his prior surgery. Surgery is consulted; appreciate Dr. Anderson evaluation. He does not feel his febrile illness to be related to his abdominal surgeries at this time as he has a benign abdomen. Blood cultures have no growth at 48-72 hours Sputum cultures negative thus far Abdominal fluid culture pending. Continue IV fluids. Continue IV Zosyn; will adjust antibiotics as clinical picture dictates. Infectious disease was consulted; appreciate Dr. Morales's recommendations. (5) Pancreatitis Qualifiers: Pancreatitis type: alcohol induced Is this a current diagnosis for this admission?: Yes Plan: CT abdomen is negative for acute pancreatitis, pseudocyst, or abscesses. We will place patient on a soft, low residue, diet. Continue generous IV fluids. Judicious use of analgesics. Antiemetics as needed. - Time Time Spent with patient: 15-24 minutes
[2020-03-19] MEDS: ARIPIPRAZOLE 5 MG TABLET PO SCH (21:02)
[2020-03-19] MEDS: DIPHENHYDRAMINE HCL 25 MG CAPSULE PO SCH (21:02)
[2020-03-19] MEDS: GUAIFENESIN SYRP 200 MG/10 ML UDC PO PRN (22:19)
[2020-03-20] MEDS: PANTOPRAZOLE SODIUM 40 MG TABLET.DR PO SCH (05:06)
[2020-03-20] MEDS: PIPERACILLIN SODIUM/TAZOBACTAM 3.375 GM in NORMAL SALINE 100 ML IV SCH ×4 (05:07→23:08)
[2020-03-20] MEDS: NORMAL SALINE 1000 ML 1,000 ML IV PRN (06:58)
[2020-03-20 09:09] LABS: HEMOGLOBIN 8.9 g/dL (13.5-17.0); MEAN CORPUSCULAR HEMOGLOBIN 27.1 pg (27.0-33.4); MEAN CORPUSCULAR HGB CONC 33.1 g/dL (32.0-36.0); MEAN CORPUSCULAR VOLUME 82 fl (80-97); PLATELET COUNT 294 10^3/uL (150-450); RED BLOOD COUNT 3.29 10^6/uL (4.35-5.55); RED CELL DISTRIBUTION WIDTH 14.2 % (11.5-14.0); WHITE BLOOD COUNT 3.5 10^3/uL (4.0-10.5)
[2020-03-20] MEDS: FOLIC ACID 1 MG TABLET PO SCH (09:15)
[2020-03-20] MEDS: THIAMINE HCL 100 MG TABLET PO SCH (09:15)
[2020-03-20] MEDS: FERROUS SULFATE 325 MG TABLET PO SCH ×2 (09:15→17:43)
[2020-03-20] MEDS: MULTIVITAMIN TABLET PO SCH (09:15)
[2020-03-20] MEDS: METOPROLOL TARTRATE 25 MG TABLET PO SCH ×2 (09:16→21:02)
[2020-03-20 09:32] LABS: ANION GAP 11 (5-19); BLOOD UREA NITROGEN 3 mg/dL (7-20); CALCIUM 8.5 mg/dL (8.4-10.2); CARBON DIOXIDE 21 mmol/L (22-30); CHLORIDE 104 mmol/L (98-107); GLUCOSE 141 mg/dL (75-110)
--- NOTE | 2020-03-20 11:31 | PDOC PROGRESS REPORT ---
Subjective Progress Note for:: 03/20/20 Subjective:: No adverse events overnight. Chief complaint today is that his incision was itching. He is not complaining of any abdominal pain. He has been eating without any abdominal pain. Urine output is been excellent. Vital signs been stable. Reason For Visit: PANCREATITIS,PNEUMONIA,FEVER Physical Exam Vital Signs: Temp Pulse Resp BP Pulse Ox 98.9 F 118 H 19 140/65 H 95 03/20/20 07:20 03/20/20 07:20 03/20/20 07:20 03/20/20 07:20 03/20/20 07:20 Intake & Output 03/19/20 03/20/20 03/21/20 06:59 06:59 06:59 Intake Total 5754 5833 Output Total 2900 9895 Balance 2854 3438 Weight 105.1 kg 104.3 kg General appearance: PRESENT: no acute distress, cooperative, obese, well- developed, well-nourished Respiratory exam: PRESENT: clear to auscultation daisy, symmetrical, unlabored. ABSENT: rales, rhonchi, wheezes Cardiovascular exam: PRESENT: RRR, +S1, +S2. ABSENT: diastolic murmur, rubs, systolic murmur Vascular exam: PRESENT: normal capillary refill GI/Abdominal exam: PRESENT: normal bowel sounds, soft, tenderness, and a binder and bandage looks clean. ABSENT: distended, guarding, mass, organolmegaly, re bound Extremities exam: PRESENT: full ROM. ABSENT: calf tenderness, clubbing, pedal edema Neurological exam: PRESENT: alert, awake, oriented to person, oriented to place, oriented to time, oriented to situation Psychiatric exam: PRESENT: appropriate affect, normal mood. Skin exam: PRESENT: dry, intact, warm. ABSENT: cyanosis, rash Results Laboratory Results: 03/20/20 08:47 03/20/20 08:47 03/20/20 03/20/20 08:47 08:47 WBC 3.5 L RBC 3.29 L Hgb 8.9 L Hct 27.0 L MCV 82 MCH 27.1 MCHC 33.1 RDW 14.2 H Plt Count 294 Sodium 136.1 L Potassium 4.0 Chloride 104 Carbon Dioxide 21 L Anion Gap 11 BUN 3 L Creatinine 0.44 L Est GFR ( Amer) > 60 Glucose 141 H Calcium 8.5 Lipase 583.5 H 03/18/20 23:15 Sputum Gram Stain - Final 03/18/20 23:15 Sputum Sputum Culture - Final Impressions: Abdomen/Pelvis CT 03/16/20 00:00 IMPRESSION: 1. Since the previous examination dated 03/03/2020, new finding of mesh in the lower anterior abdomen which extends from the right to the left. A new small collection of fluid lies anterior to the mesh in the left lower quadrant of the abdomen. No foci of air within the collection. 2. A new small collection of fluid lateral and adjacent to the wall of the ascending colon-cecum in the right para colonic gutter. The possibility of a small abscess is not entirely excluded. Correlation suggested. 3. Mild diffuse thickening of the wall of the descending colon and the sigmoid colon. These findings may be on an inflammatory basis. 4. The right renal mass is unchanged in appearance. 5. Status post appendectomy. Chest X-Ray 03/16/20 12:14 IMPRESSION: Low lung volumes without focal airspace disease or other evidence of acute intrathoracic process. Chest/Abdomen CTA 03/16/20 13:01 IMPRESSION: 1. Suboptimal and incomplete opacification of the pulmonary vasculature limits the examination. It is difficult to exclude acute pulmonary emboli. No evidence for saddle pulmonary emboli. 2. Mild to moderate right pleural effusion. Right lower lobe consolidation with associated air bronchograms may be on the basis of infiltrate/atelectasis. Drainage Catheter Insertion 03/18/20 00:00 IMPRESSION: Small amount of cloudy fluid was removed from the anterior abdominal wall collection as described. No evidence of purulent material. The fluid was largely serosanguineous. Assessment and Plan - Diagnosis (1) Abdominal abscess Is this a current diagnosis for this admission?: Yes Plan: CT of the abdomen and pelvis with various fluid collections near mesh and asce nding colon. Surgery is consulted; appreciate Dr. Anderson evaluation. He does not feel his febrile illness to be related to his abdominal surgeries at this time as he has a benign abdomen. Blood cultures negative at 72 hours. Abdominal fluid cultures pending and are negative thus far. Infectious disease was consulted. Recommended to attempt to obtain source control through drainage. However, Dr. Morales notes that the fluid collections are quite small and may not be amenable to drainage. Interventional radiology was consulted; appreciate their assistance. They were able to drain a small fluid collection for culture. ID recommends continuing IV Zosyn for a minimum 10 days if source control is not assured. Currently Day #4. (2) Alcohol dependence Qualifiers: Substance use status: uncomplicated Qualified Code(s): F10.20 - Alcohol dependence, uncomplicated Is this a current diagnosis for this admission?: Yes Plan: Patient with history of alcohol dependence; reports his last alcohol intake was 02/25/2020. EtOH negative at this admission. He did have a difficult time last admission with delirium tremens. Monitor closely for evidence of alcohol withdrawal. PRN Ativan is available. Multivitamin, thiamine, folic acid supplementation. (3) Anemia Qualifiers: Anemia type: iron deficiency Iron deficiency anemia type: unspecified iron deficiency Qualified Code(s): D50.9 - Iron deficiency anemia, unspecified Is this a current diagnosis for this admission?: Yes Plan: Likely multifactorial secondary to prolonged acute illness, multiple surgeries, and subsequent poor p.o intake, and underlying poor nutritional status secondary to alcohol dependence. Anemia panel confirms iron deficiency. Continue iron supplementation Continue Multivitamin, folic acid, thiamine. Follow-up CBC. (4) Fever Qualifiers: Fever type: unspecified Qualified Code(s): R50.9 - Fever, unspecified Is this a current diagnosis for this admission?: Yes Plan: Around the abdominal mesh/ascending colon concerning for abscess formation. Likely secondary to fluid collection. CT chest shows right pleural effusion and consolidation; atelectasis versus pneumonia. He had similar findings on CT abdomen during his last admission, although, today's findings are slightly worsened. CT of the abdomen and pelvis with various fluid collections; likely related to his prior surgery. Surgery is consulted; appreciate Dr. Anderson evaluation. He does not feel his febrile illness to be related to his abdominal surgeries at this time as he has a benign abdomen. Blood cultures have no growth at 72 hours Sputum cultures negative thus far Abdominal fluid culture pending, negative thus far. Continue IV fluids. Continue IV Zosyn; will adjust antibiotics as clinical picture dictates. Infectious disease was consulted; appreciate Dr. Morales's recommendations. (5) Pancreatitis Qualifiers: Pancreatitis type: alcohol induced Acute pancreatitis complication: no infection or necrosis Is this a current diagnosis for this admission?: Yes Plan: Improving with IV fluids, now able to eat without pain. - Time Time Spent with patient: 15-24 minutes
[2020-03-20] MEDS: DOCUSATE SODIUM 100 MG CAPSULE PO SCH (17:43)
[2020-03-20] MEDS: GUAIFENESIN SYRP 200 MG/10 ML UDC PO PRN (20:59)
[2020-03-20] MEDS: ARIPIPRAZOLE 5 MG TABLET PO SCH (21:01)
[2020-03-20] MEDS: DIPHENHYDRAMINE HCL 25 MG CAPSULE PO SCH (21:02)
[2020-03-20] MEDS: MORPHINE SULFATE 10 MG/ML INJ IV PRN (21:11)
[2020-03-21] MEDS: GUAIFENESIN SYRP 200 MG/10 ML UDC PO PRN ×3 (02:17→22:20)
[2020-03-21] MEDS: MORPHINE SULFATE 10 MG/ML INJ IV PRN ×3 (02:41→23:30)
[2020-03-21] MEDS: PANTOPRAZOLE SODIUM 40 MG TABLET.DR PO SCH (05:53)
[2020-03-21] MEDS: PIPERACILLIN SODIUM/TAZOBACTAM 3.375 GM in NORMAL SALINE 100 ML IV SCH ×4 (05:54→23:30)
[2020-03-21] MEDS: MULTIVITAMIN TABLET PO SCH (09:49)
[2020-03-21] MEDS: METOPROLOL TARTRATE 25 MG TABLET PO SCH ×2 (09:49→21:54)
[2020-03-21] MEDS: DOCUSATE SODIUM 100 MG CAPSULE PO SCH ×2 (09:49→18:08)
[2020-03-21] MEDS: FOLIC ACID 1 MG TABLET PO SCH (09:49)
[2020-03-21] MEDS: FERROUS SULFATE 325 MG TABLET PO SCH ×2 (09:49→18:08)
[2020-03-21] MEDS: THIAMINE HCL 100 MG TABLET PO SCH (09:49)
--- NOTE | 2020-03-21 15:18 | PDOC PROGRESS REPORT ---
Subjective Progress Note for:: 03/21/20 Subjective:: No adverse events overnight. No new complaints. No abdominal pain. No fevers. Appetite has been good. I talked to him about the possibility of doing antibiotics at home. We talked about the process a little bit I explained that he would have to have someone at home that can do it. He said he believed his could do it. We were not sure if his insurance would cover it so we got a case management consult. Reason For Visit: PANCREATITIS,PNEUMONIA,FEVER Physical Exam Vital Signs: Temp Pulse Resp BP Pulse Ox 97.7 F 107 H 18 129/71 H 94 03/21/20 07:33 03/21/20 07:33 03/21/20 07:33 03/21/20 07:33 03/21/20 07:33 Intake & Output 03/20/20 03/21/20 03/22/20 06:59 06:59 06:59 Intake Total 5833 3694 100 Output Total 2395 1000 Balance 3438 2694 100 Weight 104.3 kg 104.5 kg General appearance: PRESENT: no acute distress, cooperative, obese, well- developed, well-nourished Respiratory exam: PRESENT: clear to auscultation daisy, symmetrical, unlabored. ABSENT: rales, rhonchi, wheezes Cardiovascular exam: PRESENT: RRR, +S1, +S2. ABSENT: diastolic murmur, rubs, systolic murmur Vascular exam: PRESENT: normal capillary refill GI/Abdominal exam: PRESENT: normal bowel sounds, soft, tenderness, and a binder and bandage looks clean. ABSENT: distended, guarding, mass, organolmegaly, rebound Extremities exam: PRESENT: full ROM. ABSENT: calf tenderness, clubbing, pedal edema Neurological exam: PRESENT: alert, awake, oriented to person, oriented to place, oriented to time, oriented to situation Psychiatric exam: PRESENT: appropriate affect, normal mood. Skin exam: PRESENT: dry, intact, warm. ABSENT: cyanosis, rash Results Laboratory Results: 03/20/20 08:47 03/20/20 08:47 03/16/20 12:25 Blood Blood Culture - Final NO GROWTH IN 5 DAYS 03/16/20 12:10 Blood Blood Culture - Final NO GROWTH IN 5 DAYS Impressions: Abdomen/Pelvis CT 03/16/20 00:00 IMPRESSION: 1. Since the previous examination dated 03/03/2020, new finding of mesh in the lower anterior abdomen which extends from the right to the left. A new small collection of fluid lies anterior to the mesh in the left lower quadrant of the abdomen. No foci of air within the collection. 2. A new small collection of fluid lateral and adjacent to the wall of the ascending colon-cecum in the right para colonic gutter. The possibility of a small abscess is not entirely excluded. Correlation suggested. 3. Mild diffuse thickening of the wall of the descending colon and the sigmoid colon. These findings may be on an inflammatory basis. 4. The right renal mass is unchanged in appearance. 5. Status post appendectomy. Chest X-Ray 03/16/20 12:14 IMPRESSION: Low lung volumes without focal airspace disease or other evidence of acute intrathoracic process. Chest/Abdomen CTA 03/16/20 13:01 IMPRESSION: 1. Suboptimal and incomplete opacification of the pulmonary vasculature limits the examination. It is difficult to exclude acute pulmonary emboli. No evidence for saddle pulmonary emboli. 2. Mild to moderate right pleural effusion. Right lower lobe consolidation with associated air bronchograms may be on the basis of infiltrate/atelectasis. Drainage Catheter Insertion 03/18/20 00:00 IMPRESSION: Small amount of cloudy fluid was removed from the anterior abdominal wall collection as described. No evidence of purulent material. The fluid was largely serosanguineous. Assessment and Plan - Diagnosis (1) Abdominal abscess Is this a current diagnosis for this admission?: Yes Plan: CT of the abdomen and pelvis with various fluid collections near mesh and ascending colon. Surgery is consulted; appreciate Dr. Anderson evaluation. He does not feel his febrile illness to be related to his abdominal surgeries at this time as he has a benign abdomen. Blood cultures negative at 96 hours. Abdominal fluid cultures pending and are negative thus far. Infectious disease was consulted. Recommended to attempt to obtain source control through drainage. However, Dr. Morales notes that the fluid collections are quite small and may not be amenable to drainage. Interventional radiology was consulted; appreciate their assistance. They were able to drain a small fluid collection for culture. ID recommends continuing IV Zosyn for a minimum 14 days if source control is not assured. Currently Day #9. Checking to see if his insurance will pay to have this done at home. (2) Alcohol dependence Qualifiers: Substance use status: uncomplicated Qualified Code(s): F10.20 - Alcohol dependence, uncomplicated Is this a current diagnosis for this admission?: Yes Plan: Patient with history of alcohol dependence; reports his last alcohol intake was 02/25/2020. EtOH negative at this admission. He did have a difficult time last admission with delirium tremens. Monitor closely for evidence of alcohol withdrawal. No sign of that this far into the hospitalization. PRN Ativan is available. Multivitamin, thiamine, folic acid supplementation. (3) Anemia Qualifiers: Anemia type: iron deficiency Iron deficiency anemia type: unspecified iron deficiency Qualified Code(s): D50.9 - Iron deficiency anemia, unspecified Is this a current diagnosis for this admission?: Yes Plan: Likely multifactorial secondary to prolonged acute illness, multiple surgeries, and subsequent poor p.o intake, and underlying poor nutritional status secondary to alcohol dependence. Anemia panel confirms iron deficiency. Continue iron supplementation Continue Multivitamin, folic acid, thiamine. Follow-up CBC. (4) Fever Qualifiers: Fever type: unspecified Qualified Code(s): R50.9 - Fever, unspecified Is this a current diagnosis for this admission?: Yes Plan: Around the abdominal mesh/ascending colon concerning for abscess formation. Likely secondary to fluid collection. CT chest shows right pleural effusion and consolidation; atelectasis versus pneumonia. He had similar findings on CT abdomen during his last admission, although, today's findings are slightly worsened. CT of the abdomen and pelvis with various fluid collections; likely related to his prior surgery. Surgery is consulted; appreciate Dr. Anderson evaluation. He does not feel his febrile illness to be related to his abdominal surgeries at this time as he has a benign abdomen. Blood cultures have no growth at 96 hours Sputum cultures negative thus far Abdominal fluid culture pending, negative thus far. Continue IV fluids. Continue IV Zosyn. Cultures have been negative so we will continue to treat with this because he has responded well to it. Infectious disease was consulted; appreciate Dr. Morales's recommendations. (5) Pancreatitis Qualifiers: Pancreatitis type: alcohol induced Acute pancreatitis complication: no infection or necrosis Is this a current diagnosis for this admission?: Yes Plan: Resolved - Time Time Spent with patient: 15-24 minutes
[2020-03-21] MEDS: DIPHENHYDRAMINE HCL 25 MG CAPSULE PO SCH (21:54)
[2020-03-21] MEDS: ARIPIPRAZOLE 5 MG TABLET PO SCH (21:54)
[2020-03-22] MEDS: MORPHINE SULFATE 10 MG/ML INJ IV PRN ×2 (03:42→10:51)
[2020-03-22] MEDS: PIPERACILLIN SODIUM/TAZOBACTAM 3.375 GM in NORMAL SALINE 100 ML IV SCH ×2 (05:55→11:01)
[2020-03-22] MEDS: PANTOPRAZOLE SODIUM 40 MG TABLET.DR PO SCH (05:55)
[2020-03-22] MEDS: DOCUSATE SODIUM 100 MG CAPSULE PO SCH (10:36)
[2020-03-22] MEDS: FOLIC ACID 1 MG TABLET PO SCH (10:36)
[2020-03-22] MEDS: METOPROLOL TARTRATE 25 MG TABLET PO SCH (10:36)
[2020-03-22] MEDS: MULTIVITAMIN TABLET PO SCH (10:37)
[2020-03-22] MEDS: THIAMINE HCL 100 MG TABLET PO SCH (10:37)
[2020-03-22] MEDS: FERROUS SULFATE 325 MG TABLET PO SCH (10:37)
[2020-03-22 12:10] VITALS: BP 119/74
--- NOTE | 2020-03-22 12:29 | PDOC PROGRESS REPORT ---
Subjective Progress Note for:: 03/22/20 Reason For Visit: PANCREATITIS,PNEUMONIA,FEVER 03/22/2020 She was admitted approximately 6 days ago with an infection of the abdomen. Patient had recently been admitted for a complicated appendicitis. Physical Exam Vital Signs: Temp Pulse Resp BP Pulse Ox 98.3 F 103 H 18 119/74 95 03/22/20 11:47 03/22/20 11:47 03/22/20 11:47 03/22/20 11:47 03/22/20 11:47 Intake & Output 03/21/20 03/22/20 03/23/20 06:59 06:59 06:59 Intake Total 3694 3885 100 Output Total 1000 275 Balance 2694 3610 100 Weight 104.5 kg 103.2 kg General appearance: PRESENT: no acute distress - Sitting up in bed talking about going home Respiratory exam: PRESENT: clear to auscultation daisy. ABSENT: rales, rhonchi, wheezes Cardiovascular exam: PRESENT: RRR. ABSENT: diastolic murmur, rubs, systolic murmur GI/Abdominal exam: PRESENT: other - Incision is clean and dry with no sign of drainage. Had his first surgery and February 24, second surgery March 06 Neurological exam: PRESENT: alert, awake, oriented to person, oriented to place, oriented to time, oriented to situation, CN II-XII grossly intact. ABSENT: motor sensory deficit Psychiatric exam: PRESENT: appropriate affect, normal mood. ABSENT: homicidal ideation, suicidal ideation Results Laboratory Results: 03/20/20 08:47 03/20/20 08:47 03/18/20 12:34 Abdominal Fluid Gram Stain - Final 03/18/20 12:34 Abdominal Fluid Body Fluid Culture - Final NO AEROBIC OR ANAEROBIC ORGANISMS RECOVERED 03/16/20 12:25 Blood Blood Culture - Final NO GROWTH IN 5 DAYS 03/16/20 12:10 Blood Blood Culture - Final NO GROWTH IN 5 DAYS Impressions: Abdomen/Pelvis CT 03/16/20 00:00 IMPRESSION: 1. Since the previous examination dated 03/03/2020, new finding of mesh in the lower anterior abdomen which extends from the right to the left. A new small collection of fluid lies anterior to the mesh in the left lower quadrant of the abdomen. No foci of air within the collection. 2. A new small collection of fluid lateral and adjacent to the wall of the ascending colon-cecum in the right para colonic gutter. The possibility of a small abscess is not entirely excluded. Correlation suggested. 3. Mild diffuse thickening of the wall of the descending colon and the sigmoid colon. These findings may be on an inflammatory basis. 4. The right renal mass is unchanged in appearance. 5. Status post appendectomy. Chest X-Ray 03/16/20 12:14 IMPRESSION: Low lung volumes without focal airspace disease or other evidence of acute intrathoracic process. Chest/Abdomen CTA 03/16/20 13:01 IMPRESSION: 1. Suboptimal and incomplete opacification of the pulmonary vasculature limits the examination. It is difficult to exclude acute pulmonary emboli. No evidence for saddle pulmonary emboli. 2. Mild to moderate right pleural effusion. Right lower lobe consolidation with associated air bronchograms may be on the basis of infiltrate/atelectasis. Drainage Catheter Insertion 03/18/20 00:00 IMPRESSION: Small amount of cloudy fluid was removed from the anterior abdominal wall collection as described. No evidence of purulent material. The fluid was largely serosanguineous. Assessment and Plan - Diagnosis (1) Abdominal abscess Is this a current diagnosis for this admission?: Yes (2) Alcohol dependence Qualifiers: Substance use status: uncomplicated Qualified Code(s): F10.20 - Alcohol de pendence, uncomplicated Is this a current diagnosis for this admission?: Yes (3) Anemia Qualifiers: Anemia type: iron deficiency Iron deficiency anemia type: unspecified iron deficiency Qualified Code(s): D50.9 - Iron deficiency anemia, unspecified Is this a current diagnosis for this admission?: Yes (4) Fever Qualifiers: Fever type: unspecified Qualified Code(s): R50.9 - Fever, unspecified Is this a current diagnosis for this admission?: Yes (5) Pancreatitis Qualifiers: Pancreatitis type: alcohol induced Acute pancreatitis complication: no infection or necrosis Is this a current diagnosis for this admission?: Yes (6) Pneumonia Qualifiers: Laterality: right Lung location: lower lobe of lung Is this a current diagnosis for this admission?: No (7) Wound Is this a current diagnosis for this admission?: Yes - Plan Summary Summary: 03/22/2020 Vital signs are stable patient is afebrile 98 2 pulse 107 blood pressure 130/71 Patient will need 9 more days of IV Zosyn Patient has not no complaints asking to go home Lipase is down to 583 Cultures negative x5 days fluid negative x3 days Surgery signed off on 03/17/2020 recommended that the staple stay intact for at least another 7 days Patient will need to see surgery in the office for follow-up sometime after March 24 Patient has PICC line in place - Time Time Spent with patient: 35 or more minutes
[2020-03-22] MEDS ORDERED: NORMAL SALINE 10 ML SDV (AFTER EACH USE) IV PRN (14:30)
--- NOTE | 2020-03-22 14:34 | RADIOLOGY REPORT (SQ) ---
EXAM DESCRIPTION: PICC INSERTION IMAGES COMPLETED DATE/TIME: 03/22/2020 2:07 pm REASON FOR STUDY: for home antibiotics COMPARISON: None. FLUOROSCOPY TIME: 1 minutes 10 seconds of fluoroscopy was used. 1 images saved to PACS. TECHNIQUE: Fluoroscopic and ultrasound guided PICC placement. LIMITATIONS: None. PROCEDURE: After written consent and assessment were obtained, the patient was brought into the fluo roscopy room and placed supine on the table. Ultrasound evaluation of potential access sites were per formed. After successfully identifying a patent left basilic vein, the left arm was prepped and drape d in a sterile fashion along with the ultrasound probe. The entry site was anesthetized with 1% lidoc betito. A 21 gauge 7 cm needle was advanced through the skin and into the basilic vein under live ultra sound guidance. An ultrasound image was saved to PACS confirming access site. A .018 guide wire was then inserted through the needle and into the venous system. The needle was then removed and an 11 b lade scalpel was used to make a 1cm skin incision. A 5 fr peel-away sheath was advanced over the wir e and into the venous system. A measurement was then made using the existing wire and live fluoroscop ic guidance. The wire was then removed and trimmed. The PICC was advanced through the peel-away sheat h and into the venous system. The peel-away sheath was removed and the catheter was adhered to the pa tients arm with a stat lock. The catheter was then aspirated and flushed and a sterile bandage was pl aced over the access site. A fluoroscopic spot image was saved to PACS confirming the catheter tip w ithin the superior vena cava. IMPRESSION: SUCCESSFUL PLACEMENT OF A 5 FR DUAL LUMEN 41 CM PICC IN THE LEFT BASILIC VEIN. COMMENT: Patient medication list reviewed: Yes- Quality ID# 130:Eligible professional attests to doc umenting in the medical record they obtained, updated, or reviewed the patient's current medications. . Quality ID 145: Final reports for procedures using fluoroscopy that document radiation exposure laura obdulio, or exposure time and number of fluorographic images (if radiation exposure indices are not avail able) Quality ID #76: The patient was prepped and draped using maximum sterile barrier technique including cap, mask, sterile gown, sterile gloves, a large sterile sheet, hand hygiene, and 2% Chlorhexidine fo r cutaneous antisepsis. When ultrasound is used, sterile ultrasound techniques are followed requiring sterile gel and sterile probes. TECHNICAL DOCUMENTATION: JOB ID: [id number] 2010 [employer]- All Rights Reserved rev-03/28 Reading location - IP/workstation name: [email or web address]
[2020-03-22] MEDS: GUAIFENESIN SYRP 200 MG/10 ML UDC PO PRN (14:41)
[2020-03-22] MEDS ORDERED: NORMAL SALINE 10 ML SDV (SCHEDULED) IV SCH (22:00)
--- NOTE | 2020-03-23 16:09 | PDOC DISCHARGE SUMMARY ---
Impression - Admit/DC Date/PCP Admission Date/Primary Care Provider: 03/16/20 18:13 Discharge Date: 03/22/20 - Discharge Diagnosis (1) Abdominal abscess Is this a current diagnosis for this admission?: Yes (2) Alcohol dependence Is this a current diagnosis for this admission?: Yes (3) Anemia Is this a current diagnosis for this admission?: Yes (4) Fever Is this a current diagnosis for this admission?: Yes (5) Pancreatitis Is this a current diagnosis for this admission?: Yes (6) Pneumonia Is this a current diagnosis for this admission?: No (7) Wound Is this a current diagnosis for this admission?: Yes - Assessment Summary: 03/22/2020 Vital signs are stable patient is afebrile 98 2 pulse 107 blood pressure 130/71 Patient will need 9 more days of IV Zosyn Patient has not no complaints asking to go home Lipase is down to 583 Cultures negative x5 days fluid negative x3 days Surgery signed off on 03/17/2020 recommended that the staple stay intact for at least another 7 days Patient will need to see surgery in the office for follow-up sometime after March 24 Patient has PICC line in place Patient was admitted on 03/16/2020 with fever recent admission to the surgical service for complicated appendicitis requiring open laparotomy and washout followed by prolonged ICU admission related to DTs and wound dehiscence. The time of that discharge patient had a fever of 100.4 and 101.6 within 48 hours of discharge. Sent home on clarithromycin and amoxicillin Was admitted on this occasion through the emergency room with a temperature of 103 a heart rate of 130 and appeared to be septic. CTA of the chest showed a right lower lobe consolidation CT of the abdomen showed fluid collections anterior and lateral to the abdominal mesh and changes of small fluid collection adjacent to the wall of the ascending colon with mild diffuse thickening of the descending colon and sigmoid colon. He was seen by surgery Dr. Anderson and he felt that the patient did not have an acute abdomen and believe the majority of the CT findings were related to multiple abdominal surgeries and did not indicate new or acute process Patient was admitted to the hospital by the hospitalist with IV Zosyn and further medical work-up concerning blood cultures and sputum cultures Surgery signed off 03/17/2020 with no recommendations concerning infection however they did recommend dry gauze dressing changes daily Interventional radiology performed a drainage of fluid collection near the mesh and ascending colon. It was largely serosanguineous with no evidence of purulent material however it was cloudy Infectious disease consulted by phone on 03/18/2020 and felt that the patient should continue Zosyn for a minimum of 2 weeks therapy PICC line was inserted on 03/22/2020 Was discharged home with PICC line and 9 more days of IV Zosyn. At the time of discharge his recent white count was 3500 Lipase is gone from 1152 down to 583 TSH normal 2.13 vitamin B12 normal 332 and folate normal at 14.9 Dr. louis also grossly normal hepatitis panel negative influenza panel negative SARS COVID PCR negative Culture no growth in 5 days body fluid culture no aerobic or anaerobic organisms recovered Gram stain negative She is to follow-up with general surgery end of this week for possible staple removal, with home health for dressing changes as well as IV Zosyn Gnosis #1 his mild pancreatitis #2 superficial wound infection and multiple fluid collections around the mesh concerning for abscesses - Additional Information Resuscitation Status: Full Code Discharge Diet: As Tolerated Discharge Activity: Balance Activity w/Rest, Bedrest, No Lifting Over 10 Pounds, No Lifting/Push/Pulling, No tub bath Referrals: BERLIN LOPEZ MD [ACTIVE STAFF] - 03/24/20 8:00 am (see 03/24 or Sunday 03/25. ) Prescriptions: Aripiprazole [Abilify 5 mg Tablet] 5 mg PO QHS 30 Days #30 tablet Ferrous Sulfate [Feosol 325 mg Tablet] 325 mg PO BIDPCBS 30 Days #60 tablet Folic Acid [Folvite 1 mg Tablet] 1 mg PO DAILY 30 Days #30 tablet Metoprolol Tartrate [Lopressor 25 mg Tablet] 12.5 mg PO Q12 60 Days #30 tablet Thiamine HCl [Thiamine 100 mg Tablet] 100 mg PO DAILY 30 Days #30 tablet Home Medications: Omeprazole 20 mg PO BID 02/25/20 Hydrocodone/Acetaminophen [[place] 10-325 mg Tablet] 1 tab PO Q6HP PRN #28 tablet 03/12/20 Acetaminophen [Tylenol 325 mg Tablet] 650 mg PO Q4HP PRN tablet 03/22/20 Aripiprazole [Abilify 5 mg Tablet] 5 mg PO QHS 30 Days #30 tablet 03/22/20 Diphenhydramine HCl [Benadryl 25 mg Capsule] 25 mg PO QHS capsule 03/22/20 Docusate Sodium [Colace 100 mg Capsule] 100 mg PO BID capsule 03/22/20 Ferrous Sulfate [Feosol 325 mg Tablet] 325 mg PO BIDPCBS 30 Days #60 tablet 03/22/20 Folic Acid [Folvite 1 mg Tablet] 1 mg PO DAILY 30 Days #30 tablet 03/22/20 Guaifenesin [Robitussin Syrup 200 mg/10 ml Ud Cup] 200 mg PO Q4HP PRN udc 03/22/20 Metoprolol Tartrate [Lopressor 25 mg Tablet] 12.5 mg PO Q12 60 Days #30 tablet 03/22/20 Multivitamin [Tab-A-Winifred (Multiple Vitamin) Tablet] 1 tab PO DAILY tablet 03/22/20 Piperacillin Sodium/Tazobactam [Zosyn Inj 3.375 gm Vial] 3.375 gm IV Q6 vial 03/22/20 Thiamine HCl [Thiamine 100 mg Tablet] 100 mg PO DAILY 30 Days #30 tablet 03/22/20 History of Present Illiness History of Present Illness: JUAN LOPEZ is a 40 year old male Physical Exam Vital Signs: Temp Pulse Resp BP Pulse Ox 98.3 F 112 H 18 119/74 95 03/22/20 16:09 03/22/20 16:09 03/22/20 16:09 03/22/20 16:09 03/22/20 16:09 Intake & Output 03/22/20 03/23/20 03/24/20 06:59 06:59 06:59 Intake Total 3885 1581 Output Total 879 520 Balance 3610 1061 Weight 103.2 kg Results Laboratory Results: WBC 3.5 10^3/uL (4.0-10.5) L 03/20/20 08:47 RBC 3.29 10^6/uL (4.35-5.55) L 03/20/20 08:47 Hgb 8.9 g/dL (13.5-17.0) L 03/20/20 08:47 Hct 27.0 % (37.9-51.0) L 03/20/20 08:47 MCV 82 fl (80-97) 03/20/20 08:47 MCH 27.1 pg (27.0-33.4) 03/20/20 08:47 MCHC 33.1 g/dL (32.0-36.0) 03/20/20 08:47 RDW 14.2 % (11.5-14.0) H 03/20/20 08:47 Plt Count 294 10^3/uL (150-450) 03/20/20 08:47 Lymph % (Auto) 25.4 % (13-45) 03/17/20 06:21 [place] % (Auto) 12.1 % (3-13) 03/17/20 06:21 Eos % (Auto) 2.5 % (0-6) 03/17/20 06:21 Baso % (Auto) 0.7 % (0-2) 03/17/20 06:21 Reticulocyte # 0.049 10^6/uL (0.028-0.122) 03/17/20 06:21 Absolute Neuts (auto) 3.2 10^3/uL (1.7-8.2) 03/17/20 06:21 Absolute Lymphs (auto) 1.4 10^3/uL (0.5-4.7) 03/17/20 06:21 Absolute Monos (auto) 0.7 10^3/uL (0.1-1.4) 03/17/20 06:21 Absolute Eos (auto) 0.1 10^3/uL (0.0-0.6) 03/17/20 06:21 Absolute Basos (auto) 0.0 10^3/uL (0.0-0.2) 03/17/20 06:21 Seg Neutrophils % 59.3 % (42-78) 03/17/20 06:21 ESR 110 mm/hr (0-15) H 03/16/20 23:48 Retic Count (auto) 1.36 % (0.66-2.85) 03/17/20 06:21 Sodium 136.1 mmol/L (137-145) L 03/20/20 08:47 Potassium 4.0 mmol/L (3.6-5.0) 03/20/20 08:47 Chloride 104 mmol/L (98-107) 03/20/20 08:47 Carbon Dioxide 21 mmol/L (22-30) L 03/20/20 08:47 Anion Gap 11 (5-19) 03/20/20 08:47 BUN 3 mg/dL (7-20) L 03/20/20 08:47 Creatinine 0.44 mg/dL (0.52-1.25) L 03/20/20 08:47 Est GFR ( Amer) > 60 (>60) 03/20/20 08:47 Est GFR (MDRD) Non-Af > 60 (>60) 03/20/20 08:47 Glucose 141 mg/dL (75-110) H 03/20/20 08:47 Hemoglobin A1c % 5.3 % (4.7-6.0) 03/17/20 06:21 Lactic Acid 1.4 mmol/L (0.7-2.1) 03/16/20 12:25 Calcium 8.5 mg/dL (8.4-10.2) 03/20/20 08:47 Iron 28.0 ug/dL (49-181) L 03/17/20 06:21 TIBC 263 ug/dL (250-450) 03/17/20 06:21 % Saturation 11 % 03/17/20 06:21 Ferritin 313.00 ng/mL (17.9-464.0) 03/17/20 06:21 Total Bilirubin 0.5 mg/dL (0.2-1.3) 03/18/20 06:19 Direct Bilirubin 0.0 mg/dL (0.0-0.4) 03/18/20 06:19 Neonat Total Bilirubin Not Reportable 03/18/20 06:19 Neonat Direct Bilirubin Not Reportable 03/18/20 06:19 Neonat Indirect Bili Not Reportable 03/18/20 06:19 AST 25 U/L (17-59) 03/18/20 06:19 ALT 26 U/L (<50) 03/18/20 06:19 Alkaline Phosphatase 101 U/L (38-126) 03/18/20 06:19 C-Reactive Protein 166.0 mg/L (<10.0) H 03/16/20 23:48 Total Protein 7.0 g/dL (6.3-8.2) 03/18/20 06:19 Albumin 3.0 g/dL (3.5-5.0) L 03/18/20 06:19 Lipase 583.5 U/L (23-300) H 03/20/20 08:47 Vitamin B12 332.0 pg/mL (239-931) 03/17/20 06:21 Folate 14.90 ng/mL (>2.76) 03/17/20 06:21 TSH 2.13 uIU/mL (0.47-4.68) 03/17/20 06:21 Urine Color YELLOW 03/16/20 13:10 Urine Appearance SLIGHTLY-CLOUDY 03/16/20 13:10 Urine pH 5.0 (5.0-9.0) 03/16/20 13:10 Ur Specific [place] 1.016 03/16/20 13:10 Urine Protein NEGATIVE mg/dL (NEGATIVE) 03/16/20 13:10 Urine Glucose (UA) NEGATIVE mg/dL (NEGATIVE) 03/16/20 13:10 Urine Ketones NEGATIVE mg/dL (NEGATIVE) 03/16/20 13:10 Urine Blood SMALL (NEGATIVE) H 03/16/20 13:10 Urine Nitrite NEGATIVE (NEGATIVE) 03/16/20 13:10 Urine Bilirubin NEGATIVE (NEGATIVE) 03/16/20 13:10 Urine Urobilinogen NEGATIVE mg/dL (<2.0) 03/16/20 13:10 Ur Leukocyte Esterase NEGATIVE (NEGATIVE) 03/16/20 13:10 Urine WBC (Auto) 1 /HPF 03/16/20 13:10 Urine RBC (Auto) 1 /HPF 03/16/20 13:10 U Hyaline Cast (Auto) 1 /LPF 03/16/20 13:10 Urine Bacteria (Auto) TRACE /HPF 03/16/20 13:10 Squamous Epi Cells Auto <1 /HPF 03/16/20 13:10 Granular Casts (Auto) 3 /LPF 03/16/20 13:10 Urine Mucus (Auto) OCC /LPF 03/16/20 13:10 Urine Ascorbic Acid NEGATIVE (NEGATIVE) 03/16/20 13:10 Serum Alcohol < 10 mg/dL (NONE DETECTED) 03/16/20 12:10 COVID-19 Source Cancelled 03/16/20 13:10 COVID-19 ([place]) Cancelled 03/16/20 13:10 Hepatitis A IgM Ab Negative (Negative) 03/17/20 06:21 Hep Bs Antigen Negative (Negative) 03/17/20 06:21 Hep B Core IgM Ab Negative (Negative) 03/17/20 06:21 Hepatitis C Antibody <0.1 s/co ratio (0.0-0.9) 03/17/20 06:21 Influenza A (Rapid) NEGATIVE (NEGATIVE) 03/16/20 13:10 Influenza B (Rapid) NEGATIVE (NEGATIVE) 03/16/20 13:10 SARS-CoV-2 (PCR) NEGATIVE (NEGATIVE) 03/16/20 13:10 Impressions: Abdomen/Pelvis CT 03/16/20 00:00 IMPRESSION: 1. Since the previous examination dated 03/03/2020, new finding of mesh in the lower anterior abdomen which extends from the right to the left. A new small collection of fluid lies anterior to the mesh in the left lower q uadrant of the abdomen. No foci of air within the collection. 2. A new small collection of fluid lateral and adjacent to the wall of the ascending colon-cecum in the right para colonic gutter. The possibility of a small abscess is not entirely excluded. Correlation suggested. 3. Mild diffuse thickening of the wall of the descending colon and the sigmoid colon. These findings may be on an inflammatory basis. 4. The right renal mass is unchanged in appearance. 5. Status post appendectomy. Chest X-Ray 03/16/20 12:14 IMPRESSION: Low lung volumes without focal airspace disease or other evidence of acute intrathoracic process. Chest/Abdomen CTA 03/16/20 13:01 IMPRESSION: 1. Suboptimal and incomplete opacification of the pulmonary vasculature limits the examination. It is difficult to exclude acute pulmonary emboli. No evidence for saddle pulmonary emboli. 2. Mild to moderate right pleural effusion. Right lower lobe consolidation with associated air bronchograms may be on the basis of infiltrate/atelectasis. Drainage Catheter Insertion 03/18/20 00:00 IMPRESSION: Small amount of cloudy fluid was removed from the anterior abdominal wall collection as described. No evidence of purulent material. The fluid was largely serosanguineous. PICC Line Insertion 03/22/20 00:00 IMPRESSION: SUCCESSFUL PLACEMENT OF A 5 FR DUAL LUMEN 41 CM PICC IN THE LEFT BASILIC VEIN. Stroke Is this a Stroke Patient?: No Acute Heart Failure - Is this a Heart Failure Patient?: No
== END 2020-03-22 16:32 | disposition home health service (06) | DRG 863 ==
LOC: ER 11:44 → EH 18:13 → 3S 20:14
PROVIDERS: ADMIT Internal Medicine; ATTEND Physician Assistant
PROC: 0W9G3ZX Drainage of Peritoneal Cavity, Percutaneous Approach, Diagnostic (ICD-10-PCS; 2020-03-18)
PROC: 02HV33Z Insertion of Infusion Device into Superior Vena Cava, Percutaneous Approach (ICD-10-PCS; principal; 2020-03-22)
PROC: B518ZZA Fluoroscopy of Superior Vena Cava, Guidance (ICD-10-PCS; 2020-03-22)
PROC: B548ZZA Ultrasonography of Superior Vena Cava, Guidance (ICD-10-PCS; 2020-03-22)
DX: T81.42XA Infection following a procedure, deep incisional surgical site, initial encounter (principal); T81.32XA Disruption of internal operation (surgical) wound, not elsewhere classified, initial encounter; K86.0 Alcohol-induced chronic pancreatitis; J90 Pleural effusion, not elsewhere classified; R50.9 Fever, unspecified; D50.9 Iron deficiency anemia, unspecified; R16.0 Hepatomegaly, not elsewhere classified; F10.20 Alcohol dependence, uncomplicated; F17.210 Nicotine dependence, cigarettes, uncomplicated; Y90.0 Blood alcohol level of less than 20 mg/100 ml; Y83.8 Other surgical procedures as the cause of abnormal reaction of the patient, or of later complication, without mention of misadventure at the time of the procedure; Y92.018 Other place in single-family (private) house as the place of occurrence of the external cause; Z03.818 Encounter for observation for suspected exposure to other biological agents ruled out
CPT/HCPCS: 36415; 36573; 49405; 71045; 71275; 74177; 80048; 80053; 80074; 80307; 81001; 82607; 82728; 82746; 83036; 83540; 83550; 83605; 83690; 84443; 85025; 85027; 85045; 85652; 86140; 87040; 87070; 87075; 87205; 87635; 87804; 93005; 93010; 94640; 94799; 96360; 96361; 99285; J1642; J1644; J2060; J2270; J2543; J3490; J7030; J7050; J7120; J7620